=== PATIENT | male | born 1960 | race African-American/Black ===

== ENCOUNTER 2023-01-19 10:41 | Inpatient (IN) ==
[2023-01-19] MEDS ORDERED: LACTATED RINGER'S 1,000 ML IV ONE ×3 (11:07→12:48)
[2023-01-19] MEDS ORDERED: SODIUM CHLORIDE 0.9% 1,000 ML IV ONE ×2 (11:09→13:18)
[2023-01-19] MEDS ORDERED: PIPERACILLIN/TAZOBACTAM 4.5 GM/100 ML BAG IV ONE (11:09)
[2023-01-19] MEDS ORDERED: VANCOMYCIN HCL 1,250 MG in SODIUM CHLORIDE 0.9% 500 ML IV ONE (11:22)
[2023-01-19] MEDS ORDERED: VANCOMYCIN CONSULT ACTIVE PRN ×2 (11:22→14:55)
--- NOTE | 2023-01-19 11:22 | Emergency Department Note ---
Impression & Plan Sepsis, Hypothermia, Acute alteration in mental status, Pneumonia, Urinary tract infection, Acidosis, lactic ED Provider Note NAME: KERLINE [id number] BLANCO AGE: 62 SEX: M : 1960 ARRIVES VIA: Ambulance INFORMANT: Patient, EMS, the nursing home guards the patient's present documentation ED PROVIDER(S): Ji Loera DO CHIEF COMPLAINT: Altered mental status HPI: The patient is a 62-year-old male. He is unable to provide much history. History was obtained from the EMS personnel as well as the patient's staff at the nursing home. We did call the staff and apparently the patient has been having changes in his mental status over the course last few days. He has not been eating or drinking. He appeared to be obtunded in his cell. The patient's cell was breached today. The patient had what was describes as a seizure. It is unclear exactly what happened but the patient was having shaking all over. There is no reported vomiting or aspiration. There is been no reported trauma. The patient was not compliant with his medications recently. There is been no reported infections. ROS: See above HPI for pertinent positives & negatives. A total of 10 systems reviewed and were otherwise negative. PAST MEDICAL HISTORY: See Below PAST SURGICAL HISTORY: See Below FAMILY HISTORY: See Below SOCIAL HISTORY: See Below HOME MEDICATIONS: See Below ALLERGIES: See Below VITALS: See Below PHYSICAL EXAMINATION: GENERAL: The patient does not respond to verbal commands. He does localize pain. EYES: The conjunctivae are clear. The pupils are constricted bilaterally. EARS, NOSE, MOUTH AND THROAT: The nose is without any evidence of any deformity. NECK: The neck is nontender and supple. RESPIRATORY: Shallow respirations were noted. Diminished breath sounds are noted throughout especially in the right lung field. CARDIOVASCULAR: Bradycardic and regular heart sounds were noted to auscultation. There is no definite murmur GASTROINTESTINAL: The abdomen is soft. Abdomen is nontender. MUSCULOSKELETAL/EXTREMITIES: There is no evidence of gross deformity full range of motion is noted in the hips and shoulders. SKIN: Skin was cool and dry. There is no significant pedal edema. NEUROLOGIC: The patient does not respond to verbal commands. Patellar tendon reflexes were absent bilaterally. MEDICAL DECISION MAKING: The patient is a 62-year-old male who presented to the emergency department from the nursing home for an evaluation of possible seizure activity and altered mental status. The patient appeared to be more septic on my physical exam. There is no definite seizure activity witnessed by myself or other medical staff. The patient was treated with IV fluids as well as IV antibiotics in the emergency department. He was reevaluated multiple times. He does appear to have signs of pneumonia on chest x-ray. This could represent aspiration given the patient's altered mental status. He was also found have signs of urinary tract infection on urinalysis. The patient continued to be altered. He was hypothermic. He was treated with warming blankets and warmed IV fluids. He was reevaluated multiple times. He did have a spinal tap done in the emergency department. This does not appear to be consistent with definite meningitis. There was elevation in the CSF white blood cell count however it could also be more related to the fact that was a bloody tap. I discussed the patient's condition with the on-call [facility] hospitalist. They have agreed to evaluate the patient in the emergency department for further management and disposition. Triage Nursing notes reviewed. Prior medical records reviewed Vital Signs: reviewed and remarkable for hypothermia, bradycardia and hypotension. Differential diagnosis: Infection, hypoglycemia, electrolyte abnormalities, overdose, toxicologic, cardiac sources, intracerebral event, neurologic, trauma, as well as other pathologies. ER treatment provided: See below Diagnostics interpreted by me: ECG: EKG was obtained in the emergency department. My interpretation is sinus bradycardia with first-degree AV block. T wave abnormalities were noted. QTc was 531. This was compared to a tracing from August 10, 2022. The T wave inversion was present on the previous tracing however the QTc at that time was 452. Cardiac Monitoring: An order was placed for continuous cardiac monitoring. The monitor shows a rate of 55 bpm with sinus bradycardia. Laboratory studies: As stated above and show below. Imaging studies: See below. Radiographic imaging was reviewed by myself Consultation(s): I discussed this case with Dr. Shaver [facility] COURSE: Procedures: Lumbar Puncture Indication: Altered mental status and sepsis. Verbal consent was obtained after the risks and benefits were explained, including but not limited to headache, bleeding/clotting, scarring, infection, pain, and bone/joint/nerve damage. At this time, the risks of the procedure are less than the risks of NOT performing the procedure. A time out was taken and the correct patient and site identified. The patient was placed in the seated position and the back was prepped with betadine and draped in the standard fashion. The L3 intervertebral space was identified, anesthetized locally with 1% lidocaine without epinephrine, and the spinal needle was inserted through the skin with the bevel parallel to the dural fibers. The needle was carefully advanced into the lumbar cistern and 4 tubes of bloody CSF was obtained. The stylet was replaced and the needle was removed. A bandaid was placed and the patient was placed in the supine position. The patient tolerated the procedure well and there were no complications. Critical Care: I have personally spent greater than 65 minutes of critical care time in the direct management of this patient. This includes bedside care, interpretation of diagnostic studies, and testing, discussion with consultants, patient, and family members, and other required patient management activities. This 65 minutes is in excess of all separately billable procedures. Past Med/Surg History Medical History Dementia HLD (hyperlipidemia) Social History Smoking Status: Unknown if ever smoked Tobacco Type: Cigarettes Preferred Language: Israeli Feels Safe at Home: Yes Allergies Allergies Allergy/AdvReac Type Severity Reaction Status Date / Time No Known Allergies Allergy Verified 01/19/23 13:00 Home Meds Home Medications Medication Instructions Recorded Confirmed citalopram 10 mg tablet (Celexa) 5 mg PO DAILY 08/09/22 01/19/23 docusate sodium 250 mg capsule 250 mg PO DAILY PRN Constipation 08/09/22 01/19/23 donepezil 10 mg tablet 10 mg PO DAILY 08/09/22 01/19/23 olanzapine 10 mg tablet (Zyprexa) 10 mg PO HS 08/09/22 01/19/23 rosuvastatin 20 mg tablet (Crestor) 20 mg PO DAILY 08/09/22 01/19/23 olanzapine 2.5 mg tablet 2.5 mg PO QAM 01/19/23 01/19/23 Results & Data (ED) Vital Signs Vital Signs - 24 hr 01/19/23 10:53 01/19/23 10:53 01/19/23 10:53 Temperature 31.9 C L Temperature Source Rectal Pulse Rate 52 L 49 L Pulse Rhythm Regular Pulse Strength Normal Respiratory Rate 22 23 Respiratory Effort / Characteristics Non-Labored Respiratory Depth Normal Respiratory Pattern Regular Blood Pressure 93/58 L Blood Pressure Mean 69 Pulse Oximetry 100 100 100 Oxygen Delivery Method Room Air Room Air Sepsis Recent Fever Within 48 Hours No Sepsis New/Unexplained Change in Mental Status N/A Sepsis Action Taken by Nursing No Action Required 01/19/23 10:56 01/19/23 11:00 01/19/23 11:30 Temperature Temperature Source Pulse Rate 58 L 48 L 58 L Pulse Rhythm Pulse Strength Respiratory Rate 18 19 Respiratory Effort / Characteristics Respiratory Depth Respiratory Pattern Blood Pressure 93/58 L 91/65 L Blood Pressure Mean 69 73 Pulse Oximetry 100 100 Oxygen Delivery Method Room Air Room Air Sepsis Recent Fever Within 48 Hours Sepsis New/Unexplained Change in Mental Status Sepsis Action Taken by Nursing 01/19/23 11:40 01/19/23 11:59 01/19/23 12:00 Temperature 31.8 C L 32.0 C L 32.0 C L Temperature Source Pulse Rate 62 57 L 57 L Pulse Rhythm Pulse Strength Respiratory Rate 28 H 26 H 23 Respiratory Effort / Characteristics Respiratory Depth Respiratory Pattern Blood Pressure Blood Pressure Mean Pulse Oximetry 100 Oxygen Delivery Method Room Air Sepsis Recent Fever Within 48 Hours Sepsis New/Unexplained Change in Mental Status Sepsis Action Taken by Nursing 01/19/23 12:01 01/19/23 12:10 01/19/23 12:20 Temperature 32.0 C L 32.0 C L 32.0 C L Temperature Source Pulse Rate 55 L 56 L 63 Pulse Rhythm Pulse Strength Respiratory Rate 21 18 23 Respiratory Effort / Characteristics Respiratory Depth Respiratory Pattern Blood Pressure 84/50 L Blood Pressure Mean 61 Pulse Oximetry 93 93 Oxygen Delivery Method Room Air Room Air Sepsis Recent Fever Within 48 Hours Sepsis New/Unexplained Change in Mental Status Sepsis Action Taken by Nursing 01/19/23 12:21 01/19/23 12:30 01/19/23 12:40 Temperature 32.0 C L 31.9 C L 31.9 C L Temperature Source Pulse Rate 55 L 54 L 55 L Pulse Rhythm Pulse Strength Respiratory Rate 12 26 H 23 Respiratory Effort / Characteristics Respiratory Depth Respiratory Pattern Blood Pressure 91/52 L 86/54 L Blood Pressure Mean 65 64 Pulse Oximetry 92 92 90 Oxygen Delivery Method Room Air Room Air Room Air Sepsis Recent Fever Within 48 Hours Sepsis New/Unexplained Change in Mental Status Sepsis Action Taken by Nursing 01/19/23 12:58 01/19/23 13:00 01/19/23 13:10 Temperature 31.9 C L 31.9 C L 32.0 C L Temperature Source Pulse Rate 56 L 55 L 56 L Pulse Rhythm Pulse Strength Respiratory Rate 23 22 21 Respiratory Effort / Characteristics Respiratory Depth Respiratory Pattern Blood Pressure 90/55 L 83/55 L 82/53 L Blood Pressure Mean 66 64 62 Pulse Oximetry 96 96 97 Oxygen Delivery Method Room Air Room Air Room Air Sepsis Recent Fever Within 48 Hours Sepsis New/Unexplained Change in Mental Status Sepsis Action Taken by Nursing 01/19/23 13:15 01/19/23 13:20 01/19/23 13:27 Temperature 32.0 C L 32.0 C L 32.1 C L Temperature Source Pulse Rate 57 L 58 L 62 Pulse Rhythm Pulse Strength Respiratory Rate 24 22 20 Respiratory Effort / Characteristics Respiratory Depth Respiratory Pattern Blood Pressure 77/53 L 93/59 L Blood Pressure Mean 61 70 Pulse Oximetry 97 96 96 Oxygen Delivery Method Room Air Room Air Room Air Sepsis Recent Fever Within 48 Hours Sepsis New/Unexplained Change in Mental Status Sepsis Action Taken by Nursing 01/19/23 13:30 Temperature 32.1 C L Temperature Source Pulse Rate 55 L Pulse Rhythm Pulse Strength Respiratory Rate 18 Respiratory Effort / Characteristics Respiratory Depth Respiratory Pattern Blood Pressure 85/53 L Blood Pressure Mean 63 Pulse Oximetry 94 Oxygen Delivery Method Room Air Sepsis Recent Fever Within 48 Hours Sepsis New/Unexplained Change in Mental Status Sepsis Action Taken by Correction Medications Current Medication List: was personally reviewed by me Laboratory Data Attestation: I reviewed the patient's lab results. 01/19/23 11:05 01/19/23 11:05 Lab Results 01/19/23 01/19/23 01/19/23 Range/Units 11:05 11:05 11:05 WBC 6.65 (4.8-10.8) K/ul RBC 4.74 (4.70-6.10) M/uL Hgb 13.2 L (14.0-18.0) g/dl Hct 38.9 L (42.0-52.0) % MCV 82.1 (80.0-100.0) fL MCH 27.8 (25.0-34.0) pg MCHC 33.9 (32.0-36.0) g/dL RDW Std Deviation 41.2 (36.4-46.3) fL RDW Coeff of Yoli 13.9 (11.5-14.5) % Plt Count 119 L (130-400) K/uL MPV 10.4 (9.4-12.4) fL Immature Gran % (Auto) 0.2 % Neut % (Auto) 91.6 % Lymph % (Auto) 6.8 % Lynn % (Auto) 1.2 % Eos % (Auto) 0.0 % Baso % (Auto) 0.2 % Neut # (Auto) 6.10 (1.40-6.50) K/uL Lymph # (Auto) 0.45 L (1.20-3.40) K/uL Lynn # (Auto) 0.08 L (0.11-0.59) K/uL Eos # (Auto) 0.00 (0.00-0.50) K/uL Baso # (Auto) 0.01 (0.00-0.20) K/uL Immature Gran # (Auto) 0.01 (0.01-0.20) K/uL Absolute Nucleated RBC 0.06 (0.00-0.12) K/uL Nucleated RBC % (auto) 0.9 % Echinocytes 3+ Sodium 140 (136-145) mmol/L Potassium 3.6 (3.5-5.1) mmol/L Chloride 105 (98-107) mmol/L Carbon Dioxide 24 (21-32) mmol/L Anion Gap 11 (3-11) BUN 24 H (6-23) mg/dl Creatinine 0.79 (0.6-1.4) mg/dl Est Cr Clr Drug Dosing Not Reportable Est GFR ( Amer) 110.8 ml/min Est GFR (Non-Af Amer) 95.6 ml/min BUN/Creatinine Ratio 30.4 H (10-20) Glucose 128 H (70-99(Fasting)) mg/dl Osmolality (280-300) mOsm/kg Lactate 7.2 H* (0.4-2.0) mmol/L Calcium 9.2 (8.6-10.3) mg/dl Magnesium 1.8 (1.7-2.4) mg/dl Total Bilirubin 0.5 (0.2-1.0) mg/dl Direct Bilirubin 0.1 (0-0.2) mg/dl AST 81 H (13-39) U/L ALT 82 H (7-52) U/L Alkaline Phosphatase 72 (34-104) U/L Total Protein 6.1 (6.0-8.3) gm/dl Albumin 3.3 L (3.4-5.0) gm/dl Procalcitonin (0-0.5) ng/ml TSH 2.565 (0.300-4.500) uIu/ml Random Cortisol mcg/dl Urine Color Urine Appearance (Clear) Urine pH (4.5-7.5) Ur Specific [place] (1.000-1.030) Urine Protein (Negative) Urine Glucose (UA) (Negative) Urine Ketones (Negative) Urine Blood (Negative) Urine Nitrite (Negative) Urine Bilirubin (Negative) Urine Urobilinogen (Negative) Ur Leukocyte Esterase (Negative) Urine WBC (Auto) (0-5) /hpf Urine RBC (Auto) (0-4) /hpf U Hyaline Cast (Auto) (0-5) /lpf U Epithel Cells (Auto) (0-5) /lpf Urine Bacteria (Auto) (Negative) Urine Crystals Urine Yeast Urine Osmolality (500-800) mOsm/kg Fluid Comment CSF Appearance CSF Color Xanthrochromic CSF WBC (Auto) (0-5) /uL CSF RBC (Auto) (0-) /uL CSF Cell Count Tube # CSF Mononuclear % Auto % CSF Polynuclear WBCs % CSF Chemistry Tube # CSF Glucose (40-70) mg/dl CSF Total Protein (15-45) mg/dl CSF C.neoform/gat PCR (NotDetected) CSF CMV DNA (PCR) (NotDetected) CSF Enterovirus (PCR) (NotDetected) CSF E. coli K1 (PCR) (NotDetected) CSF H. influenzae (PCR) (NotDetected) CSF HSV I (PCR) (NotDetected) CSF HSV II (PCR) (NotDetected) CSF HHV 6 (PCR) (NotDetected) CSF L.monocytogenes PCR (NotDetected) CSF N. meningitidis PCR (NotDetected) CSF Parechovirus (PCR) (NotDetected) CSF S. agalactiae (PCR) (NotDetected) CSF S. pneumoniae (PCR) (NotDetected) CSF VZV DNA (PCR) (NotDetected) Nasal Screen MRSA (PCR) (Negative) Urine Opiates Screen (Neg) Ur Methadone, Qual (Neg) Urine Barbiturates (Neg) Ur Phencyclidine (PCP) (Neg) U Amphetamin/Meth Scrn (Neg) MDMA (Ecstasy) Screen (Neg) U Benzodiazepines Scrn (Neg) Ur Cocaine Metabolite (Neg) U Marijuana (THC) Screen (Neg) Ethyl Alcohol mg/dL (<10.0) mg/dl Adenovirus (PCR) (NotDetected) B. pertussis DNA (PCR) (NotDetected) B.parapertussis DNA PCR (NotDetected) C. pneumoniae DNA (PCR) (NotDetected) Coronavirus OC43 (PCR) (NotDetected) Coronavirus HKU1 (PCR) (NotDetected) Coronavirus 229E (PCR) (NotDetected) SARS-CoV-2 (PCR) (NotDetected) Coronavirus NL63 (PCR) (NotDetected) Human Metapneumovir PCR (NotDetected) Influenza Type A (PCR) (NotDetected) Influenza Type B (PCR) (NotDetected) M. pneumoniae (PCR) (NotDetected) Parainfluenza 1 (PCR) (NotDetected) Parainfluenza 2 (PCR) (NotDetected) Parainfluenza 3 (PCR) (NotDetected) Parainfluenza 4 (PCR) (NotDetected) RSV (PCR) (NotDetected) Entero/Rhino (PCR) (NotDetected) 01/19/23 01/19/23 01/19/23 Range/Units 11:05 11:05 11:05 WBC (4.8-10.8) K/ul RBC (4.70-6.10) M/uL Hgb (14.0-18.0) g/dl Hct (42.0-52.0) % MCV (80.0-100.0) fL MCH (25.0-34.0) pg MCHC (32.0-36.0) g/dL RDW Std Deviation (36.4-46.3) fL RDW Coeff of Yoli (11.5-14.5) % Plt Count (130-400) K/uL MPV (9.4-12.4) fL Immature Gran % (Auto) % Neut % (Auto) % Lymph % (Auto) % Lynn % (Auto) % Eos % (Auto) % Baso % (Auto) % Neut # (Auto) (1.40-6.50) K/uL Lymph # (Auto) (1.20-3.40) K/uL Lynn # (Auto) (0.11-0.59) K/uL Eos # (Auto) (0.00-0.50) K/uL Baso # (Auto) (0.00-0.20) K/uL Immature Gran # (Auto) (0.01-0.20) K/uL Absolute Nucleated RBC (0.00-0.12) K/uL Nucleated RBC % (auto) % Echinocytes Sodium (136-145) mmol/L Potassium (3.5-5.1) mmol/L Chloride (98-107) mmol/L Carbon Dioxide (21-32) mmol/L Anion Gap (3-11) BUN (6-23) mg/dl Creatinine (0.6-1.4) mg/dl Est Cr Clr Drug Dosing Est GFR ( Amer) ml/min Est GFR (Non-Af Amer) ml/min BUN/Creatinine Ratio (10-20) Glucose (70-99(Fasting)) mg/dl Osmolality 301 H (280-300) mOsm/kg Lactate (0.4-2.0) mmol/L Calcium (8.6-10.3) mg/dl Magnesium (1.7-2.4) mg/dl Total Bilirubin (0.2-1.0) mg/dl Direct Bilirubin (0-0.2) mg/dl AST (13-39) U/L ALT (7-52) U/L Alkaline Phosphatase (34-104) U/L Total Protein (6.0-8.3) gm/dl Albumin (3.4-5.0) gm/dl Procalcitonin 0.42 (0-0.5) ng/ml TSH Cancelled (0.300-4.500) uIu/ml Random Cortisol mcg/dl Urine Color Urine Appearance (Clear) Urine pH (4.5-7.5) Ur Specific [place] (1.000-1.030) Urine Protein (Negative) Urine Glucose (UA) (Negative) Urine Ketones (Negative) Urine Blood (Negative) Urine Nitrite (Negative) Urine Bilirubin (Negative) Urine Urobilinogen (Negative) Ur Leukocyte Esterase (Negative) Urine WBC (Auto) (0-5) /hpf Urine RBC (Auto) (0-4) /hpf U Hyaline Cast (Auto) (0-5) /lpf U Epithel Cells (Auto) (0-5) /lpf Urine Bacteria (Auto) (Negative) Urine Crystals Urine Yeast Urine Osmolality (500-800) mOsm/kg Fluid Comment CSF Appearance CSF Color Xanthrochromic CSF WBC (Auto) (0-5) /uL CSF RBC (Auto) (0-) /uL CSF Cell Count Tube # CSF Mononuclear % Auto % CSF Polynuclear WBCs % CSF Chemistry Tube # CSF Glucose (40-70) mg/dl CSF Total Protein (15-45) mg/dl CSF C.neoform/gat PCR (NotDetected) CSF CMV DNA (PCR) (NotDetected) CSF Enterovirus (PCR) (NotDetected) CSF E. coli K1 (PCR) (NotDetected) CSF H. influenzae (PCR) (NotDetected) CSF HSV I (PCR) (NotDetected) CSF HSV II (PCR) (NotDetected) CSF HHV 6 (PCR) (NotDetected) CSF L.monocytogenes PCR (NotDetected) CSF N. meningitidis PCR (NotDetected) CSF Parechovirus (PCR) (NotDetected) CSF S. agalactiae (PCR) (NotDetected) CSF S. pneumoniae (PCR) (NotDetected) CSF VZV DNA (PCR) (NotDetected) Nasal Screen MRSA (PCR) (Negative) Urine Opiates Screen (Neg) Ur Methadone, Qual (Neg) Urine Barbiturates (Neg) Ur Phencyclidine (PCP) (Neg) U Amphetamin/Meth Scrn (Neg) MDMA (Ecstasy) Screen (Neg) U Benzodiazepines Scrn (Neg) Ur Cocaine Metabolite (Neg) U Marijuana (THC) Screen (Neg) Ethyl Alcohol mg/dL (<10.0) mg/dl Adenovirus (PCR) (NotDetected) B. pertussis DNA (PCR) (NotDetected) B.parapertussis DNA PCR (NotDetected) C. pneumoniae DNA (PCR) (NotDetected) Coronavirus OC43 (PCR) (NotDetected) Coronavirus HKU1 (PCR) (NotDetected) Coronavirus 229E (PCR) (NotDetected) SARS-CoV-2 (PCR) (NotDetected) Coronavirus NL63 (PCR) (NotDetected) Human Metapneumovir PCR (NotDetected) Influenza Type A (PCR) (NotDetected) Influenza Type B (PCR) (NotDetected) M. pneumoniae (PCR) (NotDetected) Parainfluenza 1 (PCR) (NotDetected) Parainfluenza 2 (PCR) (NotDetected) Parainfluenza 3 (PCR) (NotDetected) Parainfluenza 4 (PCR) (NotDetected) RSV (PCR) (NotDetected) Entero/Rhino (PCR) (NotDetected) 01/19/23 01/19/23 01/19/23 Range/Units 11:05 11:27 11:27 WBC (4.8-10.8) K/ul RBC (4.70-6.10) M/uL Hgb (14.0-18.0) g/dl Hct (42.0-52.0) % MCV (80.0-100.0) fL MCH (25.0-34.0) pg MCHC (32.0-36.0) g/dL RDW Std Deviation (36.4-46.3) fL RDW Coeff of Yoli (11.5-14.5) % Plt Count (130-400) K/uL MPV (9.4-12.4) fL Immature Gran % (Auto) % Neut % (Auto) % Lymph % (Auto) % Lynn % (Auto) % Eos % (Auto) % Baso % (Auto) % Neut # (Auto) (1.40-6.50) K/uL Lymph # (Auto) (1.20-3.40) K/uL Lynn # (Auto) (0.11-0.59) K/uL Eos # (Auto) (0.00-0.50) K/uL Baso # (Auto) (0.00-0.20) K/uL Immature Gran # (Auto) (0.01-0.20) K/uL Absolute Nucleated RBC (0.00-0.12) K/uL Nucleated RBC % (auto) % Echinocytes Sodium (136-145) mmol/L Potassium (3.5-5.1) mmol/L Chloride (98-107) mmol/L Carbon Dioxide (21-32) mmol/L Anion Gap (3-11) BUN (6-23) mg/dl Creatinine (0.6-1.4) mg/dl Est Cr Clr Drug Dosing Est GFR ( Amer) ml/min Est GFR (Non-Af Amer) ml/min BUN/Creatinine Ratio (10-20) Glucose (70-99(Fasting)) mg/dl Osmolality (280-300) mOsm/kg Lactate (0.4-2.0) mmol/L Calcium (8.6-10.3) mg/dl Magnesium (1.7-2.4) mg/dl Total Bilirubin (0.2-1.0) mg/dl Direct Bilirubin (0-0.2) mg/dl AST (13-39) U/L ALT (7-52) U/L Alkaline Phosphatase (34-104) U/L Total Protein (6.0-8.3) gm/dl Albumin (3.4-5.0) gm/dl Procalcitonin (0-0.5) ng/ml TSH (0.300-4.500) uIu/ml Random Cortisol 39.68 mcg/dl Urine Color Yellow Urine Appearance Cloudy A (Clear) Urine pH 5.5 (4.5-7.5) Ur Specific [place] 1.029 (1.000-1.030) Urine Protein 1+ H (Negative) Urine Glucose (UA) Negative (Negative) Urine Ketones Trace H (Negative) Urine Blood 2+ H (Negative) Urine Nitrite Positive A (Negative) Urine Bilirubin Negative (Negative) Urine Urobilinogen Negative (Negative) Ur Leukocyte Esterase 2+ H (Negative) Urine WBC (Auto) >30 H (0-5) /hpf Urine RBC (Auto) 10-30 H (0-4) /hpf U Hyaline Cast (Auto) 10-30 H (0-5) /lpf U Epithel Cells (Auto) 0-5 (0-5) /lpf Urine Bacteria (Auto) 4+ H (Negative) Urine Crystals Not Reportable Urine Yeast Not Reportable Urine Osmolality 872 H (500-800) mOsm/kg Fluid Comment CSF Appearance CSF Color Xanthrochromic CSF WBC (Auto) (0-5) /uL CSF RBC (Auto) (0-) /uL CSF Cell Count Tube # CSF Mononuclear % Auto % CSF Polynuclear WBCs % CSF Chemistry Tube # CSF Glucose (40-70) mg/dl CSF Total Protein (15-45) mg/dl CSF C.neoform/gat PCR (NotDetected) CSF CMV DNA (PCR) (NotDetected) CSF Enterovirus (PCR) (NotDetected) CSF E. coli K1 (PCR) (NotDetected) CSF H. influenzae (PCR) (NotDetected) CSF HSV I (PCR) (NotDetected) CSF HSV II (PCR) (NotDetected) CSF HHV 6 (PCR) (NotDetected) CSF L.monocytogenes PCR (NotDetected) CSF N. meningitidis PCR (NotDetected) CSF Parechovirus (PCR) (NotDetected) CSF S. agalactiae (PCR) (NotDetected) CSF S. pneumoniae (PCR) (NotDetected) CSF VZV DNA (PCR) (NotDetected) Nasal Screen MRSA (PCR) (Negative) Urine Opiates Screen (Neg) Ur Methadone, Qual (Neg) Urine Barbiturates (Neg) Ur Phencyclidine (PCP) (Neg) U Amphetamin/Meth Scrn (Neg) MDMA (Ecstasy) Screen (Neg) U Benzodiazepines Scrn (Neg) Ur Cocaine Metabolite (Neg) U Marijuana (THC) Screen (Neg) Ethyl Alcohol mg/dL (<10.0) mg/dl Adenovirus (PCR) (NotDetected) B. pertussis DNA (PCR) (NotDetected) B.parapertussis DNA PCR (NotDetected) C. pneumoniae DNA (PCR) (NotDetected) Coronavirus OC43 (PCR) (NotDetected) Coronavirus HKU1 (PCR) (NotDetected) Coronavirus 229E (PCR) (NotDetected) SARS-CoV-2 (PCR) (NotDetected) Coronavirus NL63 (PCR) (NotDetected) Human Metapneumovir PCR (NotDetected) Influenza Type A (PCR) (NotDetected) Influenza Type B (PCR) (NotDetected) M. pneumoniae (PCR) (NotDetected) Parainfluenza 1 (PCR) (NotDetected) Parainfluenza 2 (PCR) (NotDetected) Parainfluenza 3 (PCR) (NotDetected) Parainfluenza 4 (PCR) (NotDetected) RSV (PCR) (NotDetected) Entero/Rhino (PCR) (NotDetected) 01/19/23 01/19/23 01/19/23 Range/Units 11:27 11:57 12:15 WBC (4.8-10.8) K/ul RBC (4.70-6.10) M/uL Hgb (14.0-18.0) g/dl Hct (42.0-52.0) % MCV (80.0-100.0) fL MCH (25.0-34.0) pg MCHC (32.0-36.0) g/dL RDW Std Deviation (36.4-46.3) fL RDW Coeff of Yoli (11.5-14.5) % Plt Count (130-400) K/uL MPV (9.4-12.4) fL Immature Gran % (Auto) % Neut % (Auto) % Lymph % (Auto) % Lynn % (Auto) % Eos % (Auto) % Baso % (Auto) % Neut # (Auto) (1.40-6.50) K/uL Lymph # (Auto) (1.20-3.40) K/uL Lynn # (Auto) (0.11-0.59) K/uL Eos # (Auto) (0.00-0.50) K/uL Baso # (Auto) (0.00-0.20) K/uL Immature Gran # (Auto) (0.01-0.20) K/uL Absolute Nucleated RBC (0.00-0.12) K/uL Nucleated RBC % (auto) % Echinocytes Sodium (136-145) mmol/L Potassium (3.5-5.1) mmol/L Chloride (98-107) mmol/L Carbon Dioxide (21-32) mmol/L Anion Gap (3-11) BUN (6-23) mg/dl Creatinine (0.6-1.4) mg/dl Est Cr Clr Drug Dosing Est GFR ( Amer) ml/min Est GFR (Non-Af Amer) ml/min BUN/Creatinine Ratio (10-20) Glucose (70-99(Fasting)) mg/dl Osmolality (280-300) mOsm/kg Lactate (0.4-2.0) mmol/L Calcium (8.6-10.3) mg/dl Magnesium (1.7-2.4) mg/dl Total Bilirubin (0.2-1.0) mg/dl Direct Bilirubin (0-0.2) mg/dl AST (13-39) U/L ALT (7-52) U/L Alkaline Phosphatase (34-104) U/L Total Protein (6.0-8.3) gm/dl Albumin (3.4-5.0) gm/dl Procalcitonin (0-0.5) ng/ml TSH (0.300-4.500) uIu/ml Random Cortisol mcg/dl Urine Color Urine Appearance (Clear) Urine pH (4.5-7.5) Ur Specific [place] (1.000-1.030) Urine Protein (Negative) Urine Glucose (UA) (Negative) Urine Ketones (Negative) Urine Blood (Negative) Urine Nitrite (Negative) Urine Bilirubin (Negative) Urine Urobilinogen (Negative) Ur Leukocyte Esterase (Negative) Urine WBC (Auto) (0-5) /hpf Urine RBC (Auto) (0-4) /hpf U Hyaline Cast (Auto) (0-5) /lpf U Epithel Cells (Auto) (0-5) /lpf Urine Bacteria (Auto) (Negative) Urine Crystals Urine Yeast Urine Osmolality (500-800) mOsm/kg Fluid Comment CSF Appearance CSF Color Xanthrochromic CSF WBC (Auto) (0-5) /uL CSF RBC (Auto) (0-) /uL CSF Cell Count Tube # CSF Mononuclear % Auto % CSF Polynuclear WBCs % CSF Chemistry Tube # CSF Glucose (40-70) mg/dl CSF Total Protein (15-45) mg/dl CSF C.neoform/gat PCR Not Detected (NotDetected) CSF CMV DNA (PCR) Not Detected (NotDetected) CSF Enterovirus (PCR) Not Detected (NotDetected) CSF E. coli K1 (PCR) Not Detected (NotDetected) CSF H. influenzae (PCR) Not Detected (NotDetected) CSF HSV I (PCR) Not Detected (NotDetected) CSF HSV II (PCR) Not Detected (NotDetected) CSF HHV 6 (PCR) Not Detected (NotDetected) CSF L.monocytogenes PCR Not Detected (NotDetected) CSF N. meningitidis PCR Not Detected (NotDetected) CSF Parechovirus (PCR) Not Detected (NotDetected) CSF S. agalactiae (PCR) Not Detected (NotDetected) CSF S. pneumoniae (PCR) Not Detected (NotDetected) CSF VZV DNA (PCR) Not Detected (NotDetected) Nasal Screen MRSA (PCR) (Negative) Urine Opiates Screen Neg (Neg) Ur Methadone, Qual Neg (Neg) Urine Barbiturates Neg (Neg) Ur Phencyclidine (PCP) Neg (Neg) U Amphetamin/Meth Scrn Neg (Neg) MDMA (Ecstasy) Screen Neg (Neg) U Benzodiazepines Scrn Neg (Neg) Ur Cocaine Metabolite Neg (Neg) U Marijuana (THC) Screen Neg (Neg) Ethyl Alcohol mg/dL (<10.0) mg/dl Adenovirus (PCR) Not Detected (NotDetected) B. pertussis DNA (PCR) Not Detected (NotDetected) B.parapertussis DNA PCR Not Detected (NotDetected) C. pneumoniae DNA (PCR) Not Detected (NotDetected) Coronavirus OC43 (PCR) Not Detected (NotDetected) Coronavirus HKU1 (PCR) Not Detected (NotDetected) Coronavirus 229E (PCR) Not Detected (NotDetected) SARS-CoV-2 (PCR) Not Detected (NotDetected) Coronavirus NL63 (PCR) Not Detected (NotDetected) Human Metapneumovir PCR Not Detected (NotDetected) Influenza Type A (PCR) Not Detected (NotDetected) Influenza Type B (PCR) Not Detected (NotDetected) M. pneumoniae (PCR) Not Detected (NotDetected) Parainfluenza 1 (PCR) Not Detected (NotDetected) Parainfluenza 2 (PCR) Not Detected (NotDetected) Parainfluenza 3 (PCR) Not Detected (NotDetected) Parainfluenza 4 (PCR) Not Detected (NotDetected) RSV (PCR) Not Detected (NotDetected) Entero/Rhino (PCR) Not Detected (NotDetected) 01/19/23 01/19/23 01/19/23 Range/Units 12:15 12:15 12:42 WBC (4.8-10.8) K/ul RBC (4.70-6.10) M/uL Hgb (14.0-18.0) g/dl Hct (42.0-52.0) % MCV (80.0-100.0) fL MCH (25.0-34.0) pg MCHC (32.0-36.0) g/dL RDW Std Deviation (36.4-46.3) fL RDW Coeff of Yoli (11.5-14.5) % Plt Count (130-400) K/uL MPV (9.4-12.4) fL Immature Gran % (Auto) % Neut % (Auto) % Lymph % (Auto) % Lynn % (Auto) % Eos % (Auto) % Baso % (Auto) % Neut # (Auto) (1.40-6.50) K/uL Lymph # (Auto) (1.20-3.40) K/uL Lynn # (Auto) (0.11-0.59) K/uL Eos # (Auto) (0.00-0.50) K/uL Baso # (Auto) (0.00-0.20) K/uL Immature Gran # (Auto) (0.01-0.20) K/uL Absolute Nucleated RBC (0.00-0.12) K/uL Nucleated RBC % (auto) % Echinocytes Sodium (136-145) mmol/L Potassium (3.5-5.1) mmol/L Chloride (98-107) mmol/L Carbon Dioxide (21-32) mmol/L Anion Gap (3-11) BUN (6-23) mg/dl Creatinine (0.6-1.4) mg/dl Est Cr Clr Drug Dosing Est GFR ( Amer) ml/min Est GFR (Non-Af Amer) ml/min BUN/Creatinine Ratio (10-20) Glucose (70-99(Fasting)) mg/dl Osmolality (280-300) mOsm/kg Lactate (0.4-2.0) mmol/L Calcium (8.6-10.3) mg/dl Magnesium (1.7-2.4) mg/dl Total Bilirubin (0.2-1.0) mg/dl Direct Bilirubin (0-0.2) mg/dl AST (13-39) U/L ALT (7-52) U/L Alkaline Phosphatase (34-104) U/L Total Protein (6.0-8.3) gm/dl Albumin (3.4-5.0) gm/dl Procalcitonin (0-0.5) ng/ml TSH (0.300-4.500) uIu/ml Random Cortisol mcg/dl Urine Color Urine Appearance (Clear) Urine pH (4.5-7.5) Ur Specific [place] (1.000-1.030) Urine Protein (Negative) Urine Glucose (UA) (Negative) Urine Ketones (Negative) Urine Blood (Negative) Urine Nitrite (Negative) Urine Bilirubin (Negative) Urine Urobilinogen (Negative) Ur Leukocyte Esterase (Negative) Urine WBC (Auto) (0-5) /hpf Urine RBC (Auto) (0-4) /hpf U Hyaline Cast (Auto) (0-5) /lpf U Epithel Cells (Auto) (0-5) /lpf Urine Bacteria (Auto) (Negative) Urine Crystals Urine Yeast Urine Osmolality (500-800) mOsm/kg Fluid Comment CSF Appearance Bloody CSF Color [place] Xanthrochromic No xanthochromia CSF WBC (Auto) 19 H* (0-5) /uL CSF RBC (Auto) 47079 (0-) /uL CSF Cell Count Tube # 3 CSF Mononuclear % Auto 26.3 % CSF Polynuclear WBCs 73.7 % CSF Chemistry Tube # 1 CSF Glucose 74 H (40-70) mg/dl CSF Total Protein 119.9 H (15-45) mg/dl CSF C.neoform/gat PCR (NotDetected) CSF CMV DNA (PCR) (NotDetected) CSF Enterovirus (PCR) (NotDetected) CSF E. coli K1 (PCR) (NotDetected) CSF H. influenzae (PCR) (NotDetected) CSF HSV I (PCR) (NotDetected) CSF HSV II (PCR) (NotDetected) CSF HHV 6 (PCR) (NotDetected) CSF L.monocytogenes PCR (NotDetected) CSF N. meningitidis PCR (NotDetected) CSF Parechovirus (PCR) (NotDetected) CSF S. agalactiae (PCR) (NotDetected) CSF S. pneumoniae (PCR) (NotDetected) CSF VZV DNA (PCR) (NotDetected) Nasal Screen MRSA (PCR) (Negative) Urine Opiates Screen (Neg) Ur Methadone, Qual (Neg) Urine Barbiturates (Neg) Ur Phencyclidine (PCP) (Neg) U Amphetamin/Meth Scrn (Neg) MDMA (Ecstasy) Screen (Neg) U Benzodiazepines Scrn (Neg) Ur Cocaine Metabolite (Neg) U Marijuana (THC) Screen (Neg) Ethyl Alcohol mg/dL < 10.0 (<10.0) mg/dl Adenovirus (PCR) (NotDetected) B. pertussis DNA (PCR) (NotDetected) B.parapertussis DNA PCR (NotDetected) C. pneumoniae DNA (PCR) (NotDetected) Coronavirus OC43 (PCR) (NotDetected) Coronavirus HKU1 (PCR) (NotDetected) Coronavirus 229E (PCR) (NotDetected) SARS-CoV-2 (PCR) (NotDetected) Coronavirus NL63 (PCR) (NotDetected) Human Metapneumovir PCR (NotDetected) Influenza Type A (PCR) (NotDetected) Influenza Type B (PCR) (NotDetected) M. pneumoniae (PCR) (NotDetected) Parainfluenza 1 (PCR) (NotDetected) Parainfluenza 2 (PCR) (NotDetected) Parainfluenza 3 (PCR) (NotDetected) Parainfluenza 4 (PCR) (NotDetected) RSV (PCR) (NotDetected) Entero/Rhino (PCR) (NotDetected) 01/19/23 01/19/23 Range/Units 12:59 13:02 WBC (4.8-10.8) K/ul RBC (4.70-6.10) M/uL Hgb (14.0-18.0) g/dl Hct (42.0-52.0) % MCV (80.0-100.0) fL MCH (25.0-34.0) pg MCHC (32.0-36.0) g/dL RDW Std Deviation (36.4-46.3) fL RDW Coeff of Yoli (11.5-14.5) % Plt Count (130-400) K/uL MPV (9.4-12.4) fL Immature Gran % (Auto) % Neut % (Auto) % Lymph % (Auto) % Lynn % (Auto) % Eos % (Auto) % Baso % (Auto) % Neut # (Auto) (1.40-6.50) K/uL Lymph # (Auto) (1.20-3.40) K/uL Lynn # (Auto) (0.11-0.59) K/uL Eos # (Auto) (0.00-0.50) K/uL Baso # (Auto) (0.00-0.20) K/uL Immature Gran # (Auto) (0.01-0.20) K/uL Absolute Nucleated RBC (0.00-0.12) K/uL Nucleated RBC % (auto) % Echinocytes Sodium (136-145) mmol/L Potassium (3.5-5.1) mmol/L Chloride (98-107) mmol/L Carbon Dioxide (21-32) mmol/L Anion Gap (3-11) BUN (6-23) mg/dl Creatinine (0.6-1.4) mg/dl Est Cr Clr Drug Dosing Est GFR ( Amer) ml/min Est GFR (Non-Af Amer) ml/min BUN/Creatinine Ratio (10-20) Glucose (70-99(Fasting)) mg/dl Osmolality (280-300) mOsm/kg Lactate 5.4 H* (0.4-2.0) mmol/L Calcium (8.6-10.3) mg/dl Magnesium (1.7-2.4) mg/dl Total Bilirubin (0.2-1.0) mg/dl Direct Bilirubin (0-0.2) mg/dl AST (13-39) U/L ALT (7-52) U/L Alkaline Phosphatase (34-104) U/L Total Protein (6.0-8.3) gm/dl Albumin (3.4-5.0) gm/dl Procalcitonin (0-0.5) ng/ml TSH (0.300-4.500) uIu/ml Random Cortisol mcg/dl Urine Color Urine Appearance (Clear) Urine pH (4.5-7.5) Ur Specific [place] (1.000-1.030) Urine Protein (Negative) Urine Glucose (UA) (Negative) Urine Ketones (Negative) Urine Blood (Negative) Urine Nitrite (Negative) Urine Bilirubin (Negative) Urine Urobilinogen (Negative) Ur Leukocyte Esterase (Negative) Urine WBC (Auto) (0-5) /hpf Urine RBC (Auto) (0-4) /hpf U Hyaline Cast (Auto) (0-5) /lpf U Epithel Cells (Auto) (0-5) /lpf Urine Bacteria (Auto) (Negative) Urine Crystals Urine Yeast Urine Osmolality (500-800) mOsm/kg Fluid Comment CSF Appearance CSF Color Xanthrochromic CSF WBC (Auto) (0-5) /uL CSF RBC (Auto) (0-) /uL CSF Cell Count Tube # CSF Mononuclear % Auto % CSF Polynuclear WBCs % CSF Chemistry Tube # CSF Glucose (40-70) mg/dl CSF Total Protein (15-45) mg/dl CSF C.neoform/gat PCR (NotDetected) CSF CMV DNA (PCR) (NotDetected) CSF Enterovirus (PCR) (NotDetected) CSF E. coli K1 (PCR) (NotDetected) CSF H. influenzae (PCR) (NotDetected) CSF HSV I (PCR) (NotDetected) CSF HSV II (PCR) (NotDetected) CSF HHV 6 (PCR) (NotDetected) CSF L.monocytogenes PCR (NotDetected) CSF N. meningitidis PCR (NotDetected) CSF Parechovirus (PCR) (NotDetected) CSF S. agalactiae (PCR) (NotDetected) CSF S. pneumoniae (PCR) (NotDetected) CSF VZV DNA (PCR) (NotDetected) Nasal Screen MRSA (PCR) Negative (Negative) Urine Opiates Screen (Neg) Ur Methadone, Qual (Neg) Urine Barbiturates (Neg) Ur Phencyclidine (PCP) (Neg) U Amphetamin/Meth Scrn (Neg) MDMA (Ecstasy) Screen (Neg) U Benzodiazepines Scrn (Neg) Ur Cocaine Metabolite (Neg) U Marijuana (THC) Screen (Neg) Ethyl Alcohol mg/dL (<10.0) mg/dl Adenovirus (PCR) (NotDetected) B. pertussis DNA (PCR) (NotDetected) B.parapertussis DNA PCR (NotDetected) C. pneumoniae DNA (PCR) (NotDetected) Coronavirus OC43 (PCR) (NotDetected) Coronavirus HKU1 (PCR) (NotDetected) Coronavirus 229E (PCR) (NotDetected) SARS-CoV-2 (PCR) (NotDetected) Coronavirus NL63 (PCR) (NotDetected) Human Metapneumovir PCR (NotDetected) Influenza Type A (PCR) (NotDetected) Influenza Type B (PCR) (NotDetected) M. pneumoniae (PCR) (NotDetected) Parainfluenza 1 (PCR) (NotDetected) Parainfluenza 2 (PCR) (NotDetected) Parainfluenza 3 (PCR) (NotDetected) Parainfluenza 4 (PCR) (NotDetected) RSV (PCR) (NotDetected) Entero/Rhino (PCR) (NotDetected) Administered Medications Norepinephrine Bitartrate (Levophed/D5w) 4 mg in 250 mls @ 16.826 mls/hr IV .[id number] [facility]; Protocol Stop: 02/18/23 13:44 Last Titration: 01/19/23 14:06 Dose: 0.07 mcg/kg/min, 16.8 mls/hr Documented By: Admin: 01/19/23 13:47 Dose: 0.05 mcg/kg/min, 12 mls/hr Documented By: YAIMA Co-signed By: TONYA Discontinued Medications Lactated Ringer's (Lr) 1,000 mls @ 999 mls/hr IV .Q1H1M ONE Stop: 01/19/23 12:07 Last Infusion: 01/19/23 13:15 Dose: 0 mls/hr Documented By: [facility] Admin: 01/19/23 12:00 Dose: 999 mls/hr Documented By: [facility] Sodium Chloride (Nss) 1,000 mls @ 999 mls/hr IV .Q1H1M ONE Stop: 01/19/23 12:09 Last Infusion: 01/19/23 12:15 Dose: 0 mls/hr Documented By: [facility] Admin: 01/19/23 11:20 Dose: 999 mls/hr Documented By: [facility] Piperacillin Sod/Tazobactam Sod (Zosyn) 4.5 gm in 100 mls @ 200 mls/hr IV NOW ONE Stop: 01/19/23 11:38 Last Infusion: 01/19/23 12:30 Dose: 0 mls/hr Documented By: [facility] Admin: 01/19/23 11:21 Dose: 200 mls/hr Documented By: [facility] Vancomycin HCl 1,250 mg/ (Sodium Chloride) 525 mls @ 200 mls/hr IV NOW ONE Stop: 01/19/23 13:59 Last Admin: 01/19/23 12:25 Dose: 200 mls/hr Documented By: [facility] Lactated Ringer's (Lr) 1,000 mls @ 999 mls/hr IV .Q1H1M ONE Stop: 01/19/23 12:42 Last Infusion: 01/19/23 13:50 Dose: 0 mls/hr Documented By: [facility] Admin: 01/19/23 12:25 Dose: 999 mls/hr Documented By: [facility] Lactated Ringer's (Lr) 1,000 mls @ 999 mls/hr IV .Q1H1M ONE Stop: 01/19/23 13:48 Last Infusion: 01/19/23 14:09 Dose: 0 mls/hr Documented By: [facility] Admin: 01/19/23 13:04 Dose: 999 mls/hr Documented By: [facility] Sodium Chloride (Nss) 1,000 mls @ 999 mls/hr IV .Q1H1M ONE Stop: 01/19/23 14:18 Last Infusion: 01/19/23 14:19 Dose: 0 mls/hr Documented By: [facility] Admin: 01/19/23 13:21 Dose: 999 mls/hr Documented By: [facility] Imaging Data Attestation: I personally reviewed and interpreted this imaging study as follows: My Impression: 1 view chest x-ray was obtained in the emergency department. My interpretation is right lower lobe infiltrate, final report below. CT of the brain was obtained in the emergency department. My interpretation is no intracranial hemorrhage or mass effect, final report below. Radiologist's Impression: Chest X-Ray 01/19/23 10:50 XR chest 1V portable CLINICAL HISTORY: Sepsis TECHNIQUE: Single frontal radiograph of the chest was obtained. Comparison: Comparison is made to chest radiograph 08/10/2022 FINDINGS: No lines and tubes are seen. The cardiomediastinal silhouette is normal. Right lower lung airspace opacity is seen. Right-sided volume loss is noted. No evidence of pleural effusion or pneumothorax. IMPRESSION: Right lower lung airspace opacities likely represent atelectasis with or without superimposed aspiration/pneumonia. ACT 112: Negative or not required by law. Electronically signed by: Austin Kendall M.D. 01/19/2023 11:26 AM Abdomen/Pelvis CT 01/19/23 11:10 CT abd pelvis wo con CLINICAL HISTORY: AMS TECHNIQUE: Helical axial images of the abdomen and pelvis were obtained. Automated dose lowering techniques and/or adjustment according to patient size were utilized for this exam. This exam was performed without intravenous contrast. COMPARISON: None available at the time of this dictation. FINDINGS: Exam is limited by patient positioning with streak artifact over the upper abdomen. Lower chest: Right lower lung airspace opacity seen. Liver: Unremarkable. No focal lesions are seen. Gallbladder and biliary tree: No calcified gallstones. Normal caliber wall. No intra- or extrahepatic biliary ductal dilation. Pancreas: Unremarkable, no focal lesions. Spleen: Unremarkable. Adrenals: Unremarkable. Kidneys and ureters: Unremarkable. Bladder: Wolfe catheter is seen. Reproductive organs: Unremarkable. Bowel: Diverticulosis is seen without evidence of diverticulitis. Lymph nodes Retroperitoneal: Unremarkable. Pelvic: Unremarkable. Mesenteric: Unremarkable. Peritoneum: Normal. Vessels: Atherosclerotic calcifications are seen. Abdominal wall: Unremarkable. Bones: Degenerative changes in the visualized spine. IMPRESSION: 1. There is a right lower lung airspace opacity compatible with aspiration/pneu monia. 2. Diverticulosis without diverticulitis. 3. Additional findings as above. ACT 112: Negative or not required by law. Electronically signed by: Austin Kendall M.D. 01/19/2023 12:[address] 01/19/23 11:10 CT OF THE HEAD WITHOUT CONTRAST CLINICAL HISTORY: Altered mental status. COMPARISON STUDY: Head CT T. August [address] DOSE: 2097.53 mGy.cm TECHNIQUE: Helical axial images of the head were obtained without IV contrast. Automated exposure control was utilized for the study. A dose lowering technique was utilized adhering to the principles of ALARA. FINDINGS: No acute intracranial hemorrhage, midline shift or mass effect is present. White matter hypodensities are similar to prior exam. These favor small vessel disease. The ventricular system is unremarkable. The basal cisterns are patent. No extra-axial collections are present. There are no findings to suggest acute dural sinus thrombosis or acute territorial infarct. No acute calvarial fracture is present. There is mild right maxillary sinus mucosal thickening. Mucous retention cyst within the right frontal sinus is incidentally noted. IMPRESSION: No acute intracranial findings. No change in appearance of the brain. ACT 112: Negative or not required by law. Electronically signed by: Curtis Pereyra M.D. 01/19/2023 12:17 PM Discharge Plan Visit Data Chief Complaint: Seizure ED Provider: Ji Loera Discharge Problem: Sepsis, Hypothermia, Acute alteration in mental status, Pneumonia, Urinary tract infection, Acidosis, lactic Patient Disposition: Being Evaluated by Hospitalist Discharge Instructions Interventions: ED Discharge Assessment Last Done: 01/19/23 14:36
--- NOTE | 2023-01-19 11:27 | XRay Report ---
XR chest 1V portable CLINICAL HISTORY: Sepsis TECHNIQUE: Single frontal radiograph of the chest was obtained. Comparison: Comparison is made to chest radiograph 08/10/2022 FINDINGS: No lines and tubes are seen. The cardiomediastinal silhouette is normal. Right lower lung airspace op acity is seen. Right-sided volume loss is noted. No evidence of pleural effusion or pneumothorax. IMPRESSION: Right lower lung airspace opacities likely represent atelectasis with or without superimposed aspirat ion/pneumonia. ACT 112: Negative or not required by law. Electronically signed by: Austin Kendall M.D. 01/19/2023 11:26 AM
[2023-01-19 11:49] LABS: Alanine Aminotransferase 82 U/L (7-52); Albumin Level 3.3 gm/dl (3.4-5.0); Alkaline Phosphatase 72 U/L (34-104); Anion Gap 11 (3-11); Aspartate Aminotransferase 81 U/L (13-39); BUN Creatinine Ratio 30.4 (10-20); Bilirubin Direct 0.1 mg/dl (0-0.2); Bilirubin,Total 0.5 mg/dl (0.2-1.0); Blood Urea Nitrogen 24 mg/dl (6-23); Calcium 9.2 mg/dl (8.6-10.3); Carbon Dioxide 24 mmol/L (21-32); Chloride 105 mmol/L (98-107); Est GFR (African American) 110.8 ml/min; Est GFR (Non-African American) 95.6 ml/min; Glucose 128 mg/dl (70-99(Fasting)); Magnesium 1.8 mg/dl (1.7-2.4); Potassium 3.6 mmol/L (3.5-5.1); Sodium 140 mmol/L (136-145); Total Protein 6.1 gm/dl (6.0-8.3)
[2023-01-19 11:54] LABS: Appearance Urine Cloudy (Clear); Bacteria Urine Automated 4+ (Negative); Bilirubin Urine Negative (Negative); Blood Urine 2+ (Negative); Color Urine Yellow; Epithelial Cell Urine Auto 0-5 /lpf (0-5); Glucose Urine UA Negative (Negative); Ketones Urine Trace (Negative); Leukocyte Esterase Urine 2+ (Negative); Nitrite Urine Positive (Negative); Protein Urine 1+ (Negative); Specific Gravity Urine 1.029 (1.000-1.030); Urobilinogen Urine Negative (Negative); WBC Urine Automated >30 /hpf (0-5); pH Urine 5.5 (4.5-7.5)
[2023-01-19 12:03] LABS: Thyroid Stimulating Hormone 2.565 uIu/ml (0.300-4.500)
[2023-01-19 12:12] LABS: Hematocrit (blood only) 38.9 % (42.0-52.0); Hemoglobin 13.2 g/dl (14.0-18.0); Mean Corpuscular Hemoglobin 27.8 pg (25.0-34.0); Mean Corpuscular Hgb Conc 33.9 g/dL (32.0-36.0); Mean Corpuscular Volume 82.1 fL (80.0-100.0); Mean Platelet Volume 10.4 fL (9.4-12.4); Nucleated RBC # (auto) 0.06 K/uL (0.00-0.12); Nucleated RBC % (auto) 0.9 %; Platelet Count 119 K/uL (130-400); RDW Coefficient of Variation 13.9 % (11.5-14.5); RDW Standard Deviation 41.2 fL (36.4-46.3); Red Blood Count 4.74 M/uL (4.70-6.10); White Blood Count 6.65 K/ul (4.8-10.8)
[2023-01-19 12:13] LABS: Basophils # (auto) 0.01 K/uL (0.00-0.20); Basophils % (auto) 0.2 %; Echinocytes 3+; Immature Granulocytes # (auto) 0.01 K/uL (0.01-0.20); Immature Granulocytes % (auto) 0.2 %; Lymphocytes # (auto) 0.45 K/uL (1.20-3.40); Lymphocytes % (auto) 6.8 %; Monocytes # (auto) 0.08 K/uL (0.11-0.59); Monocytes % (auto) 1.2 %; Neutrophils % (auto) 91.6 %
--- NOTE | 2023-01-19 12:15 | CT Scan Report ---
CT abd pelvis wo con CLINICAL HISTORY: AMS TECHNIQUE: Helical axial images of the abdomen and pelvis were obtained. Automated dose lowering tech niques and/or adjustment according to patient size were utilized for this exam. This exam was perfor med without intravenous contrast. COMPARISON: None available at the time of this dictation. FINDINGS: Exam is limited by patient positioning with streak artifact over the upper abdomen. Lower chest: Right lower lung airspace opacity seen. Liver: Unremarkable. No focal lesions are seen. Gallbladder and biliary tree: No calcified gallstones. Normal caliber wall. No intra- or extrahepatic biliary ductal dilation. Pancreas: Unremarkable, no focal lesions. Spleen: Unremarkable. Adrenals: Unremarkable. Kidneys and ureters: Unremarkable. Bladder: Wolfe catheter is seen. Reproductive organs: Unremarkable. Bowel: Diverticulosis is seen without evidence of diverticulitis. Lymph nodes Retroperitoneal: Unremarkable. Pelvic: Unremarkable. Mesenteric: Unremarkable. Peritoneum: Normal. Vessels: Atherosclerotic calcifications are seen. Abdominal wall: Unremarkable. Bones: Degenerative changes in the visualized spine. IMPRESSION: 1. There is a right lower lung airspace opacity compatible with aspiration/pneumonia. 2. Diverticulosis without diverticulitis. 3. Additional findings as above. ACT 112: Negative or not required by law. Electronically signed by: Austin Kendall M.D. 01/19/2023 12:13 PM
--- NOTE | 2023-01-19 12:19 | CT Scan Report ---
CT OF THE HEAD WITHOUT CONTRAST CLINICAL HISTORY: Altered mental status. COMPARISON STUDY: Head CT T. August [address] DOSE: 2097.53 mGy.cm TECHNIQUE: Helical axial images of the head were obtained without IV contrast. Automated exposure con trol was utilized for the study. A dose lowering technique was utilized adhering to the principles o f ALARA. FINDINGS: No acute intracranial hemorrhage, midline shift or mass effect is present. White matter hyp odensities are similar to prior exam. These favor small vessel disease. The ventricular system is unr emarkable. The basal cisterns are patent. No extra-axial collections are present. There are no findin gs to suggest acute dural sinus thrombosis or acute territorial infarct. No acute calvarial fracture is present. There is mild right maxillary sinus mucosal thickening. Mucous retention cyst within the right frontal sinus is incidentally noted. IMPRESSION: No acute intracranial findings. No change in appearance of the brain. ACT 112: Negative or not required by law. Electronically signed by: Curtis Pereyra M.D. 01/19/2023 12:17 PM
[2023-01-19 12:44] LABS: Appearance CSF Bloody; CSF Count Tube # 3; CSF Xanthrochromic No xanthochromia; Color CSF Pink; Mononuclear WBC CSF Auto 26.3 %; Polynuclear WBC CSF Auto 73.7 %; Red Blood Cell CSF Auto 11000 /uL (0-); White Blood Cell CSF Auto 19 /uL (0-5)
[2023-01-19 12:46] LABS: Amphetamines+Metham, Urine Neg (Neg); Barbiturates, Urine Neg (Neg); Benzodiazepine, Urine Neg (Neg); Cocaine, Urine Neg (Neg); MDMA (Ecstacy), Urine Neg (Neg); Methadone, Urine Neg (Neg); Opiate, Urine Neg (Neg); Phencyclidine, Urine Neg (Neg)
[2023-01-19 12:53] LABS: Total Protein CSF 119.9 mg/dl (15-45)
--- NOTE | 2023-01-19 13:19 | History & Physical Report ---
Date of Service January 19, 2023 Assessment & Plan (1) Sepsis: Plan: 62yo Male with PMH Dementia Alzheimer's HLD here for concern sepsis. Sepsis concern PNA UTI -Lactate 7.2 recheck 5.4 -WBC procal wnl -CSF noted elevated WBC however bloody tap, less concern meningitis CFS panel negative -CT head: No acute intracranial findings. No change in appearance of the brain. -CT A/P: There is a right lower lung airspace opacity compatible with aspiration/pneumonia. Diverticulosis without diverticulitis. -CXR: Right lower lung airspace opacities likely represent atelectasis with or without superimposed aspiration/pneumonia. -UA concerning for infection -started on vancomycin zosyn -Ucx pending -blood culture pending -CSF culture pending -admit to ICU Concern Seizure -EEG ordered Hypotension -BP 85/53 in setting of sepsis s/p fluid resuscitation -ordered LR 3L NSS 2L -ordered levophed -admit to ICU Bradycardia -HR 58 -EKG sinus bradycardia with 1st degree AV block, prolonged QT interval 572 Hypothermia -temp 32.1 -ordered jody hugger -started vancomycin zosyn Elevated LFT -AST 81 ALT 81, continue to monitor Dementia -baseline largely nonverbal able to stand and eat without assistance -continue Celexa, donepezil, olanzapine HLD -continue crestor FENa: NPO Code Status: Full, no records with [facility], unable to discuss with patient DVT PPX: SCDs Nutrition consulted Dispo: ICU Ananya Alejandra D.O. PGY 3, FCM (2) Hypothermia: (3) Acute alteration in mental status: (4) Pneumonia: (5) Urinary tract infection: (6) Dementia: (7) HLD (hyperlipidemia): (8) Seizure-like activity: (9) Acidosis, lactic: (10) Acute encephalopathy: History of Present Illness Chief Complaint: Sepsis Primary Care Provider: [facility] 62yo Male with PMH Dementia Alzheimer's HLD here for concern sepsis. Patient from [facility], per [facility] patient at baseline largely nonverbal can speak but nonsense words, typically stands and bounces by himself can eat on his own, patient would stay awake for several days then sleep. Over past 2 days patient had decrease in oral intake, was showering today detention noted a seizure patient fell was incontinent on floor, medical staff noted hypotension temp was 97.5F HR 60's. In ED patient mildly responsive to sternal rub unable to open eyes or follow directions, currently in Jody hugger. Noted hypothermia 31.9C BP 93/58 lactate 7.2. After fluid resuscitated 2.8L BP continued to be 85/53 lactate repeat 5.4. Patient started on Levophed, ICU contacted for pressor management. Allergies Allergy/AdvReac Type Severity Reaction Status Date / Time No Known Allergies Allergy Verified 01/19/23 13:00 Home Medications Medication Instructions Recorded Confirmed Type citalopram 10 mg tablet (Celexa) 5 mg PO DAILY 08/09/22 01/19/23 History docusate sodium 250 mg capsule 250 mg PO DAILY PRN Constipation 08/09/22 01/19/23 History donepezil 10 mg tablet 10 mg PO DAILY 08/09/22 01/19/23 History olanzapine 10 mg tablet (Zyprexa) 10 mg PO HS 08/09/22 01/19/23 History rosuvastatin 20 mg tablet (Crestor) 20 mg PO DAILY 08/09/22 01/19/23 History olanzapine 2.5 mg tablet 2.5 mg PO QAM 01/19/23 01/19/23 History Past Med/Surg History Medical History Dementia HLD (hyperlipidemia) Social History Smoking Status: Unknown if ever smoked Tobacco Type: Cigarettes Hx Alcohol Use: No Hx Substance Use: No Preferred Language: Cape Verdean Communication Ability: Impaired Machine Leather Trimmer Required: No Beliefs That Will Affect Care: None Current Living Situation: Other Current Living Situation Comment: [place] Feels Safe at Home: Yes Assistive Devices: None Physical Exam Constitutional: + altered mental status and + disheveled Respiratory: normal respiratory effort Auscultation: + crackles (R>L) Cardiovascular: Rate/Rhythm: regular rate and regular rhythm Extremities: no edema Gastrointestinal (Abdomen): Inspection/Auscultation: abdomen normal to inspection Percussion/Palpation: abdomen soft Skin: no rashes, warm and dry Results & Data Results & Data Vital Signs (Past 12 Hours) Vital Signs Temp Pulse Resp BP Pulse Ox O2 Del Method 01/19/23 13:00 31.9 C L 55 L 22 83/55 L 96 Room Air 01/19/23 12:58 31.9 C L 56 L 23 90/55 L 96 Room Air 01/19/23 12:40 31.9 C L 55 L 23 90 Room Air 01/19/23 12:30 31.9 C L 54 L 26 H 86/54 L 92 Room Air 01/19/23 12:21 32.0 C L 55 L 12 91/52 L 92 Room Air 01/19/23 12:20 32.0 C L 63 23 93 Room Air 01/19/23 12:10 32.0 C L 56 L 18 93 Room Air 01/19/23 12:01 32.0 C L 55 L 21 84/50 L 01/19/23 12:00 32.0 C L 57 L 23 01/19/23 11:59 32.0 C L 57 L 26 H 01/19/23 11:40 31.8 C L 62 28 H 100 Room Air 01/19/23 11:30 58 L 19 91/65 L 100 Room Air 01/19/23 11:00 48 L 18 93/58 L 100 Room Air 01/19/23 10:56 58 L 01/19/23 10:53 49 L 23 100 01/19/23 10:53 100 Room Air 01/19/23 10:53 31.9 C L 52 L 22 93/58 L 100 Room Air Supervising Physician Co-Signing Physician Notes I personally saw and examined the patient. I verified all you points and agree with resident physician Dr Ananya Alejandra, with the following exceptions and/or additions: 62 year old male presents from [facility] in unresponsive state after seizure- like activity in the shower, unclear if this occurred prior to or after collapse. Unable to get any history from patient. Baseline dementia. Somnolent at this time. O/E GCS 6 (E1V1M4), pupils constricted and unable to assess reactivity due to small size, arousable to painful stimuli, dry mucus membranes, No accessory respiratory muscle use, no crackles/wheezing/rhonchi, HS RRR, no murmurs, no pedal edema, Abdo SNT, not distended A/P Sepsis - presumed pneumonia vs. urinary source. Unclear if pneumonia a result of aspiration vs. cause of initial illness. Normal WBC and procalcitonin are unusual with this severity of sepsis but no clear alternative source at this time and severe hypotension requiring vasopressors unlikely to be result of seizure alone. Blood cultures and urine cultures pending. IV Zosyn + vancomycin. Started Levophed due to MAP < 65 after adequate fluid resuscitation 3L IV (additional 4rth liter also ordered). Hypothermia - cortisol/TSH WNL, Suspect environmental as found covered in urine. Jody hugger warming patient. Encephalopathy - underlying dementia ?secondary to sepsis vs. post ictal. Per note from ER visit in July he is orientated to self only. Per guards in the room he walks the yard and talks. Underlying dementia. Will defer to ICU team regarding intubation given low GCS but expect this will improve as he is warmed up. Possible seizure like activity - given his significant hypotension with this occurring in the shower and no known seizure history I would favor a hypotensive collapse from infection rather than true seizure however lack of WBC/procalcitonin therefore possibility of both. Seizures alone do not adequately explain why he continues to be so hypotensive despite adequate fluid resuscitation. Consider MRI brain w/wo IV contrast once more stable. EEG. Consult neurology. Resident Activity Tracking Resident Involvement: Resident Care Provided Care Provided: Adult Hospital Medicine (1) Sepsis Sepsis acute organ dysfunction status: unspecified Sepsis type: sepsis due to unspecified organism Qualified Code(s): A41.9 - Sepsis, unspecified organism (2) Hypothermia Encounter type: initial encounter Qualified Code(s): T68.XXXA - Hypothermia, initial encounter (4) Pneumonia Laterality: right Lung location: lower lobe of lung Pneumonia type: due to unspecified organism Qualified Code(s): J18.9 - Pneumonia, unspecified organism (5) Urinary tract infection Hematuria presence: without hematuria Urinary tract infection type: site unspecified Qualified Code(s): N39.0 - Urinary tract infection, site not specified (6) Dementia Dementia behavioral or psychological symptom: unspecified whether behavioral, psychotic, or mood disturbance or anxiety Dementia severity: unspecified severity Dementia type: unspecified type Qualified Code(s): F03.90 - Unspecified dementia, unspecified severity, without behavioral disturbance, psychotic disturbance, mood disturbance, and anxiety
[2023-01-19] MEDS ORDERED: STAT IV Infusion **Titration per Protocol STA ×3 (13:33→22:37)
[2023-01-19 13:39] LABS: Adenovirus PCR Not Detected (NotDetected); Bordetella parapertussis PCR Not Detected (NotDetected); Bordetella pertussis PCR Not Detected (NotDetected); Chlamydia pneumoniae PCR Not Detected (NotDetected); Coronavirus 229E PCR Not Detected (NotDetected); Coronavirus CoV-2 (COVID19)PCR Not Detected (NotDetected); Coronavirus HKU1 PCR Not Detected (NotDetected); Coronavirus NL63 PCR Not Detected (NotDetected); Coronavirus OC43PCR Not Detected (NotDetected); Human Metapneumovirus PCR Not Detected (NotDetected); Influenza A PCR Not Detected (NotDetected); Influenza B PCR Not Detected (NotDetected); Mycoplasma pneumoniae PCR Not Detected (NotDetected); Parainfluenza Virus 1 PCR Not Detected (NotDetected); Parainfluenza Virus 2 PCR Not Detected (NotDetected); Parainfluenza Virus 3 PCR Not Detected (NotDetected); Parainfluenza Virus 4 PCR Not Detected (NotDetected); Respiratory Syncytial VirusPCR Not Detected (NotDetected); Rhinovirus/Enterovirus PCR Not Detected (NotDetected)
[2023-01-19] MEDS: NOREPINEPHRINE/D5W 4 MG/250 ML PLCT IV SCH ×4 (13:47→21:53)
[2023-01-19 13:56] LABS: Cryptococcus neoformans/ga PCR Not Detected (NotDetected); Cytomegalovirus PCR Not Detected (NotDetected); Enterovirus PCR Not Detected (NotDetected); Escherichia coli K1 PCR Not Detected (NotDetected); Haemophilius influenzae PCR Not Detected (NotDetected); Herpes Simplex Virus 1 PCR Not Detected (NotDetected); Herpes Simplex Virus 2 PCR Not Detected (NotDetected); Human Herpes Virus 6 PCR Not Detected (NotDetected); Human Parechovirus PCR Not Detected (NotDetected); Listeria monocytogenes PCR Not Detected (NotDetected); Neisseria meningitidis PCR Not Detected (NotDetected); Streptococcus agalactiae PCR Not Detected (NotDetected); Streptococcus pneumoniae PCR Not Detected (NotDetected); Varicella Zoster Virus PCR Not Detected (NotDetected)
--- NOTE | 2023-01-19 13:56 | Critical Care Consultation ---
Date of Consultation January 19, 2023 Assessment & Plan (1) Acute alteration in mental status: (2) Sepsis: (3) Hypothermia: (4) Pneumonia: (5) Observed seizure-like activity: (6) Dementia: Plan Reason Critically Ill: 62-year-old male with history of dementia, hyperlipidemia, and recent falls over the last year presents to the ICU for ongoing evaluation and management of altered mental status, observed seizure- like activity, profound hypothermia, and concerns for sepsis in the setting of likely RIGHT lower lobe aspiration pneumonia. NEURO - * [facility] ICU: unable to assess secondary to current mental status. * Altered Mental Status: * Multifactorial in the demented patient with recently observed seizure-like activity and likely profound metabolic encephalopathy in the setting of hypothermia and sepsis from likely pulmonary/urinary sources. * CT head/brain without concerning findings. * LP cultures pending, however, without overt finding suggestive of meningitis. * STAT EEG ordered. * Appreciate neurology consultation. * Witnessed Seizure Activity: * Per discussion with guards at bedside. * EEG as above. * No focal seizure activity noted on exam. Would hold on antiepileptics for now. * May be in the setting of severity of illness, hypothermia, etc. * Dementia: * Uncertain of patient's baseline, however he is noted to be living in the dementia unit at the half-way. * Uncertain how much his baseline cognitive dysfunction may be contributing. CARDIAC/VASCULAR - * Hypotension: * In the setting of sepsis and hypothermia. * Continue with rewarming and support with IV fluids. * Pressors if needed. * EKG: Sinus bradycardia @ 52 bpm. 1' AV block noted. T-wave inversions noted anterior/lateral leads. QTc 531 ms. * Monitor on telemetry. RESPIRATORY - * RIGHT Lower Lobe Pneumonia: * As noted on CXR/Abd CT. * ? in the setting of seizure with possibility of aspiration. * Would agree with anaerobic coverage. * Sputum cultures if able to provide. * Not requiring supplemental O2 at this time. * Currently maintaining airway despite AMS. Low threshold for intubation if his respiratory status becomes compromised. GI/NUTRITION - * NPO while AMS. * Prophylaxis: Famotidine RENAL/LYTES - * Elevated Lactate: * ?? in the setting of sepsis versus seizure. May be more related to seizure given impressive elevation (7.2) in the setting of no other significant laboratory abnormalities. * Trending down at this time (5.4). * No significant electrolyte abnormalities noted. * Continue with aggressive IVF resuscitation. * IVF: Plasmalyte @ 125 mL/hr * Has received 4L crystalloid at this point. - * UTI: * Cultures pending. * Covered with Zosyn currently. * Wolfe in place - Strict I&Os. ENDO - * No reported h/o DM or thyroid Dz. * BSGs per unit protocol. ISS --> gtt per unit policy. HEME - * Stable H&H * No overt s/s bleeding. ID - * Severe Sepsis: * Urinary versus pulmonary sources. * RLL infiltrate noted on CXR/CT - anaerobic coverage warranted for risk of aspiration in the patient with witnessed seizure-like activity. * Urinalysis concerning for UTI - cultures pending. * Continue with Zosyn. * Evaluate need for continuing Vancomycin pending nasal MRSA swab. * LP Gram stain pending as well. Would not treat as meningitis at this time. LINES/IV ACCESS - * PIVs x2 * Wolfe DVT PROPHYLAXIS - * Lovenox * SCDs I have personally spent 40 minutes of critical care time in the direct management of this patient. This is a life/limb threatening event. This includes time spent evaluating patient, direct bedside care, chart review, placing orders, interpretation of diagnostic studies, discussion with consultants, patient, and family members, as well as other required patient management activities. This time is exclusive of all separately billable procedures, and teaching time and separate from and in addition to any other critical care service time. Thank you for allowing us to participate in the care of this patient. Please refer to my attending physician's documentation for any further recommendations. Supervising Physician Co-Signing Physician Notes Patient seen and examined with HILLARY in the emergency room. EMR was reviewed. Imaging studies were independently reviewed. No history is available from the patient due to his obtunded state. Patient apparently resides in a dementia unit in the half-way. Patient presented with seizure. He has persistent altered mental status and is hypothermic. Will obtain stat EEG and neurology consult for potential nonconvulsive status although I am able to get the patient to withdraw to painful stimulus. Correct metabolic abnormalities. He does have evidence of pneumonia on chest x-ray so antibiotics in the form of Zosyn and vancomycin are certainly reasonable pending culture data. Continue passive external rewarming with bear hugger and warmed IV fluids. Warmed oxygen may also be beneficial. Awaiting cortisol. Thyroid functions do not appear abnormal. His elevated lactate may have been secondary to a postictal state but will continue to trend downward. Patient may warrant MRI imaging of the brain if his mental status fails to clear with correction of his metabolic abnormalities. Patient is critically ill at this point time with significant possibility of clinical deterioration. No family available History of Present Illness Reason for Consultation: Sepsis, AMS, Seizure Requesting Physician: Dr. Alejandra Attending Physician: Dr. Shaver History of Present Illness Patient is a 62-year-old incarcerated male with reported past medical history of hyperlipidemia, dementia, and previous episodes of fall/altered mental status within the past year. Patient had reportedly been found unconscious and unarousable in his cell earlier today and was found to be in what was concerning for seizure state. He was brought to the emergency department where he underwent extensive evaluation including head CT, chest x-ray, and abdominal CT. Patient also underwent lumbar puncture. She was are pending. Difficulty with interpretation of CSF secondary to bloody nature of tap, however there are no other profound findings noted to suggest meningitis. Upon evaluation in room C1, the patient is somnolent and difficult to arouse. He does open his eyes with painful stimuli. Otherwise, he is unable to provide any HPI information. Allergies Allergy/AdvReac Type Severity Reaction Status Date / Time No Known Allergies Allergy Verified 01/19/23 13:00 Home Medications Medication Instructions Recorded Confirmed Type citalopram 10 mg tablet (Celexa) 5 mg PO DAILY 08/09/22 01/19/23 History docusate sodium 250 mg capsule 250 mg PO DAILY PRN Constipation 08/09/2212/26 History donepezil 10 mg tablet 10 mg PO DAILY 08/09/22 01/19/23 History olanzapine 10 mg tablet (Zyprexa) 10 mg PO HS 08/09/22 01/19/23 History rosuvastatin 20 mg tablet (Crestor) 20 mg PO DAILY 08/09/22 01/19/23 History olanzapine 2.5 mg tablet 2.5 mg PO QAM 01/19/23 01/19/23 History Patient History Medical History Dementia HLD (hyperlipidemia) Social History Smoking Status: Unknown if ever smoked Tobacco Type: Cigarettes Preferred Language: German Feels Safe at Home: Yes Review of Systems Review of Systems: Unable to obtain secondary to altered mental status. Physical Exam Physical Exam: VITAL SIGNS - Vital signs and nursing notes were reviewed. GENERAL - 62-year-old male appearing his stated age who is in no acute distress. Somnolent. Arousable to painful stimuli only. SKIN - Without rashes. HEAD - NC/AT. EYES - Sclera anicteric. EARS - No deformities of external structures noted on gross examination bilaterally. NOSE - Midline and without cyanosis MOUTH/OROPHARYNX - Without perioral cyanosis. NECK - No nuchal rigidity noted. LUNGS - Chest wall symmetric without accessory muscle use, intercostals retractions, or central cyanosis. Normal vesicular breath sounds CTA B/L. No wheezes, rales, or rhonchi appreciated. CARDIAC - RRR with S1/S2. No murmur, rubs, or gallops appreciated. ABDOMEN - Abdominal contour flat without pulsations or visible masses. BS normoactive all four quadrants. No tenderness, palpable masses, hepatosplenomegaly, or ascites noted. EXTREMITIES - No pretibial edema present. +3/5 radial palpated throughout. NEUROLOGIC - No focal neurological deficits noted on exam. Unable to fully assess secondary to AMS. Results & Data Results & Data Vital Signs (Past 12 Hours) Vital Signs Temp Pulse Resp BP Pulse Ox O2 Del Method 01/19/23 13:45 32.0 C L 59 L 21 80/52 L 93 Room Air 01/19/23 13:30 32.1 C L 55 L 18 85/53 L 94 Room Air 01/19/23 13:27 32.1 C L 62 20 93/59 L 96 Room Air 01/19/23 13:20 32.0 C L 58 L 22 96 Room Air 01/19/23 13:15 32.0 C L 57 L 24 77/53 L 97 Room Air 01/19/23 13:10 32.0 C L 56 L 21 82/53 L 97 Room Air 01/19/23 13:00 31.9 C L 55 L 22 83/55 L 96 Room Air 01/19/23 12:58 31.9 C L 56 L 23 90/55 L 96 Room Air 01/19/23 12:40 31.9 C L 55 L 23 90 Room Air 01/19/23 12:30 31.9 C L 54 L 26 H 86/54 L 92 Room Air 01/19/23 12:21 32.0 C L 55 L 12 91/52 L 92 Room Air 01/19/23 12:20 32.0 C L 63 23 93 Room Air 01/19/23 12:10 32.0 C L 56 L 18 93 Room Air 01/19/23 12:01 32.0 C L 55 L 21 84/50 L 01/19/23 12:00 32.0 C L 57 L 23 01/19/23 11:59 32.0 C L 57 L 26 H 01/19/23 11:40 31.8 C L 62 28 H 100 Room Air 01/19/23 11:30 58 L 19 91/65 L 100 Room Air 01/19/23 11:00 48 L 18 93/58 L 100 Room Air 01/19/23 10:56 58 L 01/19/23 10:53 49 L 23 100 01/19/23 10:53 100 Room Air 01/19/23 10:53 31.9 C L 52 L 22 93/58 L 100 Room Air Coding Level of Care Code 54910 CRITICAL CARE 1ST 30-74M Diagnoses Acute alteration in mental status R41.82 Sepsis A41.9 Sepsis acute organ dysfunction status: unspecified Sepsis type: sepsis due to unspecified organism Hypothermia T68.XXXA Encounter type: initial encounter Pneumonia J18.9 Laterality: right Lung location: lower lobe of lung Pneumonia type: due to unspecified organism Observed seizure-like activity R56.9 Dementia F03.90 Dementia behavioral or psychological symptom: unspecified whether behavioral, psychotic, or mood disturbance or anxiety Dementia severity: unspecified severity Dementia type: unspecified type (2) Sepsis Sepsis acute organ dysfunction status: unspecified Sepsis type: sepsis due to unspecified organism Qualified Code(s): A41.9 - Sepsis, unspecified organism (3) Hypothermia Encounter type: initial encounter Qualified Code(s): T68.XXXA - Hypothermia, initial encounter (4) Pneumonia Laterality: right Lung location: lower lobe of lung Pneumonia type: due to unspecified organism Qualified Code(s): J18.9 - Pneumonia, unspecified organism (6) Dementia Dementia behavioral or psychological symptom: unspecified whether behavioral, psychotic, or mood disturbance or anxiety Dementia severity: unspecified severity Dementia type: unspecified type Qualified Code(s): F03.90 - Unspecified dementia, unspecified severity, without behavioral disturbance, psychotic disturbance, mood disturbance, and anxiety
[2023-01-19] MEDS ORDERED: VANCOMYCIN HCL 1,000 MG in SODIUM CHLORIDE 0.9% 500 ML IV SCH (14:55)
[2023-01-19] MEDS ORDERED: Patient's HEIGHT Needed STA (15:04)
[2023-01-19] MEDS ORDERED: Patient's HEIGHT &/or WEIGHT Needed STA (15:09)
[2023-01-19 15:26] LABS: INR 1.2 (0.9-1.1); Partial Thromboplastin Ratio 1.2; Partial Thromboplastin Time 35.1 Seconds (21.0-31.0); Prothrombin Time 12.8 Seconds (9.0-12.0)
[2023-01-19 15:44] LABS: Troponin I High Sensitivity 6.6 pg/ml (0-20)
--- NOTE | 2023-01-19 15:58 | Procedure Note ---
Procedure Note Date of Service January 19, 2023 Note ARTERIAL LINE PROCEDURE NOTE: Procedure: Arterial Line Placement Provider: Silver Juan MD Indication: Monitoring on Pressors Anesthesia: None Procedure was emergent. Patient is obtunded and unable to to provide verbal consent. No family immediately available. A time-out was completed verifying correct patient, procedure, site, positioning, and implant(s) or special equipment if applicable. Allens test was performed to ensure adequate perfusion. Patients left wrist was prepped and draped in the usual sterile fashion. Landmarks were palpable. A 20g Arrow arterial line was introduced into the left radial artery on the second attempt. Catheter was threaded, and the needle was removed with appropriate blood return. Good waveform was observed. The patient tolerated the procedure well. Blood Loss: Minimal Complications: None Coding CPT Codes Tubes, Drains, and Vasc Access - Tubes, Drains, and Vasc Access: [id number] Arterial Cath/Cannulation Sampling/Monitoring/Transfusion ([id number]) [facility] [place] Codes (Charges) Tubes, Drains, and Vasc Access Procedure 1: Tubes, Drains, and Vasc Access: [id number] Arterial Cath/Cannulation Sampling/Monitoring/Transfusion
--- NOTE | 2023-01-19 16:00 | Procedure Note ---
Procedure Note Date of Service January 19, 2023 Note CENTRAL LINE PROCEDURE NOTE: Procedure: Central Line Placement Provider: Silver Juan MD Indication: Central Drug Administration, Poor Venous Access, Multiple Lab Draws Necessary, etc. Anesthesia: 5 mL 1% lidocaine without epinephrine Site: Left subclavian Procedure was emergent. Patient unable to provide verbal consent. No family immediately available. A time-out was completed verifying correct patient, procedure, site, positioning, and implants(s) or special equipment if applicable. Patients left infraclavicular and supraclavicular region was cleansed and draped in the typical sterile fashion using Chloraprep. A roll was placed under the shoulders to allow for expansion of the infraclavicular space. Landmarks were easily identified. Using 1% lidocaine without epinephrine, a wheal was made 2 cm below the middle of the clavicle on the left. After adequate anesthetization was achieved, the left subclavian vein was cannulated using an introducer needle on a syringe. Good venous blood return was maintained prior to removal of syringe from introducer needle. Using Seldinger Technique, a guide wire was advanced through the introducer needle without resistance. The introducer needle was removed leaving the wire in place. A small incision was made in penetrating fashion at the guide wire insertion site utilizing an 11 blade scalpel. The dilator was advanced to the vessel without resistance. The dilator was exchanged for the triple lumen catheter which was advanced into the vessel without resistance. The guide wire was removed intact from the catheter without issue. Claves were placed on each catheter tip with confirmation of good blood flow from each lumen. Each port was easily flushed with sterile saline. The catheter was placed at the hub and sutured in place. BioPatch was applied to the catheter and a sterile Tegaderm dressing was applied over the catheter with careful attention to sterility. Patient tolerated procedure well. No immediate complications were met. Chest x-ray pending Coding CPT Codes Tubes, Drains, and Vasc Access - Tubes, Drains, and Vasc Access: [id number] Place catheter in vein superior or inferior vena cava ([id number]) [facility] [place]Charges) Tubes, Drains, and Vasc Access Procedure 1: Tubes, Drains, and Vasc Access: [id number] Place catheter in vein superior or inferior vena cava
[2023-01-19] MEDS: ICU Protocol for HYPERglycemia SCH ×2 (16:35→19:52)
[2023-01-19] MEDS: PIPERACILLIN/TAZOBACTAM 4.5 GM in DEXTROSE 5% MINI-B 100 ML IV SCH (16:40)
[2023-01-19] MEDS: PLASMA-LYTE A 1,000 ML IV SCH ×2 (16:40→23:03)
--- NOTE | 2023-01-19 17:18 | XRay Report ---
XR chest 1V portable CLINICAL HISTORY: Line placement. COMPARISON STUDY: Chest radiograph performed earlier today. FINDINGS: There is no pneumothorax following placement of a left subclavian central line. Catheter ti p projects over the cavoatrial junction. Catheter is intact. Extensive right lung airspace opacities have slightly progressed. Left lung is clear. Gaseous gastric distention is incidentally noted. IMPRESSION: 1. No pneumothorax following placement of a left subclavian central line. 2. Progression of extensive right lung airspace opacities suggestive of pneumonia or aspiration pneum onitis. 3. Gaseous distention of the stomach. ACT 112: Negative or not required by law. Electronically signed by: Curtis Pereyra M.D. 01/19/2023 5:17 PM
[2023-01-19] MEDS: OLANZapine 10 MG TAB PO SCH (19:36)
[2023-01-19] MEDS: FAMOTIDINE 20 MG in SYRINGE 3 ML IV SCH (19:49)
[2023-01-19] MEDS: VASOPRESSIN 20 UNITS in 0.9 % SODIUM CHLORIDE 100 ML IV SCH (22:55)
[2023-01-20] MEDS: PIPERACILLIN/TAZOBACTAM 4.5 GM in DEXTROSE 5% MINI-B 100 ML IV SCH ×3 (00:54→17:27)
[2023-01-20 04:56] LABS: Albumin Level 2.5 gm/dl (3.4-5.0); BUN Creatinine Ratio 21.9 (10-20); Bilirubin Direct 0.2 mg/dl (0-0.2); Bilirubin,Total 0.6 mg/dl (0.2-1.0); Calcium 7.7 mg/dl (8.6-10.3); Creatinine Clr Calc Pharmacy 76.2 ml/min; Est GFR (African American) 97.1 ml/min; Est GFR (Non-African American) 83.8 ml/min; Magnesium 1.4 mg/dl (1.7-2.4); Phosphorus 1.9 mg/dl (2.5-4.9); Potassium 3.8 mmol/L (3.5-5.1); Total Protein 4.6 gm/dl (6.0-8.3)
[2023-01-20] MEDS: VASOPRESSIN 20 UNITS in 0.9 % SODIUM CHLORIDE 100 ML IV SCH (05:38)
[2023-01-20] MEDS ORDERED: POTASSIUM PHOS 3 MMOL/1 ML INFUSION IV STA (06:31)
[2023-01-20] MEDS ORDERED: MAGNESIUM SULFATE / D5W 1 GM/100 ML BAG IV SCH (06:45)
[2023-01-20 06:49] LABS: Hematocrit (blood only) 31.2 % (42.0-52.0); Hemoglobin 10.8 g/dl (14.0-18.0); Mean Corpuscular Hemoglobin 27.6 pg (25.0-34.0); Mean Corpuscular Hgb Conc 34.6 g/dL (32.0-36.0); Mean Corpuscular Volume 79.8 fL (80.0-100.0); Mean Platelet Volume 10.9 fL (9.4-12.4); Nucleated RBC # (auto) 0.09 K/uL (0.00-0.12); Nucleated RBC % (auto) 1.5 %; Platelet Count 84 K/uL (130-400); RDW Standard Deviation 40.1 fL (36.4-46.3); Red Blood Count 3.91 M/uL (4.70-6.10); White Blood Count 5.99 K/ul (4.8-10.8)
[2023-01-20 06:50] LABS: Dohle Bodies 1+; Echinocytes 2+; Immature Granulocytes # (auto) 0.01 K/uL (0.01-0.20); Immature Granulocytes % (auto) 0.2 %; Lymphocytes # (auto) 1.14 K/uL (1.20-3.40); Monocytes # (auto) 0.17 K/uL (0.11-0.59); Monocytes % (auto) 2.8 %; Neutrophils # (auto) 4.67 K/uL (1.40-6.50)
[2023-01-20] MEDS ORDERED: POTASSIUM PHOSPHATE 15 MMOL in SODIUM CHLORIDE 0.9% 250 ML IV ONE (07:00)
--- NOTE | 2023-01-20 07:20 | XRay Report ---
XR chest 1V portable HISTORY: Respiratory failure. COMPARISON: Chest 01/19/2023. FINDINGS: There are low lung volumes. No pneumothorax. No pleural effusions. The heart is normal in s ize. A left subclavian central venous catheter terminates at the distal SVC. This remains unchanged. Right mid to lower lung zone airspace opacities have slightly improved. There are small patchy airspa ce opacity at the left lung base. IMPRESSION: Bilateral airspace opacities suggestive of a pneumonia. This has slightly improved on the right. ACT 112: Negative or not required by law. Electronically signed by: Elliot Fox M.D. 01/20/2023 7:19 AM
--- NOTE | 2023-01-20 07:33 | Electroencephalogram ---
EEG Procedure Note Date of Service January 20, 2023 Start / End Times Start Time: 614 End Time: 644 Referring Physician David Vivas PA-C History 62-year-old with history of witnessed seizure activity (generalized shaking) January 19. Home Medication List Medication Instructions Recorded Confirmed Type citalopram 10 mg tablet (Celexa) 5 mg PO DAILY 08/09/22 01/19/23 History docusate sodium 250 mg capsule 250 mg PO DAILY PRN Constipation 08/09/22 01/19/23 History donepezil 10 mg tablet 10 mg PO DAILY 08/09/22 01/19/23 History olanzapine 10 mg tablet (Zyprexa) 10 mg PO HS 08/09/22 01/19/23 History rosuvastatin 20 mg tablet (Crestor) 20 mg PO DAILY 08/09/22 01/19/23 History olanzapine 2.5 mg tablet 2.5 mg PO QAM 01/19/23 01/19/23 History Inpatient Medication List Piperacillin Sod/Tazobactam (Sod 4.5 gm/ Dextrose) 100 mls @ 25 mls/hr IV Q8H EZEKIEL; Protocol Stop: 01/21/23 16:59 Last Infusion: 01/20/23 04:52 Dose: 0 mls/hr Documented By: [facility] Admin: 01/20/23 00:54 Dose: 25 mls/hr Documented By: [facility] Infusion: 01/19/23 20:36 Dose: 0 mls/hr Documented By: [facility] Admin: 01/19/23 16:40 Dose: 25 mls/hr Documented By: AM Famotidine 20 mg/ Syringe 5 mls @ 2.5 mls/min IV BID EZEKIEL Stop: 02/18/23 20:59 Last Admin: 01/19/23 19:49 Dose: 2.5 mls/min Documented By: [facility] Parenteral Electrolytes (Plasma-Lyte A Ph 7.4) 1,000 mls @ 125 mls/hr IV .Q8H EZEKIEL Stop: 02/18/23 15:14 Last Admin: 01/19/23 23:03 Dose: 125 mls/hr Documented By: [facility] Infusion: 01/19/23 23:03 Dose: 125 mls/hr Documented By: [facility] Admin: 01/19/23 16:40 Dose: 125 mls/hr Documented By: AM Norepinephrine Bitartrate (Levophed/D5w) 16 mg in 500 mls @ 15.818 mls/hr IV .Q24H EZEKIEL; Protocol Stop: 02/18/23 23:29 Last Titration: 01/20/23 04:44 Dose: 0.12 mcg/kg/min, 15.8 mls/hr Documented By: Titration: 01/20/23 02:07 Dose: 0.14 mcg/kg/min, 18.5 mls/hr Documented By: Titration: 01/20/23 01:28 Dose: 0.16 mcg/kg/min, 21.1 mls/hr Documented By: Titration: 01/20/23 00:54 Dose: 0.18 mcg/kg/min, 23.7 mls/hr Documented By: [facility] Admin: 01/20/23 00:00 Dose: 0.2 mcg/kg/min, 26.4 mls/hr Documented By: TM Co-signed By: PAH Vasopressin 20 units/ Sodium (Chloride) 101 mls @ 12.12 mls/hr IV .Q8H20M EZEKIEL Stop: 02/18/23 22:44 Last Admin: 01/20/23 05:38 Dose: 0.04 unit/min, 12.1 mls/hr Documented By: TM Co-signed By: PAH Infusion: 01/20/23 05:38 Dose: 0.04 unit/min, 12.1 mls/hr Documented By: TM Co-signed By: PAH Admin: 01/19/23 22:55 Dose: 0.04 unit/min, 12.1 mls/hr Documented By: TM Co-signed By: SOSA Pedroza (Icu Protocol For Hyperglycemia) 1 each N/A ACHS EZEKIEL Stop: 01/21/23 16:29 Last Admin: 01/19/23 19:52 Dose: 1 each Documented By: Admin: 01/19/23 16:35 Dose: Not Given Documented By: AM Olanzapine (Olanzapine 10 Mg Tab) 10 mg PO HS EZEKIEL Stop: 02/18/23 20:59 Last Admin: 01/19/23 19:36 Dose: Not Given Documented By: TM Discontinued Medications Lactated Ringer's (Lr) 1,000 mls @ 999 mls/hr IV .Q1H1M ONE Stop: 01/19/23 12:07 Last Infusion: 01/19/23 13:15 Dose: 0 mls/hr Documented By: [facility] [place] Admin: 01/19/23 12:00 Dose: 999 mls/hr Documented By: [facility] [place] Sodium Chloride (Nss) 1,000 mls @ 999 mls/hr IV .Q1H1M ONE Stop: 01/19/23 12:09 Last Infusion: 01/19/23 12:15 Dose: 0 mls/hr Documented By: [facility] [place] Admin: 01/19/23 11:20 Dose: 999 mls/hr Documented By: [facility] [place] Piperacillin Sod/Tazobactam Sod (Zosyn) 4.5 gm in 100 mls @ 200 mls/hr IV NOW ONE Stop: 01/19/23 11:38 Last Infusion: 01/19/23 12:30 Dose: 0 mls/hr Documented By: [facility] [place] Admin: 01/19/23 11:21 Dose: 200 mls/hr Documented By: SINA Vancomycin HCl 1,250 mg/ (Sodium Chloride) 525 mls @ 200 mls/hr IV NOW ONE Stop: 01/19/23 13:59 Last Admin: 01/19/23 12:25 Dose: 200 mls/hr Documented By: [facility] [place] Lactated Ringer's (Lr) 1,000 mls @ 999 mls/hr IV .Q1H1M ONE Stop: 01/19/23 12:42 Last Infusion: 01/19/23 13:50 Dose: 0 mls/hr Documented By: [facility] [place] Admin: 01/19/23 12:25 Dose: 999 mls/hr Documented By: [facility] [place] Lactated Ringer's (Lr) 1,000 mls @ 999 mls/hr IV .Q1H1M ONE Stop: 01/19/23 13:48 Last Infusion: 01/19/23 14:09 Dose: 0 mls/hr Documented By: [facility] [place] Admin: 01/19/23 13:04 Dose: 999 mls/hr Documented By: [facility] [place] Sodium Chloride (Nss) 1,000 mls @ 999 mls/hr IV .Q1H1M ONE Stop: 01/19/23 14:18 Last Infusion: 01/19/23 14:19 Dose: 0 mls/hr Documented By: [facility] [place] Admin: 01/19/23 13:21 Dose: 999 mls/hr Documented By: [facility] [place] Norepinephrine Bitartrate (Levophed/D5w) 4 mg in 250 mls @ 120.188 mls/hr IV .Q2H5M [facility]; Protocol Stop: 01/19/23 23:30 Last Titration: 01/20/23 00:09 Dose: 0 mcg/kg/min, 0 mls/hr Documented By: Admin: 01/19/23 21:53 Dose: 0.5 mcg/kg/min, 120.2 mls/hr Documented By: TM Co-signed By: PAH Titration: 01/19/23 21:53 Dose: 0.4 mcg/kg/min, 96.2 mls/hr Documented By: TM Co-signed By: PAH Admin: 01/19/23 19:53 Dose: 0.4 mcg/kg/min, 96.2 mls/hr Documented By: TM Co-signed By: PAH Titration: 01/19/23 19:53 Dose: 0.4 mcg/kg/min, 96.2 mls/hr Documented By: TM Co-signed By: PAH Admin: 01/19/23 17:40 Dose: 0.4 mcg/kg/min, 96.2 mls/hr Documented By: MATTHIAS Co-signed By: AM Titration: 01/19/23 17:40 Dose: 0.5 mcg/kg/min, 120.2 mls/hr Documented By: MATTHIAS Co-signed By: AM Titration: 01/19/23 16:20 Dose: 0.5 mcg/kg/min, 120.2 mls/hr Documented By: Titration: 01/19/23 16:15 Dose: 0.4 mcg/kg/min, 96.2 mls/hr Documented By: Titration: 01/19/23 16:00 Dose: 0.3 mcg/kg/min, 72.1 mls/hr Documented By: Titration: 01/19/23 15:45 Dose: 0.2 mcg/kg/min, 48.1 mls/hr Documented By: Titration: 01/19/23 15:30 Dose: 0.1 mcg/kg/min, 24 mls/hr Documented By: Titration: 01/19/23 14:55 Dose: 0.09 mcg/kg/min, 21.6 mls/hr Documented By: Titration: 01/19/23 14:06 Dose: 0.07 mcg/kg/min, 16.8 mls/hr Documented By: Admin: 01/19/23 13:47 Dose: 0.05 mcg/kg/min, 12 mls/hr Documented By: YAIMA Co-signed By: TONYA Vancomycin HCl 1,000 mg/ (Sodium Chloride) 520 mls @ 200 mls/hr IV Q8H EZEKIEL Stop: 01/21/23 14:54 Last Admin: 01/19/23 16:35 Dose: Not Given Documented By: AM Miscellaneous (Patient's Height Needed) 1 each N/A NOW STA Stop: 01/19/23 15:05 Last Admin: 01/19/23 16:34 Dose: Not Given Documented By: AM Miscellaneous (Patient's Height &/Or Weight Needed) 1 each N/A NOW STA Stop: 01/19/23 15:10 Last Admin: 01/19/23 16:34 Dose: Not Given Documented By: AM Description This is a 21 electrode EEG with a single channel dedicated to limited EKG. The electrodes were placed in accordance with the International 10-20 system. Interpretation The predominant background activity consists of an irregular 5-6 Hz activity, of up to 30 mV in amplitude,seen symmetrically distributed over the posterior head regions bilaterally, spreading anteriorly symmetrically. This activity has little attenuation core change with eye opening other alerting procedures. Photic stimulation was performed and elicited no change in the background activity and no abnormal responses were seen. Hyperventilation was not performed. A minimal amount of muscle and movement artifact activity contaminated the recording and did not hinder interpretation to any significant degree. There were fragmented generalized electrode artifact changes from time to time as isolated transients usually correlating with EKG or IV pump Throughout the recording, no focal abnormalities or potentially epileptogenic discharges were seen. In summary, this EEG was abnormal and showed a moderate generalized encephalopathy as noted by the generalized slowing. There were no focal abnormalities or potentially epileptogenic discharges seen Clinical Correlation The abscence of potentially epileptogenic activity does not exclude a seizure disorder, since interictally, EEGs can be normal. The abnormal slowing is consistent with encephalopathy, which could be due to a wide variety of causes. Clinical correlation required [facility] EEG Procedure Codes Indication for Procedure (1) Observed seizure-like activity: Neurology Neurology: 26189 EEG include record awake & drowsy
[2023-01-20] MEDS: PLASMA-LYTE A 1,000 ML IV SCH ×2 (07:45→15:51)
--- NOTE | 2023-01-20 08:12 | Neurology Consultation ---
Date of Consultation January 20, 2023 Assessment & Plan (1) Acute encephalopathy: (2) Observed seizure-like activity: (3) Dementia: (4) Abnormal involuntary movements: (5) Rigidity: (6) Sepsis: (7) Pneumonia: Plan This patient has a significant acute encephalopathy, likely secondary to infection (UTI leading to sepsis and pneumonia). LP had elevated protein and 19 white cells. There may be a very early meningitic process that was present but the elevated protein is likely secondary to inflammation and 19 white cells are not out of proportion to the bloody tap that produced 11,000 red cells Patient has some rigidity and some abnormal involuntary movements. Clinically and by EEG, I do not believe these are seizures but may be secondary to long- term Zyprexa (extra pyramidal side effects). In addition, the patient has hypomagnesemia, hypocalcemia, and hypophosphatemia. These conditions could lead to twitching, myoclonic jerks, and abnormal movements. He has a history of significant dementia and is not very verbal or follows command much anyway at baseline. Recommendations: 1. Can hold on anticonvulsants for now. If he has any convincing seizure activity, then I would load him with 1 g of Keppra IV and continue 500 mg Keppra IV q.12 hours. 2. Correct electrolyte and metabolic imbalances as you are doing. 3. Continue treating infection as you are doing and awaiting final cultures. 4. Continue holding Zyprexa for now, I would like see if, over time rigidity and movements diallo Overall, I spent a total of 80 minutes with this case including review of records, direct evaluation the patient bedside, and discussion of the case with the RN at bedside and Dr. Juan including differential diagnosis and treatment options. History of Present Illness Reason for Consultation: Patient is a 62-year-old, who I was asked to see at the request of David Vivas PA-C, for neurologic consultation regarding encephalopathy and witnessed seizure activity Requesting Physician: David Vivas PA-C Attending Physician: Chucho Devi History of Present Illness Patient is an inmate at [place] [facility] with a history of dementia (uncertain type and no history available) and dyslipidemia. He has been on citalopram 10 mg daily, donepezil 10 mg daily and olanzapine 2.5 mg in the morning and 10 mg at night. According to the guards who were present at bedside he does not speak much and has trouble following commands. He tends to twitch and move his arms irregularly on a regular basis. He is living in the cognitive impairment wing of [facility]. Apparently he has had altered mental status (even more so than usual) over the last several days prior to admission. He was having decreased p.o. intake of liquids and solids and just before admission he became less responsive/obtunded. Was witnessed at the shelter on January 19 to have a generalized shaking episode (no further details) which prompted the transfer to [facility]. Arrived to [facility] on 01/19 at 10:55 a.m. with a temperature of 31.9, pulse 52, respiratory rate 22, blood pressure 93/58, O2 saturation 100. He was not responsive, not speaking or following commands. He is had no seizure-like activity at [facility] from the time he was in the ER through the present. CBC was largely unremarkable and Chem profile a glucose of 128, BUN 24, and mildly elevated AST and ALT. TSH was normal and lactate was 5.4. Chest x-ray showed possible right lower lobe atelectasis/pneumonia. CT scan of the abdomen and pelvis was largely unremarkable CT scan of the head was unremarkable. Lumbar puncture was performed and showed no xanthochromia although was a bloody tap. There were 19 white cells (73% polys) and 11,000 red cells. Protein was 119 and glucose 74. G stain showed no cells or organisms. Serum and CSF BioFire" panels were unremarkable. Urine culture is growing Gram-negative bacilli. Blood cultures and CSF cultures are still pending. Today blood pressure is 125/83 with a pulse of 85 and regular. Temperature was 36.8 and O2 saturation was 93%. Laboratory studies today revealed a magnesium 1.4, calcium of 7.7, and phosphorus of 1.9. Sodium was unremarkable glucose was 112. AST and ALT were increased to 199 and 201. EEG was performed this morning and showed a moderate generalized slowing without focal abnormalities. There were some electrode discharges of a generalized fragmented nature which I believe were artifactual and not potentially epileptogenic. There were no abnormal involuntary movements noted on video. Allergies Allergy/AdvReac Type Severity Reaction Status Date / Time No Known Allergies Allergy Verified 01/19/23 13:00 Home Medications Medication Instructions Recorded Confirmed Type citalopram 10 mg tablet (Celexa) 5 mg PO DAILY 08/09/22 01/19/23 History docusate sodium 250 mg capsule 250 mg PO DAILY PRN Constipation 08/09/22 01/19/23 History donepezil 10 mg tablet 10 mg PO DAILY 08/09/22 01/19/23 History olanzapine 10 mg tablet (Zyprexa) 10 mg PO HS 08/09/22 01/19/23 History rosuvastatin 20 mg tablet (Crestor) 20 mg PO DAILY 08/09/22 01/19/23 History olanzapine 2.5 mg tablet 2.5 mg PO QAM 01/19/23 01/19/23 History Patient History Medical History Dementia HLD (hyperlipidemia) Social History Smoking Status: Unknown if ever smoked Tobacco Type: Cigarettes Hx Alcohol Use: No Hx Substance Use: No Preferred Language: Cymro Communication Ability: Impaired [employer] Operator Required: No Beliefs That Will Affect Care: None Current Living Situation: Other Current Living Situation Comment: [place] Feels Safe at Home: Yes Assistive Devices: None Review of Systems Review of Systems: Unobtainable due to cognitive status Constitutional: no fever, no fatigue and no weakness Eyes: no diplopia, no eye pain and no worsening vision Ear, Nose, Mouth, Throat: no ear pain, no tinnitus, no hearing loss, no dizziness, no snoring, no hoarseness and no dysphagia Respiratory: no cough and no dyspnea Cardiovascular: no chest pain, no palpitations and no lightheadedness Gastrointestinal: no abdominal pain, no nausea and no vomiting Musculoskeletal: no back pain, no neck pain, no radicular pain, no joint pain and no myalgia Integumentary: no rash and no lesions Neurologic: no gait abnormality, no localized weakness, no generalized weakness, no tingling, no numbness, no tremor(s), no abnormal movements, no headache(s), no abnormal speech, no confusion and no memory loss Psychiatric: no depression, no irritability, no anxiety, no difficulty concent rating, no confusion and no hallucinations Endocrine: no fatigue and no flushing Hematologic / Lymphatic: no easy bleeding and no easy bruising Allergy / Immunological: no urticaria and no problem reported Exam (Neuro) Physical Exam: The patient is right-handed. The patient is sitting in bed at 45 degree angle but holds his head up off the pillow the entire time. He will not respond to voice or shout but does react quickly with moan, head movement, and withdrawal limb to light stimuli in each limb there is no speech intelligible Discs are not well visualized due to his tiny pupils and resistance to eye opening. Pupils are 2 mm bilaterally and reactive to light. Eyes are front and conjugate with resisted eye opening and he has some mild positive oculocephalics with head turning. Neck moves in all directions but he is resistant. There are positive corneal reactions bilaterally. There is no facial droop. Tongue is midline. There are no cervical bruits bilaterally. There are no cranial or ocular bruits. Heart is without murmur. There is a regular rhythm and rate. Gait and stance could not be tested otherwise. The patient resisted movement of his limbs in all directions. I believe there may be some mild rigidity in these limbs as well. He does have some nonspecific random myoclonic jerking or twitching movements of his limbs but nothing rhythmic. There is no obvious tremor of head or limbs. Strength seems normal and symmetrical in all limbs as he resists with no focal weakness. Reflexes are 2/4 in all 4 limbs both proximally and distally. Toes are downgoing to plantar stimulation bilaterally. With light stimulation in the bottom of his feet he withdraws his limbs. With light pain in the distal digits he withdraws the limb easily as well. Results & Data Vital Signs (Past 12 Hours) Vital Signs Temp Pulse Resp BP Pulse Ox O2 Del Method 01/20/23 06:30 37.2 C 67 20 94 01/20/23 06:30 127/73 01/20/23 06:15 37.3 C 66 19 94 01/20/23 06:15 128/71 01/20/23 06:00 37.4 C 66 18 94 01/20/23 05:45 37.5 C 68 18 125/68 01/20/23 05:30 37.6 C H 66 19 122/66 94 01/20/23 05:15 37.6 C H 70 19 119/67 93 01/20/23 05:00 37.7 C H 69 19 120/64 01/20/23 04:45 37.7 C H 71 21 116/58 L 23 04:30 37.8 C H 71 23 114/60 93 01/20/23 04:15 37.8 C H 73 27 H 119/60 01/20/23 04:00 37.7 C H 69 23 93 01/20/23 04:00 136/62 01/20/23 05:20 93 Room Air 01/20/23 05:00 37.6 C H 01/20/23 03:45 37.7 C H 71 27 H 136/68 01/20/23 03:30 37.6 C H 70 21 01/20/23 03:15 37.6 C H 68 24 01/20/23 03:00 37.5 C 67 26 H 138/66 01/20/23 02:45 37.5 C 65 30 H 135/65 01/20/23 02:30 37.4 C 67 25 H 137/69 01/20/23 02:15 37.4 C 67 18 117/63 91 01/20/23 02:15 132/68 01/20/23 03:54 37.7 C H 01/20/23 02:00 37.3 C 68 23 134/68 01/20/23 01:45 37.3 C 67 27 H 01/20/23 01:45 132/72 01/20/23 01:30 37.3 C 69 28 H 125/67 01/20/23 01:15 37.2 C 71 13 01/20/23 01:15 124/74 01/20/23 02:03 37.3 C 01/20/23 01:13 37.2 C 01/20/23 01:00 37.3 C 71 27 H 127/72 01/20/23 00:45 37.3 C 74 24 93 01/20/23 00:45 128/70 01/20/23 00:30 37.4 C 72 23 01/20/23 00:30 131/79 01/20/23 00:15 37.5 C 73 17 136/75 01/20/23 00:00 37.6 C H 76 30 H 123/70 01/19/23 23:53 136/67 01/19/23 23:53 37.6 C H 78 33 H 01/19/23 23:45 37.7 C H 76 10 L 119/68 93 01/19/23 23:30 37.8 C H 78 29 H 126/67 93 01/19/23 23:15 37.9 C H 79 34 H 93 01/20/23 00:45 37.3 C 01/20/23 00:00 37.3 C 01/19/23 23:00 38.0 C H 82 33 H 94 01/19/23 23:00 121/62 01/19/23 22:45 38.0 C H 84 37 H 94 01/19/23 22:45 114/61 01/19/23 22:44 115/60 01/19/23 22:44 38.0 C H 84 42 H 93 01/19/23 22:43 120/64 01/19/23 22:43 38.0 C H 83 29 H 93 01/19/23 22:42 38.0 C H 84 37 H 93 01/19/23 22:42 124/58 L 01/19/23 22:30 37.9 C H 85 36 H 93 01/19/23 22:15 37.8 C H 86 21 96 01/19/23 22:00 37.6 C H 84 33 H 93 01/19/23 21:45 37.4 C 86 20 93 01/19/23 21:30 37.3 C 82 31 H 95 01/19/23 21:15 37.1 C 82 23 94 01/19/23 21:00 36.9 C 80 26 H 94 01/19/23 20:45 36.7 C 78 24 93 01/19/23 20:30 36.5 C 79 43 H 93 01/19/23 20:15 36.3 C L 77 35 H 94 01/19/23 23:00 37.9 C H 01/19/23 22:00 37.9 C H 01/19/23 21:00 37.9 C H PG Care Time/CCT Total # of Minutes Spent Total Time Spent with Patient: Total time spent is greater than 50% in coordination of care (as documented) at patient's floor/unit and/or counseling patient: Coding Level of Care Code 59645 IN/OBS CONSULT LVL 5,80M Diagnoses Acute encephalopathy G93.40 Observed seizure-like activity R56.9 Dementia F03.90 Dementia behavioral or psychological symptom: unspecified whether behavioral, psychotic, or mood disturbance or anxiety Dementia severity: unspecified severity Dementia type: unspecified type Abnormal involuntary movements R25.9 Rigidity R29.898 Sepsis A41.9 Sepsis acute organ dysfunction status: unspecified Sepsis type: sepsis due to unspecified organism Pneumonia J18.9 Laterality: right Lung location: lower lobe of lung Pneumonia type: due to unspecified organism Time Spent (min) 80 (3) Dementia Dementia behavioral or psychological symptom: unspecified whether behavioral, psychotic, or mood disturbance or anxiety Dementia severity: unspecified severity Dementia type: unspecified type Qualified Code(s): F03.90 - Unspecified dementia, unspecified severity, without behavioral disturbance, psychotic disturbance, mood disturbance, and anxiety (6) Sepsis Sepsis acute organ dysfunction status: unspecified Sepsis type: sepsis due to unspecified organism Qualified Code(s): A41.9 - Sepsis, unspecified organism (7) Pneumonia Laterality: right Lung location: lower lobe of lung Pneumonia type: due to unspecified organism Qualified Code(s): J18.9 - Pneumonia, unspecified organism
--- NOTE | 2023-01-20 08:17 | Critical Care Progress Note ---
Date of Service January 20, 2023 Assessment & Plan (1) Observed seizure-like activity: (2) Acute encephalopathy: (3) Hypothermia: (4) Sepsis: (5) Acute alteration in mental status: (6) Pneumonia: (7) Dementia: (8) Urinary tract infection: Plan Reason Critically Ill: 62-year-old male presenting to the ICU for ongoing evaluation and management of altered mental status, observed seizure-like activity, hypothermia, and concerns for sepsis in the setting of RIGHT lower lobe aspiration pneumonia. NEURO - * [facility] ICU: unable to assess secondary to current mental status. * Altered Mental Status: * Multifactorial in the demented patient with recently observed seizure-like activity and likely profound metabolic encephalopathy in the setting of hypothermia and sepsis from likely pulmonary/urinary sources. * CT head/brain without concerning findings. Plan for MRI 01/20. * LP cultures pending, however, without overt finding suggestive of meningitis. * TSH= 2.5, random cortisol 39 * EEG without signs of seizure like activity, plan to hold on anti-epileptics for now * Appreciate neurology consultation. * Witnessed Seizure Activity: * Per discussion with guards at bedside. * EEG as above. * No focal seizure activity noted on exam. Would hold on antiepileptics for now. * May be in the setting of severity of illness, hypothermia, etc. * Dementia: * At baseline pt is able to ambulate and feed himself. CARDIAC/VASCULAR - * Hypotension: * In the setting of sepsis and hypothermia. * Normothermic with jody hubber * Wean pressors as tolerated with a goal MAP>65 * EKG: Sinus bradycardia @ 52 bpm. 1' AV block noted. T-wave inversions noted anterior/lateral leads. QTc 531 ms. * Monitor on telemetry. RESPIRATORY - * RIGHT Lower Lobe Pneumonia: * As noted on CXR/Abd CT. * Aspiration pneumonia possible given presentation * Could anaerobic coverage. * Sputum cultures if able to provide. * Will check urine legionella * Not requiring supplemental O2 at this time. * Currently maintaining airway despite AMS. Low threshold for intubation if his respiratory status becomes compromised. GI/NUTRITION - * NPO while AMS. * Prophylaxis: Famotidine * Elevated livery enzymes in a hepatocellular pattern, likely secondary to hypoperfusion. Continue to trend RENAL/LYTES - * Elevated Lactate: * In the setting of sepsis vs seizure. May be more related to seizure given impressive elevation (7.2) in the setting of no other significant laboratory abnormalities. Downtrending 1.4 01/20 * Continue to replace electrolytes as appropriate. * Will add albumin, calcium repletion * IVF: Plasmalyte @ 125 mL/hr * Has received 5L IVF - * UTI: * Cultures growing gram negative bacilli * Covered with Zosyn currently. * Wolfe in place - Strict I&Os. ENDO - * No reported h/o DM or thyroid Dz. * BSGs per unit protocol. ISS --> gtt per unit policy. HEME - * Stable H&H * No overt s/s bleeding. ID - * Severe Sepsis: * Urinary versus pulmonary sources. * RLL infiltrate noted on CXR/CT - anaerobic coverage warranted for risk of aspiration in the patient with witnessed seizure-like activity. * Urinalysis concerning for UTI, culture growing gram negative bacilli * Continue with Zosyn. * nasal MRSA swab negative; vancomycin d/c * LP Gram stain pending as well. Would not treat as meningitis at this time. LINES/IV ACCESS - * PIVs x2 * Left Subclavian * Wolfe DVT PROPHYLAXIS - * Lovenox * SCDs Thank you for allowing us to participate in the care of this patient. Please refer to my attending physician's documentation for any further recommendations. Admission and Anticipated Discharge Date Admission Date: January 19, 2023 Supervising Physician Co-Signing Physician Notes Patient seen and examined. EMR reviewed. Discussed with family practice resident as well as bedside critical care nurse and on multidisciplinary rounds. Also discussed with neurology consultants. The patient required addition of a second vasopressor unit last evening. These are being weaned back down. He appears vascularly replete. His hypothermia has been corrected. His encephalopathy persists but agree with neurology's assessment that his exam appears to be nonfocal. Given his underlying dementia, it is unclear if this may be a acute or subacute progression. For completeness sake we will obtain MRI of the brain with contrast. Continue antibiotics for aspiration pneumonia and a urinary tract infection. Mental status currently precludes feeding and I do not think the patient warrants a nasoenteric tube currently. Hopefully the patient's mental status improves back to his baseline and the patient maintains hemodynamic stability which will allow her transfer out of the intensive care unit. Patient remains critically ill at this point time with multiorgan system dysfunction and severe sepsis with septic shock. A total of 65 minutes in critical care time was spent in evaluation management and coordinating care for this patient. Subjective Pt seen at bedside this morning resting comfortably. Did withdraw to painful stimuli. Non-verbal. At baseline he is able to ambulate and feed himself. Review of Systems Review of Systems: As per above Physical Exam Physical Exam: Constitutional: well-appearing, no acute distress HEENT: NCAT, no conjunctival injection, PERRLA CV: regular rhythm, no murmur appreciated, extremities well-perfused, no LE edema Resp: CTABL, no wheezes/rales/rhonchi appreciated, no increased work of breathing GI: soft, nondistended, nontender, BS normoactive MSK: no gross deformities appreciated Skin: warm, dry, no rash appreciated Neuro: no focal neurologic deficit appreciated, withdraw to painful stimuli Results & Data Results & Data Vital Signs (Past 12 Hours) Vital Signs Temp Pulse Pulse Resp BP BP BP 01/20/23 07:00 36.9 C 63 18 114/49 L 117/70 01/20/23 06:30 37.2 C 67 20 01/20/23 06:30 127/73 01/20/23 06:15 37.3 C 66 19 01/20/23 06:15 128/71 01/20/23 06:00 37.4 C 66 18 01/20/23 05:45 37.5 C 68 18 125/68 01/20/23 05:30 37.6 C H 66 19 122/66 01/20/23 05:15 37.6 C H 70 19 119/67 01/20/23 05:00 37.7 C H 69 19 120/64 01/20/23 04:45 37.7 C H 71 21 116/58 L 01/20/23 04:30 37.8 C H 71 23 114/60 01/20/23 04:15 37.8 C H 73 27 H 119/60 01/20/23 04:00 37.7 C H 69 23 01/20/23 04:00 136/62 01/20/23 05:20 01/20/23 05:00 37.6 C H 01/20/23 03:45 37.7 C H 71 27 H 136/68 01/20/23 03:30 37.6 C H 70 21 01/20/23 03:15 37.6 C H 68 24 01/20/23 03:00 37.5 C 67 26 H 138/66 01/20/23 02:45 37.5 C 65 30 H 135/65 01/20/23 02:30 37.4 C 67 25 H 137/69 01/20/23 02:15 37.4 C 67 18 117/63 01/20/23 02:15 132/68 01/20/23 03:54 37.7 C H 01/20/23 02:00 37.3 C 68 23 134/68 01/20/23 01:45 37.3 C 67 27 H 01/20/23 01:45 132/72 01/20/23 01:30 37.3 C 69 28 H 125/67 01/20/23 01:15 37.2 C 71 13 01/20/23 01:15 124/74 01/20/23 02:03 37.3 C 01/20/23 01:13 37.2 C 01/20/23 01:00 37.3 C 71 27 H 127/72 01/20/23 00:45 37.3 C 74 24 01/20/23 00:45 128/70 01/20/23 00:30 37.4 C 72 23 01/20/23 00:30 131/79 01/20/23 00:15 37.5 C 73 17 136/75 01/20/23 00:00 37.6 C H 76 30 H 123/70 01/19/23 23:53 136/67 01/19/23 23:53 37.6 C H 78 33 H 01/19/23 23:45 37.7 C H 76 10 L 119/68 01/19/23 23:30 37.8 C H 78 29 H 126/67 01/19/23 23:15 37.9 C H 79 34 H 01/20/23 00:45 37.3 C 01/20/23 00:00 37.3 C 01/19/23 23:00 38.0 C H 82 33 H 01/19/23 23:00 121/62 01/19/23 22:45 38.0 C H 84 37 H 01/19/23 22:45 114/61 01/19/23 22:44 115/60 01/19/23 22:44 38.0 C H 84 42 H 01/19/23 22:43 120/64 01/19/23 22:43 38.0 C H 83 29 H 01/19/23 22:42 38.0 C H 84 37 H 01/19/23 22:42 124/58 L 01/19/23 22:30 37.9 C H 85 36 H 01/19/23 22:15 37.8 C H 86 21 01/19/23 22:00 37.6 C H 84 33 H 01/19/23 21:45 37.4 C 86 20 01/19/23 21:30 37.3 C 82 31 H 01/19/23 21:15 37.1 C 82 23 01/19/23 21:00 36.9 C 80 26 H 01/19/23 20:45 36.7 C 78 24 01/19/23 20:30 36.5 C 79 43 H 01/19/23 20:15 36.3 C L 77 35 H 01/19/23 23:00 37.9 C H 01/19/23 22:00 37.9 C H 01/19/23 21:00 37.9 C H Pulse Ox O2 Del Method 01/20/23 07:00 92 Room Air 01/20/23 06:30 01/20/23 06:30 01/20/23 06:15 01/20/23 06:15 01/20/23 06:00 01/20/23 05:45 01/20/23 05:30 01/20/23 05:15 01/20/23 05:00 01/20/23 04:45 01/20/23 04:30 01/20/23 04:15 01/20/23 04:00 01/20/23 04:00 01/20/23 05:20 93 Room Air 01/20/23 05:00 01/20/23 03:45 01/20/23 03:30 01/20/23 03:15 01/20/23 03:00 01/20/23 02:45 01/20/23 02:30 01/20/23 02:15 01/20/23 02:15 01/20/23 03:54 01/20/23 02:00 01/20/23 01:45 01/20/23 01:45 01/20/23 01:30 01/20/23 01:15 01/20/23 01:15 01/20/23 02:03 01/20/23 01:13 01/20/23 01:00 01/20/23 00:45 01/20/23 00:45 01/20/23 00:30 01/20/23 00:30 01/20/23 00:15 01/20/23 00:00 01/19/23 23:53 01/19/23 23:53 01/19/23 23:45 01/19/23 23:30 01/19/23 23:15 01/20/23 00:45 01/20/23 00:00 01/19/23 23:00 01/19/23 23:00 01/19/23 22:45 01/19/23 22:45 01/19/23 22:44 01/19/23 22:44 01/19/23 22:43 01/19/23 22:43 01/19/23 22:42 01/19/23 22:42 01/19/23 22:30 01/19/23 22:15 96 01/19/23 22:00 01/19/23 21:45 01/19/23 21:30 95 01/19/23 21:15 94 01/19/23 21:00 01/19/23 20:45 01/19/23 20:30 01/19/23 20:15 01/19/23 23:00 01/19/23 22:00 01/19/23 21:00 Resident Activity Tracking Resident Involvement: Resident Care Provided Care Provided: Adult Hospital Medicine (ICU) (3) Hypothermia Encounter type: initial encounter Qualified Code(s): T68.XXXA - Hypothermia, initial encounter (4) Sepsis Sepsis acute organ dysfunction status: unspecified Sepsis type: sepsis due to unspecified organism Qualified Code(s): A41.9 - Sepsis, unspecified organism (6) Pneumonia Laterality: right Lung location: lower lobe of lung Pneumonia type: due to unspecified organism Qualified Code(s): J18.9 - Pneumonia, unspecified organism (7) Dementia Dementia behavioral or psychological symptom: unspecified whether behavioral, psychotic, or mood disturbance or anxiety Dementia severity: unspecified severity Dementia type: unspecified type Qualified Code(s): F03.90 - Unspecified dementia, unspecified severity, without behavioral disturbance, psychotic disturbance, mood disturbance, and anxiety (8) Urinary tract infection Hematuria presence: without hematuria Urinary tract infection type: site unspecified Qualified Code(s): N39.0 - Urinary tract infection, site not specified
[2023-01-20] MEDS: MAGNESIUM SULFATE / D5W 1 GM/100 ML BAG IV SCH ×3 (08:40→10:52)
--- NOTE | 2023-01-20 09:12 | Billing Data ---
Date of Service January 19, 2023 This is a life threatening event. Total 35 minutes of critical care time peformed. Coding Level of Care Code 87658 INT INP/OBS CARE 3/75MIN
[2023-01-20 09:21] LABS: Hematocrit (blood only) 31.1 % (42.0-52.0); Hemoglobin 10.6 g/dl (14.0-18.0)
[2023-01-20] MEDS: CITALOPRAM 20 MG TAB PO SCH (09:54)
[2023-01-20] MEDS: DONEPEZIL HCL 10 MG TAB PO SCH (09:54)
[2023-01-20] MEDS: ALBUMIN 25% 25 GM/100 ML VIAL IV SCH ×2 (09:54→10:52)
[2023-01-20] MEDS: OLANZAPINE 2.5 MG TAB PO SCH (09:54)
[2023-01-20] MEDS: ENOXAPARIN INJ 40 MG/0.4 ML SYR SQ SCH (09:55)
[2023-01-20] MEDS: FAMOTIDINE 20 MG in SYRINGE 3 ML IV SCH ×2 (09:58→20:46)
[2023-01-20] MEDS: ROSUVASTATIN CALCIUM 20 MG TAB PO SCH (09:58)
[2023-01-20] MEDS ORDERED: CALCIUM CHLORIDE 10% 1,000 MG in DEXTROSE 5% 50 ML IV ONE (10:00)
[2023-01-20] MEDS: ICU Protocol for HYPERglycemia SCH ×4 (10:10→19:25)
--- NOTE | 2023-01-20 12:55 | Billing Data ---
Date of Service January 20, 2023 Coding Level of Care Code 34369 CRITICAL CARE
[2023-01-20] MEDS ORDERED: Nursing to Pharmacy Communication SCH (17:15)
[2023-01-20] MEDS: Double Conc; 16mg in 500mL IV SCH ×2 (19:24)
--- NOTE | 2023-01-20 19:40 | Magnetic Resonance Report ---
MR brain wo con CLINICAL HISTORY: Altered Mental Status TECHNIQUE: Multiplanar and multisequence MR images of the brain were obtained without intravenous con trast. Comparison: Comparison is made to CT head 01/19/2023 FINDINGS: Exam is highly limited by patient motion and combativeness, not all sequences were obtained. No abnor mal restricted diffusion is identified. Ex vacuo ventriculomegaly and sulcal enlargement is noted co mpatible with diffuse volume loss. No mass is seen. There is no mass effect or midline shift. No ext ra axial fluid collections are seen. Flow voids of the major intracranial arterial vessels are identified. The imaged portions of the para nasal sinuses, mastoid air cells, and orbits are unremarkable. IMPRESSION: Highly limited exam, however no definite evidence of acute infarct. Age-related involutional changes are seen. ACT 112: Negative or not required by law. Electronically signed by: Austin Kendall M.D. 01/20/2023 7:38 PM
[2023-01-20] MEDS: OLANZapine 10 MG TAB PO SCH (19:51)
--- NOTE | 2023-01-20 22:49 | Hospitalist Progress Note ---
Date of Service January 20, 2023 Assessment & Plan (1) Sepsis: Plan: 62yo Male with PMH Dementia Alzheimer's HLD here for concern sepsis. Sepsis concern PNA UTI -Lactate 7.2 recheck 5.4 -WBC procal wnl -CSF noted elevated WBC however bloody tap, less concern meningitis CFS panel negative -CT head: No acute intracranial findings. No change in appearance of the brain. -CT A/P: There is a right lower lung airspace opacity compatible with aspiration/pneumonia. Diverticulosis without diverticulitis. -CXR: Right lower lung airspace opacities likely represent atelectasis with or without superimposed aspiration/pneumonia. -UA concerning for infection -started on vancomycin zosyn -Ucx pending -blood culture pending -CSF culture pending -admit to ICU Appreciate input from Critical care and Neurology: -hold on anticonvulsants for now. - hold Zyprexa for now, Concern Seizure -EEG ordered Hypotension -BP 85/53 in setting of sepsis s/p fluid resuscitation -continue IVF -continue levophed -admit to ICU Bradycardia -HR 58 -EKG sinus bradycardia with 1st degree AV block, prolonged QT interval 572 Hypothermia -temp 32.1 on admission/ this is improving -ordered jody hugger -started vancomycin zosyn. continue zosyn. Elevated LFT -AST 81 ALT 81, continue to monitor Dementia -baseline largely nonverbal able to stand and eat without assistance -continue Celexa, donepezil, olanzapine HLD -continue crestor FENa: NPO Code Status: Full, no records with [facility], unable to discuss with patient DVT PPX: SCDs Nutrition consulted Dispo: ICU Ananya Alejandra D.O. PGY 3, FCM (2) Hypothermia: (3) Acute alteration in mental status: (4) Pneumonia: (5) Urinary tract infection: (6) Dementia: (7) HLD (hyperlipidemia): (8) Seizure-like activity: (9) Acidosis, lactic: (10) Acute encephalopathy: Admission and Anticipated Discharge Date Admission Date: January 19, 2023 Subjective Patient is non verbal. Review of Systems Review of Systems: Unobtainable due to cognitive status Physical Exam Physical Exam: Constitutional: + altered mental status , withdrew from painful stimuli Respiratory: normal respiratory effort Auscultation: + crackles (R>L) Cardiovascular: Rate/Rhythm: regular rate and regular rhythm Extremities: no edema Gastrointestinal (Abdomen): Inspection/Auscultation: abdomen normal to inspection Percussion/Palpation: abdomen soft Skin: no rashes, warm and dry Results & Data Results & Data Vital Signs (Past 12 Hours) Vital Signs Temp Pulse Pulse Resp BP BP BP 01/20/23 22:00 35.6 C L 72 12 01/20/23 22:00 139/78 01/20/23 21:00 35.8 C L 63 12 01/20/23 21:00 144/79 H 01/20/23 20:00 36.1 C L 75 15 01/20/23 21:02 35.6 C L 58 L 12 136/69 01/20/23 20:00 68 01/20/23 20:00 01/20/23 19:45 36.1 C L 65 13 01/20/23 19:30 36.2 C L 72 20 01/20/23 19:15 36.3 C L 73 16 01/20/23 19:00 67 18 01/20/23 18:00 36.8 C 74 17 104/46 L 139/73 01/20/23 17:00 36.5 C 78 20 113/56 L 112/60 01/20/23 16:00 36.1 C L 73 18 103/61 104/58 L 01/20/23 15:39 66 01/20/23 15:00 35.7 C L 68 16 100/49 L 100/54 L 01/20/23 14:00 35.7 C L 67 18 104/51 L 113/70 01/20/23 13:00 35.7 C L 56 L 16 106/55 L 121/77 01/20/23 12:00 35.9 C L 60 18 113/56 L 129/79 01/20/23 11:00 36.1 C L 55 L 16 145/79 H Pulse Ox O2 Del Method 01/20/23 22:00 97 01/20/23 22:00 01/20/23 21:00 96 01/20/23 21:00 01/20/23 20:00 96 01/20/23 21:02 97 Room Air 01/20/23 20:00 01/20/23 20:00 96 Room Air 01/20/23 19:45 95 01/20/23 19:30 96 01/20/23 19:15 95 01/20/23 19:00 94 01/20/23 18:00 95 Room Air 01/20/23 17:00 93 Room Air 01/20/23 16:00 95 Room Air 01/20/23 15:39 01/20/23 15:00 95 Room Air 01/20/23 14:00 93 Room Air 01/20/23 13:00 95 Room Air 01/20/23 12:00 94 Room Air 01/20/23 11:00 95 Room Air PG Care Time/CCT Total # of Minutes Spent Total Time Spent with Patient: Total time spent is greater than 50% in coordination of care (as documented) at patient's floor/unit and/or counseling patient: Coding Level of Care Code 28938 SUB INP/OBS CARE 3/50MIN Diagnoses Sepsis A41.9 Sepsis acute organ dysfunction status: unspecified Sepsis type: sepsis due to unspecified organism Hypothermia T68.XXXA Encounter type: initial encounter Acute alteration in mental status R41.82 Pneumonia J18.9 Laterality: right Lung location: lower lobe of lung Pneumonia type: due to unspecified organism Urinary tract infection N39.0 Hematuria presence: without hematuria Urinary tract infection type: site unspecified Dementia F03.90 Dementia behavioral or psychological symptom: unspecified whether behavioral, psychotic, or mood disturbance or anxiety Dementia severity: unspecified severity Dementia type: unspecified type HLD (hyperlipidemia) E78.5 Seizure-like activity R56.9 Acidosis, lactic E87.20 Acute encephalopathy G93.40 (1) Sepsis Sepsis acute organ dysfunction status: unspecified Sepsis type: sepsis due to unspecified organism Qualified Code(s): A41.9 - Sepsis, unspecified organism (2) Hypothermia Encounter type: initial encounter Qualified Code(s): T68.XXXA - Hypothermia, initial encounter (4) Pneumonia Laterality: right Lung location: lower lobe of lung Pneumonia type: due to unspecified organism Qualified Code(s): J18.9 - Pneumonia, unspecified organism (5) Urinary tract infection Hematuria presence: without hematuria Urinary tract infection type: site unspecified Qualified Code(s): N39.0 - Urinary tract infection, site not specified (6) Dementia Dementia behavioral or psychological symptom: unspecified whether behavioral, psychotic, or mood disturbance or anxiety Dementia severity: unspecified severity Dementia type: unspecified type Qualified Code(s): F03.90 - Unspecified dementia, unspecified severity, without behavioral disturbance, psychotic disturbance, mood disturbance, and anxiety
[2023-01-21] MEDS: PLASMA-LYTE A 1,000 ML IV SCH ×3 (00:35→19:39)
[2023-01-21] MEDS: PIPERACILLIN/TAZOBACTAM 4.5 GM in DEXTROSE 5% MINI-B 100 ML IV SCH ×2 (00:40→08:16)
[2023-01-21] MEDS: ICU Protocol for HYPERglycemia SCH ×2 (00:55→05:32)
[2023-01-21 05:07] LABS: Albumin Level 2.9 gm/dl (3.4-5.0); BUN Creatinine Ratio 17.2 (10-20); Bilirubin Direct 0.2 mg/dl (0-0.2); Bilirubin,Total 0.9 mg/dl (0.2-1.0); Calcium 8.1 mg/dl (8.6-10.3); Creatinine Clr Calc Pharmacy 78.7 ml/min; Est GFR (African American) 100.9 ml/min; Est GFR (Non-African American) 87.1 ml/min; Magnesium 2.3 mg/dl (1.7-2.4); Phosphorus 2.3 mg/dl (2.5-4.9); Potassium 3.8 mmol/L (3.5-5.1); Total Protein 4.9 gm/dl (6.0-8.3)
[2023-01-21] MEDS ORDERED: POTASSIUM PHOS 3 MMOL/1 ML INFUSION IV STA (06:06)
[2023-01-21] MEDS ORDERED: POTASSIUM PHOSPHATE 15 MMOL in SODIUM CHLORIDE 0.9% 250 ML IV ONE (06:15)
[2023-01-21 06:45] LABS: Acanthocytes 1+; Basophils # (auto) 0.01 K/uL (0.00-0.20); Basophils % (auto) 0.2 %; Echinocytes 2+; Eosinophils # (auto) 0.01 K/uL (0.00-0.50); Eosinophils % (auto) 0.2 %; Hematocrit (blood only) 28.6 % (42.0-52.0); Hemoglobin 9.6 g/dl (14.0-18.0); Immature Granulocytes # (auto) 0.02 K/uL (0.01-0.20); Immature Granulocytes % (auto) 0.4 %; Lymphocytes % (auto) 36.5 %; Mean Corpuscular Hemoglobin 27.5 pg (25.0-34.0); Mean Corpuscular Hgb Conc 33.6 g/dL (32.0-36.0); Mean Corpuscular Volume 81.9 fL (80.0-100.0); Mean Platelet Volume 11.7 fL (9.4-12.4); Monocytes # (auto) 0.19 K/uL (0.11-0.59); Monocytes % (auto) 3.7 %; Neutrophils # (auto) 3.07 K/uL (1.40-6.50); Nucleated RBC # (auto) 0.06 K/uL (0.00-0.12); Nucleated RBC % (auto) 1.2 %; Platelet Count 57 K/uL (130-400); Platelet Estimate Decreased (Normal); RDW Coefficient of Variation 14.6 % (11.5-14.5); Red Blood Count 3.49 M/uL (4.70-6.10)
--- NOTE | 2023-01-21 08:01 | Critical Care Progress Note ---
Date of Service January 21, 2023 Assessment & Plan (1) Observed seizure-like activity: (2) Acute encephalopathy: (3) Hypothermia: (4) Sepsis: (5) Acute alteration in mental status: (6) Pneumonia: (7) Dementia: (8) Urinary tract infection: Plan Reason Critically Ill: 62-year-old male presenting to the ICU for ongoing evaluation and management of altered mental status, observed seizure-like activity, hypothermia, and concerns for sepsis in the setting of RIGHT lower lobe aspiration pneumonia. NEURO - * [facility] ICU: 3 * Altered Mental Status: * Multifactorial in the demented patient with recently observed seizure-like activity and likely profound metabolic encephalopathy in the setting of hypothermia and sepsis from likely pulmonary/urinary sources. Overall improving, approaching baseline mental status. * CT head/brain without concerning findings. MRI 01/20 limited secondary to movement, but overall no acute findings. * LP cultures pending, however, without overt finding suggestive of meningitis. * TSH= 2.5, random cortisol 39 * EEG without signs of seizure like activity, plan to hold on anti-epileptics for now * Appreciate neurology consultation. * Witnessed Seizure Activity: * Per discussion with guards at bedside. * EEG as above. * May be in the setting of severity of illness, hypothermia, etc. * Dementia: * Patient appears to be approaching baseline mental status. CARDIAC/VASCULAR - * Hypotension: * In the setting of sepsis and hypothermia * Able to wean off pressors 01/20 and has been normotensive * EKG: Sinus bradycardia @ 52 bpm. 1' AV block noted. T-wave inversions noted anterior/lateral leads. QTc 531 ms. * Monitor on telemetry. RESPIRATORY - * RIGHT Lower Lobe Pneumonia: * As noted on CXR/Abd CT. * Aspiration pneumonia possible given presentation, would continue with anerobic coverage * Plan to deescalate from Zosyn to Unasyn * urine legionella pending * Not requiring supplemental O2 at this time. GI/NUTRITION - * NPO; advance as tolerated * Prophylaxis: Famotidine * Elevated livery enzymes in a hepatocellular pattern, likely secondary to hypoperfusion, trending down RENAL/LYTES - * Continue to replace electrolytes as appropriate. * IVF: Plasmalyte @ 75 mL/hr - * UTI: * Cultures growing E Coli that is dean sensitive * Covered with Zosyn currently, plan to deescalate to Unasyn * Wolfe in place - Strict I&Os. ENDO - * No reported h/o DM or thyroid Dz. * BSGs per unit protocol. ISS --> gtt per unit policy. HEME - Normocytic anemia - Hemoglobin 9.7 (down from 9.6 on admission) - No acute signs of bleeding, hemodynamically stable Thrombocytopenia - Plts= 57 (119 on admission) - Differential- reactive vs HIT vs decreased production (bone marrow suppression with acute illness, liver disease) - Anti- Heparin Antibody pending - Hold anticoagulation for now, re-evaluate once Anti- Heparin Antibody is back ID - * Severe Sepsis: * Urinary versus pulmonary sources. * RLL infiltrate noted on CXR/CT - anaerobic coverage warranted for risk of aspiration in the patient with witnessed seizure-like activity. * Urinalysis concerning for UTI, culture growing E Coli * Plan to deescalate from Zosyn to Unasyn * nasal MRSA swab negative; vancomycin d/c * LP Gram stain pending as well. Would not treat as meningitis at this time. LINES/IV ACCESS - * PIVs x2 * Wolfe DVT PROPHYLAXIS - * Lovenox- held for thrombocytopenia * SCDs Thank you for allowing us to participate in the care of this patient. Please r efer to my attending physician's documentation for any further recommendations. Admission and Anticipated Discharge Date Admission Date: January 19, 2023 Supervising Physician Co-Signing Physician Notes Patient seen and examined. EMR reviewed. Discussed on multidisciplinary rounds and with bedside critical care nurse as well as with family practice resident. Agree with assessment plan as noted above. The patient appears to be showing some clinical improvement. It is unclear what his actual baseline is but we appear to be potentially approaching that. He is not appropriate for swallow study or PT or OT currently given his mental status. His pressor requirements and sepsis are resolving. We will de-escalate antibiotics to Unasyn. Complete 7-day course. Recommend follow-up chest x-ray in 2 to 4 weeks to ensure pneumonia is clearing. Restart his dementia medications. Would be highly appropriate to establish goals of therapy in this patient with end-stage dementia. Does not appear that continued aggressive interventions would be appropriate. No family available. The patient's critical care issues have resolved. We will sign off at this point in time. Patient will be transferred to the floor under the care of the hospitalist. Feel free to contact us if we can be of additional assistance. Subjective Pt seen at bedside this morning. Did open eyes to stimulus. Otherwise non verbal. Review of Systems Review of Systems: As per above Physical Exam Physical Exam: Constitutional: well-appearing, no acute distress HEENT: NCAT, no conjunctival injection, PERRLA CV: regular rhythm, no murmur appreciated, extremities well-perfused, no LE edema Resp: CTABL, no wheezes/rales/rhonchi appreciated, no increased work of breathing GI: soft, nondistended, nontender, BS normoactive MSK: no gross deformities appreciated Skin: warm, dry, no rash appreciated Neuro: no focal neurologic deficit appreciated, withdraw to painful stimuli, appears to be moving all extremities Results & Data Results & Data Vital Signs (Past 12 Hours) Vital Signs Temp Pulse Pulse Resp BP BP Pulse Ox 01/21/23 06:00 36.4 C L 75 16 94 01/21/23 06:00 154/89 H 01/21/23 05:00 37.1 C 75 14 95 01/21/23 04:00 36.9 C 77 22 97 01/21/23 04:00 109/64 01/21/23 03:00 36.6 C 74 12 96 01/21/23 03:00 118/65 01/21/23 02:00 36.4 C L 74 13 96 01/21/23 01:00 36.1 C L 66 13 96 01/21/23 01:00 118/69 01/21/23 00:00 35.9 C L 67 14 96 01/21/23 00:00 114/65 01/20/23 23:00 35.6 C L 61 12 96 01/20/23 23:00 138/80 01/21/23 00:00 61 01/20/23 22:00 35.6 C L 72 12 97 01/20/23 22:00 139/78 01/20/23 21:00 35.8 C L 63 12 96 01/20/23 21:00 144/79 H 01/20/23 20:00 36.1 C L 75 15 96 01/20/23 21:02 35.6 C L 58 L 12 136/69 97 01/20/23 20:00 68 01/20/23 20:00 96 O2 Del Method 01/21/23 06:00 01/21/23 06:00 01/21/23 05:00 01/21/23 04:00 01/21/23 04:00 01/21/23 03:00 01/21/23 03:00 01/21/23 02:00 01/21/23 01:00 01/21/23 01:00 01/21/23 00:00 01/21/23 00:00 01/20/23 23:00 01/20/23 23:00 01/21/23 00:00 01/20/23 22:00 01/20/23 22:00 01/20/23 21:00 01/20/23 21:00 01/20/23 20:00 01/20/23 21:02 Room Air 01/20/23 20:00 01/20/23 20:00 Room Air Resident Activity Tracking Resident Involvement: Resident Care Provided Care Provided: Adult Hospital Medicine (ICU) (3) Hypothermia Encounter type: initial encounter Qualified Code(s): T68.XXXA - Hypothermia, initial encounter (4) Sepsis Sepsis acute organ dysfunction status: unspecified Sepsis type: sepsis due to unspecified organism Qualified Code(s): A41.9 - Sepsis, unspecified organism (6) Pneumonia Laterality: right Lung location: lower lobe of lung Pneumonia type: due to unspecified organism Qualified Code(s): J18.9 - Pneumonia, unspecified organism (7) Dementia Dementia behavioral or psychological symptom: unspecified whether behavioral, psychotic, or mood disturbance or anxiety Dementia severity: unspecified severity Dementia type: unspecified type Qualified Code(s): F03.90 - Uns pecified dementia, unspecified severity, without behavioral disturbance, psychotic disturbance, mood disturbance, and anxiety (8) Urinary tract infection Hematuria presence: without hematuria Urinary tract infection type: site unspecified Qualified Code(s): N39.0 - Urinary tract infection, site not specified
[2023-01-21] MEDS: OLANZAPINE 2.5 MG TAB PO SCH (08:16)
[2023-01-21] MEDS: ROSUVASTATIN CALCIUM 20 MG TAB PO SCH (08:16)
[2023-01-21] MEDS: DONEPEZIL HCL 10 MG TAB PO SCH (08:16)
[2023-01-21] MEDS: CITALOPRAM 20 MG TAB PO SCH (08:16)
[2023-01-21] MEDS: FAMOTIDINE 20 MG in SYRINGE 3 ML IV SCH (08:16)
--- NOTE | 2023-01-21 09:43 | Hospitalist Progress Note ---
Date of Service January 21, 2023 Assessment & Plan (1) Sepsis: Plan: sepsis from pulmonary source however ua is also abnormal, remains on pressor support, hypothermic on presentation metabolic encephalopahty present on admission -did have LP , CSF noted elevated WBC however bloody tap, less concern meningitis CFS panel negative -CT head: No acute intracranial findings. No change in appearance of the brain. -CT A/P: There is a right lower lung airspace opacity compatible with aspiration/pneumonia. Diverticulosis without diverticulitis. -started on vancomycin zosyn, now on unasyn -Ucx pending-blood culture pending-CSF culture pending Elevated LFT, transaminitis from sepsis and decreased perfusion from hypotension -AST 81 ALT 81, continue to monitor downgrade from icu status, all orders reviewed Code Status: Full, no records with [facility], unable to discuss with patient DVT PPX: SCDs Nutrition consulted (2) Dementia: Plan: pre hospital diagnosis of alzheimers, donepazil, olanzipine am/pm and celexa (3) HLD (hyperlipidemia): Plan: typially on crestor (4) Seizure-like activity: Plan: concern on admission Admission and Anticipated Discharge Date Admission Date: January 19, 2023 Subjective pt is awake and follows commands Physical Exam Physical Exam: lungs are decreased at bases cardiac is regular neurologically is significantly limited and depressed Results & Data Results & Data Vital Signs (Past 12 Hours) Vital Signs Temp Pulse Resp BP Pulse Ox O2 Del Method 01/21/23 08:00 97.0 F L 70 14 95 01/21/23 08:00 146/86 H 01/21/23 07:00 97.5 F L 73 14 95 01/21/23 07:00 144/81 H 01/21/23 08:00 Room Air 01/21/23 06:00 97.5 F L 75 16 94 01/21/23 06:00 154/89 H 01/21/23 05:00 98.8 F 75 14 95 01/21/23 04:00 98.4 F 77 22 97 01/21/23 04:00 109/64 01/21/23 03:00 97.9 F 74 12 96 01/21/23 03:00 118/65 01/21/23 02:00 97.5 F L 74 13 96 01/21/23 01:00 97.0 F L 66 13 96 01/21/23 01:00 118/69 01/21/23 00:00 96.6 F L 67 14 96 01/21/23 00:00 114/65 01/20/23 23:00 96.1 F L 61 12 96 01/20/23 23:00 138/80 01/21/23 00:00 61 01/20/23 22:00 96.1 F L 72 12 97 01/20/23 22:00 139/78 Laboratory Results reviewed cbc reviewed prp PG Care Time/CCT Total # of Minutes Spent Total Time Spent with Patient: Total time spent is greater than 50% in coordination of care (as documented) at patient's floor/unit and/or counseling patient: Coding Level of Care Code 85481 SUB INP/OBS CARE 2/35MIN Diagnoses Sepsis A41.9 Sepsis acute organ dysfunction status: unspecified Sepsis type: sepsis due to unspecified organism Dementia F03.90 Dementia behavioral or psychological symptom: unspecified whether behavioral, psychotic, or mood disturbance or anxiety Dementia severity: unspecified severity Dementia type: unspecified type HLD (hyperlipidemia) E78.5 Seizure-like activity R56.9 (1) Sepsis Sepsis acute organ dysfunction status: unspecified Sepsis type: sepsis due to unspecified organism Qualified Code(s): A41.9 - Sepsis, unspecified organism (2) Dementia Dementia behavioral or psychological symptom: unspecified whether behavioral, psychotic, or mood disturbance or anxiety Dementia severity: unspecified severity Dementia type: unspecified type Qualified Code(s): F03.90 - Unspecified dementia, unspecified severity, without behavioral disturbance, psychotic disturbance, mood disturbance, and anxiety
--- NOTE | 2023-01-21 10:43 | Billing Data ---
Date of Service January 21, 2023 Coding Level of Care Code 69157 INT INP/OBS CARE
[2023-01-21] MEDS: AMPICILLIN/SULBACTAM SOD 3,000 MG in SODIUM CHLOR 0.9% MINI-B 100 ML IV SCH ×2 (16:25→21:15)
[2023-01-21] MEDS: OLANZapine 10 MG TAB PO SCH (19:38)
--- NOTE | 2023-01-21 22:01 | Electrocardiogram Report ---
Test Reason : Blood Pressure : / mmHG Vent. Rate : 052 BPM Atrial Rate : 052 BPM P-R Int : 218 ms QRS Dur : 102 ms QT Int : 572 ms P-R-T Axes : 040 061 080 degrees QTc Int : 531 ms Sinus bradycardia with 1st degree A-V block T wave abnormality, consider anterolateral ischemia Prolonged QT Abnormal ECG When compared with ECG of 10-AUG-2022 11:32, MA interval has increased Vent. rate has decreased BY 40 BPM Questionable change in QRS duration QT has lengthened T wave inversion more evident in Anterolateral leads Confirmed by Roddy Mcneill ([id number]) on 01/21/2023 10:01:13 PM Referred By: Confirmed By:Roddy Mcneill
[2023-01-22 00:15] LABS: A calco-baum cmplx NotReported Not Detected (NotDetected); Bact fragilis Not Reported Not Detected (NotDetected); C auris Not Reported Not Detected (NotDetected); Calbicans Not Reported Not Detected (NotDetected); Candida glabrata Not Reported Not Detected (NotDetected); Candida krusei Not Reported Not Detected (NotDetected); Cneoformans/gatti Not Reported Not Detected (NotDetected); Cparapsilosis Not Reported Not Detected (NotDetected); E cloacae compx Not Reported Not Detected (NotDetected); Efaecalis Not Reported Not Detected (NotDetected); Efaecium Not Reported Not Detected (NotDetected); Enterobacterales Not Reported Not Detected (NotDetected); Escherichia coli Not Reported Not Detected (NotDetected); H influenzae Not Reported Not Detected (NotDetected); K aerogenes Not Reported Not Detected (NotDetected); Koxytoca Not Reported Not Detected (NotDetected); Kpneumoniae grp Not Reported Not Detected (NotDetected); Lmonocyt Not Reported Not Detected (NotDetected); N meningitidis Not Reported Not Detected (NotDetected); P aeruginosa Not Reported Not Detected (NotDetected); Proteus spp Not Reported Not Detected (NotDetected); Salmonella spp Not Reported Not Detected (NotDetected); Smarcescens Not Reported Not Detected (NotDetected); Staph lugdunensis Not Reported Not Detected (NotDetected); Staph spp. Not Reported DETECTED (NotDetected); Staphaureus Not Reported Not Detected (NotDetected); Staphepi Not Reported DETECTED (NotDetected); Staphylococcus spp. DETECTED (NotDetected); Stenmaltophilia Not Reported Not Detected (NotDetected); Strep agal(GrpB) Not Reported Not Detected (NotDetected); Strep pneum Not Reported Not Detected (NotDetected); Strep pyog (GrpA) Not Reported Not Detected (NotDetected); Strep spp Not Reported Not Detected (NotDetected); mecAC Resistant Gene Not Detected (NotDetected)
[2023-01-22 00:49] LABS: Staphylococcus epidermidis DETECTED (NotDetected)
[2023-01-22] MEDS: AMPICILLIN/SULBACTAM SOD 3,000 MG in SODIUM CHLOR 0.9% MINI-B 100 ML IV SCH ×4 (03:43→21:07)
[2023-01-22 05:12] LABS: Albumin Level 3.1 gm/dl (3.4-5.0); BUN Creatinine Ratio 19.7 (10-20); Bilirubin Direct 0.2 mg/dl (0-0.2); Calcium 8.6 mg/dl (8.6-10.3); Est GFR (African American) 115.7 ml/min; Est GFR (Non-African American) 99.9 ml/min; Magnesium 2.1 mg/dl (1.7-2.4); Total Protein 5.4 gm/dl (6.0-8.3)
[2023-01-22 05:21] LABS: Hematocrit (blood only) 32.1 % (42.0-52.0); Mean Corpuscular Hemoglobin 27.6 pg (25.0-34.0); Mean Corpuscular Hgb Conc 34.3 g/dL (32.0-36.0); Mean Corpuscular Volume 80.7 fL (80.0-100.0); Mean Platelet Volume 11.5 fL (9.4-12.4); Nucleated RBC # (auto) 0.14 K/uL (0.00-0.12); Nucleated RBC % (auto) 2.4 %; Platelet Count 57 K/uL (130-400); RDW Coefficient of Variation 14.6 % (11.5-14.5); RDW Standard Deviation 43.6 fL (36.4-46.3); Red Blood Count 3.98 M/uL (4.70-6.10)
[2023-01-22 05:22] LABS: Basophils # (auto) 0.01 K/uL (0.00-0.20); Basophils % (auto) 0.2 %; Dohle Bodies 1+; Echinocytes 1+; Eosinophils # (auto) 0.05 K/uL (0.00-0.50); Eosinophils % (auto) 0.9 %; Immature Granulocytes # (auto) 0.01 K/uL (0.01-0.20); Immature Granulocytes % (auto) 0.2 %; Lymphocytes # (auto) 2.02 K/uL (1.20-3.40); Lymphocytes % (auto) 34.8 %; Monocytes # (auto) 0.26 K/uL (0.11-0.59); Monocytes % (auto) 4.5 %; Neutrophils # (auto) 3.45 K/uL (1.40-6.50); Neutrophils % (auto) 59.4 %
--- NOTE | 2023-01-22 09:36 | Hospitalist Progress Note ---
Date of Service January 22, 2023 Assessment & Plan (1) Sepsis: Plan: sepsis from pulmonary source however ua resulted with E coli, did require pressors no longer required, hypothermic on presentation metabolic encephalopathy present on admission, baseline has severe dementia, patient's level of alertness is preventing him from having increased sustenance. Speech feels he can eat but he just will not take in enough p.o. at this time -did have LP , CSF noted elevated WBC however bloody tap, less concern meningitis CFS panel negative -CT head: No acute intracranial findings. No change in appearance of the brain. -CT A/P: There is a right lower lung airspace opacity compatible with aspiration/pneumonia. Diverticulosis without diverticulitis. -started on vancomycin zosyn, now on unasyn will complete 7-day course -Ucx dean sensitive e coli -CSF gram stain negative blood cx gram +, urine Gram neg, suspect blood is contaminant, consider streamline to levaquin however without taking p.o. we will continue to leave on Unasyn at this time Elevated LFT, transaminitis from sepsis and decreased perfusion from hypotension improving Code Status: Full, no records with [facility], unable to discuss with patient spoke to [facility] [place] patient is unable to make decisions it was confirmed there are no family to help make decisions we will need to get a court appointed guardian and will need assistance from case management to do that. The patient unable to sustain himself likely may need to be placed in a group home environment or be transition to comfort care DVT PPX: SCDs Nutrition consulted (2) Dementia: Plan: pre hospital diagnosis of alzheimers, donepazil, olanzipine am/pm and celexa (3) HLD (hyperlipidemia): Plan: typially on crestor (4) Seizure-like activity: Plan: concern on admission , EEG was abnormal and showed a moderate generalized encephalopathy as noted by the generalized slowing. There were no focal abnormalities or potentially epileptogenic discharges seen Admission and Anticipated Discharge Date Admission Date: January 19, 2023 Subjective pt is less awake and follows commands and does rouse to voice and exam Physical Exam Physical Exam: lungs are decreased at bases cardiac is regular neurologically is significantly limited and depressed Results & Data Results & Data Vital Signs (Past 12 Hours) Vital Signs Temp Pulse Pulse Resp BP BP Pulse Ox 01/22/23 09:00 98.6 F 68 16 94 01/22/23 08:00 98.1 F 59 L 13 94 01/22/23 08:00 150/87 H 01/22/23 07:00 97.3 F L 53 L 13 96 01/22/23 04:00 96.3 F L 60 14 169/102 H 95 01/22/23 00:00 97.5 F L 63 14 170/100 H 96 O2 Del Method 01/22/23 09:00 01/22/23 08:00 01/22/23 08:00 01/22/23 07:00 01/22/23 04:00 Room Air 01/22/23 00:00 Room Air Laboratory Results Reviewed CBC reviewed chemistry PG Care Time/CCT Total # of Minutes Spent Total Time Spent with Patient: Total time spent is greater than 50% in coordination of care (as documented) at patient's floor/unit and/or counseling patient: Coding Level of Care Code 48468 SUB INP/OBS CARE 2/35MIN Diagnoses Sepsis A41.9 Sepsis acute organ dysfunction status: unspecified Sepsis type: sepsis due to unspecified organism Dementia F03.90 Dementia behavioral or psychological symptom: unspecified whether behavioral, psychotic, or mood disturbance or anxiety Dementia severity: unspecified severity Dementia type: unspecified type HLD (hyperlipidemia) E78.5 Seizure-like activity R56.9 (1) Sepsis Sepsis acute organ dysfunction status: unspecified Sepsis type: sepsis due to unspecified organism Qualified Code(s): A41.9 - Sepsis, unspecified organism (2) Dementia Dementia behavioral or psychological symptom: unspecified whether behavioral, psychotic, or mood disturbance or anxiety Dementia severity: unspecified severity Dementia type: unspecified type Qualified Code(s): F03.90 - Unspecified dementia, unspecified severity, without behavioral disturbance, psychotic disturbance, mood disturbance, and anxiety
[2023-01-22] MEDS: DONEPEZIL HCL 10 MG TAB PO SCH (10:07)
[2023-01-22] MEDS: CITALOPRAM 20 MG TAB PO SCH (10:07)
[2023-01-22] MEDS: ROSUVASTATIN CALCIUM 20 MG TAB PO SCH (10:07)
[2023-01-22] MEDS: OLANZAPINE 2.5 MG TAB PO SCH (10:08)
[2023-01-22] MEDS: PLASMA-LYTE A 1,000 ML IV SCH (13:39)
[2023-01-22] MEDS ORDERED: hydrALAZINE HCL 20 MG/ML VIAL IV PRN (18:49)
[2023-01-22] MEDS ORDERED: INFLUENZA VIRUS QUADRIVALENT VACCINE (IIV4) 0.5 ML SYR IM ONE (19:04)
[2023-01-22] MEDS: OLANZapine 10 MG TAB PO SCH (19:54)
[2023-01-23] MEDS: AMPICILLIN/SULBACTAM SOD 3,000 MG in SODIUM CHLOR 0.9% MINI-B 100 ML IV SCH ×3 (03:50→16:02)
[2023-01-23] MEDS: PLASMA-LYTE A 1,000 ML IV SCH (03:50)
[2023-01-23] MEDS: ROSUVASTATIN CALCIUM 20 MG TAB PO SCH (08:18)
[2023-01-23] MEDS: CITALOPRAM 20 MG TAB PO SCH (08:18)
[2023-01-23] MEDS: ENOXAPARIN INJ 40 MG/0.4 ML SYR SQ SCH (08:19)
[2023-01-23] MEDS: DONEPEZIL HCL 10 MG TAB PO SCH (08:19)
[2023-01-23] MEDS: OLANZAPINE 2.5 MG TAB PO SCH (08:19)
[2023-01-23] MEDS ORDERED: ENOXAPARIN INJ 40 MG/0.4 ML SYR SQ SCH (09:00)
[2023-01-23] MEDS ORDERED: amLODIPine BESYLATE 5 MG TAB PO SCH (09:00)
[2023-01-23 11:36] LABS: Hematocrit (blood only) 38.2 % (42.0-52.0); Hemoglobin 13.6 g/dl (14.0-18.0); Mean Corpuscular Hemoglobin 28.1 pg (25.0-34.0); Mean Corpuscular Hgb Conc 35.6 g/dL (32.0-36.0); Mean Corpuscular Volume 78.9 fL (80.0-100.0); Mean Platelet Volume 11.7 fL (9.4-12.4); Nucleated RBC # (auto) 0.18 K/uL (0.00-0.12); Nucleated RBC % (auto) 3.8 %; Platelet Count 76 K/uL (130-400); RDW Coefficient of Variation 13.7 % (11.5-14.5); RDW Standard Deviation 38.9 fL (36.4-46.3); Red Blood Count 4.84 M/uL (4.70-6.10); White Blood Count 4.69 K/ul (4.8-10.8)
[2023-01-23 11:45] LABS: Albumin Globulin Ratio 1.2 (0.9-2); Albumin Level 2.9 gm/dl (3.4-5.0); BUN Creatinine Ratio 32.7 (10-20); Bilirubin,Total 1.2 mg/dl (0.2-1.0); Est GFR (African American) 128.5 ml/min; Est GFR (Non-African American) 110.9 ml/min; Globulin 2.4 gm/dl (2.5-4.0); Potassium 3.8 mmol/L (3.5-5.1); Total Protein 5.3 gm/dl (6.0-8.3)
--- NOTE | 2023-01-23 12:22 | Hospitalist Progress Note ---
Date of Service January 23, 2023 Assessment & Plan (1) Sepsis: Plan: sepsis from pulmonary source however ua resulted with pansensitive E coli, did require pressors- no longer required, hypothermic on presentation metabolic encephalopathy present on admission, baseline has severe dementia, patient's level of alertness has improved but still not eating much Speech feels he can eat but he just will not take in enough p.o. at this time -did have LP , CSF noted elevated WBC however bloody tap, less concern meningitis CFS panel negative -CT head: No acute intracranial findings. No change in appearance of the brain. -CT A/P: There is a right lower lung airspace opacity compatible with aspiration/pneumonia. Diverticulosis without diverticulitis. blood cx gram +, urine Gram neg, suspect blood is contaminant, complete 7 day course of antibiotics 01/23/23 has abdominal pain, no significant serology changes, diarrhea pending C Diff, CT A/P Code Status: Full, no records with [facility], unable to discuss with patient spoke to [facility] at [place] patient is unable to make decisions it was confirmed there are no family to help make decisions we will need to get a court appointed guardian and will need assistance from case management to do that. The patient unable to sustain himself likely may need to be placed in a skilled nursing environment or be transition to comfort care DVT PPX: SCDs Nutrition consulted (2) Dementia: Plan: pre hospital diagnosis of alzheimers, donepazil, olanzipine am/pm and celexa (3) HLD (hyperlipidemia): Plan: typially on crestor (4) Seizure-like activity: Plan: concern on admission , EEG was abnormal and showed a moderate generalized encephalopathy as noted by the generalized slowing. There were no focal abnormalities or potentially epileptogenic discharges seen. not started on antiepileptic medications Plan patient was reviewed transfer to a lower level of care as he is cardiovascularly stable all orders and medications reviewed Admission and Anticipated Discharge Date Admission Date: January 19, 2023 Subjective pt is more awake and speaks in short sentences, Physical Exam Physical Exam: lungs are decreased at bases cardiac is regular has significantly tender lower abdomen and diarrhea Results & Data Results & Data Vital Signs (Past 12 Hours) Vital Signs Temp Pulse Pulse Resp BP BP Pulse Ox 01/23/23 11:41 97.5 F L 79 18 142/92 H 90 01/23/23 08:00 01/23/23 08:17 97.5 F L 73 19 165/93 H 92 01/23/23 07:00 71 01/23/23 03:45 97.7 F 69 20 176/102 H 92 O2 Del Method 01/23/23 11:41 Room Air 01/23/23 08:00 Room Air 01/23/23 08:17 Room Air 01/23/23 07:00 01/23/23 03:45 Room Air Laboratory Results reviewed CBC reviewed chemistry PG Care Time/CCT Total # of Minutes Spent Total Time Spent with Patient: Total time spent is greater than 50% in coordination of care (as documented) at patient's floor/unit and/or counseling patient: Coding Level of Care Code 18523 SUB INP/OBS CARE 2/35MIN Diagnoses Sepsis A41.9 Sepsis acute organ dysfunction status: unspecified Sepsis type: sepsis due to unspecified organism Dementia F03.90 Dementia behavioral or psychological symptom: unspecified whether behavioral, psychotic, or mood disturbance or anxiety Dementia severity: unspecified severity Dementia type: unspecified type HLD (hyperlipidemia) E78.5 Seizure-like activity R56.9 (1) Sepsis Sepsis acute organ dysfunction status: unspecified Sepsis type: sepsis due to unspecified organism Qualified Code(s): A41.9 - Sepsis, unspecified organism (2) Dementia Dementia behavioral or psychological symptom: unspecified whether behavioral, psychotic, or mood disturbance or anxiety Dementia severity: unspecified severity Dementia type: unspecified type Qualified Code(s): F03.90 - Unspecified dementia, unspecified severity, without behavioral disturbance, psychotic disturbance, mood disturbance, and anxiety
[2023-01-23] MEDS ORDERED: SODIUM CHLORIDE 0.9% 1,000 ML IV SCH (14:09)
[2023-01-23] MEDS ORDERED: LORazepam 2 MG/1 ML VIAL IV PRN (14:31)
[2023-01-23] MEDS ORDERED: HALOPERIDOL LACTATE 5 MG/ML 1 ML VIAL IV PRN (14:31)
[2023-01-23] MEDS ORDERED: hydrALAZINE HCL 20 MG/ML VIAL IV PRN (14:31)
--- NOTE | 2023-01-23 14:36 | Hospitalist Progress Note ---
Date of Service January 23, 2023 Assessment & Plan (1) Abdominal pain: Plan: patient with abdominal pain in the a.m. of 01/23. CT scan ordered with possibility of gastric ulcer. General surgery was contacted. Dr. Pereyra did contact me personally we discussed the case. Patient be made n.p.o. he continued on IV antibiotics of Unasyn and IV fluid. Reported IV Protonix. All pertinent medications are held and as needed medications for behavior control and hypertension control are ordered (2) Sepsis: Plan: sepsis from pulmonary source however ua resulted with pansensitive E coli, did require pressors- no longer required, hypothermic on presentation metabolic encephalopathy present on admission, baseline has severe dementia, patient's level of alertness has improved but still not eating much Speech feels he can eat but he just will not take in enough p.o. at this time -did have LP , CSF noted elevated WBC however bloody tap, less concern meningitis CFS panel negative -CT head: No acute intracranial findings. No change in appearance of the brain. -CT A/P: There is a right lower lung airspace opacity compatible with aspiration/pneumonia. Diverticulosis without diverticulitis. blood cx gram +, urine Gram neg, suspect blood is contaminant, complete 7 day course of antibiotics 01/23/23 has abdominal pain, no significant serology changes, diarrhea pending C Diff, CT A/P Code Status: Full, no records with [facility], unable to discuss with patient spoke to [facility] [place] patient is unable to make decisions it was confirmed there are no family to help make decisions we will need to get a court appointed guardian and will need assistance from case management to do that. The patient unable to sustain himself likely may need to be placed in a jail environment or be transition to comfort care DVT PPX: SCDs Nutrition consulted (3) Dementia: Plan: pre hospital diagnosis of alzheimers, donepazil, olanzipine am/pm and celexa (4) HLD (hyperlipidemia): Plan: typially on crestor (5) Seizure-like activity: Plan: concern on admission , EEG was abnormal and showed a moderate generalized encephalopathy as noted by the generalized slowing. There were no focal abnormalities or potentially epileptogenic discharges seen. not started on antiepileptic medications Plan once called with perforated viscus patient was transferred to higher level of care again Admission and Anticipated Discharge Date Admission Date: January 19, 2023 Results & Data Results & Data Vital Signs (Past 12 Hours) Vital Signs Temp Pulse Pulse Resp BP BP Pulse Ox 01/23/23 11:41 97.5 F L 79 18 142/92 H 90 01/23/23 08:00 01/23/23 08:17 97.5 F L 73 19 165/93 H 92 01/23/23 07:00 71 01/23/23 03:45 97.7 F 69 20 176/102 H 92 O2 Del Method 01/23/23 11:41 Room Air 01/23/23 08:00 Room Air 01/23/23 08:17 Room Air 01/23/23 07:00 01/23/23 03:45 Room Air PG Care Time/CCT Total # of Minutes Spent Total Time Spent with Patient: Total time spent is greater than 50% in coordination of care (as documented) at patient's floor/unit and/or counseling patient: Coding Level of Care Code None Diagnoses Abdominal pain R10.9 Sepsis A41.9 Sepsis acute organ dysfunction status: unspecified Sepsis type: sepsis due to unspecified organism Dementia F03.90 Dementia behavioral or psychological symptom: unspecified whether behavioral, psychotic, or mood disturbance or anxiety Dementia severity: unspecified severity Dementia type: unspecified type HLD (hyperlipidemia) E78.5 Seizure-like activity R56.9 (2) Sepsis Sepsis acute organ dysfunction status: unspecified Sepsis type: sepsis due to unspecified organism Qualified Code(s): A41.9 - Sepsis, unspecified organism (3) Dementia Dementia behavioral or psychological symptom: unspecified whether behavioral, psychotic, or mood disturbance or anxiety Dementia severity: unspecified severity Dementia type: unspecified type Qualified Code(s): F03.90 - Unspecified dementia, unspecified severity, without behavioral disturbance, psychotic disturbance, mood disturbance, and anxiety
--- NOTE | 2023-01-23 14:40 | CT Scan Report ---
CT OF THE ABDOMEN AND PELVIS WITH ORAL CONTRAST CLINICAL HISTORY: Acute lower quadrant abdominal pain. COMPARISON STUDY: CT of the abdomen and pelvis January 19, 2023. TECHNIQUE: Axial images of the abdomen and pelvis were obtained without IV contrast. Oral contrast wa s ingested. Automated exposure control was utilized for the study. A dose lowering technique was uti lized adhering to the principles of ALARA. FINDINGS: Moderate right and gdlyf-rm-glmwbupe left pleural effusions have developed since CT of Sept emb2022. Moderate lower lobe airspace opacities are present. There is also right middle lobe o pacity. The right lung opacities were shown on prior CT. There has been interval development of moder ate pneumoperitoneum. This is due to to a gastric perforation along the lesser curvature on axial uriah ge 104 of [id number]. This suggests a perforated gastric ulcer. Unenhanced images of the liver, spleen, adre nal glands, kidneys and pancreas are unremarkable. Moderate abdominal and pelvic ascites has also dev eloped since prior CT. There is sigmoid diverticulosis without evidence for acute diverticulitis. The re is diffuse small bowel wall thickening. Wolfe balloon and gas within the bladder present. Anasarca is noted. IMPRESSION: 1. Interval development of moderate pneumoperitoneum due to perforation along the lesser curvature of the stomach. This suggests a perforated gastric ulcer. Surgical consultation is recommended. Moderat e abdominal and pelvic ascites which is also new since prior exam. Discussed with Dr. Sue at me of dictation. 2. Diffuse small bowel wall thickening, a nonspecific finding. No evidence for a bowel obstruction. 3. Moderate right and tdhns-to-wamqpojy left pleural effusions. Bilateral lower lobe and right middle lobe opacities which favor pneumonia or aspiration pneumonitis ACT 112: Negative or not required by law. Electronically signed by: Curtis Pereyra M.D. 01/23/2023 2:38 PM
--- NOTE | 2023-01-23 15:10 | Anesthesiology Consultation ---
Date of Service January 23, 2023 Assessment & Plan (1) Encounter for pre-operative examination: Chart Review Chart Review: Acceptable Risk for Surgery (emergency procedure) History Height/Weight Height: 5 ft 8 in Weight: 71.7 kg Allergies Allergy/AdvReac Type Severity Reaction Status Date / Time No Known Allergies Allergy Verified 01/19/23 13:00 Medications Home Medications Medication Instructions Recorded Confirmed Last Taken citalopram 10 mg tablet (Celexa) 5 mg PO DAILY 08/09/22 01/19/23 08/07/22 docusate sodium 250 mg capsule 250 mg PO DAILY PRN Constipation 08/09/22 01/19/23 06/06/22 donepezil 10 mg tablet 10 mg PO DAILY 08/09/22 01/19/23 08/07/22 olanzapine 10 mg tablet (Zyprexa) 10 mg PO HS 08/09/22 01/19/23 08/08/22 rosuvastatin 20 mg tablet (Crestor) 20 mg PO DAILY 08/09/22 01/19/23 08/07/22 olanzapine 2.5 mg tablet 2.5 mg PO QAM 01/19/23 01/19/23 Unknown Active Medications Generic Name Dose Route Start Last Admin Trade Name Freq PRN Reason Stop Dose Admin Amlodipine Besylate 5 mg 01/23/23 09:00 01/23/23 08:19 Amlodipine Besylate 5 Mg Tab PO 02/22/23 08:59 5 mg QAM EZEKIEL Administration Citalopram Hydrobromide 5 mg 01/20/23 09:00 01/23/23 08:18 Citalopram 20 Mg Tab PO 02/19/23 08:59 5 mg DAILY EZEKIEL Administration Donepezil HCl 10 mg 01/20/23 09:00 01/23/23 08:19 Donepezil Hcl 10 Mg Tab PO 02/19/23 08:59 10 mg DAILY EZEKIEL Administration Enoxaparin Sodium 40 mg 01/20/23 09:00 01/23/23 08:19 Enoxaparin Inj 40 Mg/0.4 Ml Syr SQ 02/19/23 08:59 40 mg QAM EZEKIEL Administration Ampicillin Sodium/Sulbactam 100 mls @ 100 mls/hr 01/21/23 16:00 01/23/23 11:16 Sodium 3,000 mg/ Sodium IV 01/26/23 23:59 Infused Chloride Q6H EZEKIEL Infusion Sodium Chloride 1,000 mls @ 100 mls/hr 01/23/23 14:09 01/23/23 14:24 Nss IV 02/22/23 14:08 100 mls/hr .Q10H EZEKIEL Administration Olanzapine 2.5 mg 01/20/23 09:00 01/23/23 08:19 Olanzapine 2.5 Mg Tab PO 02/19/23 08:59 2.5 mg QAM EZEKIEL Administration Past Medical History Medical History (Updated 01/23/23 @ 15:10 by César Pierce MD) Acute encephalopathy Dementia HLD (hyperlipidemia) Pneumonia Rigidity Sepsis Social History Smoking Status: Unknown if ever smoked Hx Alcohol Use: No Hx Substance Use: No Physical Exam Vital Signs Last Vital Signs Temp 36.4 C L 01/23/23 11:41 Pulse 66 01/23/23 14:20 Resp 22 01/23/23 14:20 BP 134/96 01/23/23 14:20 Pulse Ox 97 01/23/23 14:20 O2 Del Method Room Air 01/23/23 14:20 Testing Laboratory Results 01/23/23 11:06 01/23/23 11:06 PT 12.8 Seconds (9.0-12.0) H 01/19/23 11:05 INR 1.2 (0.9-1.1) H 01/19/23 11:05 APTT 35.1 Seconds (21.0-31.0) H 01/19/23 11:05 Urine Color Yellow 01/19/23 11:27 Urine Appearance Cloudy (Clear) A 01/19/23 11:27 Urine pH 5.5 (4.5-7.5) 01/19/23 11:27 Ur Specific [place] 1.029 (1.000-1.030) 01/19/23 11:27 Urine Protein 1+ (Negative) H 01/19/23 11:27 Urine Glucose (UA) Negative (Negative) 01/19/23 11:27 Urine Ketones Trace (Negative) H 01/19/23 11:27 Urine Nitrite Positive (Negative) A 01/19/23 11:27 Ur Leukocyte Esterase 2+ (Negative) H 01/19/23 11:27 Urine WBC (Auto) >30 /hpf (0-5) H 01/19/23 11:27 Urine RBC (Auto) 10-30 /hpf (0-4) H 01/19/23 11:27 U Hyaline Cast (Auto) 10-30 /lpf (0-5) H 01/19/23 11:27 U Epithel Cells (Auto) 0-5 /lpf (0-5) 01/19/23 11:27 Urine Bacteria (Auto) 4+ (Negative) H 01/19/23 11:27 01/19/23 11:30 Aerobic Blood Culture - Preliminary Blood No growth in Aerobic bottle after 48 hours. Anaerobic Blood Culture - Preliminary No growth in Anaerobic bottle after 48 hours. 01/19/23 11:05 Aerobic Blood Culture - Preliminary Blood Gram positive cocci clusters Anaerobic Blood Culture - Preliminary No growth in Anaerobic bottle after 48 hours. 01/19/23 11:27 Urine Culture - Final Urine,Straight Cath Escherichia coli 01/19/23 12:15 Gram Stain - Final Cerebral Spinal Fluid CSF Culture - Final No growth
[2023-01-23] MEDS ORDERED: fentaNYL citrate PF 100 MCG/2 ML VIAL ONE (15:14)
--- NOTE | 2023-01-23 15:20 | Surgery Consultation ---
Date of Consultation January 23, 2023 Assessment & Plan (1) Perforated gastric ulcer: Plan 62-year-old prisoner with advanced Alzheimer's dementia with perforated gastric ulcer. He will require urgent surgical management of this perforation. I, along with Dr. Sue, called [facility] and spoke with the nursing resident services supervisor semiconductor testing group leader who confirmed that there are no next of kin to contact. The [facility] has taken the position of implied consent in an emergent situation such as this in the case of incapacitation and no power of trial attorney or next of kin. We spoke with Ernie Reich, the hospital plan administrator on-call, who confirmed this. We will plan to proceed with exploratory laparotomy with washout of the abdomen and repair of the gastric ulcer with Bob patch as soon as possible. History of Present Illness Attending Physician: Levi Sue MD History of Present Illness 62-year-old man with past medical history of severe dementia with Alzheimer's imprisonment [facility] presents 4 days ago with acute fall, low blood pressure, high lactic acid. He was admitted to the hospital for care. Early this morning he was noted to have significant tenderness of his abdomen. A CT scan demonstrated what appears to be a large perforated ulcer in the lesser curvature of the stomach with a significant amount of fluid within the abdominal cavity. He is unable to give any medical history or give meaningful symptoms due to his cognitive status. Allergies Allergy/AdvReac Type Severity Reaction Status Date / Time No Known Allergies Allergy Verified 01/19/23 13:00 Home Medications Medication Instructions Recorded Confirmed Type citalopram 10 mg tablet (Celexa) 5 mg PO DAILY 08/09/22 01/19/23 History docusate sodium 250 mg capsule 250 mg PO DAILY PRN Constipation 08/09/22 01/19/23 History donepezil 10 mg tablet 10 mg PO DAILY 08/09/22 01/19/23 History olanzapine 10 mg tablet (Zyprexa) 10 mg PO HS 08/09/22 01/19/23 History rosuvastatin 20 mg tablet (Crestor) 20 mg PO DAILY 08/09/22 01/19/23 History olanzapine 2.5 mg tablet 2.5 mg PO QAM 01/19/23 01/19/23 History Patient History Medical History Acute encephalopathy Dementia HLD (hyperlipidemia) Pneumonia Rigidity Sepsis Social History Smoking Status: Unknown if ever smoked Tobacco Type: Cigarettes Hx Alcohol Use: No Hx Substance Use: No Preferred Language: Persian Communication Ability: Impaired Strip Stamp Straightener Required: No Beliefs That Will Affect Care: None Current Living Situation: Other Current Living Situation Comment: [place] Feels Safe at Home: Yes Assistive Devices: None Review of Systems Review of Systems: All systems reviewed & are unremarkable except as noted in HPI & below Physical Exam Constitutional: WD/WN, vitals as above Eyes: PERRL, conjunctivae normal, anicteric sclerae Neck: trachea midline, no thyromegaly Respiratory: normal respiratory effort; no respiratory distress and no labored breathing Cardiovascular: Rate/Rhythm: regular rate and regular rhythm Gastrointestinal (Abdomen): Inspection/Auscultation: abdomen normal to inspection and + abdomen distended Percussion/Palpation: + abdomen tender (Diffusely tender), + guarding (Upper abdomen) and abdomen soft Skin: no rashes, warm and dry Results & Data Vital Signs (Past 12 Hours) Vital Signs Temp Pulse Pulse Resp BP BP Pulse Ox 01/23/23 14:20 66 22 134/96 97 01/23/23 11:41 36.4 C L 79 18 142/92 H 90 01/23/23 08:00 01/23/23 08:17 36.4 C L 73 19 165/93 H 92 01/23/23 07:00 71 01/23/23 03:45 36.5 C 69 20 176/102 H 92 O2 Del Method 01/23/23 14:20 Room Air 01/23/23 11:41 Room Air 01/23/23 08:00 Room Air 01/23/23 08:17 Room Air 01/23/23 07:00 01/23/23 03:45 Room Air Laboratory Results 01/23/23 01/23/23 Range/Units 11:06 11:06 WBC 4.69 L (4.8-10.8) K/ul RBC 4.84 (4.70-6.10) M/uL Hgb 13.6 L (14.0-18.0) g/dl Hct 38.2 L (42.0-52.0) % MCV 78.9 L (80.0-100.0) fL MCH 28.1 (25.0-34.0) pg MCHC 35.6 (32.0-36.0) g/dL RDW Std Deviation 38.9 (36.4-46.3) fL RDW Coeff of Yoli 13.7 (11.5-14.5) % Plt Count 76 L (130-400) K/uL MPV 11.7 (9.4-12.4) fL Absolute Nucleated RBC 0.18 H (0.00-0.12) K/uL Nucleated RBC % (auto) 3.8 % Sodium 138 (136-145) mmol/L Potassium 3.8 (3.5-5.1) mmol/L Chloride 109 H (98-107) mmol/L Carbon Dioxide 22 (21-32) mmol/L Anion Gap 7 (3-11) BUN 18 (6-23) mg/dl Creatinine 0.55 L (0.6-1.4) mg/dl Est Cr Clr Drug Dosing 133.0 ml/min Est GFR ( Amer) 128.5 ml/min Est GFR (Non-Af Amer) 110.9 ml/min BUN/Creatinine Ratio 32.7 H (10-20) Glucose 114 H (70-99(Fasting)) mg/dl Calcium 8.0 L (8.6-10.3) mg/dl Total Bilirubin 1.2 H (0.2-1.0) mg/dl AST 92 H (13-39) U/L ALT 113 H (7-52) U/L Alkaline Phosphatase 81 (34-104) U/L Total Protein 5.3 L (6.0-8.3) gm/dl Albumin 2.9 L (3.4-5.0) gm/dl Globulin 2.4 L (2.5-4.0) gm/dl Albumin/Globulin Ratio 1.2 (0.9-2) Diagnostic Findings CT OF THE ABDOMEN AND PELVIS WITH ORAL CONTRAST CLINICAL HISTORY: Acute lower quadrant abdominal pain. COMPARISON STUDY: CT of the abdomen and pelvis January 19, 2023. TECHNIQUE: Axial images of the abdomen and pelvis were obtained without IV contrast. Oral contrast was ingested. Automated exposure control was utilized for the study. A dose lowering technique was utilized adhering to the principles of ALARA. FINDINGS: Moderate right and ciilr-op-vpvfwpoh left pleural effusions have developed since CT of January 19, 2023. Moderate lower lobe airspace opacities are present. There is also right middle lobe opacity. The right lung opacities were shown on prior CT. There has been interval development of moderate pneumoperitoneum. This is due to to a gastric perforation along the lesser curvature on axial image 104 of 389. This suggests a perforated gastric ulcer. Unenhanced images of the liver, spleen, adrenal glands, kidneys and pancreas are unremarkable. Moderate abdominal and pelvic ascites has also developed since prior CT. There is sigmoid diverticulosis without evidence for acute divertic ulitis. There is diffuse small bowel wall thickening. Wolfe balloon and gas within the bladder present. Anasarca is noted. IMPRESSION: 1. Interval development of moderate pneumoperitoneum due to perforation along the lesser curvature of the stomach. This suggests a perforated gastric ulcer. Surgical consultation is recommended. Moderate abdominal and pelvic ascites which is also new since prior exam. Discussed with Dr. Sue at time of dictation. 2. Diffuse small bowel wall thickening, a nonspecific finding. No evidence for a bowel obstruction. 3. Moderate right and fvyng-kd-glhbtvyq left pleural effusions. Bilateral lower lobe and right middle lobe opacities which favor pneumonia or aspiration pneumonitis
--- NOTE | 2023-01-23 15:51 | Communication Note ---
Date of Service: January 23, 2023 patient developed a perforated gastric ulcer or so it seems by CT scan in the afternoon 01/23. The patient cannot make medical decisions on his own due to his previous diagnosis of Alzheimer's and bedside evaluation feels he is not clinically relevant to have understanding of consequences of his decisions. Subsequently informed the [place] and spoke to the charge nurse demonstrator electric gas appliances today she identified that he did not have any next of kin identified in her records. Subsequently she informed us that typically in situations like this that this would be implied consent for an urgent procedure such as a perforated gastric ulcer. I subsequently noted the charge nurse demonstrator electric gas appliances Albertina and she noted that logistics administrator oncology Damir so that all parties are aware that we are proceeding urgently to surgery under the direction of Dr. Cameron for this patient
[2023-01-23] MEDS ORDERED: cefOXitin SOD 1,000 MG VIAL ONE (16:14)
[2023-01-23] MEDS ORDERED: HYDROmorphone INJ 1 MG/ML SYRINGE IV PRN (16:28)
[2023-01-23] MEDS ORDERED: PROMETHAZINE HCL 6.25 MG in SODIUM CHLORIDE 0.9% 50 ML IV PRN (16:28)
[2023-01-23] MEDS ORDERED: ATROPINE SULFATE 0.1 MG/ML 10ML SYR IV PRN (16:28)
[2023-01-23] MEDS ORDERED: PROPOFOL IV EMULSION 10 MG/ML 20 ML VIAL IV ONE (17:36)
[2023-01-23] MEDS ORDERED: LIDOCAINE 2% 2 ML VIAL/AMP(20MG/ML) INFIL ONE (17:36)
[2023-01-23] MEDS ORDERED: PHENYLEPHRINE HCL 10 MG/ML VIAL ONE (17:36)
[2023-01-23] MEDS ORDERED: ePHEDrine sulfate 50 MG/5 ML SYR ONE (17:36)
[2023-01-23] MEDS ORDERED: ROCURONIUM BROMIDE 10 MG/ML 5 ML VIAL IV ONE (17:36)
[2023-01-23] MEDS ORDERED: SUGAMMADEX SODIUM 200 MG/2 ML VIAL IV ONE (17:36)
[2023-01-23] MEDS ORDERED: SUCCINYLCHOLINE CHLORIDE 20 MG/ML 10 ML VIAL IV ONE (17:36)
--- NOTE | 2023-01-23 18:12 | Post Operative Brief Note ---
Immediate Post Op Note v1 Date of Surgery January 23, 2023 Pre & Post Diagnosis Operation Date: 01/23/23 15:45 Pre-Op Diagnosis: Perforated Gastric Ulcer Post-Op Diagnosis: Perforated Gastric Ulcer I identified the patient and participated in the time-out.: Yes Procedure Operation Date: 01/23/23 15:45 Actual Procedures p Exploratory Laparotomy, Abdominal Washout, Repair of Gastric Ulcer(Not Applicable) - Agustín Cameron MD Surgeon Agustín Cameron MD [employer]al Food Service Supervisor None Estimated Blood Loss 15 Findings Consistent with Post-Op Diagnosis Perforated gastric ulcer on lesser curvature of the stomach Drains Kevin-Washburn Drain
--- NOTE | 2023-01-23 18:17 | Operative Report ---
Post Operative Report Pre & Post Diagnosis Operation Date: 01/23/23 15:45 Pre-Op Diagnosis: Perforated Gastric Ulcer Post-Op Diagnosis: Perforated Gastric Ulcer I identified the patient and participated in the time-out.: Yes Procedure Operation Date: 01/23/23 15:45 Actual Procedures p Exploratory Laparotomy, Abdominal Washout, Repair of Gastric Ulcer(Not Tani licable) - Agustín Cameron MD Surgeon Agustín Cameron MD Cell Tester None Estimated Blood Loss 15 Findings Consistent with Post-Op Diagnosis Perforated gastric ulcer on lesser curve; significant amount of stomach fluid/contents in the abdominal cavity Specimens None Drains 15 [place] round ANNMARIE drain Anesthesia Type General Complications No immediate complications Description of Procedure Patient was taken to the operating room, placed supine on the operating table. Timeout was performed. He had been on antibiotics on the floor. Wolfe catheter was in place. After adequate anesthesia and analgesia was obtained, the patient was prepped and draped in the normal sterile fashion. Midline incision was made in the upper abdomen carried down to the level of the fascia. The fascia was incised and opened, and the peritoneal cavity was entered. A significant amount of stomach fluid was encountered and was suctioned free. The fascia was opened to its fullest extent, and a Bookwalter retractor was placed. The stomach was brought down into the wound and was inspected. There is a ulcer surrounded by inflammation on the lesser curvature of the stomach. There is a significant amount of fluid leaking from this area. Again the area was suctioned free. The ulcer was closed with interrupted 3-0 nylon sutures. The upper abdomen was then copiously irrigated and suctioned free. There is no further leakage of stomach contents. A Bob patch was then fashioned from the omentum. A strip of omentum was mobilized and detached with the LigaSure device. This was able to reach up easily to where the ulcer was. The patch was then sewn into 360 degree fashion covering the ulcer. This was done with interrupted 3-0 silk sutures. Once this was complete, the abdomen was again copiously irrigated with multiple liters of saline and suctioned free. A 15 [place] round ANNMARIE drain was placed through separate stab incision and was threaded up along the lesser curvature of the stomach under the liver. This was secured with a nylon suture. The NG tube was in good position. The fascia was closed with interrupted #1 Prolene suture. The skin was closed with surgical clips. Dressings were applied. He tolerated the procedure without complication, was transferred in stable condition to the PACU. All instrument, needle, and sponge counts were correct at the end of the case. I attest to the content of the Intraoperative Record and any orders documented therein. Any exceptions are noted below.
[2023-01-23] MEDS ORDERED: NOREPINEPHRINE/D5W 4 MG/250 ML IV ONE (18:33)
[2023-01-23] MEDS ORDERED: fentaNYL citrate 2,500 MCG/250 ML BAG IV ONE (18:34)
[2023-01-23] MEDS ORDERED: fentaNYL BOLUS from BAG IV PRN ×2 (18:35)
[2023-01-23] MEDS ORDERED: STAT IV Infusion **Titration per Protocol STA ×2 (18:35→23:28)
--- NOTE | 2023-01-23 18:39 | Critical Care Progress Note ---
Date of Service January 23, 2023 Assessment & Plan (1) Perforated gastric ulcer: (2) Sepsis: (3) Acute encephalopathy: (4) Urinary tract infection: (5) Dementia: (6) HLD (hyperlipidemia): Plan Reason Critically Ill: S/P ruptured gastric ulcer with ex-lap washout and sew-over with patch- intubated and requiring vasopressor support postoperatively Neuro - Encephalopathy, Dementia, Sedation for mechanical ventilation CAM ICU: JEAN - Patient presented with severe encephalopathy earlier in hospitalization and appears to have only mildly improved- he does have baseline dementia as well. - Previous LP were negative as well as CT head - Continue supportive efforts with normoglycemia, normovolemia, normocarbia, and normoglycemia - Wean sedation with hopes of extubating tonight or in am Cardiac - Bradycardia, shock - Patient with episode of bradycardia with associated hypotensive while in ICU- did require 1mg of Atropine- acid base status normal and not hypoxic- did not appear that this was associated with any bucking of ventilaor or coughing. - ECG without STEMI or acute changes - Shock likely hypovolemic at this time- with open abdominal procedure, as well as 2liters removed from abdominal cavity - Low dose Levophed to maintain MAPS >65- may need central line and/or arterial line Respiratory - Mechanical ventilation following operative procedure, RLL opacities, pleural effusion - Remains intubated secondary to vasopressor need and continued resuscitation- if remains with low vasopressor need and no further cardiac events extubate either this evening or in am - ARDSnet ventilation strategy GI - Perforated gastric ulcer - Protonix bolus followed by infusion can likely go lucy to BID dosing 24-48 hours - ANNMARIE drain per surgical services - wound care per surgical services - Gastric tube to LIWS - NPO RENAL/LYTES - Electrolyte disturbances - Replete MG, CA, K - NO acute needs - Continue steele to gravity- remove when able ENDO - No acute needs HEME - Thrombocytopenia - has been downtrending since admission- possibly related to sepsis- previous DVT prophy was Lovenox - follow PLT count in am- consider peripheral smear- HIT 4T score is 2 with possible other causes of sepsis, possibility of Protonix - he is without any bleeding or skin necrosis ID - UTI, likely aspiration precautions. Perforated gastric ulcer - Will place on Zosyn overnight following perforation of gastric ulcer- can likely transition back to Unasyn in morning- follow fever curve and WBC LINES/IV ACCESS - PIV, Steele, ETT, OGT Continue use of thes lines DVT PROPHYLAXIS - SCDS, chemoprophylaxis if platlet count increases- heparin subq ordered pending am labs DISPO: ICU while intubated and on vasopressor agents I have personally spent 60 minutes of critical care time in the direct management of this patient. This is a life/limb threatening event. This includes time spent evaluating patient, direct bedside care, chart review, placing orders, interpretation of diagnostic studies, discussion with consultants, patient, and family members, as well as other required patient management activities. This time is exclusive of all separately billable procedures, separate from and in addition to any other critical care service time. Thank you for allowing us to participate in the care of this patient. Please refer to my attending physician's documentation for any further recommendations. Admission and Anticipated Discharge Date Admission Date: January 19, 2023 Subjective Patient presents back to the ICU today following urgent surgical evaluation for abdominal pain. Was found to have perforated ulceration. He is POD #0 from perforated gastric ulceration with washout. Ulceration was patched and sewed over- spillage of gastric content in abdomen ~2 liters reported. Patient was notably hypotensive through the case requiring frequent administrations of neosynepherine. He received 2L Crystalloid during the case. He was transferred to ICU remaining intubated as still hypotensive and requiring low dose vasopressor support and volume resuscitation. May need central access and/or arterial line based on clinical course tonight. 1930 patient experienced episode of bradycardia into the 30s with associated decrease in blood pressure. He was given 1mg of Atropine with return to sinus tachycardia to 112s, appropriate increase in blood pressure as well. Labs pending and CXR pending. ABG with mild respiratory alkalosis without hypoxia. CODE: FULL Review of Systems Review of Systems: Unable to assess secondary to intubation and sedation Physical Exam Physical Exam: PHYSICAL EXAM: General: Sedated for mechanical ventilation Head: Normocephalic, atraumatic Neuro: ENT: PERRLA, opens eyes spontaneously, moving all extremities, Chest: equal rise and fall of the chest, no accessory muscle use, Clear to auscultation, intubated Cardiac: Regular rate and rhythm, telemetry reviewed- NSR, skin warm dry, cap refill <3 seconds, peripheral pulses, +2 no JVD, GI: OGT in place, ANNMARIE drain, abdomen incision without strike through : Steele to gravity Skin: no rash or erythema Results & Data Results & Data Vital Signs (Past 12 Hours) Vital Signs Temp Pulse Pulse Resp BP BP Pulse Ox 01/23/23 14:20 66 22 134/96 97 01/23/23 11:41 36.4 C L 79 18 142/92 H 90 01/23/23 08:00 01/23/23 08:17 36.4 C L 73 19 165/93 H 92 01/23/23 07:00 71 O2 Del Method 01/23/23 14:20 Room Air 01/23/23 11:41 Room Air 01/23/23 08:00 Room Air 01/23/23 08:17 Room Air 01/23/23 07:00 Laboratory Results Abnormal lab results 01/23/23 01/23/23 01/23/23 Range/Units 11:06 11:06 19:44 WBC 4.69 L (4.8-10.8) K/ul Hgb 13.6 L (14.0-18.0) g/dl POC Hgb 13.3 L (14.0-18.0) g/dl Hct 38.2 L (42.0-52.0) % POC Hct 39 L (42-52) % MCV 78.9 L (80.0-100.0) fL Plt Count 76 L (130-400) K/uL Absolute Nucleated RBC 0.18 H (0.00-0.12) K/uL POC pO2 195 H (80-95) mmHg POC Total CO2 23 L (24-31) mmol/L ABG pCO2 (Temp Corrct 34 L (35-46) mmHg POC ABG O2 Sat 100.0 H (90-95) % Chloride 109 H (98-107) mmol/L Creatinine 0.55 L (0.6-1.4) mg/dl BUN/Creatinine Ratio 32.7 H (10-20) Glucose 114 H (70-99(Fasting)) mg/dl POC Glucose (other) (70-99) mg/dl Calcium 8.0 L (8.6-10.3) mg/dl Magnesium (1.7-2.4) mg/dl Total Bilirubin 1.2 H (0.2-1.0) mg/dl AST 92 H (13-39) U/L ALT 113 H (7-52) U/L Total Protein 5.3 L (6.0-8.3) gm/dl Albumin 2.9 L (3.4-5.0) gm/dl Globulin 2.4 L (2.5-4.0) gm/dl 01/23/23 01/23/23 01/23/23 Range/Units 19:47 19:47 19:51 WBC (4.8-10.8) K/ul Hgb (14.0-18.0) g/dl POC Hgb (14.0-18.0) g/dl Hct 41.5 L (42.0-52.0) % POC Hct (42-52) % MCV (80.0-100.0) fL Plt Count 61 L (130-400) K/uL Absolute Nucleated RBC 0.31 H (0.00-0.12) K/uL POC pO2 (80-95) mmHg POC Total CO2 (24-31) mmol/L ABG pCO2 (Temp Corrct (35-46) mmHg POC ABG O2 Sat (90-95) % Chloride 109 H (98-107) mmol/L Creatinine (0.6-1.4) mg/dl BUN/Creatinine Ratio 25.3 H (10-20) Glucose 127 H (70-99(Fasting)) mg/dl POC Glucose (other) 130 H (70-99) mg/dl Calcium 7.6 L (8.6-10.3) mg/dl Magnesium 1.4 L (1.7-2.4) mg/dl Total Bilirubin (0.2-1.0) mg/dl AST (13-39) U/L ALT (7-52) U/L Total Protein (6.0-8.3) gm/dl Albumin (3.4-5.0) gm/dl Globulin (2.5-4.0) gm/dl Diagnostic Findings Abdomen/Pelvis CT 01/23/23 10:58 CT OF THE ABDOMEN AND PELVIS WITH ORAL CONTRAST CLINICAL HISTORY: Acute lower quadrant abdominal pain. COMPARISON STUDY: CT of the abdomen and pelvis January 19, 2023. TECHNIQUE: Axial images of the abdomen and pelvis were obtained without IV c ontrast. Oral contrast was ingested. Automated exposure control was utilized for the study. A dose lowering technique was utilized adhering to the principles of ALARA. FINDINGS: Moderate right and rzlxo-uq-yymyeaxo left pleural effusions have developed since CT of January 19, 2023. Moderate lower lobe airspace opacities are present. There is also right middle lobe opacity. The right lung opacities were shown on prior CT. There has been interval development of moderate pneumoperitoneum. This is due to to a gastric perforation along the lesser curvature on axial image 104 of 389. This suggests a perforated gastric ulcer. Unenhanced images of the liver, spleen, adrenal glands, kidneys and pancreas are unremarkable. Moderate abdominal and pelvic ascites has also developed since prior CT. There is sigmoid diverticulosis without evidence for acute diverticulitis. There is diffuse small bowel wall thickening. Steele balloon and gas within the bladder present. Anasarca is noted. IMPRESSION: 1. Interval development of moderate pneumoperitoneum due to perforation along the lesser curvature of the stomach. This suggests a perforated gastric ulcer. Surgical consultation is recommended. Moderate abdominal and pelvic ascites which is also new since prior exam. Discussed with Dr. Sue at time of dictation. 2. Diffuse small bowel wall thickening, a nonspecific finding. No evidence for a bowel obstruction. 3. Moderate right and lmzbf-kq-bkhkyend left pleural effusions. Bilateral lower lobe and right middle lobe opacities which favor pneumonia or aspiration pneumonitis ACT 112: Negative or not required by law. Electronically signed by: Curtis Pereyra M.D. 01/23/2023 2:38 PM Chest X-Ray 01/23/23 19:36 XR chest 1V portable CLINICAL HISTORY: eval ett post surgery COMPARISON STUDY: Chest radiograph January 20, 2023. FINDINGS: Tip of the endotracheal tube is 3.8 cm above the anayeli. Tip of nasogastric tube is within the body of the stomach. Right larger than left bilateral pleural effusions are noted. Asymmetric right lung airspace opacities are present. Cardiomediastinal silhouette is normal. No pneumothorax. IMPRESSION: 1. Satisfactory positioning of the endotracheal and nasogastric tubes. 2. Right larger left bilateral pleural effusions with associated airspace opacities. ACT 112: Negative or not required by law. Electronically signed by: Curtis Pereyra M.D. 01/23/2023 8:01 PM ECG Additional Comments: Poor data quality, interpretation may be adversely affected Sinus tachycardia Nonspecific T wave abnormality Abnormal ECG When compared with ECG of 19-JAN-2023 10:51, Significant changes have occurred Coding Level of Care Code 96423 CRITICAL CARE 1ST 30-74M Diagnoses Perforated gastric ulcer K25.5 Sepsis A41.9 Sepsis acute organ dysfunction status: unspecified Sepsis type: sepsis due to unspecified organism Acute encephalopathy G93.40 Urinary tract infection N39.0 Hematuria presence: without hematuria Urinary tract infection type: site unspecified Dementia F03.90 Dementia behavioral or psychological symptom: unspecified whether behavioral, psychotic, or mood disturbance or anxiety Dementia severity: unspecified severity Dementia type: unspecified type HLD (hyperlipidemia) E78.5 (2) Sepsis Sepsis acute organ dysfunction status: unspecified Sepsis type: sepsis due to unspecified organism Qualified Code(s): A41.9 - Sepsis, unspecified organism (4) Urinary tract infection Hematuria presence: without hematuria Urinary tract infection type: site unspecified Qualified Code(s): N39.0 - Urinary tract infection, site not specified (5) Dementia Dementia behavioral or psychological symptom: unspecified whether behavioral, psychotic, or mood disturbance or anxiety Dementia severity: unspecified severity Dementia type: unspecified type Qualified Code(s): F03.90 - Unspecified dementia, unspecified severity, without behavioral disturbance, psychotic disturbance, mood disturbance, and anxiety
[2023-01-23] MEDS ORDERED: fentaNYL citrate 2,500 MCG/250 ML BAG IV SCH (18:45)
--- NOTE | 2023-01-23 19:01 | Anesthesiology Progress Note ---
Date of Service January 23, 2023 Anesthesia Post Procedure Vital Signs Vital Signs: Temp Pulse Pulse Resp BP BP BP 01/23/23 18:45 80 16 01/23/23 18:45 80 21 84/65 L 01/23/23 18:40 78 17 92/65 L 01/23/23 18:40 79 16 01/23/23 18:35 85 16 01/23/23 18:35 94/69 L 01/23/23 18:30 81 16 01/23/23 18:30 82/63 L 01/23/23 18:27 83 16 01/23/23 18:27 80/67 L 01/23/23 18:26 83 01/23/23 18:26 74/55 L 01/23/23 18:40 80 16 01/23/23 14:20 66 22 134/96 01/23/23 11:41 36.4 C L 79 18 142/92 H 01/23/23 08:00 01/23/23 08:17 36.4 C L 73 19 165/93 H 01/23/23 07:00 71 01/23/23 03:45 36.5 C 69 20 176/102 H 01/22/23 20:50 01/22/23 23:48 66 01/22/23 23:34 36.4 C L 73 17 172/84 H 01/22/23 19:56 36.4 C L 76 18 118/72 Pulse Ox O2 Del Method FiO2 01/23/23 18:45 100 01/23/23 18:45 Mechanical Vent 60 01/23/23 18:40 Mechanical Vent 60 01/23/23 18:40 100 Mechanical Vent 60 01/23/23 18:35 100 Mechanical Vent 60 01/23/23 18:35 01/23/23 18:30 100 01/23/23 18:30 01/23/23 18:27 100 01/23/23 18:27 01/23/23 18:26 99 01/23/23 18:26 01/23/23 18:40 100 60 01/23/23 14:20 97 Room Air 01/23/23 11:41 90 Room Air 01/23/23 08:00 Room Air 01/23/23 08:17 92 Room Air 01/23/23 07:00 01/23/23 03:45 92 Room Air 01/22/23 20:50 Room Air 01/22/23 23:48 01/22/23 23:34 93 Room Air 01/22/23 19:56 96 Room Air Transfer of Care Handoff Completed per policy Notes Mental Status: see notes below Patient Amnestic to Procedure: Yes Nausea / Vomiting: adequately controlled Pain: adequately controlled Airway Patency, RR, SpO2: see Notes below BP & HR: stable & adequate and see Notes below Hydration State: stable & adequate Anesthetic Complications: no major complications apparent Notes: Expect patient to require pressor support post op so left intubated and on ventilator - ventilation and oxygenation good, BP being supported
[2023-01-23] MEDS: NOREPINEPHRINE/D5W 4 MG/250 ML PLCT IV SCH (19:27)
[2023-01-23 20:00] LABS: iSTAT Art Bld Gas pCO2 Correct 34 mmHg (35-46); iSTAT Art Bld Gas pH Corrected 7.413 (7.35-7.45); iSTAT Arterial Blood Gas HCO3 22 meg/L (19-24); iSTAT Arterial Blood Gas pCO2 35 mmHg (35-46); iSTAT Arterial Blood Gas pO2 195 mmHg (80-95); iSTAT Arterial Blood Gas pO2 C 190; iSTAT Carbon Dioxide 23 mmol/L (24-31); iSTAT FiO2 60 %; iSTAT Hematocrit 39 % (42-52); iSTAT Hemoglobin 13.3 g/dl (14.0-18.0); iSTAT Potassium 3.8 mmol/L (3.3-5.0); iSTAT Site L Radial; iSTAT Sodium 140 mmol/L (135-144)
--- NOTE | 2023-01-23 20:04 | XRay Report ---
XR chest 1V portable CLINICAL HISTORY: eval ett post surgery COMPARISON STUDY: Chest radiograph January 20, 2023. FINDINGS: Tip of the endotracheal tube is 3.8 cm above the anayeli. Tip of nasogastric tube is within the body of the stomach. Right larger than left bilateral pleural effusions are noted. Asymmetric rig ht lung airspace opacities are present. Cardiomediastinal silhouette is normal. No pneumothorax. IMPRESSION: 1. Satisfactory positioning of the endotracheal and nasogastric tubes. 2. Right larger left bilateral pleural effusions with associated airspace opacities. ACT 112: Negative or not required by law. Electronically signed by: Curtis Pereyra M.D. 01/23/2023 8:01 PM
[2023-01-23 20:09] LABS: Hematocrit (blood only) 41.5 % (42.0-52.0); Hemoglobin 14.1 g/dl (14.0-18.0); Mean Corpuscular Hemoglobin 27.6 pg (25.0-34.0); Mean Corpuscular Volume 81.2 fL (80.0-100.0); Mean Platelet Volume 11.1 fL (9.4-12.4); Nucleated RBC # (auto) 0.31 K/uL (0.00-0.12); Nucleated RBC % (auto) 5.7 %; Platelet Count 61 K/uL (130-400); RDW Coefficient of Variation 13.9 % (11.5-14.5); Red Blood Count 5.11 M/uL (4.70-6.10)
[2023-01-23 20:14] LABS: BUN Creatinine Ratio 25.3 (10-20); Calcium 7.6 mg/dl (8.6-10.3); Creatinine Clr Calc Pharmacy 92.6 ml/min; Est GFR (African American) 110.8 ml/min; Est GFR (Non-African American) 95.6 ml/min; Magnesium 1.4 mg/dl (1.7-2.4)
[2023-01-23] MEDS ORDERED: PANTOPRAZOLE BOLUS/DRIP IV STA (20:23)
[2023-01-23] MEDS: MAGNESIUM SULFATE / D5W 1 GM/100 ML BAG IV SCH ×2 (20:35→22:34)
[2023-01-23] MEDS: PANTOprazole 40 MG in DEXTROSE 5% MINI-B 100 ML IV SCH (20:40)
[2023-01-23 20:44] LABS: Basophils # (auto) 0.06 K/uL (0.00-0.20); Basophils % (auto) 1.1 %; Echinocytes 2+; Immature Granulocytes # (auto) 0.03 K/uL (0.01-0.20); Immature Granulocytes % (auto) 0.6 %; Lymphocytes # (auto) 1.26 K/uL (1.20-3.40); Lymphocytes % (auto) 23.3 %; Monocytes % (auto) 1.9 %; Neutrophils # (auto) 3.95 K/uL (1.40-6.50); Neutrophils % (auto) 73.1 %; Polychromasia 1+
[2023-01-23] MEDS ORDERED: PANTOprazole 80 MG in DEXTROSE 5% 100 ML IV ONE (20:45)
[2023-01-23] MEDS ORDERED: PIPERACILLIN/TAZOBACTAM 4.5 GM in DEXTROSE 5% MINI-B 100 ML IV STA (20:46)
[2023-01-23] MEDS: LACTATED RINGER'S 1,000 ML IV SCH (20:49)
[2023-01-23] MEDS ORDERED: PANTOprazole 40 MG in SYRINGE 0 ML IV SCH (21:00)
[2023-01-23] MEDS ORDERED: OLANZAPINE 2.5 MG TAB PO SCH (21:00)
[2023-01-23] MEDS ORDERED: STAT IV/IM STA (21:41)
[2023-01-23] MEDS ORDERED: LACTATED RINGER'S 500 ML IV ONE (21:52)
[2023-01-23] MEDS: CALCIUM GLUCONATE 10% 1,000 MG in SODIUM CHLOR 0.9% MINI-B 50 ML IV SCH ×2 (21:57→22:15)
[2023-01-23] MEDS ORDERED: PROPOFOL IV EMULSION 10 MG/ML 100 ML VIAL IV ONE (22:54)
[2023-01-23] MEDS ORDERED: PROPOFOL BOLUS FROM BAG IV PRN ×2 (23:28)
--- NOTE | 2023-01-23 23:28 | Procedure Note ---
Procedure Note Date of Service January 23, 2023 Note Procedure: Internal Jugular Central Line Placement Proceduralist: Marcelo GARDNER ([facility]) Attending: Dr. SAHNI Indication: Central Drug Administration, Poor Venous Access, Multiple Lab Draws Necessary, etc. Anesthesia: [x]Lidocaine 1%, fentanyl infusion, Consent was implied as patient is prisoner, Full Code, with no proxy and no family available. Deemed urgent/emergent secondary to rapidly escalating vasopressor requirements signed and placed on the chart prior to procedure. A time-out was completed verifying correct patient, procedure, site, positioning as applicable. Vessels were scouted prior to procedure with ultrasound and direct ultrasound visualization was used. Patients RIGHT Neck was cleansed and draped in the typical sterile fashion using ChloraPrep. The Internal Jugular Vein and Carotid Artery were identified using ultrasound. The superficial tissue was anesthetized using 7 mL of 1% lidocaine without epinephrine under direct visualization with the ultrasound. After adequate anesthetization was achieved, the Internal Jugular vein was cannulated under direct ultrasound guidance using an introducer needle on a syringe. Good venous blood return was maintained prior to removal of syringe from introducer needle. Using Seldinger Technique, a guide wire was advanced through the introducer needle without resistance. The introducer needle was removed. Ultrasound images were obtained of wire within the Internal Jugular Vein not saved to the patients medical record. A small incision was made in penetrating fashion at the guide wire insertion site utilizing an 11 blade scalpel. The dilator was advanced to the vessel without resistance. The dilator was exchanged for the triple lumen catheter which was advanced into the vessel without resistance. The guide wire was removed intact from the catheter without issue. Claves were placed on each catheter tip with confirmation of good blood flow from each lumen. Each port was easily flushed with sterile saline. The catheter was placed at 16 cm and sutured in place. BioPatch was applied to the catheter and a sterile Tegaderm dressing was applied over the catheter with careful attention to sterility. Patient tolerated procedure well. No immediate complications were met. Post procedure x-ray was completed, placement was appropriate and no pneumothorax was noted. Images obtained awere not saved for permanent record as procedure urgent/emergent with rapidly increasing vasopressor requirements Procedural Ultrasound Guidance: Procedure Date: Indication: Direct Visualization for ultrasound guided central access Proceduralist: Marcelo GARDNER ([facility]) Attending: Dr. SAHNI Artery AND Vein visualized: YES Compressible Vein: YES Guidewire or Short Catheter seen in vein prior to dilation: YES Images obtained were NOT saved for permanent record as urgent/emergent. Coding CPT Codes Tubes, Drains, and Vasc Access - Tubes, Drains, and Vasc Access: [id number] Insertion Of Non-tunneled Catheter Age 4 Yrs> ([id number]) Tubes, Drains, and Vasc Access - Tubes, Drains, and Vasc Access: [id number] Ultrasound Guidance For Vascular ([id number]) [facility] [place] Procedure Codes (Charges) Tubes, Drains, and Vasc Access Procedure 1: Tubes, Drains, and Vasc Access: [id number] Insertion Of Non-tunneled Catheter Age 4 Yrs> Procedure 2: Tubes, Drains, and Vasc Access: [id number] Ultrasound Guidance For Vascular
--- NOTE | 2023-01-23 23:28 | Procedure Note ---
Procedure Note Date of Service January 23, 2023 Note Procedure: Arterial Line Placement Proceduralist: Marcelo GARDNER ([facility]) Attending: Dr. SAHNI Indication: Monitoring on Pressors Anesthesia: Fentanyl Infusion Consent was not obtained and implied as patient is a prisoner, that is full code, has no proxy or family for contact. Procedure emergent secondary to hypotension and escalating vasopressor requirements A time-out was completed verifying correct patient, procedure, site, positioning, was performed. Allens test was performed to ensure adequate perfusion. Patients LEFT wrist was prepped and draped in the usual sterile fashion. Ultrasound guidance was used to turf farmer the vessel prior to procedure and directly aid needle placement. Under direct ultrasound visualization, A 20g Arrow arterial line was introduced into the LEFT RADIAL artery x1 attempt, brisk blood return was noted, wire was advanced without resistance. Catheter was threaded, and the needle was removed with appropriate blood return, pressure tubing was connected and a good waveform was observed. The patient tolerated the procedure well. Blood Loss: Minimal Complications: None immediately observed Procedural Ultrasound Guidance: Direct visulaization for arterial line placement Procedure Date: 23Jan2023 Indication: Hemodynamic monitoring on vasopressor agents Proceduralist: Marcelo GARDNER ([facility]) Attending: Dr. SAHNI Artery Identified: YES Direct Visualization: YES Complications: NONE Patient tolerated procedure: WELL Images were not saved to EMR secondary to rapidly increasing vasopressor requirements and urgent Coding CPT Codes Tubes, Drains, and Vasc Access - Tubes, Drains, and Vasc Access: [id number] Ultrasound Guidance For Vascular ([id number]) Tubes, Drains, and Vasc Access - Tubes, Drains, and Vasc Access: [id number] Arterial Cath/Cannulation Sampling/Monitoring/Transfusion ([id number]) [facility] [place] Procedure Codes (Charges) Tubes, Drains, and Vasc Access Procedure 1: Tubes, Drains, and Vasc Access: [id number] Ultrasound Guidance For Vascular Procedure 2: Tubes, Drains, and Vasc Access: [id number] Arterial Cath/Cannulation Sampling/Monitoring/Transfusion
[2023-01-23] MEDS ORDERED: propofoL 1,000 MG/100 ML VIAL IV SCH (23:30)
[2023-01-24] MEDS ORDERED: STAT IV Infusion **Titration per Protocol STA (00:37)
[2023-01-24] MEDS ORDERED: VASOPRESSIN 20 UNITS in 0.9 % SODIUM CHLORIDE 100 ML IV SCH (00:45)
[2023-01-24] MEDS: MAGNESIUM SULFATE / D5W 1 GM/100 ML BAG IV SCH (00:58)
[2023-01-24] MEDS ORDERED: LACTATED RINGER'S 500 ML IV ONE (01:16)
[2023-01-24] MEDS ORDERED: Nursing to Pharmacy Communication SCH (01:30)
[2023-01-24] MEDS: PANTOprazole 40 MG in DEXTROSE 5% MINI-B 100 ML IV SCH ×5 (01:48→22:55)
[2023-01-24] MEDS: PIPERACILLIN/TAZOBACTAM 4.5 GM in DEXTROSE 5% MINI-B 100 ML IV SCH ×3 (01:48→19:42)
[2023-01-24] MEDS: LACTATED RINGER'S 1,000 ML IV SCH ×2 (03:55→12:40)
[2023-01-24] MEDS: NOREPINEPHRINE/D5W 4 MG/250 ML PLCT IV SCH ×3 (03:56→14:42)
[2023-01-24 04:43] LABS: BUN Creatinine Ratio 24.1 (10-20); Calcium 7.7 mg/dl (8.6-10.3); Creatinine Clr Calc Pharmacy 92.6 ml/min; Est GFR (African American) 110.8 ml/min; Est GFR (Non-African American) 95.6 ml/min; Potassium 4.4 mmol/L (3.5-5.1)
[2023-01-24 04:46] LABS: Hematocrit (blood only) 34.8 % (42.0-52.0); Hemoglobin 12.1 g/dl (14.0-18.0); Mean Corpuscular Hemoglobin 27.9 pg (25.0-34.0); Mean Corpuscular Hgb Conc 34.8 g/dL (32.0-36.0); Mean Corpuscular Volume 80.2 fL (80.0-100.0); Mean Platelet Volume 12.5 fL (9.4-12.4); Nucleated RBC # (auto) 0.31 K/uL (0.00-0.12); Nucleated RBC % (auto) 2.9 %; Platelet Count 72 K/uL (130-400); RDW Coefficient of Variation 13.6 % (11.5-14.5); RDW Standard Deviation 40.2 fL (36.4-46.3); Red Blood Count 4.34 M/uL (4.70-6.10); White Blood Count 10.67 K/ul (4.8-10.8)
--- NOTE | 2023-01-24 07:21 | Hospitalist Progress Note ---
Date of Service January 24, 2023 Assessment & Plan (1) Abdominal pain: Plan: patient with abdominal pain in the a.m. of 01/23. CT scan ordered with possibility of perforated gastric ulcer. General surgery took to the OR performed oversewing of a large lesser curvature gastric ulcer with perforation and peritoneal soilage, postprocedure was intubated overnight. Required pressors. Patient is on Unasyn therapy which continues. (2) Sepsis: Plan: sepsis On presentation not related to perforated gastric ulcerfrom pulmonary source however ua resulted with pansensitive E coli, did require pressors- metabolic encephalopathy present on admission, baseline has severe dementia -did have LP , CSF noted elevated WBC however bloody tap, less concern meningitis CFS panel negative -CT head: No acute intracranial findings. No change in appearance of the brain. -CT A/P: There is a right lower lung airspace opacity compatible with aspiration/pneumonia. Diverticulosis without diverticulitis. blood cx gram +, urine Gram neg, suspect blood is contaminant Code Status: Full, no records with [facility], unable to discuss with patient spoke to [facility] patient is unable to make decisions it was confirmed there are no family to help make decisions we will need to get a court appointed guardian and will need assistance from case management to do that. The patient unable to sustain himself likely may need to be placed in a usp environment or be transition to comfort care DVT PPX: SCDs Nutrition consulted (3) Dementia: Plan: pre hospital diagnosis of alzheimers, donepazil, olanzipine am/pm and celexa (4) HLD (hyperlipidemia): Plan: typially on crestor (5) Seizure-like activity: Plan: concern on admission , EEG was abnormal and showed a moderate generalized encephalopathy as noted by the generalized slowing. There were no focal abnormalities or potentially epileptogenic discharges seen. not started on antiepileptic medications Plan once called with perforated viscus patient was transferred to higher level of care again Admission and Anticipated Discharge Date Admission Date: January 19, 2023 Subjective patient is extubated the morning of 01/24/2023, he is demented and pleasantly confused but mostly quiet. His abdomen is somewhat tender and painful ANNMARIE drain is intact his respiratory status seems to be stable after extubation Physical Exam Physical Exam: patient is an awake he does respond to commands cardiac exam is regular lungs are diminished at the bases but clear abdomen is with absent bowel sounds soft ANNMARIE drain intact Results & Data Results & Data Vital Signs (Past 12 Hours) Vital Signs Temp Pulse Resp BP Pulse Ox O2 Del Method FiO2 01/24/23 04:00 30 01/24/23 03:00 99.1 F 73 15 99 Mechanical Vent 30 01/24/23 02:00 99.3 F 82 14 98 Mechanical Vent 30 01/24/23 02:00 115/65 01/24/23 01:00 99.7 F H 81 16 99 Mechanical Vent 30 01/24/23 00:00 86 16 100 Mechanical Vent 30 01/23/23 23:55 91 H 16 99 Mechanical Vent 01/23/23 23:55 99/61 L Mechanical Vent 01/23/23 23:50 90 16 98 Mechanical Vent 01/23/23 23:50 88/62 L Mechanical Vent 01/23/23 23:45 92 H 15 99 Mechanical Vent 01/23/23 23:45 86/62 L 01/23/23 23:40 94 H 16 99 Mechanical Vent 01/23/23 23:40 79/56 L 01/23/23 23:35 94 H 16 98 Mechanical Vent 01/23/23 23:35 81/57 L 01/23/23 23:30 83/62 L 01/23/23 23:30 98 H 15 98 Mechanical Vent 01/23/23 23:25 65/56 L 01/23/23 23:25 93 H 16 100 Mechanical Vent 01/23/23 23:20 89/58 L 01/23/23 23:20 93 H 17 99 Mechanical Vent 01/23/23 23:15 83/56 L 01/23/23 23:15 93 H 16 98 Mechanical Vent 01/23/23 23:10 89 17 98 Mechanical Vent 01/23/23 23:10 83/52 L 01/23/23 23:05 91 H 15 97 Mechanical Vent 01/23/23 23:05 72/49 L 01/23/23 23:00 90 16 97 Mechanical Vent 01/23/23 23:00 68/53 L 01/23/23 22:45 103 H 17 100 Mechanical Vent 01/23/23 22:45 84/63 L 01/23/23 22:41 93/56 L 01/23/23 22:41 99 H 17 100 Mechanical Vent 01/23/23 22:40 80/59 L 01/23/23 22:40 99 H 18 100 Mechanical Vent 01/23/23 22:15 90 17 100 Mechanical Vent 01/23/23 22:15 105/66 01/23/23 21:45 73/56 L 01/23/23 21:45 94 H 16 100 Mechanical Vent 01/24/23 00:00 82 01/24/23 00:16 30 01/24/23 02:07 81 18 100 35 01/23/23 20:00 Mechanical Vent 30 01/23/23 22:16 90 19 99 35 01/23/23 21:17 96.1 F L 01/23/23 21:00 102 H 17 100 Mechanical Vent 60 01/23/23 21:00 108/84 01/23/23 20:10 102/80 Mechanical Vent 60 01/23/23 20:10 113 H 16 98 01/23/23 20:00 96.8 F L 01/23/23 20:05 118 H 18 94 Mechanical Vent 60 01/23/23 20:05 103/80 01/23/23 19:36 190/142 H 01/23/23 19:36 116 H 16 100 01/23/23 19:35 197/145 H 01/23/23 19:30 74 16 100 Mechanical Vent 60 01/23/23 19:30 97/74 L 01/23/23 19:25 76 16 100 Mechanical Vent 60 01/23/23 19:25 85/65 L 01/23/23 20:16 60 01/23/23 19:58 118 H 18 95 35 Laboratory Results reviewed CBC reviewed chemistry PG Care Time/CCT Total # of Minutes Spent Total Time Spent with Patient: Total time spent is greater than 50% in coordination of care (as documented) at patient's floor/unit and/or counseling patient: Coding Level of Care Code 43121 SUB INP/OBS CARE 3/50MIN Diagnoses Abdominal pain R10.9 Sepsis A41.9 Sepsis acute organ dysfunction status: unspecified Sepsis type: sepsis due to unspecified organism Dementia F03.90 Dementia behavioral or psychological symptom: unspecified whether behavioral, psychotic, or mood disturbance or anxiety Dementia severity: unspecified severity Dementia type: unspecified type HLD (hyperlipidemia) E78.5 Seizure-like activity R56.9 (2) Sepsis Sepsis acute organ dysfunction status: unspecified Sepsis type: sepsis due to unspecified organism Qualified Code(s): A41.9 - Sepsis, unspecified organism (3) Dementia Dementia behavioral or psychological symptom: unspecified whether behavioral, psychotic, or mood disturbance or anxiety Dementia severity: unspecified severity Dementia type: unspecified type Qualified Code(s): F03.90 - Unspecified dementia, unspecified severity, without behavioral disturbance, psychotic disturbance, mood disturbance, and anxiety
--- NOTE | 2023-01-24 07:44 | XRay Report ---
XR chest 1V portable semisupine CLINICAL HISTORY: central line placement COMPARISON STUDY: Chest radiograph January 23, 2023 at 7:38 PM. FINDINGS: Tip of endotracheal tube is 4.5 cm above the anayeli. Tip of the nasogastric tube is within the body of the stomach. Tip of right internal jugular central line projects over the distal SVC. The re is no pneumothorax on this semisupine exam. Bilateral pleural effusions, right larger than left, a re noted. Associated airspace opacities are present. Cardiomediastinal silhouette is stable. Pulmonar y vascular congestion. IMPRESSION: 1. No pneumothorax identified following placement of a right internal jugular central line. 2. Satisfactory positioning of the endotracheal and nasogastric tubes. 3. Bilateral pleural effusions, right larger left, with associated airspace opacities. 4. Pulmonary vascular congestion. ACT 112: Negative or not required by law. Electronically signed by: Curtis Pereyra M.D. 01/24/2023 7:42 AM
--- NOTE | 2023-01-24 08:48 | Critical Care Progress Note ---
Date of Service January 24, 2023 Assessment & Plan (1) Observed seizure-like activity: (2) Acute encephalopathy: (3) Hypothermia: (4) Sepsis: (5) Acute alteration in mental status: (6) Pneumonia: (7) Dementia: (8) Urinary tract infection: Plan Reason Critically Ill: 62-year-old male prisoner with end-stage dementia initially admitted with altered mental status but found to have perforated viscus requiring emergency laparotomy yesterday and return to the ICU intubated and hypotensive on pressors. Recommendations: NEURO -the patient has advanced dementia at baseline. He been evaluated by neurology previously including EEG evaluation which was unremarkable. Discontin ue propofol. Transition to fentanyl as needed. CARDIAC/VASCULAR -septic shock: Cortisol reassuring. Appears to be improving. Corrected calcium. Wean pressors as tolerated. Had had intermittent bradycardia but will follow clinically. Not a candidate for any aggressive interventions. RESPIRATORY -intubated for perforated viscus. SBT reassuring this morning. His sepsis appears to be resolving enough to allow for ventilator liberation. We will provide oxygen as needed. The patient previously had probable aspiration pneumonia in the right lower lobe on presentation. Chest x-ray may show a small effusion on the right. We will continue to follow clinically. GI/NUTRITION -n.p.o. for now. NG tube per general surgery. On Protonix RENAL/LYTES -ICU electrolyte replacement protocol. Continue IV fluids -E. coli UTI. Continue Wolfe for now. ENDO - glycemic control per protocol HEME -mild anemia. Continue to trend at this point time. Thrombocytopenia. His heparin-induced antibodies were negative. Continue subcu heparin and follow. May be related to sepsis or beta-lactam's. ID -peritonitis: Continue empiric Zosyn. LINES/IV ACCESS - * Central line, arterial line, nasogastric tube, Wolfe, endotracheal tube DVT PROPHYLAXIS - * Subcu heparin * SCDs Hopefully the patient can extubate later today. He is not a candidate for PT or OT. Admission and Anticipated Discharge Date Admission Date: January 19, 2023 Subjective Patient is intubated and sedated. Review of Systems Review of Systems: Unobtainable due to endotracheal tube Physical Exam Physical Exam: PHYSICAL EXAM: General: Sedated for mechanical ventilation Head: Normocephalic, atraumatic Neuro: ENT: PERRLA, opens eyes spontaneously, moving all extremities, Chest: equal rise and fall of the chest, no accessory muscle use, Clear to auscultation, intubated Cardiac: Regular rate and rhythm, telemetry reviewed- NSR, skin warm dry, cap refill <3 seconds, peripheral pulses, +2 no JVD, GI: OGT in place, ANNMARIE drain, abdomen incision dressing dry : Wolfe to gravity Skin: no rash or erythema Results & Data Results & Data Vital Signs (Past 12 Hours) Vital Signs Temp Pulse Resp BP Pulse Ox O2 Del Method FiO2 01/24/23 08:00 Mechanical Vent 30 01/24/23 08:00 30 01/24/23 07:59 65 01/24/23 07:00 37.2 C 69 18 100 Mechanical Vent 30 01/24/23 06:30 37.2 C 66 16 100 01/24/23 07:35 71 17 100 30 01/24/23 04:00 30 01/24/23 03:00 37.3 C 73 15 99 Mechanical Vent 30 01/24/23 02:00 37.4 C 82 14 98 Mechanical Vent 30 01/24/23 02:00 115/65 01/24/23 01:00 37.6 C H 81 16 99 Mechanical Vent 30 01/24/23 00:00 86 16 100 Mechanical Vent 30 01/23/23 23:55 91 H 16 99 Mechanical Vent 01/23/23 23:55 99/61 L Mechanical Vent 01/23/23 23:50 90 16 98 Mechanical Vent 01/23/23 23:50 88/62 L Mechanical Vent 01/23/23 23:45 92 H 15 99 Mechanical Vent 01/23/23 23:45 86/62 L 01/23/23 23:40 94 H 16 99 Mechanical Vent 01/23/23 23:40 79/56 L 01/23/23 23:35 94 H 16 98 Mechanical Vent 01/23/23 23:35 81/57 L 01/23/23 23:30 83/62 L 01/23/23 23:30 98 H 15 98 Mechanical Vent 01/23/23 23:25 65/56 L 01/23/23 23:25 93 H 16 100 Mechanical Vent 01/23/23 23:20 89/58 L 01/23/23 23:20 93 H 17 99 Mechanical Vent 01/23/23 23:15 83/56 L 01/23/23 23:15 93 H 16 98 Mechanical Vent 01/23/23 23:10 89 17 98 Mechanical Vent 01/23/23 23:10 83/52 L 01/23/23 23:05 91 H 15 97 Mechanical Vent 01/23/23 23:05 72/49 L 01/23/23 23:00 90 16 97 Mechanical Vent 01/23/23 23:00 68/53 L 01/23/23 22:45 103 H 17 100 Mechanical Vent 01/23/23 22:45 84/63 L 01/23/23 22:41 93/56 L 01/23/23 22:41 99 H 17 100 Mechanical Vent 01/23/23 22:40 80/59 L 01/23/23 22:40 99 H 18 100 Mechanical Vent 01/23/23 22:15 90 17 100 Mechanical Vent 01/23/23 22:15 105/66 01/23/23 21:45 73/56 L 01/23/23 21:45 94 H 16 100 Mechanical Vent 01/24/23 00:00 82 01/24/23 00:16 30 01/24/23 02:07 81 18 100 35 01/23/23 22:16 90 19 99 35 01/23/23 21:17 35.6 C L 01/23/23 21:00 102 H 17 100 Mechanical Vent 60 01/23/23 21:00 108/84 Critical Care Results & Data Vital Signs (Past 12 Hours) Vital Signs Temp Pulse Resp BP Pulse Ox O2 Del Method FiO2 01/24/23 08:00 Mechanical Vent 30 01/24/23 08:00 30 01/24/23 07:59 65 01/24/23 07:00 37.2 C 69 18 100 Mechanical Vent 30 01/24/23 06:30 37.2 C 66 16 100 01/24/23 07:35 71 17 100 30 01/24/23 04:00 30 01/24/23 03:00 37.3 C 73 15 99 Mechanical Vent 30 01/24/23 02:00 37.4 C 82 14 98 Mechanical Vent 30 01/24/23 02:00 115/65 01/24/23 01:00 37.6 C H 81 16 99 Mechanical Vent 30 01/24/23 00:00 86 16 100 Mechanical Vent 30 01/23/23 23:55 91 H 16 99 Mechanical Vent 01/23/23 23:55 99/61 L Mechanical Vent 01/23/23 23:50 90 16 98 Mechanical Vent 01/23/23 23:50 88/62 L Mechanical Vent 01/23/23 23:45 92 H 15 99 Mechanical Vent 01/23/23 23:45 86/62 L 01/23/23 23:40 94 H 16 99 Mechanical Vent 01/23/23 23:40 79/56 L 01/23/23 23:35 94 H 16 98 Mechanical Vent 01/23/23 23:35 81/57 L 01/23/23 23:30 83/62 L 01/23/23 23:30 98 H 15 98 Mechanical Vent 01/23/23 23:25 65/56 L 01/23/23 23:25 93 H 16 100 Mechanical Vent 01/23/23 23:20 89/58 L 01/23/23 23:20 93 H 17 99 Mechanical Vent 01/23/23 23:15 83/56 L 01/23/23 23:15 93 H 16 98 Mechanical Vent 01/23/23 23:10 89 17 98 Mechanical Vent 01/23/23 23:10 83/52 L 01/23/23 23:05 91 H 15 97 Mechanical Vent 01/23/23 23:05 72/49 L 01/23/23 23:00 90 16 97 Mechanical Vent 01/23/23 23:00 68/53 L 01/23/23 22:45 103 H 17 100 Mechanical Vent 01/23/23 22:45 84/63 L 01/23/23 22:41 93/56 L 01/23/23 22:41 99 H 17 100 Mechanical Vent 01/23/23 22:40 80/59 L 01/23/23 22:40 99 H 18 100 Mechanical Vent 01/23/23 22:15 90 17 100 Mechanical Vent 01/23/23 22:15 105/66 01/23/23 21:45 73/56 L 01/23/23 21:45 94 H 16 100 Mechanical Vent 01/24/23 00:00 82 01/24/23 00:16 30 01/24/23 02:07 81 18 100 35 01/23/23 22:16 90 19 99 35 01/23/23 21:17 35.6 C L 01/23/23 21:00 102 H 17 100 Mechanical Vent 60 01/23/23 21:00 108/84 Lab & Micro Results (Past 24 Hours) RBC 4.34 M/uL (4.70-6.10) L 01/24/23 WBC 10.67 K/ul (4.8-10.8) 01/24/23 Hgb 12.1 g/dl (14.0-18.0) L 01/24/23 Hct 34.8 % (42.0-52.0) L 01/24/23 MCV 80.2 fL (80.0-100.0) 01/24/23 MCH 27.9 pg (25.0-34.0) 01/24/23 MCHC 34.8 g/dL (32.0-36.0) 01/24/23 RDW Standard Deviation 40.2 fL (36.4-46.3) 01/24/23 RDW Coefficient of Variation 13.6 % (11.5-14.5) 01/24/23 Plt Count 72 K/uL (130-400) L 01/24/23 MPV 12.5 fL (9.4-12.4) H 01/24/23 Nucleated Red Blood Cells % (auto) 2.9 % 01/24 Nucleated RBC Absolute Count (auto) 0.31 K/uL (0.00-0.12) H 01/24/23 Neutrophils (%) (Auto) 73.1 % 01/23/23 Lymphocytes (%) (Auto) 23.3 % 01/23/23 Monocytes # (Auto) 0.10 K/uL (0.11-0.59) L 01/23/23 Eosinophils # (Auto) 0.00 K/uL (0.00-0.50) 01/23/23 Immature Granulocyte % (Auto) 0.6 % 01/23/23 Neutrophils # (Auto) 3.95 K/uL (1.40-6.50) 01/23/23 Lymphocytes # (Auto) 1.26 K/uL (1.20-3.40) 01/23/23 Monocytes # (Auto) 0.10 K/uL (0.11-0.59) L 01/23/23 Eosinophils # (Auto) 0.00 K/uL (0.00-0.50) 01/23/23 Basophils # (Auto) 0.06 K/uL (0.00-0.20) 01/23/23 Immature Granulocyte # (Auto) 0.03 K/uL (0.01-0.20) 3 Polychromasia 1+ 01/23/23 Echinocytes 2+ 01/23/23 Na 136 mmol/L (136-145) 01/24/23 K 4.4 mmol/L (3.5-5.1) 01/24/23 Cl 107 mmol/L (98-107) 01/24/23 CO2 23 mmol/L (21-32) 01/24/23 Anion Gap 6 (3-11) 01/24/23 BUN 19 mg/dl (6-23) 01/24/23 Creatinine 0.79 mg/dl (0.6-1.4) 01/24/23 Estimated GFR ( Amer) 110.8 ml/min 01/24/23 Estimated GFR (Non-Af Amer) 95.6 ml/min 01/24/23 BUN/Creatinine Ratio 24.1 (10-20) H 01/24/23 Glu 137 mg/dl (70-99(Fasting)) H 01/24/23 Ca 7.7 mg/dl (8.6-10.3) L 01/24/23 Total Bilirubin 1.2 mg/dl (0.2-1.0) H 01/23/23 AST 92 U/L (13-39) H 01/23/23 ALT 113 U/L (7-52) H 01/23/23 Alkaline Phosphatase 81 U/L (34-104) 01/23/23 TP 5.3 gm/dl (6.0-8.3) L 01/23/23 Albumin 2.9 gm/dl (3.4-5.0) L 01/23/23 Globulin 2.4 gm/dl (2.5-4.0) L 01/23/23 Albumin/Globulin Ratio 1.2 (0.9-2) 01/23/23 Mg 1.4 mg/dl (1.7-2.4) L 01/23/23 19:47 Calcium Level 7.7 mg/dl (8.6-10.3) L 01/24/23 03:54 Tyshawn Test NA 01/23/23 19:44 Microbiology 01/19/23 11:05 Aerobic Blood Culture - Preliminary Blood Coag neg staph not lugdunensis Anaerobic Blood Culture - Preliminary No growth in Anaerobic bottle after 48 hours. Diagnostic Findings (Past 24 Hours) Abdomen/Pelvis CT 01/23/23 10:58 CT OF THE ABDOMEN AND PELVIS WITH ORAL CONTRAST CLINICAL HISTORY: Acute lower quadrant abdominal pain. COMPARISON STUDY: CT of the abdomen and pelvis January 19, 2023. TECHNIQUE: Axial images of the abdomen and pelvis were obtained without IV contrast. Oral contrast was ingested. Automated exposure control was utilized for the study. A dose lowering technique was utilized adhering to the principles of ALARA. FINDINGS: Moderate right and jgzhd-il-awjjbfnr left pleural effusions have developed since CT of January 19, 2023. Moderate lower lobe airspace opacities are present. There is also right middle lobe opacity. The right lung opacities were shown on prior CT. There has been interval development of moderate pneumoperitoneum. This is due to to a gastric perforation along the lesser curvature on axial image 104 of 389. This suggests a perforated gastric ulcer. Unenhanced images of the liver, spleen, adrenal glands, kidneys and pancreas are unremarkable. Moderate abdominal and pelvic ascites has also developed since prior CT. There is sigmoid diverticulosis without evidence for acute diverticulitis. There is diffuse small bowel wall thickening. Wolfe balloon and gas within the bladder present. Anasarca is noted. IMPRESSION: 1. Interval development of moderate pneumoperitoneum due to perforation along the lesser curvature of the stomach. This suggests a perforated gastric ulcer. Surgical consultation is recommended. Moderate abdominal and pelvic ascites which is also new since prior exam. Discussed with Dr. Sue at time of dictation. 2. Diffuse small bowel wall thickening, a nonspecific finding. No evidence for a bowel obstruction. 3. Moderate right and ljfkc-oe-frwmssyp left pleural effusions. Bilateral lower lobe and right middle lobe opacities which favor pneumonia or aspiration pneumonitis ACT 112: Negative or not required by law. Electronically signed by: Curtis Pereyra M.D. 01/23/2023 2:38 PM Chest X-Ray 01/23/23 19:36 XR chest 1V portable CLINICAL HISTORY: eval ett post surgery COMPARISON STUDY: Chest radiograph January 20, 2023. FINDINGS: Tip of the endotracheal tube is 3.8 cm above the anayeli. Tip of nasogastric tube is within the body of the stomach. Right larger than left bilateral pleural effusions are noted. Asymmetric right lung airspace opacities are present. Cardiomediastinal silhouette is normal. No pneumothorax. IMPRESSION: 1. Satisfactory positioning of the endotracheal and nasogastric tubes. 2. Right larger left bilateral pleural effusions with associated airspace opacities. ACT 112: Negative or not required by law. Electronically signed by: Curtis Pereyra M.D. 01/23/2023 8:01 PM Chest X-Ray 01/23/23 23:22 XR chest 1V portable semisupine CLINICAL HISTORY: central line placement COMPARISON STUDY: Chest radiograph January 23, 2023 at 7:38 PM. FINDINGS: Tip of endotracheal tube is 4.5 cm above the anayeli. Tip of the nasogastric tube is within the body of the stomach. Tip of right internal jugular central line projects over the distal SVC. There is no pneumothorax on this semisupine exam. Bilateral pleural effusions, right larger than left, are noted. Associated airspace opacities are present. Cardiomediastinal silhouette is stable. Pulmonary vascular congestion. IMPRESSION: 1. No pneumothorax identified following placement of a right internal jugular central line. 2. Satisfactory positioning of the endotracheal and nasogastric tubes. 3. Bilateral pleural effusions, right larger left, with associated airspace opacities. 4. Pulmonary vascular congestion. ACT 112: Negative or not required by law. Electronically signed by: Curtis Pereyra M.D. 01/24/2023 7:42 AM I & O Totals 24 Hours 01/23/23 01/24/23 01/25/23 06:59 06:59 06:59 Intake Total 2349.667 / 2349.667 5616.224 / 5616.224 44.899 / 44.899 Output Total 1825 / 1825 1370 / 1370 Balance 524.667 / 461.001 2714.224 / 4246.224 44.899 / 44.899 Cumulative 01/19/23 10:30 thru 01/24/23 07:55 Intake Total 16305.977 Output Total 00508 Balance 30256.977 RT Ventilator Mngmt (Last Documented) Ventilator Ordered Settings Ventilator Support Mode Assist Control 01/24/23 08:00 Respiratory Rate 17 01/24/23 07:35 Ventilator Tidal Volume 410 01/24/23 08:00 Setting Minute Ventilation 10 01/24/23 07:35 Positive End Expiratory 5 01/24/23 08:00 Pressure Fraction of Inspired Oxygen 30 01/24/23 08:00 Machine Comment post abg resutls, vent settings 01/23/23 19:58 changed Ventilator - PT Measurements Respiratory Rate 17 Exhaled Tidal Volume 410 Minute Ventilation 10 Peak Inspiratory Airway 23 Pressure Plateau Pressure 13 Respiratory Cycle Inspiratory: 1:2.8 Expiratory Ratio Inspiratory Phase Time 1 End-Tidal CO2 32 Static Lung Compliance 51.25 Dynamic Lung Compliance 22.78 Normal Static Lung Compliance 46.00 Coding Level of Care Code 55919 SUB INP/OBS CARE 3/50MIN Diagnoses Observed seizure-like activity R56.9 Acute encephalopathy G93.40 Hypothermia T68.XXXA Encounter type: initial encounter Sepsis A41.9 Sepsis acute organ dysfunction status: unspecified Sepsis type: sepsis due to unspecified organism Acute alteration in mental status R41.82 Pneumonia J18.9 Laterality: right Lung location: lower lobe of lung Pneumonia type: due to unspecified organism Dementia F03.90 Dementia behavioral or psychological symptom: unspecified whether behavioral, psychotic, or mood disturbance or anxiety Dementia severity: unspecified severity Dementia type: unspecified type Urinary tract infection N39.0 Hematuria presence: without hematuria Urinary tract infection type: site unspecified (3) Hypothermia Encounter type: initial encounter Qualified Code(s): T68.XXXA - Hypothermia, initial encounter (4) Sepsis Sepsis acute organ dysfunction status: unspecified Sepsis type: sepsis due to unspecified organism Qualified Code(s): A41.9 - Sepsis, unspecified organism (6) Pneumonia Laterality: right Lung location: lower lobe of lung Pneumonia type: due to unspecified organism Qualified Code(s): J18.9 - Pneumonia, unspecified organism (7) Dementia Dementia behavioral or psychological symptom: unspecified whether behavioral, psychotic, or mood disturbance or anxiety Dementia severity: unspecified severity Dementia type: unspecified type Qualified Code(s): F03.90 - Unspecified dementia, unspecified severity, without behavioral disturbance, psychotic disturbance, mood disturbance, and anxiety (8) Urinary tract infection Hematuria presence: without hematuria Urinary tract infection type: site unspecified Qualified Code(s): N39.0 - Urinary tract infection, site not specified
[2023-01-24] MEDS ORDERED: CALCIUM CHLORIDE 10% 1,000 MG in DEXTROSE 5% 50 ML IV STA (08:49)
[2023-01-24] MEDS: HEPARIN SOD 5,000 UNIT/0.5 ML VIAL SQ SCH ×2 (09:17→19:46)
--- NOTE | 2023-01-24 09:33 | Electrocardiogram Report ---
Test Reason : Blood Pressure : / mmHG Vent. Rate : 115 BPM Atrial Rate : 115 BPM P-R Int : 142 ms QRS Dur : 080 ms QT Int : 338 ms P-R-T Axes : 056 060 -72 degrees QTc Int : 467 ms Poor data quality, interpretation may be adversely affected Sinus tachycardia Diffuse Minor Nonspecific T wave abnormality Abnormal ECG When compared with ECG of 19-JAN-2023 10:51, T-wave inversion in Anterior leads no longer present Confirmed by Martell Hernandez ([id number] on 01/24/2023 9:33:37 AM Referred By: [facility] Confirmed By:Martell Hernandez
[2023-01-24] MEDS ORDERED: TPN/PPN CONSULT PHARMACY STA ×2 (09:55→09:56)
[2023-01-24] MEDS ORDERED: TPN/PPN CONSULT PHARMACY PRN (10:24)
[2023-01-24 11:04] LABS: BUN Creatinine Ratio 18.9 (10-20); Bilirubin,Total 1.1 mg/dl (0.2-1.0); Calcium 7.4 mg/dl (8.6-10.3); Creatinine Clr Calc Pharmacy 81.3 ml/min; Est GFR (Non-African American) 90.6 ml/min; Phosphorus 3.8 mg/dl (2.5-4.9); Potassium 4.3 mmol/L (3.5-5.1)
[2023-01-24 11:12] LABS: Hematocrit (blood only) 32.7 % (42.0-52.0); Hemoglobin 11.3 g/dl (14.0-18.0); Mean Corpuscular Hemoglobin 27.8 pg (25.0-34.0); Mean Corpuscular Hgb Conc 34.6 g/dL (32.0-36.0); Mean Corpuscular Volume 80.3 fL (80.0-100.0); Nucleated RBC # (auto) 0.15 K/uL (0.00-0.12); Nucleated RBC % (auto) 1.3 %; Platelet Count 66 K/uL (130-400); RDW Coefficient of Variation 13.9 % (11.5-14.5); RDW Standard Deviation 40.5 fL (36.4-46.3); Red Blood Count 4.07 M/uL (4.70-6.10); White Blood Count 11.99 K/ul (4.8-10.8)
--- NOTE | 2023-01-24 13:06 | Surgery Progress Note ---
Date of Service January 24, 2023 Assessment & Plan (1) Perforated gastric ulcer: Plan: POD #1 s/p exploratory laparotomy, washout, repair of gastric ulcer with Bob patch He is extubated and off all pressors. He is resting comfortably in bed. Continue IV PPI and antibiotics. TPN to start today. NG tube will remain in place. Appreciate ICU input. Medical management as per hospitalist. We will continue to follow. Admission and Anticipated Discharge Date Admission Date: January 19, 2023 Subjective Extubated this morning. Off pressors. Denies significant pain. No nausea or vomiting. Physical Exam Physical Exam: AFVSS NAD Abdomen: Soft, mild distention TTP along midline Dressing C/D/I ANNMARIE with minimal serosanguineous drainage Results & Data Vital Signs (Past 12 Hours) Vital Signs Temp Pulse Resp BP Pulse Ox O2 Del Method O2 Flow Rate 01/24/23 09:15 37.1 C 74 16 100 01/24/23 09:00 37.1 C 79 10 L 100 2 01/24/23 08:45 37.1 C 75 8 L 100 01/24/23 08:30 37.1 C 73 12 100 01/24/23 08:15 37.1 C 70 9 L 100 Mechanical Vent 01/24/23 08:00 37.1 C 81 24 98 01/24/23 08:00 97/60 L 01/24/23 07:45 37.1 C 78 17 100 01/24/23 07:30 37.2 C 88 100 01/24/23 07:15 37.2 C 71 14 100 01/24/23 08:00 Mechanical Vent 01/24/23 08:00 01/24/23 07:59 65 01/24/23 07:00 37.2 C 69 18 100 Mechanical Vent 01/24/23 06:30 37.2 C 66 16 100 01/24/23 07:35 71 17 100 01/24/23 04:00 01/24/23 03:00 37.3 C 73 15 99 Mechanical Vent 01/24/23 02:00 37.4 C 82 14 98 Mechanical Vent 01/24/23 02:00 115/65 01/24/23 02:07 81 18 100 FiO2 01/24/23 09:15 01/24/23 09:00 01/24/23 08:45 01/24/23 08:30 01/24/23 08:15 01/24/23 08:00 01/24/23 08:00 01/24/23 07:45 01/24/23 07:30 01/24/23 07:15 01/24/23 08:00 30 01/24/23 08:00 30 01/24/23 07:59 01/24/23 07:00 30 01/24/23 06:30 01/24/23 07:35 30 01/24/23 04:00 30 01/24/23 03:00 30 01/24/23 02:00 30 01/24/23 02:00 01/24/23 02:07 35 Laboratory Results 01/24/23 01/24/23 01/24/23 Range/Units 10:29 10:28 03:54 WBC 11.99 H (4.8-10.8) K/ul RBC 4.07 L (4.70-6.10) M/uL Hgb 11.3 L (14.0-18.0) g/dl POC Hgb (14.0-18.0) g/dl Hct 32.7 L (42.0-52.0) % POC Hct (42-52) % MCV 80.3 (80.0-100.0) fL MCH 27.8 (25.0-34.0) pg MCHC 34.6 (32.0-36.0) g/dL RDW Std Deviation 40.5 (36.4-46.3) fL RDW Coeff of Yoli 13.9 (11.5-14.5) % Plt Count 66 L (130-400) K/uL MPV (9.4-12.4) fL Immature Gran % (Auto) % Neut % (Auto) % Lymph % (Auto) % Potter % (Auto) % Eos % (Auto) % Baso % (Auto) % Neut # (Auto) (1.40-6.50) K/uL Lymph # (Auto) (1.20-3.40) K/uL Potter # (Auto) (0.11-0.59) K/uL Eos # (Auto) (0.00-0.50) K/uL Baso # (Auto) (0.00-0.20) K/uL Immature Gran # (Auto) (0.01-0.20) K/uL Absolute Nucleated RBC 0.15 H (0.00-0.12) K/uL Nucleated RBC % (auto) 1.3 % Polychromasia Echinocytes Sample Site POC pH (7.35-7.45) POC pCO2 (35-46) mmHg POC pO2 (80-95) mmHg POC HCO3 (19-24) juhi/L POC Total CO2 (24-31) mmol/L POC Base Excess (-9-1.8) juhi/L ABG pH (Temp Correct) (7.35-7.45) ABG pCO2 (Temp Corrct (35-46) mmHg POC ABG pO2 at Pt Temp POC ABG O2 Sat (90-95) % Tyshawn Test O2 Delivery Device POC O2 Rate POC FiO2 % Tidal Volume PEEP POC Sodium (135-144) mmol/L Sodium 137 136 (136-145) mmol/L POC Potassium (3.3-5.0) mmol/L Potassium 4.3 4.4 (3.5-5.1) mmol/L Chloride 107 107 (98-107) mmol/L Carbon Dioxide 26 23 (21-32) mmol/L Anion Gap 4 6 (3-11) BUN 17 19 (6-23) mg/dl Creatinine 0.90 0.79 (0.6-1.4) mg/dl Est Cr Clr Drug Dosing 81.3 92.6 ml/min Est GFR ( Amer) 105.0 110.8 ml/min Est GFR (Non-Af Amer) 90.6 95.6 ml/min BUN/Creatinine Ratio 18.9 24.1 H (10-20) Glucose 99 137 H (70-99(Fasting)) mg/dl POC Glucose (other) (70-99) mg/dl Lactate (0.4-2.0) mmol/L Calcium 7.4 L 7.7 L (8.6-10.3) mg/dl Phosphorus 3.8 (2.5-4.9) mg/dl Magnesium 2.0 (1.7-2.4) mg/dl Total Bilirubin 1.1 H (0.2-1.0) mg/dl AST 49 H (13-39) U/L Alkaline Phosphatase 44 (34-104) U/L Triglycerides 35 (0-150) mg/dl Random Cortisol mcg/dl 01/24/23 01/24/23 01/24/23 Range/Units 03:54 02:15 00:32 WBC 10.67 (4.8-10.8) K/ul RBC 4.34 L (4.70-6.10) M/uL Hgb 12.1 L (14.0-18.0) g/dl POC Hgb (14.0-18.0) g/dl Hct 34.8 L (42.0-52.0) % POC Hct (42-52) % MCV 80.2 (80.0-100.0) fL MCH 27.9 (25.0-34.0) pg MCHC 34.8 (32.0-36.0) g/dL RDW Std Deviation 40.2 (36.4-46.3) fL RDW Coeff of Yoli 13.6 (11.5-14.5) % Plt Count 72 L (130-400) K/uL MPV 12.5 H (9.4-12.4) fL Immature Gran % (Auto) % Neut % (Auto) % Lymph % (Auto) % Potter % (Auto) % Eos % (Auto) % Baso % (Auto) % Neut # (Auto) (1.40-6.50) K/uL Lymph # (Auto) (1.20-3.40) K/uL Potter # (Auto) (0.11-0.59) K/uL Eos # (Auto) (0.00-0.50) K/uL Baso # (Auto) (0.00-0.20) K/uL Immature Gran # (Auto) (0.01-0.20) K/uL Absolute Nucleated RBC 0.31 H (0.00-0.12) K/uL Nucleated RBC % (auto) 2.9 % Polychromasia Echinocytes Sample Site POC pH (7.35-7.45) POC pCO2 (35-46) mmHg POC pO2 (80-95) mmHg POC HCO3 (19-24) juhi/L POC Total CO2 (24-31) mmol/L POC Base Excess (-9-1.8) juhi/L ABG pH (Temp Correct) (7.35-7.45) ABG pCO2 (Temp Corrct (35-46) mmHg POC ABG pO2 at Pt Temp POC ABG O2 Sat (90-95) % Tyshawn Test O2 Delivery Device POC O2 Rate POC FiO2 % Tidal Volume PEEP POC Sodium (135-144) mmol/L Sodium (136-145) mmol/L POC Potassium (3.3-5.0) mmol/L Potassium (3.5-5.1) mmol/L Chloride (98-107) mmol/L Carbon Dioxide (21-32) mmol/L Anion Gap (3-11) BUN (6-23) mg/dl Creatinine (0.6-1.4) mg/dl Est Cr Clr Drug Dosing ml/min Est GFR ( Amer) ml/min Est GFR (Non-Af Amer) ml/min BUN/Creatinine Ratio (10-20) Glucose (70-99(Fasting)) mg/dl POC Glucose (other) (70-99) mg/dl Lactate 1.9 2.7 H* (0.4-2.0) mmol/L Calcium (8.6-10.3) mg/dl Phosphorus (2.5-4.9) mg/dl Magnesium (1.7-2.4) mg/dl Total Bilirubin (0.2-1.0) mg/dl AST (13-39) U/L Alkaline Phosphatase (34-104) U/L Triglycerides (0-150) mg/dl Random Cortisol mcg/dl 01/24/23 01/23/23 01/23/23 Range/Units 00:18 19:51 19:47 WBC (4.8-10.8) K/ul RBC (4.70-6.10) M/uL Hgb (14.0-18.0) g/dl POC Hgb (14.0-18.0) g/dl Hct (42.0-52.0) % POC Hct (42-52) % MCV (80.0-100.0) fL MCH (25.0-34.0) pg MCHC (32.0-36.0) g/dL RDW Std Deviation (36.4-46.3) fL RDW Coeff of Yoli (11.5-14.5) % Plt Count (130-400) K/uL MPV (9.4-12.4) fL Immature Gran % (Auto) % Neut % (Auto) % Lymph % (Auto) % Potter % (Auto) % Eos % (Auto) % Baso % (Auto) % Neut # (Auto) (1.40-6.50) K/uL Lymph # (Auto) (1.20-3.40) K/uL Potter # (Auto) (0.11-0.59) K/uL Eos # (Auto) (0.00-0.50) K/uL Baso # (Auto) (0.00-0.20) K/uL Immature Gran # (Auto) (0.01-0.20) K/uL Absolute Nucleated RBC (0.00-0.12) K/uL Nucleated RBC % (auto) % Polychromasia Echinocytes Sample Site POC pH (7.35-7.45) POC pCO2 (35-46) mmHg POC pO2 (80-95) mmHg POC HCO3 (19-24) juhi/L POC Total CO2 (24-31) mmol/L POC Base Excess (-9-1.8) juhi/L ABG pH (Temp Correct) (7.35-7.45) ABG pCO2 (Temp Corrct (35-46) mmHg POC ABG pO2 at Pt Temp POC ABG O2 Sat (90-95) % Tyshawn Test O2 Delivery Device POC O2 Rate POC FiO2 % Tidal Volume PEEP POC Sodium (135-144) mmol/L Sodium 140 (136-145) mmol/L POC Potassium (3.3-5.0) mmol/L Potassium 4.0 (3.5-5.1) mmol/L Chloride 109 H (98-107) mmol/L Carbon Dioxide 23 (21-32) mmol/L Anion Gap 8 (3-11) BUN 20 (6-23) mg/dl Creatinine 0.79 (0.6-1.4) mg/dl Est Cr Clr Drug Dosing 92.6 ml/min Est GFR ( Amer) 110.8 ml/min Est GFR (Non-Af Amer) 95.6 ml/min BUN/Creatinine Ratio 25.3 H (10-20) Glucose 127 H (70-99(Fasting)) mg/dl POC Glucose (other) 130 H (70-99) mg/dl Lactate (0.4-2.0) mmol/L Calcium 7.6 L (8.6-10.3) mg/dl Phosphorus (2.5-4.9) mg/dl Magnesium 1.4 L (1.7-2.4) mg/dl Total Bilirubin (0.2-1.0) mg/dl AST (13-39) U/L Alkaline Phosphatase (34-104) U/L Triglycerides (0-150) mg/dl Random Cortisol 27.33 mcg/dl 01/23/23 01/23/23 Range/Units 19:47 19:44 WBC 5.40 (4.8-10.8) K/ul RBC 5.11 (4.70-6.10) M/uL Hgb 14.1 (14.0-18.0) g/dl POC Hgb 13.3 L (14.0-18.0) g/dl Hct 41.5 L (42.0-52.0) % POC Hct 39 L (42-52) % MCV 81.2 (80.0-100.0) fL MCH 27.6 (25.0-34.0) pg MCHC 34.0 (32.0-36.0) g/dL RDW Std Deviation 41.0 (36.4-46.3) fL RDW Coeff of Yoli 13.9 (11.5-14.5) % Plt Count 61 L (130-400) K/uL MPV 11.1 (9.4-12.4) fL Immature Gran % (Auto) 0.6 % Neut % (Auto) 73.1 % Lymph % (Auto) 23.3 % Potter % (Auto) 1.9 % Eos % (Auto) 0.0 % Baso % (Auto) 1.1 % Neut # (Auto) 3.95 (1.40-6.50) K/uL Lymph # (Auto) 1.26 (1.20-3.40) K/uL Potter # (Auto) 0.10 L (0.11-0.59) K/uL Eos # (Auto) 0.00 (0.00-0.50) K/uL Baso # (Auto) 0.06 (0.00-0.20) K/uL Immature Gran # (Auto) 0.03 (0.01-0.20) K/uL Absolute Nucleated RBC 0.31 H (0.00-0.12) K/uL Nucleated RBC % (auto) 5.7 % Polychromasia 1+ Echinocytes 2+ Sample Site L Radial POC pH 7.40 (7.35-7.45) POC pCO2 35 (35-46) mmHg POC pO2 195 H (80-95) mmHg POC HCO3 22 (19-24) juhi/L POC Total CO2 23 L (24-31) mmol/L POC Base Excess -3.0 (-9-1.8) juhi/L ABG pH (Temp Correct) 7.413 (7.35-7.45) ABG pCO2 (Temp Corrct 34 L (35-46) mmHg POC ABG pO2 at Pt Temp 190 POC ABG O2 Sat 100.0 H (90-95) % Tyshawn Test NA O2 Delivery Device Ventilator POC O2 Rate 16 POC FiO2 60 % Tidal Volume 500 PEEP 5 POC Sodium 140 (135-144) mmol/L Sodium (136-145) mmol/L POC Potassium 3.8 (3.3-5.0) mmol/L Potassium (3.5-5.1) mmol/L Chloride (98-107) mmol/L Carbon Dioxide (21-32) mmol/L Anion Gap (3-11) BUN (6-23) mg/dl Creatinine (0.6-1.4) mg/dl Est Cr Clr Drug Dosing ml/min Est GFR ( Amer) ml/min Est GFR (Non-Af Amer) ml/min BUN/Creatinine Ratio (10-20) Glucose (70-99(Fasting)) mg/dl POC Glucose (other) (70-99) mg/dl Lactate (0.4-2.0) mmol/L Calcium (8.6-10.3) mg/dl Phosphorus (2.5-4.9) mg/dl Magnesium (1.7-2.4) mg/dl Total Bilirubin (0.2-1.0) mg/dl AST (13-39) U/L Alkaline Phosphatase (34-104) U/L Triglycerides (0-150) mg/dl Random Cortisol mcg/dl
[2023-01-24] MEDS ORDERED: DEXTROSE 50% 50 ML SYRINGE IV PRN (14:55)
[2023-01-24] MEDS ORDERED: HYDROmorphone INJ 1 MG/ML SYRINGE IV PRN (15:25)
[2023-01-24] MEDS ORDERED: ACETAMINOPHEN 10MG/ML Custom 1,000 MG in EMPTY BAG 0 ML IV PRN (15:25)
[2023-01-24] MEDS ORDERED: ONDANSETRON INJ 2 MG/ML 2 ML VIAL IV PRN (15:25)
[2023-01-24] MEDS ORDERED: LORazepam 2 MG/1 ML VIAL IV PRN (15:25)
[2023-01-24] MEDS: HYDROmorphone INJ 0.5 MG/0.5 ML SYR IV PRN ×2 (15:50→21:19)
[2023-01-24] MEDS ORDERED: DEXTROSE 10% 1,000 ML IV PRN (16:00)
[2023-01-24] MEDS: D5W AND LACTATED RINGERS 1,000 ML IV SCH (19:08)
[2023-01-24] MEDS: ICU ELECTROLYTE REPLACEMENT PROTOCOL SCH (19:27)
[2023-01-24] MEDS: ACETAMINOPHEN 1000 MG/100 ML IV IV PRN (19:45)
[2023-01-25] MEDS: PIPERACILLIN/TAZOBACTAM 4.5 GM in DEXTROSE 5% MINI-B 100 ML IV SCH ×3 (02:28→18:21)
[2023-01-25] MEDS: HYDROmorphone INJ 0.5 MG/0.5 ML SYR IV PRN (02:31)
[2023-01-25] MEDS: PANTOprazole 40 MG in DEXTROSE 5% MINI-B 100 ML IV SCH ×5 (03:58→23:27)
[2023-01-25 05:19] LABS: BUN Creatinine Ratio 16.8 (10-20); Calcium 7.5 mg/dl (8.6-10.3); Est GFR (African American) 98.3 ml/min; Est GFR (Non-African American) 84.9 ml/min; Phosphorus 3.2 mg/dl (2.5-4.9); Potassium 4.1 mmol/L (3.5-5.1)
[2023-01-25 05:20] LABS: Hematocrit (blood only) 27.8 % (42.0-52.0); Hemoglobin 9.5 g/dl (14.0-18.0); Mean Corpuscular Hemoglobin 27.9 pg (25.0-34.0); Mean Corpuscular Hgb Conc 34.2 g/dL (32.0-36.0); Mean Corpuscular Volume 81.5 fL (80.0-100.0); Mean Platelet Volume 11.7 fL (9.4-12.4); Nucleated RBC # (auto) 0.04 K/uL (0.00-0.12); Nucleated RBC % (auto) 0.2 %; Platelet Count 63 K/uL (130-400); RDW Coefficient of Variation 14.1 % (11.5-14.5); RDW Standard Deviation 41.1 fL (36.4-46.3); Red Blood Count 3.41 M/uL (4.70-6.10); White Blood Count 16.31 K/ul (4.8-10.8)
[2023-01-25] MEDS: ICU ELECTROLYTE REPLACEMENT PROTOCOL SCH (05:31)
[2023-01-25] MEDS: D5W AND LACTATED RINGERS 1,000 ML IV SCH ×2 (05:35→18:22)
[2023-01-25] MEDS: ACETAMINOPHEN 1000 MG/100 ML IV IV PRN (06:00)
[2023-01-25] MEDS: MAGNESIUM SULFATE / D5W 1 GM/100 ML BAG IV SCH ×2 (06:00→08:05)
[2023-01-25] MEDS ORDERED: ATROPINE SULFATE 0.1 MG/ML 10ML SYR IV ONE (06:34)
[2023-01-25] MEDS ORDERED: SODIUM CHLORIDE 0.9% 10ML FLUSH IV ONE (06:34)
[2023-01-25] MEDS: HEPARIN SOD 5,000 UNIT/0.5 ML VIAL SQ SCH ×2 (08:06→21:27)
--- NOTE | 2023-01-25 08:12 | Critical Care Progress Note ---
Date of Service January 25, 2023 Assessment & Plan (1) Observed seizure-like activity: (2) Acute encephalopathy: (3) Hypothermia: (4) Sepsis: (5) Acute alteration in mental status: (6) Pneumonia: (7) Dementia: (8) Urinary tract infection: Plan Reason Critically Ill: 62-year-old male prisoner with end-stage dementia initially admitted with altered mental status but found to have perforated viscus requiring emergency laparotomy 01/23 was is now extubated and off pressors. NEURO - * Dementia: * Patient appears to be approaching baseline mental status. * He been evaluated by neurology previously including EEG evaluation and Brain MRI which was unremarkable. * Had LP on admission wit elevated protein/glucose, but no growth on cultures CARDIAC/VASCULAR - * Hypotension secondary to septic shock: * Able to wean off pressors 01/24 * Intermittent bradycardia, continue to monitor on telemetry. RESPIRATORY - * RIGHT Lower Lobe Pneumonia: * As noted on CXR/Abd CT. * Aspiration pneumonia possible given presentation, would continue with anaerobic coverage-> on Zosyn * Was intubated post-op 01/23, but has since been extubated and is currently on 1L NC GI/NUTRITION - * NPO x 7 days, would consider starting PPN, would need US guided peripheral IV * S/p laparotomy 01/23 for perforated viscus * NG tube in place * Protonix drip RENAL/LYTES - * Continue to replace electrolytes as appropriate. * IVF: D5w and LR @ 75ml/hr while NPO * + 13L since admission; will give 20mg IV Lasix - * UTI: * Cultures growing E Coli that is dean sensitive; on Zosyn * Wolfe in place ENDO - * No reported h/o DM or thyroid Dz. * BSGs per unit protocol. ISS --> gtt per unit policy. HEME - Normocytic anemia - Hemoglobin 9.5 - No acute signs of bleeding, hemodynamically stable; repeat H/H this afternoon Thrombocytopenia - Plts= 63 - Heparin Induced Antibody negative - Could be secondary to sepsis - Continue subcu heparin and follow ID - * peritonitis: Continue empiric Zosyn. * repeat blood cultures from 01/24 without growth after 24 hours LINES/IV ACCESS - * PIVs x2 * Central Line * NG tube * Wolfe DVT PROPHYLAXIS - * Sub Q Heparin Thank you for allowing us to participate in the care of this patient. Please refer to my attending physician's documentation for any further recommendations. Admission and Anticipated Discharge Date Admission Date: January 19, 2023 Supervising Physician Co-Signing Physician Notes Dr. Morales was the resident-physician during care of patient. I separately evaluated patient for you portions of the history and the exam. I was present during the critical portion of medical decision making, and I discussed the case with the resident. I generally agree with the findings and plan except for any additions/exceptions noted. Patient seen and examined at bedside. No acute distress, no adverse events overnight Patient has underlying dementia. He is not answering any questions appropriately He was resting comfortably. Blood pressure was in the 110s. Map of 76. Had an NG tube to suction. Does follow simple commands Constitutional: No acute distress HEENT: EOMI, PERRLA, arcus senilis bilaterally Respiratory system: Decreased air entry bilaterally, no wheeze, no rhonchi, mild crackles bilateral lower lobes CVS: S1-S2 positive, no murmurs or gallops, distant heart sounds Abdomen: Soft, nontender, nondistended, positive bowel sounds x4, dressing in place, right-sided ANNMARIE drain Extremities: +2 pulses bilaterally radialis/ dorsalis pedis, no cyanosis, + pitting edema bilateral lower extremity as well as lower extremity Neuro: Awake, not oriented Psych: Unable to assess G/U: Positive Wolfe --Prophylaxis VTE: Heparin GI: Protonix drip Lines: Right IJ, peripheral, Wolfe Diet: N.p.o. Plan: In/out: +1.9 L, urine output 1805, patient is 13 L positive since coming to the hospital Tmax 37 We will decrease the IV fluids to 75 mill an hour given the patient is n.p.o. We will also give 20 mg of Lasix As per surgery patient will need to be n.p.o. for another week or so. Today is day 7. Continue with D5 half. We will start PPN tomorrow from a dedicated ultrasound-guided line. Strict in and out. If the patient is not negative balance we will give another 20 mg of Lasix later today. Patient does have chronic thrombocytopenia. Continue to monitor We will DC triple-lumen catheter prior to downgrade Has been off vasopressor support for more than 24 hours. Okay be downgraded to medical floor Please note the above document was generated using voice recognition software. It may contain grammatical, syntax or spelling errors.Any formal questions or concerns about the content, text or information contained within the body of this dictation should be directly addressed to the provider for clarification. Subjective Pt seen at bedside this morning. Looks comfortable. Opens eyes to stimuli. Review of Systems Review of Systems: Limited due to mental status Physical Exam Physical Exam: Constitutional: well-appearing, no acute distress HEENT: NCAT, no conjunctival injection CV: regular rhythm, no murmur appreciated, extremities well-perfused, no LE edema Resp: CTABL, no wheezes/rales/rhonchi appreciated, no increased work of breathing GI: soft, nondistended, nontender, surgical dressing in place MSK: no gross deformities appreciated Skin: warm, dry, no rash appreciated Neuro: alert, no focal neurologic deficit appreciated Results & Data Results & Data Vital Signs (Past 12 Hours) Vital Signs Temp Pulse Resp BP Pulse Ox O2 Del Method O2 Flow Rate 01/25/23 06:00 37.0 C 90 17 93 01/25/23 06:00 119/72 01/25/23 05:00 36.9 C 79 25 H 93 01/25/23 05:00 101/68 01/25/23 04:00 36.9 C 79 19 91 Nasal Cannula 1 01/25/23 04:00 111/69 01/25/23 03:00 37.0 C 87 19 90 Nasal Cannula 1 01/25/23 03:00 106/66 01/25/23 02:00 37.1 C 82 14 92 Nasal Cannula 1 01/25/23 02:00 96/65 L 01/25/23 01:00 37.0 C 85 12 92 Nasal Cannula 1 01/25/23 01:00 111/60 01/25/23 00:00 37.1 C 84 16 93 Nasal Cannula 1 01/25/23 00:00 108/67 01/25/23 00:00 73 01/24/23 23:34 37.0 C 78 14 94 Nasal Cannula 1 01/24/23 23:34 98/67 L 01/24/23 23:31 37.1 C 74 11 L 95 Nasal Cannula 1 01/24/23 23:31 75/48 L 01/24/23 23:00 37.1 C 73 12 95 Nasal Cannula 1 01/24/23 23:00 82/50 L 01/24/23 22:31 94/50 L 01/24/23 22:31 37.1 C 75 10 L 95 01/24/23 22:00 37.1 C 74 10 L 95 01/24/23 22:00 85/50 L 01/24/23 21:15 37.1 C 82 15 94 01/24/23 21:15 123/61 01/24/23 21:00 37.1 C 73 14 93 01/24/23 21:00 91/55 L Laboratory Results 01/25/23 04:50 01/25/23 04:50 Resident Activity Tracking Resident Involvement: Resident Care Provided Care Provided: Adult Hospital Medicine (ICU) (3) Hypothermia Encounter type: initial encounter Qualified Code(s): T68.XXXA - Hypothermia, initial encounter (4) Sepsis Sepsis acute organ dysfunction status: unspecified Sepsis type: sepsis due to unspecified organism Qualified Code(s): A41.9 - Sepsis, unspecified organism (6) Pneumonia Laterality: right Lung location: lower lobe of lung Pneumonia type: due to unspecified organism Qualified Code(s): J18.9 - Pneumonia, unspecified organism (7) Dementia Dementia behavioral or psychological symptom: unspecified whether behavioral, psychotic, or mood disturbance or anxiety Dementia severity: unspecified severity Dementia type: unspecified type Qualified Code(s): F03.90 - Unspecified dementia, unspecified severity, without behavioral disturbance, psychotic disturbance, mood disturbance, and anxiety (8) Urinary tract infection Hematuria presence: without hematuria Urinary tract infection type: site unspecified Qualified Code(s): N39.0 - Urinary tract infection, site not specified
[2023-01-25] MEDS ORDERED: FUROSEMIDE INJ 20 MG/2 ML VIAL IV ONE (10:15)
--- NOTE | 2023-01-25 10:18 | Surgery Progress Note ---
Date of Service January 25, 2023 Assessment & Plan (1) Perforated gastric ulcer: Plan: POD #2 s/p exploratory laparotomy, washout, repair of gastric ulcer with Bob patch He is extubated and off all pressors. He is resting comfortably in bed. Continue IV PPI and antibiotics. TPN to start today. NG tube will remain in place for 7 days; then will check UGI series to assess for leak prior to removing NG. Appreciate ICU input. Medical management as per hospitalist. We will continue to follow. Admission and Anticipated Discharge Date Admission Date: January 19, 2023 Subjective Does not appear to be in pain at bedside. No nausea or vomiting. No fevers. Physical Exam Physical Exam: AFVSS NAD Abdomen: Soft, mild distention TTP along midline Incision C/D/I with sherry NANMARIE with minimal serosanguineous drainage NGT 200cc bilious o/n Results & Data Vital Signs (Past 12 Hours) Vital Signs Temp Pulse Resp BP Pulse Ox O2 Del Method O2 Flow Rate 01/25/23 09:00 36.9 C 84 15 102/69 90 Room Air 01/25/23 08:00 37.0 C 81 21 101/64 94 Nasal Cannula 1 01/25/23 07:00 37.0 C 81 31 H 108/68 94 Nasal Cannula 1 01/25/23 06:00 37.0 C 90 17 93 01/25/23 06:00 119/72 01/25/23 05:00 36.9 C 79 25 H 93 01/25/23 05:00 101/68 01/25/23 04:00 36.9 C 79 19 91 Nasal Cannula 1 01/25/23 04:00 111/69 01/25/23 03:00 37.0 C 87 19 90 Nasal Cannula 1 01/25/23 03:00 106/66 01/25/23 02:00 37.1 C 82 14 92 Nasal Cannula 1 01/25/23 02:00 96/65 L 01/25/23 01:00 37.0 C 85 12 92 Nasal Cannula 1 01/25/23 01:00 111/60 01/25/23 00:00 37.1 C 84 16 93 Nasal Cannula 1 01/25/23 00:00 108/67 01/25/23 00:00 73 01/24/23 23:34 37.0 C 78 14 94 Nasal Cannula 1 01/24/23 23:34 98/67 L 01/24/23 23:31 37.1 C 74 11 L 95 Nasal Cannula 1 01/24/23 23:31 75/48 L 01/24/23 23:00 37.1 C 73 12 95 Nasal Cannula 1 01/24/23 23:00 82/50 L 01/24/23 22:31 94/50 L 01/24/23 22:31 37.1 C 75 10 L 95 Laboratory Results 01/25/23 01/25/23 01/24/23 Range/Units 04:50 04:50 23:40 WBC 16.31 H (4.8-10.8) K/ul RBC 3.41 L (4.70-6.10) M/uL Hgb 9.5 L (14.0-18.0) g/dl Hct 27.8 L (42.0-52.0) % MCV 81.5 (80.0-100.0) fL MCH 27.9 (25.0-34.0) pg MCHC 34.2 (32.0-36.0) g/dL RDW Std Deviation 41.1 (36.4-46.3) fL RDW Coeff of Yoli 14.1 (11.5-14.5) % Plt Count 63 L (130-400) K/uL MPV 11.7 (9.4-12.4) fL Absolute Nucleated RBC 0.04 (0.00-0.12) K/uL Nucleated RBC % (auto) 0.2 % Sodium 136 (136-145) mmol/L Potassium 4.1 (3.5-5.1) mmol/L Chloride 107 (98-107) mmol/L Carbon Dioxide 28 (21-32) mmol/L Anion Gap 1 L (3-11) BUN 16 (6-23) mg/dl Creatinine 0.95 (0.6-1.4) mg/dl Est Cr Clr Drug Dosing 77.0 ml/min Est GFR ( Amer) 98.3 ml/min Est GFR (Non-Af Amer) 84.9 ml/min BUN/Creatinine Ratio 16.8 (10-20) Glucose 107 H (70-99(Fasting)) mg/dl POC Glucose 91 (70-99) mg/dl POC Glucose (other) (70-99) mg/dl Calcium 7.5 L (8.6-10.3) mg/dl Phosphorus 3.2 (2.5-4.9) mg/dl Magnesium 2.0 (1.7-2.4) mg/dl Total Bilirubin (0.2-1.0) mg/dl AST (13-39) U/L Alkaline Phosphatase (34-104) U/L Triglycerides (0-150) mg/dl 01/24/23 01/24/23 01/24/23 Range/Units 18:53 18:52 15:28 WBC (4.8-10.8) K/ul RBC (4.70-6.10) M/uL Hgb (14.0-18.0) g/dl Hct (42.0-52.0) % MCV (80.0-100.0) fL MCH (25.0-34.0) pg MCHC (32.0-36.0) g/dL RDW Std Deviation (36.4-46.3) fL RDW Coeff of Yoli (11.5-14.5) % Plt Count (130-400) K/uL MPV (9.4-12.4) fL Absolute Nucleated RBC (0.00-0.12) K/uL Nucleated RBC % (auto) % Sodium (136-145) mmol/L Potassium (3.5-5.1) mmol/L Chloride (98-107) mmol/L Carbon Dioxide (21-32) mmol/L Anion Gap (3-11) BUN (6-23) mg/dl Creatinine (0.6-1.4) mg/dl Est Cr Clr Drug Dosing ml/min Est GFR ( Amer) ml/min Est GFR (Non-Af Amer) ml/min BUN/Creatinine Ratio (10-20) Glucose (70-99(Fasting)) mg/dl POC Glucose 74 68 L* 91 (70-99) mg/dl POC Glucose (other) (70-99) mg/dl Calcium (8.6-10.3) mg/dl Phosphorus (2.5-4.9) mg/dl Magnesium (1.7-2.4) mg/dl Total Bilirubin (0.2-1.0) mg/dl AST (13-39) U/L Alkaline Phosphatase (34-104) U/L Triglycerides (0-150) mg/dl 01/24/23 01/24/23 01/24/23 Range/Units 15:27 15:27 14:51 WBC (4.8-10.8) K/ul RBC (4.70-6.10) M/uL Hgb (14.0-18.0) g/dl Hct (42.0-52.0) % MCV (80.0-100.0) fL MCH (25.0-34.0) pg MCHC (32.0-36.0) g/dL RDW Std Deviation (36.4-46.3) fL RDW Coeff of Yoli (11.5-14.5) % Plt Count (130-400) K/uL MPV (9.4-12.4) fL Absolute Nucleated RBC (0.00-0.12) K/uL Nucleated RBC % (auto) % Sodium (136-145) mmol/L Potassium (3.5-5.1) mmol/L Chloride (98-107) mmol/L Carbon Dioxide (21-32) mmol/L Anion Gap (3-11) BUN (6-23) mg/dl Creatinine (0.6-1.4) mg/dl Est Cr Clr Drug Dosing ml/min Est GFR ( Amer) ml/min Est GFR (Non-Af Amer) ml/min BUN/Creatinine Ratio (10-20) Glucose (70-99(Fasting)) mg/dl POC Glucose 105 H 65 L* 63 L* (70-99) mg/dl POC Glucose (other) (70-99) mg/dl Calcium (8.6-10.3) mg/dl Phosphorus (2.5-4.9) mg/dl Magnesium (1.7-2.4) mg/dl Total Bilirubin (0.2-1.0) mg/dl AST (13-39) U/L Alkaline Phosphatase (34-104) U/L Triglycerides (0-150) mg/dl 01/24/23 01/24/23 01/24/23 Range/Units 14:50 10:29 10:28 WBC 11.99 H (4.8-10.8) K/ul RBC 4.07 L (4.70-6.10) M/uL Hgb 11.3 L (14.0-18.0) g/dl Hct 32.7 L (42.0-52.0) % MCV 80.3 (80.0-100.0) fL MCH 27.8 (25.0-34.0) pg MCHC 34.6 (32.0-36.0) g/dL RDW Std Deviation 40.5 (36.4-46.3) fL RDW Coeff of Yoli 13.9 (11.5-14.5) % Plt Count 66 L (130-400) K/uL MPV (9.4-12.4) fL Absolute Nucleated RBC 0.15 H (0.00-0.12) K/uL Nucleated RBC % (auto) 1.3 % Sodium 137 (136-145) mmol/L Potassium 4.3 (3.5-5.1) mmol/L Chloride 107 (98-107) mmol/L Carbon Dioxide 26 (21-32) mmol/L Anion Gap 4 (3-11) BUN 17 (6-23) mg/dl Creatinine 0.90 (0.6-1.4) mg/dl Est Cr Clr Drug Dosing 81.3 ml/min Est GFR ( Amer) 105.0 ml/min Est GFR (Non-Af Amer) 90.6 ml/min BUN/Creatinine Ratio 18.9 (10-20) Glucose 99 (70-99(Fasting)) mg/dl POC Glucose 57 L* (70-99) mg/dl POC Glucose (other) (70-99) mg/dl Calcium 7.4 L (8.6-10.3) mg/dl Phosphorus 3.8 (2.5-4.9) mg/dl Magnesium 2.0 (1.7-2.4) mg/dl Total Bilirubin 1.1 H (0.2-1.0) mg/dl AST 49 H (13-39) U/L Alkaline Phosphatase 44 (34-104) U/L Triglycerides 35 (0-150) mg/dl 01/24/23 Range/Units 00:45 WBC (4.8-10.8) K/ul RBC (4.70-6.10) M/uL Hgb (14.0-18.0) g/dl Hct (42.0-52.0) % MCV (80.0-100.0) fL MCH (25.0-34.0) pg MCHC (32.0-36.0) g/dL RDW Std Deviation (36.4-46.3) fL RDW Coeff of Yoli (11.5-14.5) % Plt Count (130-400) K/uL MPV (9.4-12.4) fL Absolute Nucleated RBC (0.00-0.12) K/uL Nucleated RBC % (auto) % Sodium (136-145) mmol/L Potassium (3.5-5.1) mmol/L Chloride (98-107) mmol/L Carbon Dioxide (21-32) mmol/L Anion Gap (3-11) BUN (6-23) mg/dl Creatinine (0.6-1.4) mg/dl Est Cr Clr Drug Dosing ml/min Est GFR ( Amer) ml/min Est GFR (Non-Af Amer) ml/min BUN/Creatinine Ratio (10-20) Glucose (70-99(Fasting)) mg/dl POC Glucose (70-99) mg/dl POC Glucose (other) 134 H (70-99) mg/dl Calcium (8.6-10.3) mg/dl Phosphorus (2.5-4.9) mg/dl Magnesium (1.7-2.4) mg/dl Total Bilirubin (0.2-1.0) mg/dl AST (13-39) U/L Alkaline Phosphatase (34-104) U/L Triglycerides (0-150) mg/dl
--- NOTE | 2023-01-25 12:01 | Billing Data ---
Date of Service January 25, 2023 Coding Level of Care Code 11943 SUB INP/OBS CARE
[2023-01-25 15:05] LABS: Hematocrit (blood only) 29.3 % (42.0-52.0)
--- NOTE | 2023-01-25 17:06 | Hospitalist Progress Note ---
Date of Service January 25, 2023 Assessment & Plan (1) Abdominal pain: Plan: patient with abdominal pain in the a.m. of 01/23. CT scan ordered with possibility of perforated gastric ulcer. General surgery took to the OR performed oversewing of a large lesser curvature gastric ulcer with perforation and peritoneal soilage, Required pressors now off.. ICU change from Unasyn to Zosyn For perforated gastric ulcer patient remains on Protonix drip TPN consultation for possible starting TPN on 01/26/2023 (2) Sepsis: Plan: sepsis On presentation not related to perforated gastric ulcerfrom pulmonary source however ua resulted with pansensitive E coli, did require pressors- metabolic encephalopathy present on admission, baseline has severe dementia Patient now on Zosyn therapy after perforated gastric ulcer with oversew -previous sepsis work up, did have LP , CSF noted elevated WBC however bloody tap, less concern meningitis CFS panel negative -CT head: No acute intracranial findings. No change in appearance of the brain. blood cx gram +, urine Gram neg, suspect blood is contaminant Code Status: Full, no records with [facility], unable to discuss with patient spoke to [facility] at [place] patient is unable to make decisions it was confirmed there are no family to help make decisions As patient has multiple comorbidities may consider getting power of workers compensation attorney secured before further hospitalization Nutrition consulted (3) Dementia: Plan: pre hospital diagnosis of alzheimers, donepazil, olanzipine am/pm and celexa (4) HLD (hyperlipidemia): Plan: typially on crestor (5) Seizure-like activity: Plan: concern on admission , EEG was abnormal and showed a moderate generalized encephalopathy as noted by the generalized slowing. There were no focal abnormalities or potentially epileptogenic discharges seen. not started on antiepileptic medications Plan once called with perforated viscus patient was transferred to higher level of care again Admission and Anticipated Discharge Date Admission Date: January 19, 2023 Subjective Patient much more awake and alert he is not oriented to place or condition Abdomen is uncomfortable to examination. Vital signs are stable downgrade from ICU Physical Exam Physical Exam: Patient is awake responds to commands card exam is regular lungs are clear abdomen is with hypoactive bowel sounds patient has a ANNMARIE in place and abdominal dressing Abdomen is tender and soft Results & Data Results & Data Vital Signs (Past 12 Hours) Vital Signs Temp Pulse Resp BP Pulse Ox O2 Del Method O2 Flow Rate 01/25/23 15:45 98.2 F 103 H 22 122/84 94 01/25/23 15:00 98.2 F 87 16 93 01/25/23 14:00 98.2 F 94 H 26 H 105/63 91 01/25/23 13:00 98.1 F 80 20 91 Room Air 01/25/23 13:00 96/59 L 01/25/23 12:37 116/69 01/25/23 12:37 98.1 F 89 25 H 91 Room Air 01/25/23 12:00 98.2 F 83 15 116/69 90 Room Air 01/25/23 11:00 98.1 F 81 14 91 01/25/23 10:00 98.2 F 86 21 102/82 92 Room Air 01/25/23 09:31 Room Air 01/25/23 08:00 80 01/25/23 09:00 98.4 F 84 15 102/69 90 Room Air 01/25/23 08:00 98.6 F 81 21 101/64 94 Nasal Cannula 1 01/25/23 07:00 98.6 F 81 31 H 108/68 94 Nasal Cannula 1 01/25/23 06:00 98.6 F 90 17 93 01/25/23 06:00 119/72 Laboratory Results Reviewed CBC Reviewed chemistry Changes status reviewed all medications laboratories and orders 01/25/2023 PG Care Time/CCT Total # of Minutes Spent Total Time Spent with Patient: Total time spent is greater than 50% in coordination of care (as documented) at patient's floor/unit and/or counseling patient: Coding Level of Care Code 78712 SUB INP/OBS CARE 3/50MIN Diagnoses Abdominal pain R10.9 Sepsis A41.9 Sepsis acute organ dysfunction status: unspecified Sepsis type: sepsis due to unspecified organism Dementia F03.90 Dementia behavioral or psychological symptom: unspecified whether behavioral, psychotic, or mood disturbance or anxiety Dementia severity: unspecified severity Dementia type: unspecified type HLD (hyperlipidemia) E78.5 Seizure-like activity R56.9 (2) Sepsis Sepsis acute organ dysfunction status: unspecified Sepsis type: sepsis due to unspecified organism Qualified Code(s): A41.9 - Sepsis, unspecified organism (3) Dementia Dementia behavioral or psychological symptom: unspecified whether behavioral, psychotic, or mood disturbance or anxiety Dementia severity: unspecified severity Dementia type: unspecified type Qualified Code(s): F03.90 - Unspecified dementia, unspecified severity, without behavioral disturbance, psychotic disturbance, mood disturbance, and anxiety
[2023-01-26] MEDS: PIPERACILLIN/TAZOBACTAM 4.5 GM in DEXTROSE 5% MINI-B 100 ML IV SCH ×3 (01:53→17:17)
[2023-01-26] MEDS: PANTOprazole 40 MG in DEXTROSE 5% MINI-B 100 ML IV SCH ×5 (04:49→23:37)
[2023-01-26] MEDS: D5W AND LACTATED RINGERS 1,000 ML IV SCH (04:53)
[2023-01-26 07:37] LABS: Hematocrit (blood only) 28.2 % (42.0-52.0); Hemoglobin 9.7 g/dl (14.0-18.0); Mean Corpuscular Hemoglobin 27.8 pg (25.0-34.0); Mean Corpuscular Hgb Conc 34.4 g/dL (32.0-36.0); Mean Corpuscular Volume 80.8 fL (80.0-100.0); Mean Platelet Volume 12.6 fL (9.4-12.4); Nucleated RBC # (auto) 0.05 K/uL (0.00-0.12); Nucleated RBC % (auto) 0.2 %; Platelet Count 116 K/uL (130-400); RDW Coefficient of Variation 13.9 % (11.5-14.5); RDW Standard Deviation 40.9 fL (36.4-46.3); Red Blood Count 3.49 M/uL (4.70-6.10); White Blood Count 21.98 K/ul (4.8-10.8)
[2023-01-26 08:04] LABS: Calcium 7.5 mg/dl (8.6-10.3); Magnesium 1.9 mg/dl (1.7-2.4)
[2023-01-26 08:10] LABS: Creatinine Clr Calc Pharmacy 80.4 ml/min; Est GFR (African American) 103.6 ml/min; Est GFR (Non-African American) 89.4 ml/min; Phosphorus 2.8 mg/dl (2.5-4.9)
[2023-01-26] MEDS: HEPARIN SOD 5,000 UNIT/0.5 ML VIAL SQ SCH ×2 (09:13→21:10)
[2023-01-26] MEDS ORDERED: FUROSEMIDE 40 MG/4 ML VIAL IV ONE (10:15)
--- NOTE | 2023-01-26 12:06 | Pharmacy Report ---
Pharmacy PN Initial Consult - Date of Service January 26, 2023 - Scope Pharmacy has been consulted to manage parenteral nutrition orders and order appropriate labs. As part of the Nutrition Support Team guidelines, pharmacy will work in conjunction with dietary when determining the patients caloric needs. - Subjective The patient is a 62 year old M admitted on 01/19/23 13:32 for SEPSIS. Patient is to receive parenteral nutrition for prolonged NPO status/perforated gastric ulcer - Objective Height: 5 ft 8 in Weight: 77.3 kg Diet: NPO Intake & Output (Last 24Hrs): Intake & Output 01/24/23 01/25/23 01/26/23 01/27/23 06:59 06:59 06:59 06:59 Intake Total 5616.224 / 5616.224 3818.645 / 3818.645 2769.083 / 2769.083 Output Total 1370 / 1370 1805 / 1805 3925 / 3925 Balance 4246.224 / 4246.224 2013.645 / 2012.645 -1155.917 / -1155.917 Weight 76.3 kg 75.6 kg 77.3 kg Laboratory Data (Last 24 Hrs):: 01/26/23 06:52 Sodium 136 Potassium 4.0 Chloride 105 Carbon Dioxide 28 BUN 10 Creatinine 0.91 Glucose 95 Calcium 7.5 L Phosphorus 2.8 Magnesium 1.9 Nutrition Assessment:: Please refer to the Notes section of the EMR for the most recent lump room supervisor note. - Plan Plan to start conservatively for day 1 of TPN. Discussed with provider and plan to stop D5LR at 75 ml/hr at start of TPN at 1600 and will change to LR at 35 ml/hr (+TPN at 38 ml/hr) to maintain fluid volume of ~75 ml/day. * Cl on upper end of range, will minimize in TPN * Pt previously receiving Mg replacements, received 2 gm yesterday - will order 1 gm today with TPN * All other electrolytes stable, will start standard amounts For day 1 of PN administration, the following will be ordered: Macronutrients Amino acids 67 grams/day Dextrose 118 grams/day Lipids -- grams/day Micronutrients Sodium phosphate 21 MMol Sodium chloride 30 mEq Sodium acetate 40 mEq Potassium acetate 30 mEq Magnesium sulfate 8.12 mEq Calcium gluconate 4.65 mEq Multivitamins 10 mL Trace Elements 10 mL Total volume 917 mL to be infused over 24 hrs will provide 668 kcal/day Labs to be ordered per PN order protocol Pharmacy will follow and adjust parenteral nutrition orders on a daily basis. Thank you.
--- NOTE | 2023-01-26 12:30 | Surgery Progress Note ---
Date of Service January 26, 2023 Assessment & Plan (1) Perforated gastric ulcer: Plan: POD #3 s/p exploratory laparotomy, washout, repair of gastric ulcer with Bob patch AVSS, tachycardic in 90's likely secondary to postop pain repeat blood cultures NTD x 2 Leukocytosis up to 21k sameer drai with serosanguineous output incision c/d/i without erythema NGT with bilious output Plan: Schedule IV Tylenol for pain management given patients dementia and unable to communicate pain level. Has not had pain medication since 6 am on 01/25/2023 Continue IV PPI and antibiotics. TPN to start today. NG tube will remain in place for another 4 days (POD # 7); then will check UGI series to assess for leak prior to removing NG. Medical management as per hospitalist. repeat am labs Continue sameer drain to bulb suction Scds and Heparin for dvt prophylaxis Dr. Cameron has seen and examined patient, agrees with above. Admission and Anticipated Discharge Date Admission Date: January 19, 2023 Subjective guards at bedside, unable to obtain history of patient given severe dementia awake and does not look like he is in distress Physical Exam Constitutional: no acute distress and not ill appearing Respiratory: normal respiratory effort; no respiratory distress and no cough Cardiovascular: Rate/Rhythm: + tachycardic Gastrointestinal (Abdomen): Inspection/Auscultation: abdomen normal to inspection, + abdomen distended (mild distention), + abdominal surgical incision (clean/dry/intact with sherry no erythema) and + abdominal surgical drain present (serosanguineous) Percussion/Palpation: + abdomen tender (generalized), + guarding (voluntary guarding on palpation) and abdomen soft; ab domen not rigid and abdomen not firm Grimacing on palpation of abdomen Skin: no rashes, warm and dry Psychiatric: Orientation: alert; + not oriented x 3 Results & Data Vital Signs (Past 12 Hours) Vital Signs Temp Pulse Pulse Resp BP Pulse Ox O2 Del Method 01/26/23 10:44 36.7 C 92 H 19 132/91 90 Room Air 01/26/23 08:00 92 H 01/26/23 07:32 36.8 C 90 20 122/78 90 Room Air 01/26/23 07:39 Room Air 01/26/23 03:02 36.8 C 88 18 143/86 H 92 Room Air Laboratory Results 01/26/23 01/26/23 01/26/23 Range/Units 06:52 06:52 06:20 WBC 21.98 H (4.8-10.8) K/ul RBC 3.49 L (4.70-6.10) M/uL Hgb 9.7 L (14.0-18.0) g/dl Hct 28.2 L (42.0-52.0) % MCV 80.8 (80.0-100.0) fL MCH 27.8 (25.0-34.0) pg MCHC 34.4 (32.0-36.0) g/dL RDW Std Deviation 40.9 (36.4-46.3) fL RDW Coeff of Yoli 13.9 (11.5-14.5) % Plt Count 116 L D (130-400) K/uL MPV 12.6 H (9.4-12.4) fL Absolute Nucleated RBC 0.05 (0.00-0.12) K/uL Nucleated RBC % (auto) 0.2 % Sodium 136 (136-145) mmol/L Potassium 4.0 (3.5-5.1) mmol/L Chloride 105 (98-107) mmol/L Carbon Dioxide 28 (21-32) mmol/L Anion Gap 3 (3-11) BUN 10 (6-23) mg/dl Creatinine 0.91 (0.6-1.4) mg/dl Est Cr Clr Drug Dosing 80.4 ml/min Est GFR ( Amer) 103.6 ml/min Est GFR (Non-Af Amer) 89.4 ml/min BUN/Creatinine Ratio 11.0 (10-20) Glucose 95 (70-99(Fasting)) mg/dl POC Glucose 91 (70-99) mg/dl Calcium 7.5 L (8.6-10.3) mg/dl Phosphorus 2.8 (2.5-4.9) mg/dl Magnesium 1.9 (1.7-2.4) mg/dl 01/25/23 01/25/23 01/25/23 Range/Units 23:34 23:33 16:13 WBC (4.8-10.8) K/ul RBC (4.70-6.10) M/uL Hgb (14.0-18.0) g/dl Hct (42.0-52.0) % MCV (80.0-100.0) fL MCH (25.0-34.0) pg MCHC (32.0-36.0) g/dL RDW Std Deviation (36.4-46.3) fL RDW Coeff of Yoli (11.5-14.5) % Plt Count (130-400) K/uL MPV (9.4-12.4) fL Absolute Nucleated RBC (0.00-0.12) K/uL Nucleated RBC % (auto) % Sodium (136-145) mmol/L Potassium (3.5-5.1) mmol/L Chloride (98-107) mmol/L Carbon Dioxide (21-32) mmol/L Anion Gap (3-11) BUN (6-23) mg/dl Creatinine (0.6-1.4) mg/dl Est Cr Clr Drug Dosing ml/min Est GFR ( Amer) ml/min Est GFR (Non-Af Amer) ml/min BUN/Creatinine Ratio (10-20) Glucose (70-99(Fasting)) mg/dl POC Glucose 70 62 L* 87 (70-99) mg/dl Calcium (8.6-10.3) mg/dl Phosphorus (2.5-4.9) mg/dl Magnesium (1.7-2.4) mg/dl 01/25/23 Range/Units 14:41 WBC (4.8-10.8) K/ul RBC (4.70-6.10) M/uL Hgb 10.0 L (14.0-18.0) g/dl Hct 29.3 L (42.0-52.0) % MCV (80.0-100.0) fL MCH (25.0-34.0) pg MCHC (32.0-36.0) g/dL RDW Std Deviation (36.4-46.3) fL RDW Coeff of Yoli (11.5-14.5) % Plt Count (130-400) K/uL MPV (9.4-12.4) fL Absolute Nucleated RBC (0.00-0.12) K/uL Nucleated RBC % (auto) % Sodium (136-145) mmol/L Potassium (3.5-5.1) mmol/L Chloride (98-107) mmol/L Carbon Dioxide (21-32) mmol/L Anion Gap (3-11) BUN (6-23) mg/dl Creatinine (0.6-1.4) mg/dl Est Cr Clr Drug Dosing ml/min Est GFR ( Amer) ml/min Est GFR (Non-Af Amer) ml/min BUN/Creatinine Ratio (10-20) Glucose (70-99(Fasting)) mg/dl POC Glucose (70-99) mg/dl Calcium (8.6-10.3) mg/dl Phosphorus (2.5-4.9) mg/dl Magnesium (1.7-2.4) mg/dl Microbiology 01/24/23 00:18 Aerobic Blood Culture - Preliminary Blood No growth in Aerobic bottle after 48 hours. Anaerobic Blood Culture - Preliminary No growth in Anaerobic bottle after 48 hours. 01/24/23 00:35 Aerobic Blood Culture - Preliminary Blood No growth in Aerobic bottle after 48 hours. Anaerobic Blood Culture - Preliminary No growth in Anaerobic bottle after 48 hours. 01/19/23 11:05 Aerobic Blood Culture - Final Blood Coag neg staph not lugdunensis Anaerobic Blood Culture - Final No growth in Anaerobic bottle after 5 days.
[2023-01-26] MEDS: ACETAMINOPHEN 1000 MG/100 ML IV IV SCH ×2 (14:42→21:26)
[2023-01-26] MEDS: HYDROmorphone INJ 1 MG/ML SYRINGE IV PRN (14:51)
[2023-01-26] MEDS: LACTATED RINGER'S 1,000 ML IV SCH (15:50)
[2023-01-26] MEDS ORDERED: CENTRAL TPN IV SCH (16:00)
[2023-01-26] MEDS ORDERED: [UNRECOGNIZED DRUG - OTHER] IV SCH (16:00)
[2023-01-26] MEDS ORDERED: DEXTROSE 10% 1,000 ML IV PRN (16:00)
--- NOTE | 2023-01-26 16:09 | Hospitalist Progress Note ---
Date of Service January 26, 2023 Assessment & Plan (1) Abdominal pain: Plan: patient with abdominal pain in the a.m. of 01/23. CT scan ordered with possibility of perforated gastric ulcer. General surgery took to the OR performed oversewing of a large lesser curvature gastric ulcer with perforation and peritoneal soilage, Required pressors now off.. ICU change from Unasyn to Zosyn For perforated gastric ulcer patient remains on Protonix drip TPN consultation for possible starting TPN on 01/26/2023 (2) Sepsis: Plan: sepsis On presentation not related to perforated gastric ulcerfrom pulmonary source however ua resulted with pansensitive E coli, did require pressors- metabolic encephalopathy present on admission, baseline has severe dementia Patient now on Zosyn therapy after perforated gastric ulcer with oversew -previous sepsis work up, did have LP , CSF noted elevated WBC however bloody tap, less concern meningitis CFS panel negative -CT head: No acute intracranial findings. No change in appearance of the brain. blood cx gram +, urine Gram neg, suspect blood is contaminant Code Status: Full, no records with [facility], unable to discuss with patient spoke to [facility] at [place] patient is unable to make decisions it was confirmed there are no family to help make decisions As patient has multiple comorbidities may consider getting power of finance attorney secured before further hospitalization Nutrition consulted (3) Dementia: Plan: pre hospital diagnosis of alzheimers, donepazil, olanzipine am/pm and celexa (4) HLD (hyperlipidemia): Plan: typially on crestor (5) Seizure-like activity: Plan: concern on admission , EEG was abnormal and showed a moderate generalized encephalopathy as noted by the generalized slowing. There were no focal abnormalities or potentially epileptogenic discharges seen. not started on antiepileptic medications Plan pt is downgraded and all meds orders reviewed Admission and Anticipated Discharge Date Admission Date: January 19, 2023 Subjective Patient is demented only oriented to person. Has some abdominal pain. Lacks insight understanding into his condition Physical Exam Physical Exam: Patient is awake responds to commands card exam is regular lungs are clear abdomen is with hypoactive bowel sounds patient has a ANNMARIE in place and abdominal dressing Abdomen is tender and soft Results & Data Results & Data Vital Signs (Past 12 Hours) Vital Signs Temp Pulse Pulse Resp BP Pulse Ox O2 Del Method 01/26/23 15:03 88 L Room Air 01/26/23 14:50 94 H 01/26/23 10:44 98.1 F 92 H 19 132/91 90 Room Air 01/26/23 08:00 92 H 01/26/23 07:32 98.2 F 90 20 122/78 90 Room Air 01/26/23 07:39 Room Air Laboratory Results Reviewed CBC reviewed chemistry PG Care Time/CCT Total # of Minutes Spent Total Time Spent with Patient: Total time spent is greater than 50% in coordination of care (as documented) at patient's floor/unit and/or counseling patient: Coding Level of Care Code 11290 SUB INP/OBS CARE 2/35MIN Diagnoses Abdominal pain R10.9 Sepsis A41.9 Sepsis acute organ dysfunction status: unspecified Sepsis type: sepsis due to unspecified organism Dementia F03.90 Dementia behavioral or psychological symptom: unspecified whether behavioral, psychotic, or mood disturbance or anxiety Dementia severity: unspecified severity Dementia type: unspecified type HLD (hyperlipidemia) E78.5 Seizure-like activity R56.9 (2) Sepsis Sepsis acute organ dysfunction status: unspecified Sepsis type: sepsis due to unspecified organism Qualified Code(s): A41.9 - Sepsis, unspecified organism (3) Dementia Dementia behavioral or psychological symptom: unspecified whether behavioral, psychotic, or mood disturbance or anxiety Dementia severity: unspecified severity Dementia type: unspecified type Qualified Code(s): F03.90 - Unspecified dementia, unspecified severity, without behavioral disturbance, psychotic disturbance, mood disturbance, and anxiety
[2023-01-27] MEDS: PIPERACILLIN/TAZOBACTAM 4.5 GM in DEXTROSE 5% MINI-B 100 ML IV SCH ×3 (01:50→17:21)
[2023-01-27] MEDS: PANTOprazole 40 MG in DEXTROSE 5% MINI-B 100 ML IV SCH ×2 (04:28→08:36)
[2023-01-27] MEDS: ACETAMINOPHEN 1000 MG/100 ML IV IV SCH ×3 (06:07→21:16)
[2023-01-27 07:35] LABS: BUN Creatinine Ratio 13.9 (10-20); Calcium 7.5 mg/dl (8.6-10.3); Creatinine Clr Calc Pharmacy 72.4 ml/min; Est GFR (African American) 91.3 ml/min; Est GFR (Non-African American) 78.8 ml/min; Magnesium 1.9 mg/dl (1.7-2.4); Potassium 3.4 mmol/L (3.5-5.1)
[2023-01-27 07:40] LABS: Hematocrit (blood only) 26.9 % (42.0-52.0); Hemoglobin 9.8 g/dl (14.0-18.0); Mean Corpuscular Hemoglobin 28.8 pg (25.0-34.0); Mean Corpuscular Hgb Conc 36.4 g/dL (32.0-36.0); Mean Corpuscular Volume 79.1 fL (80.0-100.0); Mean Platelet Volume 11.7 fL (9.4-12.4); Nucleated RBC # (auto) 0.02 K/uL (0.00-0.12); Nucleated RBC % (auto) 0.1 %; Platelet Count 181 K/uL (130-400); RDW Coefficient of Variation 14.1 % (11.5-14.5); RDW Standard Deviation 40.2 fL (36.4-46.3)
[2023-01-27] MEDS: HEPARIN SOD 5,000 UNIT/0.5 ML VIAL SQ SCH ×2 (08:36→21:16)
--- NOTE | 2023-01-27 10:19 | Surgery Progress Note ---
Date of Service January 27, 2023 Assessment & Plan (1) Perforated gastric ulcer: Plan: POD #4 s/p exploratory laparotomy, washout, repair of gastric ulcer with Bob patch AVSS, tachycardic in 90's likely secondary to pain repeat blood cultures NTD x 2 Leukocytosis improved to 15k today sameer drain with serosanguineous output, non bilious incision c/d/i without erythema NGT with bilious output Plan: Continue Scheduled IV Tylenol for pain management given patients dementia and unable to communicate pain level. Continue IV PPI and antibiotics. Continue TPN NG tube will remain in place for another 2 days (POD # 6); then will check UGI series on Wednesday01/29/2023 to assess for leak prior to removing NG and starting diet. Medical management as per hospitalist. repeat am labs Continue sameer drain to bulb suction Scds and Heparin for dvt prophylaxis Dr. Cameron has seen and examined pt, agrees with above. Admission and Anticipated Discharge Date Admission Date: January 19, 2023 Subjective more agitated today more so with his baseline dementia and not necessarily due to pain per nurse does not look like in pain, looks more comfortable today, not grimacing per guards at bedside, seems comfortable and not in a lot of pain Physical Exam Constitutional: no acute distress, not ill appearing, not in distress and not combative Respiratory: normal respiratory effort; no respiratory distress, no labored breathing and no retractions Cardiovascular: Rate/Rhythm: + tachycardic Heart Sounds: normal S1 and normal S2 Gastrointestinal (Abdomen): Inspection/Auscultation: + abdomen distended (mild), + abdominal surgical scar (left inguinal scar), + abdominal surgical incision (clean/dry/intact with sherry, no erythema) and + hypoactive bowel sounds; + abnormal bowel sounds Percussion/Palpation: abdomen soft; abdomen nontender, no guarding, abdomen not rigid and abdomen not firm no grimacing or pulling hands to abdomen on examination today Skin: no rashes, warm and dry Psychiatric: Orientation: alert; + not oriented x 3 Results & Data Vital Signs (Past 12 Hours) Vital Signs Temp Pulse Pulse Resp BP Pulse Ox O2 Del Method 01/27/23 08:00 Nasal Cannula 01/27/23 08:00 89 01/27/23 08:01 36.7 C 93 H 19 156/90 H 95 Nasal Cannula 01/27/23 03:11 36.6 C 102 H 22 108/73 92 Room Air 01/26/23 23:56 Nasal Cannula 01/26/23 23:19 36.7 C 87 18 157/82 H 92 Nasal Cannula O2 Flow Rate 01/27/23 08:00 2 01/27/23 08:00 01/27/23 08:01 2 01/27/23 03:11 01/26/23 23:56 2 01/26/23 23:19 2 Laboratory Results 01/27/23 01/27/23 01/27/23 Range/Units 06:37 06:37 06:19 WBC 15.90 H (4.8-10.8) K/ul RBC 3.40 L (4.70-6.10) M/uL Hgb 9.8 L (14.0-18.0) g/dl Hct 26.9 L (42.0-52.0) % MCV 79.1 L (80.0-100.0) fL MCH 28.8 (25.0-34.0) pg MCHC 36.4 H (32.0-36.0) g/dL RDW Std Deviation 40.2 (36.4-46.3) fL RDW Coeff of Yoli 14.1 (11.5-14.5) % Plt Count 181 D (130-400) K/uL MPV 11.7 (9.4-12.4) fL Absolute Nucleated RBC 0.02 (0.00-0.12) K/uL Nucleated RBC % (auto) 0.1 % Sodium 138 (136-145) mmol/L Potassium 3.4 L (3.5-5.1) mmol/L Chloride 105 (98-107) mmol/L Carbon Dioxide 29 (21-32) mmol/L Anion Gap 4 (3-11) BUN 14 (6-23) mg/dl Creatinine 1.01 (0.6-1.4) mg/dl Est Cr Clr Drug Dosing 72.4 ml/min Est GFR ( Amer) 91.3 ml/min Est GFR (Non-Af Amer) 78.8 ml/min BUN/Creatinine Ratio 13.9 (10-20) Glucose 102 H (70-99(Fasting)) mg/dl POC Glucose 93 (70-99) mg/dl Calcium 7.5 L (8.6-10.3) mg/dl Phosphorus 3.0 (2.5-4.9) mg/dl Magnesium 1.9 (1.7-2.4) mg/dl 01/26/23 01/26/23 01/26/23 Range/Units 23:25 19:20 12:47 WBC (4.8-10.8) K/ul RBC (4.70-6.10) M/uL Hgb (14.0-18.0) g/dl Hct (42.0-52.0) % MCV (80.0-100.0) fL MCH (25.0-34.0) pg MCHC (32.0-36.0) g/dL RDW Std Deviation (36.4-46.3) fL RDW Coeff of Yoli (11.5-14.5) % Plt Count (130-400) K/uL MPV (9.4-12.4) fL Absolute Nucleated RBC (0.00-0.12) K/uL Nucleated RBC % (auto) % Sodium (136-145) mmol/L Potassium (3.5-5.1) mmol/L Chloride (98-107) mmol/L Carbon Dioxide (21-32) mmol/L Anion Gap (3-11) BUN (6-23) mg/dl Creatinine (0.6-1.4) mg/dl Est Cr Clr Drug Dosing ml/min Est GFR ( Amer) ml/min Est GFR (Non-Af Amer) ml/min BUN/Creatinine Ratio (10-20) Glucose (70-99(Fasting)) mg/dl POC Glucose 104 H 111 H 113 H (70-99) mg/dl Calcium (8.6-10.3) mg/dl Phosphorus (2.5-4.9) mg/dl Magnesium (1.7-2.4) mg/dl
[2023-01-27] MEDS ORDERED: CLINOLIPID 20% IV FAT EMULSION 250 ML IV SCH (16:00)
[2023-01-27] MEDS ORDERED: [UNRECOGNIZED DRUG - OTHER] IV SCH (16:00)
[2023-01-27] MEDS ORDERED: CENTRAL TPN IV SCH (16:00)
[2023-01-27] MEDS: LACTATED RINGER'S 1,000 ML IV SCH (17:33)
--- NOTE | 2023-01-27 18:03 | Hospitalist Progress Note ---
Date of Service January 27, 2023 Assessment & Plan (1) Abdominal pain: Plan: patient with abdominal pain in the a.m. of 01/23. CT scan ordered with possibility of perforated gastric ulcer. General surgery took to the OR performed oversewing of a large lesser curvature gastric ulcer with perforation and peritoneal soilage, Required pressors now off.. ICU change from Unasyn to Zosyn For perforated gastric ulcer patient competed 5 days protonix drip now to bid dosing UGI on 01/29 to asses for leak TPN consultation for possible starting TPN on 01/26/2023 (2) Sepsis: Plan: sepsis On presentation not related to perforated gastric ulcerfrom pulmonary source however ua resulted with pansensitive E coli, did require pressors- metabolic encephalopathy present on admission, baseline has severe dementia Patient now on Zosyn therapy after perforated gastric ulcer with oversew -previous sepsis work up, did have LP , CSF noted elevated WBC however bloody tap, less concern meningitis CFS panel negative -CT head: No acute intracranial findings. No change in appearance of the brain. blood cx gram +, urine Gram neg, suspect blood is contaminant Code Status: Full, no records with [facility], unable to discuss with patient spoke to [facility] at [place] patient is unable to make decisions it was confirmed there are no family to help make decisions As patient has multiple comorbidities may consider getting power of jazz singer secured before further hospitalization Nutrition consulted (3) Dementia: Plan: pre hospital diagnosis of alzheimers, donepazil, olanzipine am/pm and celexa (4) HLD (hyperlipidemia): Plan: typially on crestor (5) Seizure-like activity: Plan: concern on admission , EEG was abnormal and showed a moderate generalized encephalopathy as noted by the generalized slowing. There were no focal abnormalities or potentially epileptogenic discharges seen. not started on antiepileptic medications Plan Admission and Anticipated Discharge Date Admission Date: January 19, 2023 Subjective pain controlled at rest, not as tender to exam confusion and dementia at baseline Physical Exam Physical Exam: Patient is awake responds to commands card exam is regular lungs are clear abdomen is with hypoactive bowel sounds patient has a ANNMARIE in place and abdominal dressing Abdomen is tender and soft Results & Data Results & Data Vital Signs (Past 12 Hours) Vital Signs Temp Pulse Pulse Resp BP BP Pulse Ox 01/27/23 16:00 98.2 F 85 137/61 96 01/27/23 16:00 93 H 01/27/23 11:08 98.1 F 91 H 18 155/90 H 94 01/27/23 08:00 01/27/23 08:00 89 01/27/23 08:01 98.1 F 93 H 19 156/90 H 95 O2 Del Method O2 Flow Rate 01/27/23 16:00 Nasal Cannula 2 01/27/23 16:00 01/27/23 11:08 Room Air 01/27/23 08:00 Nasal Cannula 2 01/27/23 08:00 01/27/23 08:01 Nasal Cannula 2 Laboratory Results reviewed chemistry reviewed cbc PG Care Time/CCT Total # of Minutes Spent Total Time Spent with Patient: Total time spent is greater than 50% in coordination of care (as documented) at patient's floor/unit and/or counseling patient: Coding Level of Care Code 62080 SUB INP/OBS CARE 2/35MIN Diagnoses Abdominal pain R10.9 Sepsis A41.9 Sepsis acute organ dysfunction status: unspecified Sepsis type: sepsis due to unspecified organism Dementia F03.90 Dementia behavioral or psychological symptom: unspecified whether behavioral, psychotic, or mood disturbance or anxiety Dementia severity: unspecified severity Dementia type: unspecified type HLD (hyperlipidemia) E78.5 Seizure-like activity R56.9 (2) Sepsis Sepsis acute organ dysfunction status: unspecified Sepsis type: sepsis due to unspecified organism Qualified Code(s): A41.9 - Sepsis, unspecified organism (3) Dementia Dementia behavioral or psychological symptom: unspecified whether behavioral, psychotic, or mood disturbance or anxiety Dementia severity: unspecified severity Dementia type: unspecified type Qualified Code(s): F03.90 - Unspecified dementia, unspecified severity, without behavioral disturbance, psychotic disturbance, mood disturbance, and anxiety
[2023-01-27] MEDS: PANTOprazole 40 MG in SYRINGE 0 ML IV SCH (21:16)
[2023-01-28] MEDS: PIPERACILLIN/TAZOBACTAM 4.5 GM in DEXTROSE 5% MINI-B 100 ML IV SCH ×3 (02:04→18:13)
[2023-01-28] MEDS: HYDROmorphone INJ 1 MG/ML SYRINGE IV PRN ×2 (02:12→23:30)
[2023-01-28] MEDS: ACETAMINOPHEN 1000 MG/100 ML IV IV SCH ×3 (05:48→21:50)
[2023-01-28 07:49] LABS: BUN Creatinine Ratio 18.3 (10-20); Calcium 7.7 mg/dl (8.6-10.3); Creatinine Clr Calc Pharmacy 89.2 ml/min; Est GFR (African American) 109.1 ml/min; Est GFR (Non-African American) 94.1 ml/min; Magnesium 1.9 mg/dl (1.7-2.4); Phosphorus 2.6 mg/dl (2.5-4.9)
[2023-01-28] MEDS: HEPARIN SOD 5,000 UNIT/0.5 ML VIAL SQ SCH ×2 (08:32→21:51)
[2023-01-28] MEDS: PANTOprazole 40 MG in SYRINGE 0 ML IV SCH ×2 (08:32→21:51)
[2023-01-28] MEDS ORDERED: OLANZapine ZYDIS 5 MG ORALLY DIS. TAB PO STA (13:12)
--- NOTE | 2023-01-28 14:51 | Surgery Progress Note ---
Date of Service January 28, 2023 Assessment & Plan (1) Perforated gastric ulcer: Plan: POD #5 s/p exploratory laparotomy, washout, repair of gastric ulcer with Bob patch AVSS, VSS sameer drain with serosanguineous output, non bilious incision c/d/i without erythema NGT with bilious output Plan: Continue Scheduled IV Tylenol for pain management given patients dementia and unable to communicate pain level. Continue IV PPI and antibiotics. Continue TPN NG tube will remain in place for another day (POD # 6); then will check UGI series on Wednesday01/29/2023 to assess for leak prior to removing NG and starting diet. Medical management as per hospitalist. repeat am labs Continue sameer drain to bulb suction Scds and Heparin for dvt prophylaxis Admission and Anticipated Discharge Date Admission Date: January 19, 2023 Subjective Seems to be doing okay. Does not appear to be in pain. Physical Exam Physical Exam: AFVSS NAD Abdomen: Soft, no distention TTP along midline Incision C/D/I with sherry SAMEER with minimal serosanguineous drainage NGT in place Results & Data Vital Signs (Past 12 Hours) Vital Signs Temp Pulse Pulse Resp BP Pulse Ox O2 Del Method 01/28/23 13:00 36.9 C 80 17 145/78 H 97 Nasal Cannula 01/28/23 08:00 Nasal Cannula 01/28/23 08:07 65 01/28/23 07:50 36.6 C 85 17 151/84 H 95 Room Air 01/28/23 04:57 37.0 C 61 16 167/69 H 97 Nasal Cannula O2 Flow Rate 01/28/23 13:00 2 01/28/23 08:00 2 01/28/23 08:07 01/28/23 07:50 01/28/23 04:57 2.0 Laboratory Results 01/28/23 01/28/23 01/27/23 Range/Units 11:57 06:46 23:38 Sodium 142 (136-145) mmol/L Potassium 4.0 (3.5-5.1) mmol/L Chloride 109 H (98-107) mmol/L Carbon Dioxide 28 (21-32) mmol/L Anion Gap 5 (3-11) BUN 15 (6-23) mg/dl Creatinine 0.82 (0.6-1.4) mg/dl Est Cr Clr Drug Dosing 89.2 ml/min Est GFR ( Amer) 109.1 ml/min Est GFR (Non-Af Amer) 94.1 ml/min BUN/Creatinine Ratio 18.3 (10-20) Glucose 93 (70-99(Fasting)) mg/dl POC Glucose 91 80 (70-99) mg/dl Calcium 7.7 L (8.6-10.3) mg/dl Phosphorus 2.6 (2.5-4.9) mg/dl Magnesium 1.9 (1.7-2.4) mg/dl 01/27/23 01/27/23 Range/Units 20:56 18:10 Sodium (136-145) mmol/L Potassium (3.5-5.1) mmol/L Chloride (98-107) mmol/L Carbon Dioxide (21-32) mmol/L Anion Gap (3-11) BUN (6-23) mg/dl Creatinine (0.6-1.4) mg/dl Est Cr Clr Drug Dosing ml/min Est GFR ( Amer) ml/min Est GFR (Non-Af Amer) ml/min BUN/Creatinine Ratio (10-20) Glucose (70-99(Fasting)) mg/dl POC Glucose 86 102 H (70-99) mg/dl Calcium (8.6-10.3) mg/dl Phosphorus (2.5-4.9) mg/dl Magnesium (1.7-2.4) mg/dl
[2023-01-28] MEDS: LACTATED RINGER'S 1,000 ML IV SCH (15:27)
[2023-01-28] MEDS ORDERED: CLINOLIPID 20% IV FAT EMULSION 250 ML IV SCH (16:00)
[2023-01-28] MEDS ORDERED: [UNRECOGNIZED DRUG - OTHER] IV SCH (16:00)
[2023-01-28] MEDS ORDERED: CENTRAL TPN IV SCH (16:00)
--- NOTE | 2023-01-28 17:32 | Hospitalist Progress Note ---
Date of Service January 28, 2023 Assessment & Plan (1) Abdominal pain: Plan: patient with abdominal pain in the a.m. of 01/23. CT scan ordered with possibility of perforated gastric ulcer. General surgery took to the OR performed oversewing of a large lesser curvature gastric ulcer with perforation and peritoneal soilage, Required pressors now off.. ICU change from Unasyn to Zosyn For perforated gastric ulcer patient competed 5 days protonix drip now to bid dosing UGI on 01/29 to asses for leak TPN consultation for possible starting TPN on 01/26/2023 additional LR 35/hr to make 100 cc an hour for maintenance fluid requirements until patient can take p.o. (2) Sepsis: Plan: sepsis On presentation not related to perforated gastric ulcerfrom pulmonary source however ua resulted with pansensitive E coli, did require pressors- metabolic encephalopathy present on admission, baseline has severe dementia Patient now on Zosyn therapy after perforated gastric ulcer with oversew -previous sepsis work up, did have LP , CSF noted elevated WBC however bloody tap, less concern meningitis CFS panel negative -CT head: No acute intracranial findings. No change in appearance of the brain. blood cx gram +, urine Gram neg, suspect blood is contaminant Code Status: Full, no records with [facility], unable to discuss with patient spoke to [facility] at [place] patient is unable to make decisions it was confirmed there are no family to help make decisions As patient has multiple comorbidities may consider getting power of patent prosecution attorney secured before further hospitalization Nutrition consulted (3) Dementia: Plan: pre hospital diagnosis of alzheimers, donepazil, olanzipine am/pm and celexa, resumed olanzapine in the afternoon of 01/28 we will try to mimic his home dose dosing with a slightly blood tester evening dose. Patient will be on 2.5 the morning and 5 at night (4) HLD (hyperlipidemia): Plan: typially on crestor (5) Seizure-like activity: Plan: concern on admission , EEG was abnormal and showed a moderate generalized encephalopathy as noted by the generalized slowing. There were no focal abnormalities or potentially epileptogenic discharges seen. not started on antiepileptic medications Plan Admission and Anticipated Discharge Date Admission Date: January 19, 2023 Subjective having challenging controlling patient's behavior restarted Zyprexa dose. Prehospital patient was taken two-point 5 in the morning and 10 at night give him a dose of 5 in the afternoon we will start with two-point 5 in the morning and 5 at night and see if we can control his behavior without overtly sedating him. Patient for a GI contrast test on 01/29 to evaluate his gastric perforation Physical Exam Physical Exam: patient was awake he was redirectable he was slightly agitated he had minor abdominal pain card exam is regular lungs were diminished at the bases Results & Data Results & Data Vital Signs (Past 12 Hours) Vital Signs Temp Pulse Pulse Resp BP Pulse Ox O2 Del Method 01/28/23 15:18 97.9 F 78 16 143/77 H 97 Nasal Cannula 01/28/23 13:00 98.4 F 80 17 145/78 H 97 Nasal Cannula 01/28/23 08:00 Nasal Cannula 01/28/23 08:07 65 01/28/23 07:50 97.9 F 85 17 151/84 H 95 Room Air O2 Flow Rate 01/28/23 15:18 2 01/28/23 13:00 2 01/28/23 08:00 2 01/28/23 08:07 01/28/23 07:50 Laboratory Results reviewed chemistries including magnesium PG Care Time/CCT Total # of Minutes Spent Total Time Spent with Patient: Total time spent is greater than 50% in coordination of care (as documented) at patient's floor/unit and/or counseling patient: Coding Level of Care Code 67692 SUB INP/OBS CARE 3/50MIN Diagnoses Abdominal pain R10.9 Sepsis A41.9 Sepsis acute organ dysfunction status: unspecified Sepsis type: sepsis due to unspecified organism Dementia F03.90 Dementia behavioral or psychological symptom: unspecified whether behavioral, psychotic, or mood disturbance or anxiety Dementia severity: unspecified severity Dementia type: unspecified type HLD (hyperlipidemia) E78.5 Seizure-like activity R56.9 (2) Sepsis Sepsis acute organ dysfunction status: unspecified Sepsis type: sepsis due to unspecified organism Qualified Code(s): A41.9 - Sepsis, unspecified organism (3) Dementia Dementia behavioral or psychological symptom: unspecified whether behavioral, psychotic, or mood disturbance or anxiety Dementia severity: unspecified severity Dementia type: unspecified type Qualified Code(s): F03.90 - Unspecified dementia, unspecified severity, without behavioral disturbance, psychotic disturbance, mood disturbance, and anxiety
[2023-01-28] MEDS ORDERED: OLANZapine ZYDIS 5 MG ORALLY DIS. TAB PO SCH (21:00)
[2023-01-28] MEDS: OLANZapine ZYDIS 5 MG ORALLY DIS. TAB PO SCH (21:50)
[2023-01-29] MEDS: PIPERACILLIN/TAZOBACTAM 4.5 GM in DEXTROSE 5% MINI-B 100 ML IV SCH ×3 (03:14→18:18)
--- NOTE | 2023-01-29 03:14 | Surgery Progress Note ---
Date of Service January 29, 2023 Assessment & Plan (1) Perforated gastric ulcer: Plan: S/P repair perforated gastric ulcer , POD 6. some serosanguineous fluid came out from periumbilical incision site. skin incision intact, no redness, ANNMARIE intact. abdomen, soft. no distend. hard to tell partial incision dehiscence? redressing incision site apply abdominal software developer. will let Dr. Cameron know. will F/U Admission and Anticipated Discharge Date Admission Date: January 19, 2023 Subjective nurse said some serosanguineous fluid came out from middle line incision site,I came to pt's bedside to check the incision . some serosanguineous fluid came out from periumbilical incision site. skin incision intact, no redness, ANNMARIE intact. Physical Exam Gastrointestinal (Abdomen): some serosanguineous fluid came out from periumbilical incision site. skin incision intact, no redness, ANNMARIE intact. abdomen, soft. no distend. hard to tell partial incision dehiscence? redressing incision site apply abdominal software developer. Results & Data Vital Signs (Past 12 Hours) Vital Signs Temp Pulse Pulse Resp BP Pulse Ox O2 Del Method 01/28/23 23:07 37.2 C 91 H 20 168/89 H 94 Nasal Cannula 01/28/23 19:55 36.8 C 88 95 H 169/78 H 95 Nasal Cannula 01/28/23 16:00 74 01/28/23 15:18 36.6 C 78 16 143/77 H 97 Nasal Cannula O2 Flow Rate 01/28/23 23:07 2.0 01/28/23 19:55 2.0 01/28/23 16:00 01/28/23 15:18 2
[2023-01-29] MEDS: ACETAMINOPHEN 1000 MG/100 ML IV IV SCH (06:20)
[2023-01-29 07:33] LABS: BUN Creatinine Ratio 23.9 (10-20); Calcium 7.5 mg/dl (8.6-10.3); Est GFR (African American) 115.7 ml/min; Est GFR (Non-African American) 99.9 ml/min; Magnesium 1.8 mg/dl (1.7-2.4); Phosphorus 2.4 mg/dl (2.5-4.9); Potassium 3.6 mmol/L (3.5-5.1)
[2023-01-29] MEDS: OLANZapine ZYDIS 5 MG ORALLY DIS. TAB PO SCH ×2 (08:26→21:22)
[2023-01-29] MEDS: HEPARIN SOD 5,000 UNIT/0.5 ML VIAL SQ SCH ×2 (08:26→21:22)
[2023-01-29] MEDS: PANTOprazole 40 MG in SYRINGE 0 ML IV SCH ×2 (08:27→21:22)
--- NOTE | 2023-01-29 11:59 | Fluoroscopy Report ---
FLUOROSCOPIC UPPER GI SERIES CLINICAL HISTORY: Gastric perforation status post repair. COMPARISON STUDY: Abdominal CT dated 01/23/2023. PROCEDURE: A digital designer image was obtained. Gastrografin was then administered through an enteric tube and a limited single contrast fluoroscopic upper GI series was performed. 8 spot images were obtained. FINDINGS: The digital designer image shows an enteric tube projecting over the gastric fundus. Midline skin clip s are observed. There is no evidence of bowel obstruction. The tip of a central venous catheter proje cts over the right atrium. The stomach opacifies following contrast administration through the enteri c tube. No extraluminal contrast is identified. There is passage of contrast into the duodenum and pr oximal small bowel. Mucosal edema is suggested in the distal stomach. Fluoro time: 57 seconds Ka,r: 17.6 mGy IMPRESSION: There is no evidence of contrast leakage from the stomach on the upper GI series. Electronically signed by: Nikita Yu M.D. 01/29/2023 11:58 AM
--- NOTE | 2023-01-29 13:41 | CT Scan Report ---
CT abd pelvis wo con CLINICAL HISTORY: eval for incisional dehiscence. Status post repair of perforated gastric ulcer, pos toperative day 6 TECHNIQUE: Helical axial images of the abdomen and pelvis were obtained. Automated dose lowering tech niques and/or adjustment according to patient size were utilized for this exam. This exam was perfor med without intravenous contrast. CT DOSE: 1179.15 mGy.cm COMPARISON: Comparison is made to CT abdomen pelvis 01/23/2023 FINDINGS: Lower chest: Moderate right and small left pleural effusions are seen with underlying atelectasis. Liver: Unremarkable. No focal lesions are seen. Gallbladder and biliary tree: No calcified gallstones. Normal caliber wall. No intra- or extrahepatic biliary ductal dilation. Pancreas: Unremarkable, no focal lesions. Spleen: Unremarkable. Adrenals: Unremarkable. Kidneys and ureters: Unremarkable. Bladder: Wolfe catheter is seen. Reproductive organs: Unremarkable. Bowel: Enteric contrast is seen without evidence of extravasation. Lymph nodes Retroperitoneal: Unremarkable. Pelvic: Unremarkable. Mesenteric: Unremarkable. Peritoneum: Previously noted pneumoperitoneum and peritoneal fluid are decreased in size. A peritonea l drain is seen. There are a few rounded densities such as in the pelvis and lateral right lower quad rant which may represent fluid collections versus nonopacified loops of bowel. Vessels: Atherosclerotic calcifications are seen. Abdominal wall: A midline incision is seen. There is a defect in the abdominal wall with herniation o f a portion of the local bowel in the anterior aspect of the incision (series 3 image 242). Bones: Degenerative changes in the visualized spine. IMPRESSION: 1. Postsurgical changes of perforated gastric ulcer repair and placement of an abdominal drain. Ther e is herniation of a loop of bowel in the inferior aspect of the midline incision. 2. Interval decrease in pneumoperitoneum and peritoneal fluid. A few fluid densities are poorly eval uated due to noncontrast technique and may represent loops of bowel or developing fluid collections. 3. Bilateral pleural effusions again seen. ACT 112: Negative or not required by law. Electronically signed by: Austin Kendall M.D. 01/29/2023 1:39 PM
--- NOTE | 2023-01-29 13:42 | Surgery Progress Note ---
Date of Service January 29, 2023 Assessment & Plan (1) Perforated gastric ulcer: Plan: POD# 6 s/p ex lap repair of perforated gastric ulcer avss moderate serosanguineous drainage from middle of incision , skin incision intact, no redness, ANNMARIE intact. abdomen, soft. no distended. incision dehiscence? Plan: Stat ct scan of abd/pelvis wo contrast to rule out incisional dehiscence. continue ngt continue TPN Continue IV Zosyn Continue BID PPI Continue SCDs and heparin for dvt prophylaxis continue medical management Dr. Morrell covering weekend Dr. Hollis has seen and examined pt, agrees with above. 01/29/2023 3:[address] Hollis pt had CT scan- middle line hernia , contain bowel. pt developed incision dehiscence. Potential cause the patient incarcerated hernia perforation bowel. I reviewed CT scan. I recommend to take patient back to OR for re-close abdominal incision. Based on the patient had no power of public policy mediator, he is a dementia. I called the person medical billing supervisor. He cannot find [facility]. He said the hospital can make a decision based on the emergency situation. Called the hospitalist and nurse medical billing supervisor. They are agreed with this emergency. they signed consent with me. Admission and Anticipated Discharge Date Admission Date: January 19, 2023 Subjective unable to obtain ROS from patient given severe baseline dementia Physical Exam Constitutional: + frail appearing; no acute distress and not ill appearing Gastrointestinal (Abdomen): Inspection/Auscultation: + abdominal surgical incision (incision intact with sherry); abdomen not distended There is concavity in the middle of incision with small amount of PDS suture sticking out, serosanguineous drainage on dressing, no evisceraton of bowel Skin: no rashes, warm and dry Results & Data Vital Signs (Past 12 Hours) Vital Signs Temp Pulse Pulse Resp BP BP Pulse Ox 01/29/23 11:07 36.8 C 83 18 142/80 H 99 01/29/23 09:12 01/29/23 08:56 87 01/29/23 07:55 36.9 C 86 18 128/68 98 01/29/23 04:03 37.1 C 77 18 119/90 100 O2 Del Method O2 Flow Rate 01/29/23 11:07 Nasal Cannula 2 01/29/23 09:12 Nasal Cannula 2 01/29/23 08:56 01/29/23 07:55 Nasal Cannula 2 01/29/23 04:03 Nasal Cannula 2.0 Laboratory Results 01/29/23 01/29/23 01/29/23 Range/Units 12:06 06:32 06:24 Sodium 140 (136-145) mmol/L Potassium 3.6 (3.5-5.1) mmol/L Chloride 108 H (98-107) mmol/L Carbon Dioxide 27 (21-32) mmol/L Anion Gap 5 (3-11) BUN 17 (6-23) mg/dl Creatinine 0.71 (0.6-1.4) mg/dl Est Cr Clr Drug Dosing 103.0 ml/min Est GFR ( Amer) 115.7 ml/min Est GFR (Non-Af Amer) 99.9 ml/min BUN/Creatinine Ratio 23.9 H (10-20) Glucose 104 H (70-99(Fasting)) mg/dl POC Glucose 92 87 (70-99) mg/dl Calcium 7.5 L (8.6-10.3) mg/dl Phosphorus 2.4 L (2.5-4.9) mg/dl Magnesium 1.8 (1.7-2.4) mg/dl 01/29/23 01/28/23 Range/Units 01:15 17:56 Sodium (136-145) mmol/L Potassium (3.5-5.1) mmol/L Chloride (98-107) mmol/L Carbon Dioxide (21-32) mmol/L Anion Gap (3-11) BUN (6-23) mg/dl Creatinine (0.6-1.4) mg/dl Est Cr Clr Drug Dosing ml/min Est GFR ( Amer) ml/min Est GFR (Non-Af Amer) ml/min BUN/Creatinine Ratio (10-20) Glucose (70-99(Fasting)) mg/dl POC Glucose 107 H 90 (70-99) mg/dl Calcium (8.6-10.3) mg/dl Phosphorus (2.5-4.9) mg/dl Magnesium (1.7-2.4) mg/dl
[2023-01-29] MEDS: LACTATED RINGER'S 1,000 ML IV SCH (15:34)
[2023-01-29] MEDS ORDERED: BACITRACIN OINT 14 GM TUBE ONE (15:38)
--- NOTE | 2023-01-29 15:38 | History & Physical Bridge Note ---
Date of Service January 29, 2023 History & Physical Bridge Note I have examined the patient, reviewed the History & Physical and in the interval since the performance of the History & Physical I have noted the following changes of clinical significance: no changes noted
[2023-01-29] MEDS ORDERED: LIDOCAINE 1% LOCAL 20 ML VIAL ONE (15:39)
[2023-01-29] MEDS ORDERED: BUPIVACAINE 0.5 % 5 MG/1 ML MPF 30ML VIAL ONE (15:39)
--- NOTE | 2023-01-29 15:40 | Anesthesiology Consultation ---
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 Surgery Operation Date: 01/23/23 15:45 Proposed Procedures p Exploratory Laparotomy, repair gastric ulcer - Agustín Cameron MD Operation Date: 01/29/23 10:55 Proposed Procedures p Open Incision with Fascial Closure - Dionicio Hollis MD Height/Weight Height: 5 ft 8 in Weight: 69.1 kg Allergies Allergy/AdvReac Type Severity Reaction Status Date / Time No Known Allergies Allergy Verified 01/19/23 13:00 Medications Home Medications Medication Instructions Recorded Confirmed Last Taken citalopram 10 mg tablet (Celexa) 5 mg PO DAILY 08/09/22 01/19/23 08/07/22 docusate sodium 250 mg capsule 250 mg PO DAILY PRN Constipation 08/09/22 01/19/23 06/06/22 donepezil 10 mg tablet 10 mg PO DAILY 08/09/22 01/19/23 08/07/22 olanzapine 10 mg tablet (Zyprexa) 10 mg PO HS 08/09/22 01/19/23 08/08/22 rosuvastatin 20 mg tablet (Crestor) 20 mg PO DAILY 08/09/22 01/19/23 08/07/22 olanzapine 2.5 mg tablet 2.5 mg PO QAM 01/19/23 01/19/23 Unknown Active Medications Generic Name Dose Route Start Last Admin Trade Name Freq PRN Reason Stop Dose Admin Dextrose 50 ml 01/24/23 14:55 01/24/23 15:07 Dextrose 50% 50 Ml Syringe IV 02/23/23 14:54 50 ml PRN PRN Administration Hypoglycemia Treatment Heparin Sodium (Porcine) 5,000 units 01/24/23 09:00 01/29/23 08:26 Heparin Sod 5,000 Unit/0.5 Ml Vial SQ 02/23/23 08:59 5,000 units Q12 EZEKIEL Administration Hydromorphone HCl 1 mg 01/26/23 13:56 01/28/23 23:30 Hydromorphone Inj 1 Mg/Ml Syringe IV 02/07/23 15:24 1 mg Q3H PRN Administration Pain Scale 6,7,8,9,10 Piperacillin Sod/Tazobactam 100 mls @ 25 mls/hr 01/24/23 02:00 01/29/23 13:19 Sod 4.5 gm/ Dextrose IV 02/02/23 01:59 Infused Q8H EZEKIEL Infusion Protocol Pantoprazole Sodium 40 mg/ 10 mls @ 5 mls/min 01/27/23 21:00 01/29/23 08:27 Syringe IV 02/26/23 20:59 5 mls/min BID@0900,2100 EZEKIEL Administration Amino Acids/Dextrose 1,575 ml/ 1,575 mls @ 65 mls/hr 01/28/23 16:00 01/28/23 15:28 Nutrition (Parenteral) IV 01/29/23 15:59 65 mls/hr .Q24H EZEKIEL Administration Protocol Lactated Ringer's 1,000 mls @ 35 mls/hr 01/28/23 14:30 01/29/23 15:34 Lr IV 02/27/23 14:29 35 mls/hr .Q24H EZEKIEL Administration Fat Emulsion-Salol Oil/Soybean Oil 250 mls @ 41.667 mls/hr 01/29/23 16:00 01/29/23 15:34 Clinolipid 20% Iv Fat Emulsion IV 01/29/23 21:59 41.7 mls/hr .Q6H EZEKIEL Administration Amino Acids/Dextrose 1,577 ml/ 1,577 mls @ 65 mls/hr 01/29/23 16:00 01/29/23 15:34 Nutrition (Parenteral) IV 01/30/23 15:59 65 mls/hr .Q24H EZEKIEL Administration Protocol Olanzapine 5 mg 01/28/23 21:00 01/28/23 21:50 Olanzapine Zydis 5 Mg Orally Dis. Tab PO 02/27/23 20:59 5 mg HS EZEKIEL Administration Olanzapine 2.5 mg 01/29/23 09:00 01/29/23 08:26 Olanzapine Zydis 5 Mg Orally Dis. Tab PO 02/28/23 08:59 2.5 mg QAM EZEKIEL Administration NPO Date Last Intake of Fluids: 01/23/23 Date Last Intake of Solids: 01/23/23 Past Medical History Medical History Acute encephalopathy Dementia HLD (hyperlipidemia) Pneumonia Rigidity Sepsis Social History Smoking Status: Unknown if ever smoked Hx Alcohol Use: No Hx Substance Use: No Physical Exam Vital Signs Last Vital Signs Temp 98.2 F 01/29/23 11:07 Pulse 83 01/29/23 11:07 Resp 18 01/29/23 11:07 BP 142/80 H 01/29/23 11:07 Pulse Ox 99 01/29/23 11:07 O2 Del Method Nasal Cannula 01/29/23 11:07 O2 Flow Rate 2 01/29/23 11:07 FiO2 30 01/24/23 08:00 Testing Laboratory Results 01/27/23 06:37 01/29/23 06:32 PT 12.8 Seconds (9.0-12.0) H 01/19/23 11:05 INR 1.2 (0.9-1.1) H 01/19/23 11:05 APTT 35.1 Seconds (21.0-31.0) H 01/19/23 11:05 Urine Color Yellow 01/19/23 11:27 Urine Appearance Cloudy (Clear) A 01/19/23 11:27 Urine pH 5.5 (4.5-7.5) 01/19/23 11:27 Ur Specific [place] 1.029 (1.000-1.030) 01/19/23 11:27 Urine Protein 1+ (Negative) H 01/19/23 11:27 Urine Glucose (UA) Negative (Negative) 01/19/23 11:27 Urine Ketones Trace (Negative) H 01/19/23 11:27 Urine Nitrite Positive (Negative) A 01/19/23 11:27 Ur Leukocyte Esterase 2+ (Negative) H 01/19/23 11:27 Urine WBC (Auto) >30 /hpf (0-5) H 01/19/23 11:27 Urine RBC (Auto) 10-30 /hpf (0-4) H 01/19/23 11:27 U Hyaline Cast (Auto) 10-30 /lpf (0-5) H 01/19/23 11:27 U Epithel Cells (Auto) 0-5 /lpf (0-5) 01/19/23 11:27 Urine Bacteria (Auto) 4+ (Negative) H 01/19/23 11:27 01/24/23 00:18 Aerobic Blood Culture - Final Blood No growth in Aerobic bottle after 5 days. Anaerobic Blood Culture - Final No growth in Anaerobic bottle after 5 days. 01/24/23 00:35 Aerobic Blood Culture - Final Blood No growth in Aerobic bottle after 5 days. Anaerobic Blood Culture - Final No growth in Anaerobic bottle after 5 days. 01/19/23 11:05 Aerobic Blood Culture - Final Blood Coag neg staph not lugdunensis Anaerobic Blood Culture - Final No growth in Anaerobic bottle after 5 days. 01/19/23 11:30 Aerobic Blood Culture - Final Blood No growth in Aerobic bottle after 5 days. Anaerobic Blood Culture - Final No growth in Anaerobic bottle after 5 days. 01/19/23 11:27 Urine Culture - Final Urine,Straight Cath Escherichia coli 01/19/23 12:15 Gram Stain - Final Cerebral Spinal Fluid CSF Culture - Final No growth 01/29/23 01/29/23 12:06 06:24 POC Glucose 92 87 Electrocardiogram Date: 01/23/23 Poor data quality, interpretation may be adversely affected Sinus tachycardia, rate 115 bpm Diffuse Minor Nonspecific T wave abnormality Abnormal ECG When compared with ECG of 19-JAN-2023 10:51, T-wave inversion in Anterior leads no longer present Confirmed by Martell Hernandez ([id number]) on 01/24/2023 9:33:37 AM
[2023-01-29] MEDS ORDERED: ePHEDrine sulfate 50 MG/ML AMP IV PRN (15:41)
[2023-01-29] MEDS ORDERED: fentaNYL citrate PF 100 MCG/2 ML VIAL IV PRN (15:41)
[2023-01-29] MEDS ORDERED: ONDANSETRON INJ 2 MG/ML 2 ML VIAL IV PRN (15:41)
[2023-01-29] MEDS ORDERED: ATROPINE SULFATE 0.1 MG/ML 10ML SYR IV PRN (15:41)
[2023-01-29] MEDS ORDERED: fentaNYL citrate PF 100 MCG/2 ML VIAL ONE (15:42)
[2023-01-29] MEDS ORDERED: MIDAZOLAM HCL 1 MG/ML 2ML VIAL ONE (15:42)
[2023-01-29] MEDS ORDERED: ROCURONIUM BROMIDE 10 MG/ML 5 ML VIAL IV ONE ×3 (15:46→15:47)
[2023-01-29] MEDS ORDERED: LIDOCAINE 2% 2 ML VIAL/AMP(20MG/ML) INFIL ONE (15:46)
[2023-01-29] MEDS ORDERED: PROPOFOL IV EMULSION 10 MG/ML 20 ML VIAL IV ONE (15:46)
[2023-01-29] MEDS ORDERED: ONDANSETRON INJ 2 MG/ML 2 ML VIAL ONE (15:47)
[2023-01-29] MEDS ORDERED: DEXAMETHASONE SOD INJ 4 MG/ML VIAL ONE (15:47)
[2023-01-29] MEDS ORDERED: CLINOLIPID 20% IV FAT EMULSION 250 ML IV SCH (16:00)
[2023-01-29] MEDS ORDERED: [UNRECOGNIZED DRUG - OTHER] IV SCH (16:00)
[2023-01-29] MEDS ORDERED: CENTRAL TPN IV SCH (16:00)
--- NOTE | 2023-01-29 16:16 | Hospitalist Progress Note ---
Date of Service January 29, 2023 Assessment & Plan (1) Abdominal pain: Plan: patient with abdominal pain in the a.m. of 01/23. CT scan ordered with possibility of perforated gastric ulcer. General surgery took to the OR performed oversewing of a large lesser curvature gastric ulcer with perforation and peritoneal soilage, Required pressors now off.. ICU change from Unasyn to Zosyn For perforated gastric ulcer patient competed 5 days protonix drip now to bid dosing Upper GI series did not show any contrast leakage from the stomach TPN consultation for TPN on 01/26/2023 until patient can take p.o. (2) Sepsis: Plan: sepsis On presentation not related to perforated gastric ulcerfrom pulmonary source however ua resulted with pansensitive E coli, did require pressors- metabolic encephalopathy present on admission, baseline has severe dementia Patient now on Zosyn therapy after perforated gastric ulcer with oversew -previous sepsis work up, did have LP , CSF noted elevated WBC however bloody tap, less concern meningitis CFS panel negative -CT head: No acute intracranial findings. No change in appearance of the brain. blood cx gram +, urine Gram neg, suspect blood is contaminant Code Status: Full, no records with [facility], unable to discuss with patient spoke to [facility] at [place] patient is unable to make decisions it was confirmed there are no family to help make decisions As patient has multiple comorbidities may consider getting power of contract attorney secured before further hospitalization Nutrition consulted (3) Dementia: Plan: pre hospital diagnosis of alzheimers, donepazil, olanzipine am/pm and celexa, resumed olanzapine in the afternoon of 01/28 we will try to mimic his home dose dosing with a slightly color receiver evening dose. Patient will be on 2.5 the morning and 5 at night (4) HLD (hyperlipidemia): Plan: typially on crestor (5) Seizure-like activity: Plan: concern on admission , EEG was abnormal and showed a moderate generalized encephalopathy as noted by the generalized slowing. There were no focal abnormalities or potentially epileptogenic discharges seen. not started on antiepileptic medications (6) Perforated gastric ulcer: Plan: Please see problem #1 (7) Wound dehiscence: Plan: Abdominal CT raise concerns of wound dehiscence. Patient will be taken to the OR today. Patient is demented and thus the surgeon and myself signed the consent. Plan Admission and Anticipated Discharge Date Admission Date: January 19, 2023 Subjective Patient is not very communicative at baseline due to his underlying dementia. Accompanied by assisted guards in the room. Review of Systems Review of Systems: Unobtainable due to cognitive status Physical Exam Physical Exam: General: Awake, conversant Heart: S1, S2/regular rate and rhythm, no murmur rubs or gallops Lungs: Clear to auscultation bilaterally. Normal effort Abdomen: Soft/nontender/nondistended. No hepatosplenomegaly Extremities: No clubbing/cyanosis. No edema Behavior: Appropriate, cooperative Results & Data Results & Data Vital Signs (Past 12 Hours) Vital Signs Temp Pulse Pulse Resp BP BP Pulse Ox 01/29/23 15:44 38 C H 80 17 153/81 H 98 01/29/23 11:07 36.8 C 83 18 142/80 H 99 01/29/23 09:12 01/29/23 08:56 87 01/29/23 07:55 36.9 C 86 18 128/68 98 O2 Del Method O2 Flow Rate 01/29/23 15:44 Room Air 01/29/23 11:07 Nasal Cannula 2 01/29/23 09:12 Nasal Cannula 2 01/29/23 08:56 01/29/23 07:55 Nasal Cannula 2 Laboratory Results Abnormal lab results 01/29/23 01/29/23 Range/Units 01:15 06:32 Chloride 108 H (98-107) mmol/L BUN/Creatinine Ratio 23.9 H (10-20) Glucose 104 H (70-99(Fasting)) mg/dl POC Glucose 107 H (70-99) mg/dl Calcium 7.5 L (8.6-10.3) mg/dl Phosphorus 2.4 L (2.5-4.9) mg/dl PG Care Time/CCT Total # of Minutes Spent Total Time Spent with Patient: Total time spent is greater than 50% in coordination of care (as documented) at patient's floor/unit and/or counseling patient: Coding Level of Care Code 39547 SUB INP/OBS CARE 2/35MIN Diagnoses Abdominal pain R10.9 Sepsis A41.9 Sepsis acute organ dysfunction status: unspecified Sepsis type: sepsis due to unspecified organism Dementia F03.90 Dementia behavioral or psychological symptom: unspecified whether behavioral, psychotic, or mood disturbance or anxiety Dementia severity: unspecified severity Dementia type: unspecified type HLD (hyperlipidemia) E78.5 Seizure-like activity R56.9 Perforated gastric ulcer K25.5 Wound dehiscence T81.30XA (2) Sepsis Sepsis acute organ dysfunction status: unspecified Sepsis type: sepsis due to unspecified organism Qualified Code(s): A41.9 - Sepsis, unspecified organism (3) Dementia Dementia behavioral or psychological symptom: unspecified whether behavioral, psychotic, or mood disturbance or anxiety Dementia severity: unspecified severity Dementia type: unspecified type Qualified Code(s): F03.90 - Unspecified dementia, unspecified severity, without behavioral disturbance, psychotic disturbance, mood disturbance, and anxiety
[2023-01-29] MEDS ORDERED: SUGAMMADEX SODIUM 200 MG/2 ML VIAL IV ONE (16:51)
--- NOTE | 2023-01-29 17:15 | Post Operative Brief Note ---
Immediate Post Op Note v1 Date of Surgery January 29, 2023 Pre & Post Diagnosis Operation Date: 01/29/23 10:55 Pre-Op Diagnosis: S/P repair perforated gastric ulcer, incision dehiscence Post-Op Diagnosis: S/P repair perforated gastric ulcer, incision dehiscence I identified the patient and participated in the time-out.: Yes Procedure Operation Date: 01/29/23 10:55 Actual Procedures re-close abdominal wall incision - Dionicio Hollis MD Surgeon Dionicio Hollis MD Linen Room Attendant surgical supplies sterilizer Estimated Blood Loss 10 Findings Consistent with Post-Op Diagnosis dehiscence fascial layer, incisional hernia, hernia containing small bowel Fluids 500 ml Drains Steele Catheter (arrived in OR with steele ) Anesthesia Type General Complications none Disposition Accompanied Patient To Recovery: Yes
--- NOTE | 2023-01-29 17:24 | Operative Report ---
Post Operative Report Pre & Post Diagnosis Operation Date: 01/29/23 10:55 Pre-Op Diagnosis: S/P repair perforated gastric ulcer, incision dehiscence Post-Op Diagnosis: S/P repair perforated gastric ulcer, incision dehiscence I identified the patient and participated in the time-out.: Yes Procedure Operation Date: 01/29/23 10:55 Actual Procedures re-close abdominal wall incision - Dionicio Hollis MD Surgeon Dionicio Hollis MD Hospice Case Manager flight readiness technician Estimated Blood Loss 10 Findings Consistent with Post-Op Diagnosis complete fascial layer open, incision hernia, hernia containing small bowel Fluids 500ml Specimens none Drains none Anesthesia Type General Complications none Indications pt is S/P repair perforated gastric ulcer, POD 6, pt developed some fluid came out from middle line incision. High suspicion patient developed incision dehiscence. pt had CT scan- middle line hernia , contain bowel. pt developed incision dehiscence. Potential cause the patient incarcerated hernia perforation bowel. I reviewed CT scan. I recommend to take patient back to OR for re-close abdominal incision. Based on the patient had no power of insurance defense attorney, he is a dementia. I called the intermediate grounds supervisor. He cannot find [facility]. He said the hospital can make a decision based on the emergency situation. Called the hospitalist ( DR. Ascencio [facility])and nurse grounds supervisor. They are agreed with this emergency. they signed consent with me. Also indicated surgical risk- infection, bleeding, sepsis, injury other organs, hernia recurrence, . on the consent. Description of Procedure Abdomen identified patient to verify procedure. we brought patient to the OR and put the patient on the supine position on the OR table. Patient received a SCD on bilateral legs to prevent DVT. Patient received prepped 4.5 gram Zosyn IV for prophylactic antibiotic. Patient received general anesthesia without difficulty. The abdomen was a prepped and draped in routine sterile fashion. After timeout. re- exam abdominal incision incision. There are one small area skin burning around the umbilical area, skin burning size about 0.5 x 0.5 cm. Incision skin intact. I remove the skin stables. Use the my finger to open skin incision. Immediately we saw the small bowel on the incision. And completed fascial layer open. PDS suture loose. I used a scissor to remove the PDS. Then we returned the small bowel back to abdominal cavity. The use new # 1 PDS suture to close the fascial layer continue running. Close a subcutaneous layer by using 2-0 Vicryl continuous running. Injections of local anesthesia by using 1% lidocaine mixed with 0.5% Marcaine around the incision. then close skin by using stables. then put the dressing on. Patient tolerated procedure well. Patient transferred to recovery room in stable condition. I attest to the content of the Intraoperative Record and any orders documented therein. Any exceptions are noted below.
--- NOTE | 2023-01-29 18:09 | Anesthesiology Progress Note ---
Date of Service January 29, 2023 Anesthesia Post Procedure Vital Signs Vital Signs: Temp Pulse Pulse Resp BP BP Pulse Ox 01/29/23 17:50 83 19 155/96 H 98 01/29/23 18:00 99.0 F 73 20 156/82 H 95 01/29/23 17:40 76 22 152/82 H 99 01/29/23 17:31 97.0 F L 80 24 151/88 H 96 01/29/23 16:00 82 01/29/23 16:24 82 01/29/23 15:44 100.4 F H 80 17 153/81 H 98 01/29/23 11:07 98.2 F 83 18 142/80 H 99 01/29/23 09:12 01/29/23 08:56 87 01/29/23 07:55 98.4 F 86 18 128/68 98 01/28/23 23:30 84 01/29/23 04:03 98.8 F 77 18 119/90 100 01/28/23 21:45 01/28/23 23:07 99.0 F 91 H 20 168/89 H 94 01/28/23 19:55 98.2 F 88 95 H 169/78 H 95 O2 Del Method O2 Flow Rate 01/29/23 17:50 Oxymask 4 01/29/23 18:00 Oxymask 2 01/29/23 17:40 Oxymask 6 01/29/23 17:31 Oxymask 10 01/29/23 16:00 01/29/23 16:24 01/29/23 15:44 Room Air 01/29/23 11:07 Nasal Cannula 2 01/29/23 09:12 Nasal Cannula 2 01/29/23 08:56 01/29/23 07:55 Nasal Cannula 2 01/28/23 23:30 01/29/23 04:03 Nasal Cannula 2.0 01/28/23 21:45 Nasal Cannula 2 01/28/23 23:07 Nasal Cannula 2.0 01/28/23 19:55 Nasal Cannula 2.0 Transfer of Care Handoff Completed per policy Notes Mental Status: alert / awake / arousable Patient Amnestic to Procedure: Yes Nausea / Vomiting: adequately controlled Pain: adequately controlled Airway Patency, RR, SpO2: stable & adequate BP & HR: stable & adequate Hydration State: stable & adequate Anesthetic Complications: no major complications apparent and Pt Satisfied with anesthetic care
[2023-01-29] MEDS ORDERED: DOCUSATE CALCIUM 240 MG CAPSULE PO PRN (18:13)
[2023-01-30] MEDS: PIPERACILLIN/TAZOBACTAM 4.5 GM in DEXTROSE 5% MINI-B 100 ML IV SCH ×3 (02:13→17:25)
[2023-01-30] MEDS ORDERED: ACETAMINOPHEN 1,000 MG/100 ML VIAL IV PRN (02:29)
--- NOTE | 2023-01-30 06:04 | Surgery Progress Note ---
I have seen this patient this am. I agree with this plan. Surgical dressings remain c/d/i at this time. Date of Service January 30, 2023 Assessment & Plan (1) Perforated gastric ulcer: Plan: Patient is status post abdominal washout and repair of gastric ulcer on 01/23/2023 (postop day #6) and abdominal reclosure secondary to wound dehiscence on 01/29/2023 (postop day #1): Provide analgesics Provide antiemetics Maintain n.p.o. status Continue NG tube until return of bowel function at which time consideration can be given to removing it and slowly advancing diet Continue hydration with TPN as ordered Check a.m. labs when available Continue antibiotics in the form of Zosyn Mobilize as able If patient continues to have febrile episodes further evaluation can be pursued. Subcutaneous heparin is in place for DVT prevention (2) Wound dehiscence: Admission and Anticipated Discharge Date Admission Date: January 19, 2023 Subjective Patient is currently resting comfortably in bed. He has underlying dementia which limits his subjective capabilities. He does not voice any complaints at this time I discussed with the senior living guards in the room and they noted that the patient has been resting comfortably since his second surgery. I discussed with night custodian RN and she does not voice any surgical concerns other than the patient had a low-grade fever last night that resolved with Tylenol. Physical Exam Gastrointestinal (Abdomen): Abdomen is mildly distended with hypoactive bowel sounds. A ANNMARIE drain is in place draining serosanguineous fluid. (Approximate 390 cc recorded over past 24 hours) NG tube is in place. (100 cc recorded last shift) patient had appropriate pain with palpation near his incisions. The patient's incision is clean, dry, and intact with sherry. Results & Data Vital Signs (Past 12 Hours) Vital Signs Temp Pulse Pulse Resp BP Pulse Ox O2 Del Method 01/30/23 02:16 37.7 C H 75 16 149/84 H 98 Nasal Cannula 01/30/23 00:00 94 H 01/29/23 21:45 Nasal Cannula 01/29/23 22:43 36.8 C 82 18 159/84 H 99 Nasal Cannula 01/29/23 19:58 36.8 C 87 18 166/89 H 92 Nasal Cannula O2 Flow Rate 01/30/23 02:16 2 01/30/23 00:00 01/29/23 21:45 2 10/06/23 22:43 01/29/23 19:58 PG Care Time/CCT Total # of Minutes Spent Total Time Spent with Patient: Total time spent is greater than 50% in coordination of care (as documented) at patient's floor/unit and/or counseling patient: Coding Level of Care Code 18954 Post Operative Follow-Up Diagnoses Perforated gastric ulcer K25.5 Wound dehiscence T81.30XA
[2023-01-30 07:47] LABS: BUN Creatinine Ratio 24.7 (10-20); Calcium 7.7 mg/dl (8.6-10.3); Creatinine Clr Calc Pharmacy 90.3 ml/min; Est GFR (African American) 109.6 ml/min; Est GFR (Non-African American) 94.6 ml/min; Magnesium 1.9 mg/dl (1.7-2.4); Phosphorus 2.8 mg/dl (2.5-4.9); Potassium 3.8 mmol/L (3.5-5.1)
[2023-01-30] MEDS: HEPARIN SOD 5,000 UNIT/0.5 ML VIAL SQ SCH ×2 (08:51→21:36)
[2023-01-30] MEDS: PANTOprazole 40 MG in SYRINGE 0 ML IV SCH ×2 (08:51→21:37)
[2023-01-30] MEDS: OLANZapine ZYDIS 5 MG ORALLY DIS. TAB PO SCH ×2 (08:51→21:37)
--- NOTE | 2023-01-30 14:01 | Hospitalist Progress Note ---
Date of Service January 30, 2023 Assessment & Plan (1) Abdominal pain: Plan: patient with abdominal pain in the a.m. of 01/23. CT scan ordered with possibility of perforated gastric ulcer. General surgery took to the OR performed oversewing of a large lesser curvature gastric ulcer with perforation and peritoneal soilage, Required pressors now off.. currently on Zosyn For perforated gastric ulcer patient competed 5 days protonix drip now to bid dosing Upper GI series did not show any contrast leakage from the stomach TPN consultation for TPN on 01/26/2023 until patient can take p.o. (2) Sepsis: Plan: sepsis On presentation not related to perforated gastric ulcerfrom pulmonary source however ua resulted with pansensitive E coli, did require pressors- metabolic encephalopathy present on admission, baseline has severe dementia Patient now on Zosyn therapy after perforated gastric ulcer with oversew -previous sepsis work up, did have LP , CSF noted elevated WBC however bloody tap, less concern meningitis CFS panel negative -CT head: No acute intracranial findings. No change in appearance of the brain. blood cx gram +, urine Gram neg, suspect blood is contaminant Code Status: Full, no records with [facility], unable to discuss with patient spoke to [facility] at [place] patient is unable to make decisions it was confirmed there are no family to help make decisions As patient has multiple comorbidities may consider getting power of market stall vendor secured before further hospitalization Nutrition consulted (3) Dementia: Plan: pre hospital diagnosis of alzheimers, donepazil, olanzipine am/pm and celexa, resumed olanzapine in the afternoon of 01/28 we will try to mimic his home dose dosing with a slightly freight elevator operator evening dose. Patient will be on 2.5 the morning and 5 at night (4) HLD (hyperlipidemia): Plan: typially on crestor (5) Seizure-like activity: Plan: concern on admission , EEG was abnormal and showed a moderate generalized encephalopathy as noted by the generalized slowing. There were no focal abnormalities or potentially epileptogenic discharges seen. not started on antiepileptic medications (6) Perforated gastric ulcer: Plan: Please see problem #1 (7) Wound dehiscence: Plan: Abdominal CT raise concerns of wound dehiscence. reclosure of wound dehiscence done on 01/29. Plan Admission and Anticipated Discharge Date Admission Date: January 19, 2023 Subjective patient has no complaints. [employer] guards in the room. Review of Systems Review of Systems: Unobtainable due to cognitive status Physical Exam Physical Exam: General: Awake. Making comments which are unintelligible. Demented baseline. Heart: S1, S2/regular rate and rhythm, no murmur rubs or gallops Lungs: Clear to auscultation bilaterally. Normal effort Abdomen: Dressing on the abdomen. Extremities: No clubbing/cyanosis. No edema Behavior: Cooperative Results & Data Results & Data Vital Signs (Past 12 Hours) Vital Signs Temp Pulse Pulse Resp BP Pulse Ox O2 Del Method 01/30/23 11:23 36.6 C 75 18 169/80 H 94 Nasal Cannula 01/30/23 07:45 Nasal Cannula 01/30/23 07:45 75 01/30/23 07:34 36.4 C L 69 19 154/75 H 97 Room Air 01/30/23 06:27 36.8 C 01/30/23 02:16 37.7 C H 75 16 149/84 H 98 Nasal Cannula O2 Flow Rate 01/30/23 11:23 3 01/30/23 07:45 2 01/30/23 07:45 01/30/23 07:34 01/30/23 06:27 01/30/23 02:16 2 Laboratory Results Abnormal lab results 01/30/23 01/30/23 01/30/23 Range/Units 00:12 06:00 06:53 Chloride 108 H (98-107) mmol/L BUN/Creatinine Ratio 24.7 H (10-20) Glucose 107 H (70-99(Fasting)) mg/dl POC Glucose 123 H 126 H (70-99) mg/dl Calcium 7.7 L (8.6-10.3) mg/dl PG Care Time/CCT Total # of Minutes Spent Total Time Spent with Patient: Total time spent is greater than 50% in coordination of care (as documented) at patient's floor/unit and/or counseling patient: Coding Level of Care Code 61745 SUB INP/OBS CARE 2/35MIN Diagnoses Abdominal pain R10.9 Sepsis A41.9 Sepsis acute organ dysfunction status: unspecified Sepsis type: sepsis due to unspecified organism Dementia F03.90 Dementia behavioral or psychological symptom: unspecified whether behavioral, psychotic, or mood disturbance or anxiety Dementia severity: unspecified severity Dementia type: unspecified type HLD (hyperlipidemia) E78.5 Seizure-like activity R56.9 Perforated gastric ulcer K25.5 Wound dehiscence T81.30XA (2) Sepsis Sepsis acute organ dysfunction status: unspecified Sepsis type: sepsis due to unspecified organism Qualified Code(s): A41.9 - Sepsis, unspecified organism (3) Dementia Dementia behavioral or psychological symptom: unspecified whether behavioral, psychotic, or mood disturbance or anxiety Dementia severity: unspecified severity Dementia type: unspecified type Qualified Code(s): F03.90 - Unspecified dementia, unspecified severity, without behavioral disturbance, psychotic disturbance, mood disturbance, and anxiety
[2023-01-30] MEDS: LACTATED RINGER'S 1,000 ML IV SCH (15:40)
[2023-01-30] MEDS ORDERED: [UNRECOGNIZED DRUG - OTHER] IV SCH (16:00)
[2023-01-30] MEDS ORDERED: CLINOLIPID 20% IV FAT EMULSION 250 ML IV SCH (16:00)
[2023-01-30] MEDS ORDERED: CENTRAL TPN IV SCH (16:00)
[2023-01-31] MEDS: PIPERACILLIN/TAZOBACTAM 4.5 GM in DEXTROSE 5% MINI-B 100 ML IV SCH ×3 (02:03→17:01)
--- NOTE | 2023-01-31 05:46 | Surgery Progress Note ---
Date of Service January 31, 2023 Assessment & Plan (1) Perforated gastric ulcer: Plan: Patient is status post abdominal washout and repair of gastric ulcer on 01/23/2023 (postop day #7) and abdominal reclosure secondary to wound dehiscence on 01/29/2023 (postop day #2): Continue analgesics Continue antiemetics Maintain n.p.o. status for the present time Continue NG tube for the present time. Patient has had loose bowel movement since surgery. Prior to removing NG tube it may be beneficial to perform a Upper GI study to evaluate for extravasation, using the NGT to administer contrast due to hx. of dementia Continue hydration with TPN as ordered. This should continue until oral intake can be advanced and is reliable. Check a.m. labs when available Continue antibiotics in the form of Zosyn Mobilize as able Subcutaneous heparin is in place for DVT prevention (2) Wound dehiscence: Admission and Anticipated Discharge Date Admission Date: January 19, 2023 Supervising Physician Co-Signing Physician Notes I have seen and examined this patient. Midline incision is intact with sherry. No drainage, no swelling. Subjective Patient is resting comfortably in bed. He has underlying dementia which limits his subjective capabilities but at the present time he states "I feel fine." I discussed with the lead assembler nurse attending to the patient. She notes that the patient has not had any nausea or emesis. He has not had any recurrent fevers. She notes that he has had approximately 2 or 3 loose bowel movements since his most recent surgery. Physical Exam Gastrointestinal (Abdomen): Abdomen is mildly distended but it is not rigid. Incision is clean, dry, and intact with sherry. NG tube is in place and is drained approximately 100 cc over the past 24 hours. ANNMARIE drain is in place draining serous/straw-colored fluid and is drained approximately 200 cc over the past 24 hours. Results & Data Vital Signs (Past 12 Hours) Vital Signs Temp Pulse Pulse Resp BP Pulse Ox O2 Del Method 01/30/23 22:30 73 01/31/23 03:00 73 22 164/92 H 98 Nasal Cannula 01/30/23 21:20 Nasal Cannula 01/30/23 23:30 170/75 H 01/30/23 23:00 37.3 C 76 22 187/85 H 98 Nasal Cannula 01/30/23 19:00 37.3 C 76 23 157/85 H 98 Nasal Cannula O2 Flow Rate 01/30/23 22:30 01/31/23 03:00 01/30/23 21:20 2 01/30/23 23:30 01/30/23 23:00 01/30/23 19:00 PG Care Time/CCT Total # of Minutes Spent Total Time Spent with Patient: Total time spent is greater than 50% in coordination of care (as documented) at patient's floor/unit and/or counseling patient: Coding Level of Care Code 87747 Post Operative Follow-Up Diagnoses Perforated gastric ulcer K25.5 Wound dehiscence T81.30XA
[2023-01-31 07:06] LABS: Calcium 8.2 mg/dl (8.6-10.3); Magnesium 1.9 mg/dl (1.7-2.4); Potassium 3.8 mmol/L (3.5-5.1)
[2023-01-31 07:12] LABS: Creatinine Clr Calc Pharmacy 96.3 ml/min; Est GFR (African American) 114.4 ml/min; Est GFR (Non-African American) 98.7 ml/min; Phosphorus 3.1 mg/dl (2.5-4.9)
[2023-01-31] MEDS: HEPARIN SOD 5,000 UNIT/0.5 ML VIAL SQ SCH ×2 (08:57→21:07)
[2023-01-31] MEDS: PANTOprazole 40 MG in SYRINGE 0 ML IV SCH ×2 (08:57→21:07)
[2023-01-31] MEDS: OLANZapine ZYDIS 5 MG ORALLY DIS. TAB PO SCH ×2 (08:58→21:07)
--- NOTE | 2023-01-31 14:19 | Hospitalist Progress Note ---
Date of Service January 31, 2023 Assessment & Plan (1) Abdominal pain: Plan: patient with abdominal pain in the a.m. of 01/23. CT scan ordered with possibility of perforated gastric ulcer. General surgery took to the OR performed oversewing of a large lesser curvature gastric ulcer with perforation and peritoneal soilage, Required pressors now off.. currently on Zosyn For perforated gastric ulcer patient competed 5 days protonix drip now to bid dosing Upper GI series did not show any contrast leakage from the stomach TPN consultation for TPN on 01/26/2023 until patient can take p.o. (2) Sepsis: Plan: sepsis On presentation not related to perforated gastric ulcerfrom pulmonary source however ua resulted with pansensitive E coli, did require pressors- metabolic encephalopathy present on admission, baseline has severe dementia Patient now on Zosyn therapy after perforated gastric ulcer with oversew -previous sepsis work up, did have LP , CSF noted elevated WBC however bloody tap, less concern meningitis CFS panel negative -CT head: No acute intracranial findings. No change in appearance of the brain. blood cx gram +, urine Gram neg, suspect blood is contaminant Code Status: Full, no records with [facility], unable to discuss with patient spoke to [facility] at [place] patient is unable to make decisions it was confirmed there are no family to help make decisions As patient has multiple comorbidities may consider getting power of claims attorney secured before further hospitalization Nutrition consulted (3) Dementia: Plan: pre hospital diagnosis of alzheimers, donepazil, olanzipine am/pm and celexa, resumed olanzapine in the afternoon of 01/28 we will try to mimic his home dose dosing with a slightly geophysics teacher evening dose. Patient will be on 2.5 the morning and 5 at night (4) HLD (hyperlipidemia): Plan: typically on crestor (5) Seizure-like activity: Plan: concern on admission , EEG was abnormal and showed a moderate generalized encephalopathy as noted by the generalized slowing. There were no focal abnormalities or potentially epileptogenic discharges seen. not started on antiepileptic medications (6) Perforated gastric ulcer: Plan: Please see problem #1 (7) Wound dehiscence: Plan: Abdominal CT raised concerns of wound dehiscence. reclosure of wound dehiscence done on 01/29. Plan Admission and Anticipated Discharge Date Admission Date: January 19, 2023 Subjective Patient does not provide much of the history. Review of Systems Review of Systems: Unobtainable due to cognitive status Physical Exam Physical Exam: General: Awake. Making comments which are unintelligible. Demented baseline. Heart: S1, S2/regular rate and rhythm, no murmur rubs or gallops Lungs: Clear to auscultation bilaterally. Normal effort Abdomen: Dressing on the abdomen. Extremities: No clubbing/cyanosis. No edema Behavior: Cooperative Results & Data Results & Data Vital Signs (Past 12 Hours) Vital Signs Temp Pulse Pulse Pulse Resp BP Pulse Ox 01/31/23 11:24 36.6 C 72 18 150/76 H 94 01/31/23 07:40 01/31/23 07:40 74 01/31/23 07:39 36.6 C 74 16 147/85 H 100 01/31/23 03:00 73 22 164/92 H 98 O2 Del Method O2 Flow Rate 01/31/23 11:24 Nasal Cannula 2.0 01/31/23 07:40 Nasal Cannula 2 01/31/23 07:40 01/31/23 07:39 Nasal Cannula 3 01/31/23 03:00 Nasal Cannula Laboratory Results Abnormal lab results 01/31/23 Range/Units 06:30 BUN/Creatinine Ratio 26.0 H (10-20) Calcium 8.2 L (8.6-10.3) mg/dl PG Care Time/CCT Total # of Minutes Spent Total Time Spent with Patient: Total time spent is greater than 50% in coordination of care (as documented) at patient's floor/unit and/or counseling patient: Coding Level of Care Code 97399 SUB INP/OBS CARE 2/35MIN Diagnoses Abdominal pain R10.9 Sepsis A41.9 Sepsis acute organ dysfunction status: unspecified Sepsis type: sepsis due to unspecified organism Dementia F03.90 Dementia behavioral or psychological symptom: unspecified whether behavioral, psychotic, or mood disturbance or anxiety Dementia severity: unspecified severity Dementia type: unspecified type HLD (hyperlipidemia) E78.5 Seizure-like activity R56.9 Perforated gastric ulcer K25.5 Wound dehiscence T81.30XA (2) Sepsis Sepsis acute organ dysfunction status: unspecified Sepsis type: sepsis due to unspecified organism Qualified Code(s): A41.9 - Sepsis, unspecified organism (3) Dementia Dementia behavioral or psychological symptom: unspecified whether behavioral, psychotic, or mood disturbance or anxiety Dementia severity: unspecified severity Dementia type: unspecified type Qualified Code(s): F03.90 - Unspecified dementia, unspecified severity, without behavioral disturbance, psychotic disturbance, mood disturbance, and anxiety
[2023-01-31] MEDS: LACTATED RINGER'S 1,000 ML IV SCH (15:43)
[2023-01-31] MEDS ORDERED: [UNRECOGNIZED DRUG - OTHER] IV SCH (16:00)
[2023-01-31] MEDS ORDERED: CLINOLIPID 20% IV FAT EMULSION 250 ML IV SCH (16:00)
[2023-01-31] MEDS ORDERED: CENTRAL TPN IV SCH (16:00)
[2023-02-01] MEDS: PIPERACILLIN/TAZOBACTAM 4.5 GM in DEXTROSE 5% MINI-B 100 ML IV SCH ×3 (02:53→16:58)
[2023-02-01 07:39] LABS: BUN Creatinine Ratio 27.8 (10-20); Calcium 7.9 mg/dl (8.6-10.3); Creatinine Clr Calc Pharmacy 93.4 ml/min; Est GFR (African American) 115.1 ml/min; Est GFR (Non-African American) 99.3 ml/min; Magnesium 1.9 mg/dl (1.7-2.4); Phosphorus 3.5 mg/dl (2.5-4.9); Potassium 4.3 mmol/L (3.5-5.1)
[2023-02-01] MEDS: HEPARIN SOD 5,000 UNIT/0.5 ML VIAL SQ SCH ×2 (08:18→20:26)
[2023-02-01] MEDS: OLANZapine ZYDIS 5 MG ORALLY DIS. TAB PO SCH ×2 (08:19→20:26)
[2023-02-01] MEDS: PANTOprazole 40 MG in SYRINGE 0 ML IV SCH ×2 (08:19→20:26)
--- NOTE | 2023-02-01 10:39 | Surgery Progress Note ---
Date of Service February 01, 2023 Assessment & Plan (1) Wound dehiscence: (2) Perforated gastric ulcer: Plan doing well. Gastric upper GI leak test was negative on Wednesday. We will remove NG tube today. May start clears. Continue to monitor. Admission and Anticipated Discharge Date Admission Date: January 19, 2023 Subjective seems to be doing fairly well today. No complaints. No signs of pain or tenderness Physical Exam Physical Exam: AFVSS NAD, & O x3 Abdomen: Soft, nontender Dressings clean/dry/intact Incision with sherry ANNMARIE drain with serous fluid, minimal Results & Data Vital Signs (Past 12 Hours) Vital Signs Temp Pulse Pulse Resp BP Pulse Ox O2 Del Method 02/01/23 08:00 83 02/01/23 08:15 36.7 C 74 18 171/82 H 100 Nasal Cannula 02/01/23 07:58 Nasal Cannula 02/01/23 03:00 36.4 C L 87 16 150/78 H 98 Nasal Cannula 02/01/23 00:00 79 01/31/23 23:00 36.5 C 77 16 169/88 H 97 Nasal Cannula O2 Flow Rate 02/01/23 08:00 02/01/23 08:15 2.0 02/01/23 07:58 2 02/01/23 03:00 02/01/23 00:00 01/31/23 23:00 Laboratory Results 02/01/23 02/01/23 02/01/23 Range/Units 07:05 06:27 00:24 Sodium 137 (136-145) mmol/L Potassium 4.3 (3.5-5.1) mmol/L Chloride 106 (98-107) mmol/L Carbon Dioxide 25 (21-32) mmol/L Anion Gap 6 (3-11) BUN 20 (6-23) mg/dl Creatinine 0.72 (0.6-1.4) mg/dl Est Cr Clr Drug Dosing 93.4 ml/min Est GFR ( Amer) 115.1 ml/min Est GFR (Non-Af Amer) 99.3 ml/min BUN/Creatinine Ratio 27.8 H (10-20) Glucose 113 H (70-99(Fasting)) mg/dl POC Glucose 114 H 79 (70-99) mg/dl Calcium 7.9 L (8.6-10.3) mg/dl Phosphorus 3.5 (2.5-4.9) mg/dl Magnesium 1.9 (1.7-2.4) mg/dl Triglycerides 75 (0-150) mg/dl 01/31/23 01/31/23 Range/Units 18:08 12:06 Sodium (136-145) mmol/L Potassium (3.5-5.1) mmol/L Chloride (98-107) mmol/L Carbon Dioxide (21-32) mmol/L Anion Gap (3-11) BUN (6-23) mg/dl Creatinine (0.6-1.4) mg/dl Est Cr Clr Drug Dosing ml/min Est GFR ( Amer) ml/min Est GFR (Non-Af Amer) ml/min BUN/Creatinine Ratio (10-20) Glucose (70-99(Fasting)) mg/dl POC Glucose 97 74 (70-99) mg/dl Calcium (8.6-10.3) mg/dl Phosphorus (2.5-4.9) mg/dl Magnesium (1.7-2.4) mg/dl Triglycerides (0-150) mg/dl
--- NOTE | 2023-02-01 11:05 | Pharmacy Report ---
PHA: Parenteral Nutrition Con - Date of Service February 01, 2023 - Scope Pharmacy was consulted on 01/26/23 to manage parenteral nutrition orders for this patient. - Subjective The patient is currently on day 7 of central parenteral nutrition for prolonged NPO status secondary to perforated gastric ulcer. - Objective Height: 5 ft 8 in Weight: 62.9 kg Diet: NPO Intake & Output (24hrs):: Intake & Output 01/30/23 01/31/23 02/01/23 02/02/23 06:59 06:59 06:59 06:59 Intake Total 3669.083 / 3669.083 2970.5 / 2970.5 2960.75 / 2960.75 Output Total 3511 / 3511 4686 / 4686 4485 / 4485 300 / 300 Balance 158.083 / 158.083 -1715.5 / -1715.5 -1524.25 / -1524.25 -300 / -300 Weight 69.2 kg 65.7 kg 62.9 kg Laboratory Data (Last 24 Hr):: 02/01/23 07:05 Sodium 137 Potassium 4.3 Chloride 106 Carbon Dioxide 25 BUN 20 Creatinine 0.72 Glucose 113 H Calcium 7.9 L Phosphorus 3.5 Magnesium 1.9 Triglycerides 75 Nutrition Assessment:: Please refer to the Notes section of the EMR for the most recent diesel dinkey engineer note. - Assessment * PN remains at goal, providing 1646 kcal/day * GI leak test negative, NG tube removed * Diet advanced to clear liquid diet today, continue PN today per surgery * Electrolytes remain stable w/ only minor changes to PN formulation * Continues on LR @35 mL/hr in addition to PN * Will need to reassess daily for continued need for PN as diet is advanced - Plan For day 7 of PN administration, the following will be ordered: Macronutrients Amino acids 115 grams/day Dextrose 202 grams/day Lipids 50 grams/day Micronutrients Sodium phosphate 30 MMol Sodium chloride 40 mEq Sodium acetate 120 mEq Potassium acetate 60 mEq Magnesium sulfate 8.12 mEq Calcium gluconate 4.65 mEq Multivitamins 10 mL Trace Elements 1 mL Total volume 1579 mL to be infused over 24 hrs will provide 1646 kcal/day Labs, as indicated, will be ordered per protocol Pharmacy will continue to follow and adjust parenteral nutrition orders on a daily basis. Thank you for allowing us to participate in the care of this patient.
[2023-02-01] MEDS: LACTATED RINGER'S 1,000 ML IV SCH (14:57)
[2023-02-01] MEDS: HYDROmorphone INJ 1 MG/ML SYRINGE IV PRN (15:02)
--- NOTE | 2023-02-01 15:16 | Hospitalist Progress Note ---
Date of Service February 01, 2023 Assessment & Plan (1) Abdominal pain: Plan: patient with abdominal pain in the a.m. of 01/23. CT scan ordered with possibility of perforated gastric ulcer. General surgery took to the OR performed oversewing of a large lesser curvature gastric ulcer with perforation and peritoneal soilage, Required pressors now off.. currently on Zosyn For perforated gastric ulcer patient competed 5 days protonix drip now to bid dosing Upper GI series did not show any contrast leakage from the stomach TPN consultation for TPN on 01/26/2023 until patient can take p.o. patient is now on clear liquid diet, started today. Plan is to continue the TPN for now until tolerates advancing diet. (2) Sepsis: Plan: sepsis On presentation not related to perforated gastric ulcerfrom pulmonary source however ua resulted with pansensitive E coli, did require pressors- metabolic encephalopathy present on admission, baseline has severe dementia Patient now on Zosyn therapy after perforated gastric ulcer with oversew -previous sepsis work up, did have LP , CSF noted elevated WBC however bloody tap, less concern meningitis CFS panel negative -CT head: No acute intracranial findings. No change in appearance of the brain. blood cx gram +, urine Gram neg, suspect blood is contaminant Code Status: Full, no records with [facility], unable to discuss with patient spoke to [facility] at [place] patient is unable to make decisions it was confirmed there are no family to help make decisions As patient has multiple comorbidities may consider getting power of wage analyst secured before further hospitalization Nutrition consulted (3) Dementia: Plan: pre hospital diagnosis of alzheimers, donepazil, olanzipine am/pm and celexa, resumed olanzapine in the afternoon of 01/28 we will try to mimic his home dose dosing with a slightly radio/tv technician evening dose. Patient will be on 2.5 the morning and 5 at night (4) HLD (hyperlipidemia): Plan: typically on crestor (5) Seizure-like activity: Plan: concern on admission , EEG was abnormal and showed a moderate generalized encephalopathy as noted by the generalized slowing. There were no focal abnormalities or potentially epileptogenic discharges seen. not started on antiepileptic medications (6) Perforated gastric ulcer: Plan: Please see problem #1 (7) Wound dehiscence: Plan: Abdominal CT raised concerns of wound dehiscence. reclosure of wound dehiscence done on 01/29. Plan Admission and Anticipated Discharge Date Admission Date: January 19, 2023 Subjective patient mumbles unintelligibly. Does not appear to be in any pain Review of Systems Review of Systems: Unobtainable due to cognitive status Physical Exam Physical Exam: General: Awake. Making comments which are unintelligible. Demented baseline. Heart: S1, S2/regular rate and rhythm, no murmur rubs or gallops Lungs: Clear to auscultation bilaterally. Normal effort Abdomen: Dressing on the abdomen. Extremities: No clubbing/cyanosis. No edema Behavior: Cooperative Results & Data Results & Data Vital Signs (Past 12 Hours) Vital Signs Temp Pulse Pulse Resp BP Pulse Ox O2 Del Method 02/01/23 12:54 36.3 C L 77 24 151/74 H 98 Nasal Cannula 02/01/23 08:00 83 02/01/23 08:15 36.7 C 74 18 171/82 H 100 Nasal Cannula 02/01/23 07:58 Nasal Cannula O2 Flow Rate 02/01/23 12:54 2 02/01/23 08:00 02/01/23 08:15 2.0 02/01/23 07:58 2 Laboratory Results Abnormal lab results 02/01/23 02/01/23 Range/Units 06:27 07:05 BUN/Creatinine Ratio 27.8 H (10-20) Glucose 113 H (70-99(Fasting)) mg/dl POC Glucose 114 H (70-99) mg/dl Calcium 7.9 L (8.6-10.3) mg/dl PG Care Time/CCT Total # of Minutes Spent Total Time Spent with Patient: Total time spent is greater than 50% in coordination of care (as documented) at patient's floor/unit and/or counseling patient: Coding Level of Care Code 08477 SUB INP/OBS CARE 2/35MIN Diagnoses Abdominal pain R10.9 Sepsis A41.9 Sepsis acute organ dysfunction status: unspecified Sepsis type: sepsis due to unspecified organism Dementia F03.90 Dementia behavioral or psychological symptom: unspecified whether behavioral, psychotic, or mood disturbance or anxiety Dementia severity: unspecified severity Dementia type: unspecified type HLD (hyperlipidemia) E78.5 Seizure-like activity R56.9 Perforated gastric ulcer K25.5 Wound dehiscence T81.30XA (2) Sepsis Sepsis acute organ dysfunction status: unspecified Sepsis type: sepsis due to unspecified organism Qualified Code(s): A41.9 - Sepsis, unspecified organism (3) Dementia Dementia behavioral or psychological symptom: unspecified whether behavioral, psychotic, or mood disturbance or anxiety Dementia severity: unspecified severity Dementia type: unspecified type Qualified Code(s): F03.90 - Unspecified dementia, unspecified severity, without behavioral disturbance, psychotic disturbance, mood disturbance, and anxiety
[2023-02-01] MEDS ORDERED: [UNRECOGNIZED DRUG - OTHER] IV SCH (16:00)
[2023-02-01] MEDS ORDERED: CENTRAL TPN IV SCH (16:00)
[2023-02-01] MEDS ORDERED: CLINOLIPID 20% IV FAT EMULSION 250 ML IV SCH (16:00)
[2023-02-02] MEDS: HEPARIN SOD 5,000 UNIT/0.5 ML VIAL SQ SCH ×2 (08:28→20:53)
[2023-02-02] MEDS: PANTOprazole 40 MG in SYRINGE 0 ML IV SCH ×2 (08:28→20:54)
[2023-02-02] MEDS: OLANZapine ZYDIS 5 MG ORALLY DIS. TAB PO SCH ×2 (08:29→20:52)
[2023-02-02 09:10] LABS: Hemoglobin 10.5 g/dl (14.0-18.0); Mean Corpuscular Hemoglobin 27.6 pg (25.0-34.0); Mean Corpuscular Hgb Conc 33.9 g/dL (32.0-36.0); Mean Corpuscular Volume 81.4 fL (80.0-100.0); Mean Platelet Volume 10.4 fL (9.4-12.4); Nucleated RBC # (auto) 0.02 K/uL (0.00-0.12); Nucleated RBC % (auto) 0.2 %; Platelet Count 796 K/uL (130-400); RDW Coefficient of Variation 14.4 % (11.5-14.5); RDW Standard Deviation 41.9 fL (36.4-46.3); Red Blood Count 3.81 M/uL (4.70-6.10); White Blood Count 12.76 K/ul (4.8-10.8)
[2023-02-02 09:26] LABS: BUN Creatinine Ratio 31.9 (10-20); Calcium 8.5 mg/dl (8.6-10.3); Creatinine Clr Calc Pharmacy 95.6 ml/min; Est GFR (African American) 117.1 ml/min; Potassium 4.8 mmol/L (3.5-5.1)
[2023-02-02 09:31] LABS: Basophils # (auto) 0.07 K/uL (0.00-0.20); Basophils % (auto) 0.5 %; Eosinophils # (auto) 0.16 K/uL (0.00-0.50); Eosinophils % (auto) 1.3 %; Immature Granulocytes # (auto) 0.52 K/uL (0.01-0.20); Immature Granulocytes % (auto) 4.1 %; Lymphocytes # (auto) 2.76 K/uL (1.20-3.40); Lymphocytes % (auto) 21.6 %; Monocytes # (auto) 0.89 K/uL (0.11-0.59); Neutrophils # (auto) 8.36 K/uL (1.40-6.50); Neutrophils % (auto) 65.5 %; Polychromasia 1+
--- NOTE | 2023-02-02 13:25 | Surgery Progress Note ---
Date of Service February 02, 2023 Assessment & Plan (1) Wound dehiscence: (2) Perforated gastric ulcer: Plan doing well. Gastric upper GI leak test was negative on Wednesday. tolerating clears. advance diet as tolerated. continue TPN. Continue to monitor. Admission and Anticipated Discharge Date Admission Date: January 19, 2023 Subjective seems to be doing well today; no signs of pain Physical Exam Physical Exam: AFVSS NAD, & O x3 Abdomen: Soft, nontender Dressings clean/dry/intact Incision with sherry ANNMARIE drain with serous fluid, minimal Results & Data Vital Signs (Past 12 Hours) Vital Signs Temp Pulse Pulse Resp BP Pulse Ox O2 Del Method 02/02/23 12:12 36.5 C 91 H 18 146/96 H 94 Nasal Cannula 02/02/23 07:10 36.6 C 77 18 145/76 H 99 Nasal Cannula 02/02/23 02:47 36.5 C 73 18 150/72 H 94 Nasal Cannula O2 Flow Rate 02/02/23 12:12 2.0 02/02/23 07:10 2.0 02/02/23 02:47
[2023-02-02] MEDS: LACTATED RINGER'S 1,000 ML IV SCH (14:37)
--- NOTE | 2023-02-02 14:44 | Hospitalist Progress Note ---
Date of Service February 02, 2023 Assessment & Plan (1) Abdominal pain: Plan: patient with abdominal pain in the a.m. of 01/23. CT scan ordered with possibility of perforated gastric ulcer. General surgery took to the OR performed oversewing of a large lesser curvature gastric ulcer with perforation and peritoneal soilage, Required pressors now off.. currently on Zosyn For perforated gastric ulcer patient competed 5 days protonix drip now to bid dosing Upper GI series did not show any contrast leakage from the stomach TPN consultation for TPN on 01/26/2023 until patient can take p.o. patient is now on clear liquid diet, started 02/01. Plan is to continue the TPN for now until p.o. intake affirmed. (2) Sepsis: Plan: sepsis On presentation not related to perforated gastric ulcerfrom pulmonary source however ua resulted with pansensitive E coli, did require pressors- metabolic encephalopathy present on admission, baseline has severe dementia Patient now on Zosyn therapy after perforated gastric ulcer with oversew -previous sepsis work up, did have LP , CSF noted elevated WBC however bloody tap, less concern meningitis CFS panel negative -CT head: No acute intracranial findings. No change in appearance of the brain. blood cx gram +, urine Gram neg, suspect blood is contaminant Code Status: Full, no records with [facility], unable to discuss with patient spoke to [facility] at [place] patient is unable to make decisions it was confirmed there are no family to help make decisions As patient has multiple comorbidities may consider getting power of senior storage administrator secured before further hospitalization Nutrition consulted (3) Dementia: Plan: pre hospital diagnosis of alzheimers, donepazil, olanzipine am/pm and celexa, resumed olanzapine in the afternoon of 01/28 we will try to mimic his home dose dosing with a slightly memorial adviser evening dose. Patient will be on 2.5 the morning and 5 at night (4) HLD (hyperlipidemia): Plan: typically on crestor (5) Seizure-like activity: Plan: concern on admission , EEG was abnormal and showed a moderate generalized encephalopathy as noted by the generalized slowing. There were no focal abnormalities or potentially epileptogenic discharges seen. not started on antiepileptic medications (6) Perforated gastric ulcer: Plan: Please see problem #1 (7) Wound dehiscence: Plan: Abdominal CT raised concerns of wound dehiscence. reclosure of wound dehiscence done on 01/29. Plan Admission and Anticipated Discharge Date Admission Date: January 19, 2023 Subjective per residential guards in the room, patient has not been finishing his clear liquid tray. He He has only been drinking water. Review of Systems Review of Systems: Unobtainable due to cognitive status Physical Exam Physical Exam: General: Awake. Making comments which are unintelligible. Demented baseline. Heart: S1, S2/regular rate and rhythm, no murmur rubs or gallops Lungs: Clear to auscultation bilaterally. Normal effort Abdomen: Dressing on the abdomen. Extremities: No clubbing/cyanosis. No edema Behavior: Cooperative Results & Data Results & Data Vital Signs (Past 12 Hours) Vital Signs Temp Pulse Pulse Resp BP Pulse Ox O2 Del Method 02/02/23 12:12 36.5 C 91 H 18 146/96 H 94 Nasal Cannula 02/02/23 07:10 36.6 C 77 18 145/76 H 99 Nasal Cannula 02/02/23 02:47 36.5 C 73 18 150/72 H 94 Nasal Cannula O2 Flow Rate 02/02/23 12:12 2.0 02/02/23 07:10 2.0 02/02/23 02:47 Laboratory Results Abnormal lab results 02/02/23 02/02/23 02/02/23 Range/Units 08:39 08:39 12:09 WBC 12.76 H (4.8-10.8) K/ul RBC 3.81 L (4.70-6.10) M/uL Hgb 10.5 L (14.0-18.0) g/dl Hct 31.0 L (42.0-52.0) % Plt Count 796 H (130-400) K/uL Neut # (Auto) 8.36 H (1.40-6.50) K/uL [place] # (Auto) 0.89 H (0.11-0.59) K/uL Immature Gran # (Auto) 0.52 H (0.01-0.20) K/uL BUN/Creatinine Ratio 31.9 H (10-20) Glucose 111 H (70-99(Fasting)) mg/dl POC Glucose 102 H (70-99) mg/dl Calcium 8.5 L (8.6-10.3) mg/dl PG Care Time/CCT Total # of Minutes Spent Total Time Spent with Patient: Total time spent is greater than 50% in coordination of care (as documented) at patient's floor/unit and/or counseling patient: Coding Level of Care Code 01756 SUB INP/OBS CARE 2/35MIN Diagnoses Abdominal pain R10.9 Sepsis A41.9 Sepsis acute organ dysfunction status: unspecified Sepsis type: sepsis due to unspecified organism Dementia F03.90 Dementia behavioral or psychological symptom: unspecified whether behavioral, psychotic, or mood disturbance or anxiety Dementia severity: unspecified severity Dementia type: unspecified type HLD (hyperlipidemia) E78.5 Seizure-like activity R56.9 Perforated gastric ulcer K25.5 Wound dehiscence T81.30XA (2) Sepsis Sepsis acute organ dysfunction status: unspecified Sepsis type: sepsis due to unspecified organism Qualified Code(s): A41.9 - Sepsis, unspecified organism (3) Dementia Dementia behavioral or psychological symptom: unspecified whether behavioral, psychotic, or mood disturbance or anxiety Dementia severity: unspecified severity Dementia type: unspecified type Qualified Code(s): F03.90 - Unsp ecified dementia, unspecified severity, without behavioral disturbance, psychotic disturbance, mood disturbance, and anxiety
[2023-02-02] MEDS ORDERED: CENTRAL TPN IV SCH (16:00)
[2023-02-02] MEDS ORDERED: [UNRECOGNIZED DRUG - OTHER] IV SCH (16:00)
[2023-02-02] MEDS ORDERED: CLINOLIPID 20% IV FAT EMULSION 250 ML IV SCH (16:00)
[2023-02-02] MEDS: HYDROmorphone INJ 1 MG/ML SYRINGE IV PRN (22:22)
[2023-02-03] MEDS: HYDROmorphone INJ 1 MG/ML SYRINGE IV PRN ×3 (04:11→22:07)
[2023-02-03] MEDS: PANTOprazole 40 MG in SYRINGE 0 ML IV SCH ×2 (09:05→22:12)
[2023-02-03] MEDS: OLANZapine ZYDIS 5 MG ORALLY DIS. TAB PO SCH ×2 (09:06→22:12)
[2023-02-03] MEDS: HEPARIN SOD 5,000 UNIT/0.5 ML VIAL SQ SCH ×2 (09:08→22:10)
[2023-02-03 09:14] LABS: Bilirubin,Total 0.4 mg/dl (0.2-1.0); Calcium 8.2 mg/dl (8.6-10.3); Creatinine Clr Calc Pharmacy 107.8 ml/min; Est GFR (African American) 123.2 ml/min; Est GFR (Non-African American) 106.3 ml/min; Magnesium 1.9 mg/dl (1.7-2.4); Phosphorus 3.4 mg/dl (2.5-4.9); Potassium 4.3 mmol/L (3.5-5.1)
--- NOTE | 2023-02-03 13:07 | Hospitalist Progress Note ---
Date of Service February 03, 2023 Assessment & Plan (1) Perforated gastric ulcer: Plan: Patient with abdominal pain in the a.m. of 01/23. CT scan ordered with possibility of perforated gastric ulcer. General surgery took to the OR performed oversewing of a large lesser curvature gastric ulcer with perforation and peritoneal soilage, Required pressors now off.. currently on Zosyn For perforated gastric ulcer patient competed 5 days protonix drip now to bid dosing Upper GI series did not show any contrast leakage from the stomach TPN consultation for TPN on 01/26/2023 until patient can take p.o. patient is now on clear liquid diet, started 02/01. Plan is to continue the TPN for now until p.o. intake affirmed. patient drank broth better today but still not enough p.o. intake. We will continue TPN for now. (2) Abdominal pain: Plan: Please see problem #1 (3) Wound dehiscence: Plan: Abdominal CT raised concerns of wound dehiscence. reclosure of wound dehiscence done on 01/29. (4) Sepsis: Plan: sepsis On presentation not related to perforated gastric ulcerfrom pulmonary source however ua resulted with pansensitive E coli, did require pressors- metabolic encephalopathy present on admission, baseline has severe dementia Patient now on Zosyn therapy after perforated gastric ulcer with oversew -previous sepsis work up, did have LP , CSF noted elevated WBC however bloody tap, less concern meningitis CFS panel negative -CT head: No acute intracranial findings. No change in appearance of the brain. blood cx gram +, urine Gram neg, suspect blood is contaminant Code Status: Full, no records with [facility], unable to discuss with patient spoke to [facility] at [place] patient is unable to make decisions it was confirmed there are no family to help make decisions As patient has multiple comorbidities may consider getting power of assistant district attorney secured before further hospitalization Nutrition consulted (5) Dementia: Plan: pre hospital diagnosis of alzheimers, donepazil, olanzipine am/pm and celexa, resumed olanzapine in the afternoon of 01/28 we will try to mimic his home dose dosing with a slightly cigar bander evening dose. Patient will be on 2.5 the morning and 5 at night (6) HLD (hyperlipidemia): Plan: typically on crestor (7) Seizure-like activity: Plan: concern on admission , EEG was abnormal and showed a moderate generalized encephalopathy as noted by the generalized slowing. There were no focal abnormalities or potentially epileptogenic discharges seen. not started on antiepileptic medications Plan Admission and Anticipated Discharge Date Admission Date: January 19, 2023 Subjective per [employer] member in the room, patient is still not having enough p.o. intake. He did however drink the broth better today. Review of Systems Review of Systems: Unobtainable due to cognitive status Physical Exam Physical Exam: General: Awake. Making comments which are unintelligible. Demented baseline. does not appear to be in significant pain. Heart: S1, S2/regular rate and rhythm, no murmur rubs or gallops Lungs: Clear to auscultation bilaterally. Normal effort Abdomen: Dressing on the abdomen. Extremities: No clubbing/cyanosis. No edema Behavior: Cooperative Results & Data Results & Data Vital Signs (Past 12 Hours) Vital Signs Temp Pulse Pulse Pulse Resp BP Pulse Ox 02/03/23 11:25 36.8 C 84 20 144/74 H 99 02/03/23 08:00 36.4 C L 53 L 18 160/84 H 98 02/03/23 07:14 51 L 02/03/23 02:44 36.7 C 76 18 146/85 H 94 O2 Del Method 02/03/23 11:25 Room Air 02/03/23 08:00 Room Air 02/03/23 07:14 02/03/23 02:44 Nasal Cannula Laboratory Results Abnormal lab results 02/03/23 02/03/23 02/03/23 Range/Units 01:00 08:37 11:13 BUN 25 H (6-23) mg/dl BUN/Creatinine Ratio 41.0 H (10-20) Glucose 109 H (70-99(Fasting)) mg/dl POC Glucose 118 H 100 H (70-99) mg/dl Calcium 8.2 L (8.6-10.3) mg/dl AST 129 H (13-39) U/L Alkaline Phosphatase 124 H (34-104) U/L PG Care Time/CCT Total # of Minutes Spent Total Time Spent with Patient: Total time spent is greater than 50% in coordination of care (as documented) at patient's floor/unit and/or counseling patient: Coding Level of Care Code 88770 SUB INP/OBS CARE 2/35MIN Diagnoses Perforated gastric ulcer K25.5 Abdominal pain R10.9 Wound dehiscence T81.30XA Sepsis A41.9 Sepsis acute organ dysfunction status: unspecified Sepsis type: sepsis due to unspecified organism Dementia F03.90 Dementia behavioral or psychological symptom: unspecified whether behavioral, psychotic, or mood disturbance or anxiety Dementia severity: unspecified severity Dementia type: unspecified type HLD (hyperlipidemia) E78.5 Seizure-like activity R56.9 (4) Sepsis Sepsis acute organ dysfunction status: unspecified Sepsis type: sepsis due to unspecified organism Qualified Code(s): A41.9 - Sepsis, unspecified organism (5) Dementia Dementia behavioral or psychological symptom: unspecified whether behavioral, psychotic, or mood disturbance or anxiety Dementia severity: unspecified severity Dementia type: unspecified type Qualified Code(s): F03.90 - Unspecified dementia, unspecified severity, without behavioral disturbance, psychotic disturbance, mood disturbance, and anxiety
[2023-02-03] MEDS: LACTATED RINGER'S 1,000 ML IV SCH (13:37)
[2023-02-03] MEDS ORDERED: [UNRECOGNIZED DRUG - OTHER] IV SCH (16:00)
[2023-02-03] MEDS ORDERED: CENTRAL TPN IV SCH (16:00)
[2023-02-03] MEDS ORDERED: CLINOLIPID 20% IV FAT EMULSION 250 ML IV SCH (16:00)
[2023-02-04] MEDS: HYDROmorphone INJ 1 MG/ML SYRINGE IV PRN ×3 (04:32→22:13)
[2023-02-04 07:36] LABS: BUN Creatinine Ratio 35.8 (10-20); Calcium 8.7 mg/dl (8.6-10.3); Creatinine Clr Calc Pharmacy 98.6 ml/min; Est GFR (African American) 118.5 ml/min; Est GFR (Non-African American) 102.3 ml/min; Magnesium 1.9 mg/dl (1.7-2.4); Phosphorus 3.5 mg/dl (2.5-4.9); Potassium 4.3 mmol/L (3.5-5.1)
[2023-02-04] MEDS: OLANZapine ZYDIS 5 MG ORALLY DIS. TAB PO SCH ×2 (08:11→20:24)
[2023-02-04] MEDS: PANTOprazole 40 MG in SYRINGE 0 ML IV SCH ×2 (08:11→20:23)
[2023-02-04] MEDS: HEPARIN SOD 5,000 UNIT/0.5 ML VIAL SQ SCH ×2 (08:11→20:22)
--- NOTE | 2023-02-04 09:22 | Neurology Progress Note ---
Date of Service February 04, 2023 Assessment & Plan (1) Acute encephalopathy: (2) Observed seizure-like activity: (3) Dementia: (4) Abnormal involuntary movements: (5) Rigidity: Plan Patient has a significant underlying dementia and tends to be agitated not overly cooperative. Olanzapine has helped some. Unfortunately the patient has had abnormal involuntary movements and rigidity which may be secondary to the neuroleptic. He had observed seizure-like activity but evaluation was unremarkable and no anticonvulsants were initiated. Recommendations: 1. There is no need for anticonvulsants at this time. Should he have any convincing seizure activity I would consider 1 g loading dose of IV levetiracetam. 2. With his advanced dementia I am not certain what medications would be helpful. Neuroleptics will tend to increase rigidity and abnormal involuntary movements and pain medications/benzodiazepines will make him more sleepy. Overall, I spent a total of 35 minutes with this case including review of records, direct evaluation the patient at bedside, and discussion of the case with RN at bedside. Admission and Anticipated Discharge Date Admission Date: January 19, 2023 Subjective Patient has had no seizure activity according to nursing. The patient has been sleepy but received hydromorphone. He has had agitation and is on Zyprexa 2.5 mg in the morning and 5 mg at night. He is not been needing extra Haldol or lorazepam recently. He had a perforated gastric ulcer and sepsis which is more stable currently. He has significant dementia which is unchanged. Results & Data Vital Signs (Past 12 Hours) Vital Signs Temp Pulse Pulse Resp BP Pulse Ox O2 Del Method 02/04/23 08:46 Room Air 02/04/23 08:00 56 L 02/04/23 07:36 35.8 C L 71 16 147/86 H 100 Nasal Cannula 02/04/23 03:00 36.3 C L 63 16 160/89 H 96 Nasal Cannula 02/04/23 00:00 78 02/03/23 23:00 67 22 163/86 H 99 Room Air O2 Flow Rate 02/04/23 08:46 02/04/23 08:00 02/04/23 07:36 2 02/04/23 03:00 02/04/23 00:00 02/03/23 23:00 Exam (Neuro) Physical Exam: When I 1st went in the room, he was awake and alert. He had eyes opening for a brief period and told me his name. He followed one-step commands a little bit at 1st but then became somewhat upset/anger/agitated crying out in pain with little to no stimulation. The patient is in 4 point restraints with hand cuffs in all 4 limbs because of his agitation. He resisted movement in all directions in all 4 limbs. He is quite strong. There is no facial droop and tongue is midline. I noted no abnormal involuntary movements. It was too difficult to assess for rigidity because the patient was resisting all movement. PG Care Time/CCT Total # of Minutes Spent Total Time Spent with Patient: Total time spent is greater than 50% in coordination of care (as documented) at patient's floor/unit and/or counseling patient: Coding Level of Care Code 08652 SUB INP/OBS CARE 235MIN Diagnoses Acute encephalopathy G93.40 Observed seizure-like activity R56.9 Dementia F03.90 Dementia behavioral or psychological symptom: unspecified whether behavioral, psychotic, or mood disturbance or anxiety Dementia severity: unspecified severity Dementia type: unspecified type Abnormal involuntary movements R25.9 Rigidity R29.898 Time Spent (min) 35 (3) Dementia Dementia behavioral or psychological symptom: unspecified whether behavioral, psychotic, or mood disturbance or anxiety Dementia severity: unspecified severity Dementia type: unspecified type Qualified Code(s): F03.90 - Unspecified dementia, unspecified severity, without behavioral disturbance, psychotic disturbance, mood disturbance, and anxiety
--- NOTE | 2023-02-04 15:34 | Hospitalist Progress Note ---
Date of Service February 04, 2023 Assessment & Plan (1) Perforated gastric ulcer: Plan: Patient with abdominal pain in the a.m. of 01/23. CT scan ordered with possibility of perforated gastric ulcer. General surgery took to the OR performed oversewing of a large lesser curvature gastric ulcer with perforation and peritoneal soilage, Required pressors now off.. currently on Zosyn For perforated gastric ulcer patient competed 5 days protonix drip now to bid dosing Upper GI series did not show any contrast leakage from the stomach Patient has been on TPN from 01/26 till 02/04. Has been on a clear liquid diet with unreliable intake. Decided to stop TPN today. Spoke to the nurse about feeding him his meals. We will increase the IV fluid rate to 70 mils an hour until he is able to keep enough fluid reliably (2) Abdominal pain: Plan: Please see problem #1 (3) Wound dehiscence: Plan: Abdominal CT raised concerns of wound dehiscence. reclosure of wound dehiscence done on 01/29. (4) Sepsis: Plan: sepsis On presentation not related to perforated gastric ulcerfrom pulmonary source however ua resulted with pansensitive E coli, did require pressors- metabolic encephalopathy present on admission, baseline has severe dementia Patient now on Zosyn therapy after perforated gastric ulcer with oversew -previous sepsis work up, did have LP , CSF noted elevated WBC however bloody tap, less concern meningitis CFS panel negative -CT head: No acute intracranial findings. No change in appearance of the brain. blood cx gram +, urine Gram neg, suspect blood is contaminant Code Status: Full, no records with [facility], unable to discuss with patient [facility] [place] patient is unable to make decisions it was confirmed there are no family to help make decisions As patient has multiple comorbidities may consider getting power of real estate attorney secured before further hospitalization (5) Dementia: Plan: pre hospital diagnosis of alzheimers, donepazil, olanzipine am/pm and celexa, resumed olanzapine in the afternoon of 01/28 we will try to mimic his home dose dosing with a slightly ankle patch molder evening dose. Patient will be on 2.5 the morning and 5 at night (6) HLD (hyperlipidemia): Plan: typically on crestor (7) Seizure-like activity: Plan: concern on admission , EEG was abnormal and showed a moderate generalized encephalopathy as noted by the generalized slowing. There were no focal abnormalities or potentially epileptogenic discharges seen. not started on antiepileptic medications Plan Admission and Anticipated Discharge Date Admission Date: January 19, 2023 Subjective Per penitentiary guards in the room, he did drink broth yesterday. He also had some Jell-O last night per nurse. I decided to discontinue TPN today. Review of Systems Review of Systems: Unobtainable due to cognitive status Physical Exam Physical Exam: General: Awake. Making comments which are unintelligible. Demented baseline. does not appear to be in significant pain. Heart: S1, S2/regular rate and rhythm, no murmur rubs or gallops Lungs: Clear to auscultation bilaterally. Normal effort Abdomen: Dressing on the abdomen. Extremities: No clubbing/cyanosis. No edema Behavior: Cooperative Results & Data Results & Data Vital Signs (Past 12 Hours) Vital Signs Temp Pulse Pulse Resp BP Pulse Ox O2 Del Method 02/04/23 15:23 36.4 C L 81 18 164/93 H 98 Nasal Cannula 02/04/23 11:29 36.5 C 74 18 147/76 H 99 Room Air 02/04/23 08:46 Room Air 02/04/23 08:00 56 L 02/04/23 07:36 35.8 C L 71 16 147/86 H 100 Nasal Cannula O2 Flow Rate 02/04/23 15:23 2 02/04/23 11:29 02/04/23 08:46 02/04/23 08:00 02/04/23 07:36 2 Laboratory Results Abnormal lab results 02/04/23 02/04/23 Range/Units 06:22 11:58 BUN 24 H (6-23) mg/dl BUN/Creatinine Ratio 35.8 H (10-20) Glucose 108 H (70-99(Fasting)) mg/dl POC Glucose 102 H (70-99) mg/dl PG Care Time/CCT Total # of Minutes Spent Total Time Spent with Patient: Total time spent is greater than 50% in coordination of care (as documented) at patient's floor/unit and/or counseling patient: Coding Level of Care Code 27970 SUB INP/OBS CARE 2/35MIN Diagnoses Perforated gastric ulcer K25.5 Abdominal pain R10.9 Wound dehiscence T81.30XA Sepsis A41.9 Sepsis acute organ dysfunction status: unspecified Sepsis type: sepsis due to unspecified organism Dementia F03.90 Dementia behavioral or psychological symptom: unspecified whether behavioral, psychotic, or mood disturbance or anxiety Dementia severity: unspecified severity Dementia type: unspecified type HLD (hyperlipidemia) E78.5 Seizure-like activity R56.9 (4) Sepsis Sepsis acute organ dysfunction status: unspecified Sepsis type: sepsis due to unspecified organism Qualified Code(s): A41.9 - Sepsis, unspecified organism (5) Dementia Dementia behavioral or psychological symptom: unspecified whether behavioral, psychotic, or mood disturbance or anxiety Dementia severity: unspecified severity Dementia type: unspecified type Qualified Code(s): F03.90 - Unspecified dementia, unspecified severity, without behavioral disturbance, psychotic disturbance, mood disturbance, and anxiety
[2023-02-04] MEDS: LACTATED RINGER'S 1,000 ML IV SCH (17:12)
[2023-02-05] MEDS: HYDROmorphone INJ 1 MG/ML SYRINGE IV PRN (02:29)
[2023-02-05] MEDS: LACTATED RINGER'S 1,000 ML IV SCH ×2 (05:28→19:50)
[2023-02-05 07:46] LABS: BUN Creatinine Ratio 26.6 (10-20); Creatinine Clr Calc Pharmacy 85.4 ml/min; Est GFR (African American) 110.8 ml/min; Est GFR (Non-African American) 95.6 ml/min; Magnesium 1.8 mg/dl (1.7-2.4); Phosphorus 3.3 mg/dl (2.5-4.9); Potassium 4.6 mmol/L (3.5-5.1)
[2023-02-05] MEDS: HEPARIN SOD 5,000 UNIT/0.5 ML VIAL SQ SCH ×2 (09:28→20:03)
[2023-02-05] MEDS: PANTOprazole 40 MG in SYRINGE 0 ML IV SCH ×2 (09:28→20:09)
[2023-02-05] MEDS: OLANZapine ZYDIS 5 MG ORALLY DIS. TAB PO SCH ×2 (09:29→20:03)
--- NOTE | 2023-02-05 11:20 | Surgery Progress Note ---
Date of Service February 03, 2023 Assessment & Plan (1) Wound dehiscence: (2) Perforated gastric ulcer: Plan doing well. Gastric upper GI leak test was negative on Wednesday. tolerating clears. advance diet as tolerated. may need to decrease TPN to increase diet. Continue to monitor. May remove ANNMARIE drain in the next few days. We will follow peripherally. Sherry will need to be removed removed 10 days from last surgery. Admission and Anticipated Discharge Date Admission Date: January 19, 2023 Subjective doing well; no apparent pain; tolerating liquid but not drinking much Physical Exam Physical Exam: AFVSS NAD, & O x3 Abdomen: Soft, nontender Dressings clean/dry/intact Incision with sherry ANNMARIE drain with serous fluid, minimal Results & Data Vital Signs (Past 12 Hours) Vital Signs Temp Pulse Pulse Pulse Resp BP Pulse Ox 02/05/23 07:29 36.5 C 73 16 193/96 H 99 02/05/23 07:21 64 02/05/23 02:39 36.6 C 79 18 155/84 H 100 02/05/23 01:47 85 O2 Del Method O2 Flow Rate 02/05/23 07:29 Nasal Cannula 2 02/05/23 07:21 02/05/23 02:39 Room Air 2 02/05/23 01:47
--- NOTE | 2023-02-05 16:47 | Surgery Progress Note ---
Date of Service February 05, 2023 Assessment & Plan (1) Wound dehiscence: (2) Perforated gastric ulcer: Plan POD # 13 ex lap repair of gastric perforation/ POD # 7 repair of wound dehisence combative, basline dementia not drinking eating much, spitting out at nurses abdomen benign, drain with minimal output Plan: Can remove sameer drain today, order placed surgical sherry can be removed on POD # 10 if no signs of poor wound healing can advance diet as tolerated continue medical management Admission and Anticipated Discharge Date Admission Date: January 19, 2023 Subjective unable to obtain due to patients baseline dementia guards at bedside, said he is combative today, spitting at nurses, now in face guard becuase of that does not look to be in any distress/pain Physical Exam Constitutional: + thin; no acute distress, not in distress and not diaphoretic Respiratory: normal respiratory effort; no respiratory distress and no labored breathing Gastrointestinal (Abdomen): Inspection/Auscultation: abdomen normal to inspection, + abdominal surgical incision (midline incision c/d/i with sherry, no erythema) and + abdominal surgical drain present (serous, minimal drainage); abdomen not distended Percussion/Palpation: abdomen soft; abdomen nontender, no guarding and abdomen not rigid Skin: no rashes, warm and dry Results & Data Vital Signs (Past 12 Hours) Vital Signs Temp Pulse Pulse Resp BP Pulse Ox O2 Del Method 02/05/23 15:38 84 02/05/23 15:16 36.4 C L 88 16 187/87 H 99 Nasal Cannula 02/05/23 11:17 36.5 C 78 16 163/87 H 98 Nasal Cannula 02/05/23 07:29 36.5 C 73 16 193/96 H 99 Nasal Cannula 02/05/23 07:21 64 O2 Flow Rate 02/05/23 15:38 02/05/23 15:16 2 02/05/23 11:17 2 02/05/23 07:29 2 02/05/23 07:21 Laboratory Results 02/05/23 Range/Units 06:56 Sodium 137 (136-145) mmol/L Potassium 4.6 (3.5-5.1) mmol/L Chloride 105 (98-107) mmol/L Carbon Dioxide 27 (21-32) mmol/L Anion Gap 5 (3-11) BUN 21 (6-23) mg/dl Creatinine 0.79 (0.6-1.4) mg/dl Est Cr Clr Drug Dosing 85.4 ml/min Est GFR ( Amer) 110.8 ml/min Est GFR (Non-Af Amer) 95.6 ml/min BUN/Creatinine Ratio 26.6 H (10-20) Glucose 95 (70-99(Fasting)) mg/dl Calcium 9.0 (8.6-10.3) mg/dl Phosphorus 3.3 (2.5-4.9) mg/dl Magnesium 1.8 (1.7-2.4) mg/dl
--- NOTE | 2023-02-05 18:35 | Hospitalist Progress Note ---
Date of Service February 05, 2023 Assessment & Plan (1) Perforated gastric ulcer: Plan: Patient with abdominal pain in the a.m. of 01/23. CT scan ordered with possibility of perforated gastric ulcer. General surgery took to the OR performed oversewing of a large lesser curvature gastric ulcer with perforation and peritoneal soilage, Required pressors now off.. currently on Zosyn For perforated gastric ulcer patient competed 5 days protonix drip now to bid dosing Upper GI series did not show any contrast leakage from the stomach Patient has been on TPN from 01/26 till 02/04. Has been on a clear liquid diet with unreliable intake. tpn stopped 02/04 will need to discuss with [facility] and surgery may benefit from core safe feeds if [facility] can handle this (2) Wound dehiscence: Plan: Abdominal CT raised concerns of wound dehiscence. reclosure of wound dehiscence done on 01/29. (3) Sepsis: Plan: sepsis On presentation not related to perforated gastric ulcerfrom pulmonary source however ua resulted with pansensitive E coli, did require pressors- metabolic encephalopathy present on admission, baseline has severe dementia Patient now on Zosyn therapy after perforated gastric ulcer with oversew -previous sepsis work up, did have LP , CSF noted elevated WBC however bloody tap, less concern meningitis CFS panel negative -CT head: No acute intracranial findings. No change in appearance of the brain. blood cx gram +, urine Gram neg, suspect blood is contaminant Code Status: Full, no records with [facility], unable to discuss with patient spoke to [facility] at [place] patient is unable to make decisions it was confirmed there are no family to help make decisions As patient has multiple comorbidities may consider getting power of regulatory attorney secured before further hospitalization (4) Dementia: Plan: pre hospital diagnosis of alzheimers, donepazil, olanzipine am/pm and celexa, resumed olanzapine in the afternoon of 01/28 we will try to mimic his home dose dosing with a slightly almond blancher hand evening dose. Patient will be on 2.5 the morning and 5 at night (5) Seizure-like activity: Plan: concern on admission , EEG was abnormal and showed a moderate generalized encephalopathy as noted by the generalized slowing. There were no focal abnormalities or potentially epileptogenic discharges seen. not started on antiepileptic medications Plan Admission and Anticipated Discharge Date Admission Date: January 19, 2023 Subjective Patient was seen he is demented he is growling and making nonsensical statements to me. Does not seem to be any particular distress Physical Exam Physical Exam: Patient is awake watching TV occasionally making sense and mostly not making sense. Abdomen shows a well approximated surgical scar with surgical sherry in place and a dressing in the right lower quadrant. He is lost a significant amount of weight however has a benign examining abdomen at this time Results & Data Results & Data Vital Signs (Past 12 Hours) Vital Signs Temp Pulse Pulse Resp BP Pulse Ox O2 Del Method 02/05/23 15:38 84 02/05/23 15:16 97.5 F L 88 16 187/87 H 99 Nasal Cannula 02/05/23 11:17 97.7 F 78 16 163/87 H 98 Nasal Cannula 02/05/23 07:29 97.7 F 73 16 193/96 H 99 Nasal Cannula 02/05/23 07:21 64 O2 Flow Rate 02/05/23 15:38 02/05/23 15:16 2 02/05/23 11:17 2 02/05/23 07:29 2 02/05/23 07:21 Laboratory Results reviewed chemistry PG Care Time/CCT Total # of Minutes Spent Total Time Spent with Patient: Total time spent is greater than 50% in coordination of care (as documented) at patient's floor/unit and/or counseling patient: Coding Level of Care Code 55469 SUB INP/OBS CARE 2MIN Diagnoses Perforated gastric ulcer K25.5 Wound dehiscence T81.30XA Sepsis A41.9 Sepsis acute organ dysfunction status: unspecified Sepsis type: sepsis due to unspecified organism Dementia F03.90 Dementia behavioral or psychological symptom: unspecified whether behavioral, psychotic, or mood disturbance or anxiety Dementia severity: unspecified severity Dementia type: unspecified type Seizure-like activity R56.9 (3) Sepsis Sepsis acute organ dysfunction status: unspecified Sepsis type: sepsis due to unspecified organism Qualified Code(s): A41.9 - Sepsis, unspecified organism (4) Dementia Dementia behavioral or psychological symptom: unspecified whether behavioral, psychotic, or mood disturbance or anxiety Dementia severity: unspecified severity Dementia type: unspecified type Qualified Code(s): F03.90 - Unspecified dementia, unspecified severity, without behavioral disturbance, psychotic disturbance, mood disturbance, and anxiety
[2023-02-05] MEDS: HYDROmorphone INJ 0.5 MG/0.5 ML SYR IV PRN (19:50)
[2023-02-06] MEDS: HYDROmorphone INJ 1 MG/ML SYRINGE IV PRN (01:02)
[2023-02-06 07:41] LABS: BUN Creatinine Ratio 21.6 (10-20); Creatinine Clr Calc Pharmacy 87.9 ml/min; Est GFR (African American) 113.8 ml/min; Est GFR (Non-African American) 98.2 ml/min; Magnesium 1.8 mg/dl (1.7-2.4); Potassium 4.5 mmol/L (3.5-5.1)
--- NOTE | 2023-02-06 08:58 | Surgery Progress Note ---
Date of Service February 06, 2023 Assessment & Plan (1) Perforated gastric ulcer: Plan: continue medical management (2) Wound dehiscence: Admission and Anticipated Discharge Date Admission Date: January 19, 2023 Subjective combative and demented Physical Exam Constitutional: well developed and well nourished Neck: trachea midline Respiratory: normal respiratory effort, lungs clear to auscultation Cardiovascular: RRR, no murmur, no edema Gastrointestinal (Abdomen): Inspection/Auscultation: abdomen normal to inspection and normal bowel sounds; abdomen not distended Percussion/Palpation: + abdomen tender and abdomen soft; no guarding and abdomen not rigid Musculoskeletal: Head/Neck/Chest: normocephalic and head atraumatic Results & Data Vital Signs (Past 12 Hours) Vital Signs Temp Pulse Pulse Pulse Resp BP Pulse Ox 02/06/23 07:55 36.8 C 72 16 144/80 H 99 02/06/23 03:01 37 C 73 14 140/84 99 02/05/23 22:03 93 H 02/05/23 22:50 36.4 C L 93 H 20 163/86 H 100 02/05/23 22:00 O2 Del Method O2 Flow Rate 02/06/23 07:55 Room Air 02/06/23 03:01 Nasal Cannula 2 02/05/23 22:03 02/05/23 22:50 Nasal Cannula 02/05/23 22:00 Nasal Cannula 2
[2023-02-06] MEDS: OLANZapine ZYDIS 5 MG ORALLY DIS. TAB PO SCH ×3 (09:02→22:50)
[2023-02-06] MEDS: PANTOprazole 40 MG in SYRINGE 0 ML IV SCH ×2 (09:04→20:06)
[2023-02-06] MEDS: HEPARIN SOD 5,000 UNIT/0.5 ML VIAL SQ SCH ×2 (09:04→20:07)
[2023-02-06] MEDS: LACTATED RINGER'S 1,000 ML IV SCH ×2 (09:16→23:34)
--- NOTE | 2023-02-06 15:45 | Hospitalist Progress Note ---
Date of Service February 06, 2023 Assessment & Plan (1) Perforated gastric ulcer: Plan: Patient with abdominal pain in the a.m. of 01/23. CT scan ordered with possibility of perforated gastric ulcer. General surgery took to the OR performed oversewing of a large lesser curvature gastric ulcer with perforation and peritoneal soilage, Required pressors now off.. Completed Zosyn For perforated gastric ulcer patient competed 5 days protonix drip now to bid dosing Upper GI series did not show any contrast leakage from the stomach 02/04 TPN stop, 02/05 tolerated liquid diet, 02/06 advance diet to soft consistency food (2) Wound dehiscence: Plan: Abdominal CT raised concerns of wound dehiscence. reclosure of wound dehiscence done on 01/29. (3) Sepsis: Plan: sepsis On presentation not related to perforated gastric ulcerfrom pulmonary source however ua resulted with pansensitive E coli, did require pressors- metabolic encephalopathy present on admission, baseline has severe dementia perforated gastric ulcer with oversew -previous sepsis work up, did have LP , CSF noted elevated WBC however bloody tap, less concern meningitis CFS panel negative -CT head: No acute intracranial findings. No change in appearance of the brain. Code Status: Full, no records with [facility], unable to discuss with patient spoke to [facility] at [place] patient is unable to make decisions it was confirmed there are no family to help make decisions As patient has multiple comorbidities may consider getting power of oil well directional surveyor secured before further hospitalization (4) Dementia: Plan: pre hospital diagnosis of alzheimers, donepazil, olanzipine am/pm and celexa, resumed olanzapine in the afternoon of 01/28 we will try to mimic his home dose dosing with a slightly vegetable farm manager evening dose. Patient will be on 2.5 the morning and 5 at night (5) Seizure-like activity: Plan: concern on admission , EEG was abnormal and showed a moderate generalized e ncephalopathy as noted by the generalized slowing. There were no focal abnormalities or potentially epileptogenic discharges seen. not started on antiepileptic medications Plan Disposition is challenging given patient's poor nutritional intake will hopefully have better p.o. intake prior to returning to the senior care. Admission and Anticipated Discharge Date Admission Date: January 19, 2023 Subjective Patient is demented he is interactive he is having a poor tolerance of diet although may be the consistency. There is no rebuttal from surgery to advance diet his surgery has been days ago we will advance the diet to a soft diet to see if he is able to tolerate more caloric intake and have a nutritional consultation Physical Exam Physical Exam: Patient is awake watching TV occasionally making sense and mostly not making sense. Abdomen shows a well approximated surgical scar with surgical sherry in place and a dressing in the right lower quadrant. He is mildly tender in the right lower quadrant, he is lost a significant amount of weight Results & Data Results & Data Vital Signs (Past 12 Hours) Vital Signs Temp Pulse Pulse Resp BP Pulse Ox O2 Del Method 02/06/23 15:34 97.9 F 81 18 165/84 H 98 Room Air 02/06/23 12:00 98.2 F 99 H 18 162/97 H 97 Room Air 02/06/23 08:00 83 02/06/23 07:55 98.2 F 72 16 144/80 H 99 Room Air Laboratory Results Reviewed chemistry Reviewed all orders and transfer to medical floor PG Care Time/CCT Total # of Minutes Spent Total Time Spent with Patient: Total time spent is greater than 50% in coordination of care (as documented) at patient's floor/unit and/or counseling patient: Coding Level of Care Code 80995 SUB INP/OBS CARE 3/50MIN Diagnoses Perforated gastric ulcer K25.5 Wound dehiscence T81.30XA Sepsis A41.9 Sepsis acute organ dysfunction status: unspecified Sepsis type: sepsis due to unspecified organism Dementia F03.90 Dementia behavioral or psychological symptom: unspecified whether behavioral, psychotic, or mood disturbance or anxiety Dementia severity: unspecified severity Dementia type: unspecified type Seizure-like activity R56.9 (3) Sepsis Sepsis acute organ dysfunction status: unspecified Sepsis type: sepsis due to unspecified organism Qualified Code(s): A41.9 - Sepsis, unspecified organism (4) Dementia Dementia behavioral or psychological symptom: unspecified whether behavioral, psychotic, or mood disturbance or anxiety Dementia severity: unspecified severity Dementia type: unspecified type Qualified Code(s): F03.90 - Unspecified dementia, unspecified severity, without behavioral disturbance, psychotic disturbance, mood disturbance, and anxiety
[2023-02-06] MEDS: HYDROmorphone INJ 0.5 MG/0.5 ML SYR IV PRN (19:56)
[2023-02-07] MEDS: HYDROmorphone INJ 0.5 MG/0.5 ML SYR IV PRN ×5 (03:41→21:14)
[2023-02-07] MEDS: HEPARIN SOD 5,000 UNIT/0.5 ML VIAL SQ SCH ×2 (08:43→21:25)
[2023-02-07] MEDS: OLANZapine ZYDIS 5 MG ORALLY DIS. TAB PO SCH ×2 (08:44→23:06)
[2023-02-07] MEDS: PANTOprazole 40 MG in SYRINGE 0 ML IV SCH ×2 (09:20→21:25)
--- NOTE | 2023-02-07 11:43 | Surgery Progress Note ---
Date of Service February 07, 2023 Assessment & Plan (1) Perforated gastric ulcer: Plan: advance diet as tolerated con't dressings (2) Wound dehiscence: Admission and Anticipated Discharge Date Admission Date: January 19, 2023 Subjective no changes Physical Exam Gastrointestinal (Abdomen): Inspection/Auscultation: abdomen normal to inspection, normal bowel sounds and + abdominal surgical incision; abdomen not distended Results & Data Vital Signs (Past 12 Hours) Vital Signs Temp Pulse Resp BP Pulse Ox O2 Del Method 02/07/23 08:59 Room Air 02/07/23 08:47 36.3 C L 81 16 132/77 97 Room Air
[2023-02-07] MEDS: LACTATED RINGER'S 1,000 ML IV SCH (13:54)
--- NOTE | 2023-02-07 14:59 | Hospitalist Progress Note ---
Date of Service February 07, 2023 Assessment & Plan (1) Perforated gastric ulcer: Plan: Patient with abdominal pain in the a.m. of 01/23. CT scan ordered with possibility of perforated gastric ulcer. General surgery took to the OR performed oversewing of a large lesser curvature gastric ulcer with perforation and peritoneal soilage, Required pressors now off.. Completed Zosyn For perforated gastric ulcer patient competed 5 days protonix drip now to bid dosing Upper GI series did not show any contrast leakage from the stomach 02/04 TPN stop, 02/05 tolerated liquid diet, 02/06 advance diet to soft consistency food (2) Wound dehiscence: Plan: Abdominal CT raised concerns of wound dehiscence. reclosure of wound dehiscence done on 01/29. (3) Sepsis: Plan: sepsis On presentation not related to perforated gastric ulcerfrom pulmonary source however ua resulted with pansensitive E coli, did require pressors- metabolic encephalopathy present on admission, baseline has severe dementia perforated gastric ulcer with oversew -previous sepsis work up, did have LP , CSF noted elevated WBC however bloody tap, less concern meningitis CFS panel negative -CT head: No acute intracranial findings. No change in appearance of the brain. Code Status: Full, no records with [facility], unable to discuss with patient spoke to [facility] at [place] patient is unable to make decisions it was confirmed there are no family to help make decisions As patient has multiple comorbidities may consider getting power of assistant district attorney secured before further hospitalization (4) Dementia: Plan: pre hospital diagnosis of alzheimers, donepazil, olanzipine am/pm and celexa, resumed olanzapine in the afternoon of 01/28 we will try to mimic his home dose dosing with a slightly orchestra teacher evening dose. Patient will be on 2.5 the morning and 5 at night (5) Seizure-like activity: Plan: concern on admission , EEG was abnormal and showed a moderate generalized e ncephalopathy as noted by the generalized slowing. There were no focal abnormalities or potentially epileptogenic discharges seen. not started on antiepileptic medications Plan Disposition is challenging given patient's poor nutritional intake will hopefully have better p.o. intake prior to returning to the residential. Admission and Anticipated Discharge Date Admission Date: January 19, 2023 Subjective no changes patient is tolerating pured diet will advance. Is eating better intake now has more substantial food Physical Exam Physical Exam: Patient is awake Abdomen shows a well approximated surgical scar with surgical sherry in place and a dressing in the right lower quadrant. He is mildly tender in the right lower quadrant, he is lost a significant amount of weight Results & Data Results & Data Vital Signs (Past 12 Hours) Vital Signs Temp Pulse Resp BP Pulse Ox O2 Del Method 02/07/23 08:59 Room Air 02/07/23 08:47 97.3 F L 81 16 132/77 97 Room Air Laboratory Results ordered laboratories for 1016 including magnesium PG Care Time/CCT Total # of Minutes Spent Total Time Spent with Patient: Total time spent is greater than 50% in coordination of care (as documented) at patient's floor/unit and/or counseling patient: Coding Level of Care Code 21093 SUB INP/OBS CARE 2/35MIN Diagnoses Perforated gastric ulcer K25.5 Wound dehiscence T81.30XA Sepsis A41.9 Sepsis acute organ dysfunction status: unspecified Sepsis type: sepsis due to unspecified organism Dementia F03.90 Dementia behavioral or psychological symptom: unspecified whether behavioral, psychotic, or mood disturbance or anxiety Dementia severity: unspecified severity Dementia type: unspecified type Seizure-like activity R56.9 (3) Sepsis Sepsis acute organ dysfunction status: unspecified Sepsis type: sepsis due to unspecified organism Qualified Code(s): A41.9 - Sepsis, unspecified organism (4) Dementia Dementia behavioral or psychological symptom: unspecified whether behavioral, psychotic, or mood disturbance or anxiety Dementia severity: unspecified severity Dementia type: unspecified type Qualified Code(s): F03.90 - Unspecified dementia, unspecified severity, without behavioral disturbance, psychotic disturbance, mood disturbance, and anxiety
[2023-02-07] MEDS ORDERED: ACETAMINOPHEN 1,000 MG/100 ML VIAL IV PRN (17:23)
[2023-02-07] MEDS ORDERED: oxyCODONE HCL IR 5 MG TAB (IMMEDIATE RELEASE) PO PRN (17:23)
[2023-02-08] MEDS: HYDROmorphone INJ 0.5 MG/0.5 ML SYR IV PRN ×2 (03:22→20:57)
[2023-02-08] MEDS: LACTATED RINGER'S 1,000 ML IV SCH ×2 (04:19→18:41)
[2023-02-08 06:28] LABS: Hematocrit (blood only) 28.7 % (42.0-52.0); Hemoglobin 9.5 g/dl (14.0-18.0); Mean Corpuscular Hemoglobin 27.2 pg (25.0-34.0); Mean Corpuscular Hgb Conc 33.1 g/dL (32.0-36.0); Mean Corpuscular Volume 82.2 fL (80.0-100.0); Mean Platelet Volume 10.3 fL (9.4-12.4); Platelet Count 651 K/uL (130-400); RDW Coefficient of Variation 13.6 % (11.5-14.5); RDW Standard Deviation 40.6 fL (36.4-46.3); Red Blood Count 3.49 M/uL (4.70-6.10); White Blood Count 9.72 K/ul (4.8-10.8)
[2023-02-08 06:48] LABS: BUN Creatinine Ratio 18.2 (10-20); Calcium 8.7 mg/dl (8.6-10.3); Creatinine Clr Calc Pharmacy 84.4 ml/min; Est GFR (African American) 111.9 ml/min; Est GFR (Non-African American) 96.6 ml/min
[2023-02-08 07:18] LABS: Magnesium 1.8 mg/dl (1.7-2.4)
[2023-02-08] MEDS: PANTOprazole 40 MG in SYRINGE 0 ML IV SCH (08:07)
[2023-02-08] MEDS: OLANZapine ZYDIS 5 MG ORALLY DIS. TAB PO SCH ×2 (08:07→20:57)
[2023-02-08] MEDS: HEPARIN SOD 5,000 UNIT/0.5 ML VIAL SQ SCH ×2 (08:07→20:57)
--- NOTE | 2023-02-08 10:28 | Surgery Progress Note ---
Date of Service February 08, 2023 Assessment & Plan (1) Perforated gastric ulcer: (2) Wound dehiscence: Plan POD # 16 ex lap repair of large gastric perforation/POD # 10 s/p repair of wound dehisence avss midline incision c/d/i eating more Plan: advance diet as tolerated will need BID PPI on discharge given large gastric perforation sherry removed today and steri strips applied Admission and Anticipated Discharge Date Admission Date: January 19, 2023 Subjective unable to obtain given patients baseline dementia more awake and alert however per bedside border guard patient has been unpleasant this morning Physical Exam Constitutional: WD/WN, vitals as above + thin; no acute distress, not ill appearing, not in distress and not lethargic Respiratory: normal respiratory effort; no respiratory distress Gastrointestinal (Abdomen): Inspection/Auscultation: abdomen normal to inspection and + abdominal surgical incision (clean/dry/intact with sherry); abdomen not distended and no abdominal surgical drain present Percussion/Palpation: abdomen soft; abdomen nontender, no guarding, abdomen not rigid and abdomen not firm surgical drain removed, clean/dry/intact dressing RLQ Skin: no rashes, warm and dry Psychiatric: Orientation: alert; + not oriented x 3 Results & Data Vital Signs (Past 12 Hours) Vital Signs Temp Pulse Resp BP Pulse Ox O2 Del Method 02/08/23 07:34 35.9 C L 59 L 18 151/65 H 98 Room Air Laboratory Results 02/08/23 02/08/23 Range/Units 05:38 05:38 WBC 9.72 (4.8-10.8) K/ul RBC 3.49 L (4.70-6.10) M/uL Hgb 9.5 L (14.0-18.0) g/dl Hct 28.7 L (42.0-52.0) % MCV 82.2 (80.0-100.0) fL MCH 27.2 (25.0-34.0) pg MCHC 33.1 (32.0-36.0) g/dL RDW Std Deviation 40.6 (36.4-46.3) fL RDW Coeff of Yoli 13.6 (11.5-14.5) % Plt Count 651 H (130-400) K/uL MPV 10.3 (9.4-12.4) fL Sodium 138 (136-145) mmol/L Potassium 4.0 (3.5-5.1) mmol/L Chloride 106 (98-107) mmol/L Carbon Dioxide 25 (21-32) mmol/L Anion Gap 7 (3-11) BUN 14 (6-23) mg/dl Creatinine 0.77 (0.6-1.4) mg/dl Est Cr Clr Drug Dosing 84.4 ml/min Est GFR ( Amer) 111.9 ml/min Est GFR (Non-Af Amer) 96.6 ml/min BUN/Creatinine Ratio 18.2 (10-20) Glucose 90 (70-99(Fasting)) mg/dl Calcium 8.7 (8.6-10.3) mg/dl Magnesium 1.8 (1.7-2.4) mg/dl
--- NOTE | 2023-02-08 17:54 | Hospitalist Progress Note ---
Date of Service February 08, 2023 Assessment & Plan (1) Perforated gastric ulcer: Plan: Patient with abdominal pain in the a.m. of 01/23. CT scan ordered with possibility of perforated gastric ulcer. General surgery took to the OR performed oversewing of a large lesser curvature gastric ulcer with perforation and peritoneal soilage, Required pressors now off.. Completed Zosyn For perforated gastric ulcer patient competed 5 days protonix drip now to bid dosing Upper GI series did not show any contrast leakage from the stomach 02/04 TPN stop, 02/05 tolerated liquid diet, 02/06 advance diet to soft consistency food (2) Wound dehiscence: Plan: Abdominal CT raised concerns of wound dehiscence. reclosure of wound dehiscence done on 01/29. (3) Sepsis: Plan: sepsis On presentation not related to perforated gastric ulcerfrom pulmonary source however ua resulted with pansensitive E coli, did require pressors- metabolic encephalopathy present on admission, baseline has severe dementia perforated gastric ulcer with oversew -previous sepsis work up, did have LP , CSF noted elevated WBC however bloody tap, less concern meningitis CFS panel negative -CT head: No acute intracranial findings. No change in appearance of the brain. Code Status: Full, no records with [facility], unable to discuss with patient spoke to [facility] at [place] patient is unable to make decisions it was confirmed there are no family to help make decisions As patient has multiple comorbidities may consider getting power of personal injury attorney secured before further hospitalization (4) Dementia: Plan: pre hospital diagnosis of alzheimers, donepazil, olanzipine am/pm and celexa, resumed olanzapine in the afternoon of 01/28 we will try to mimic his home dose dosing with a slightly registered nurse surgical services evening dose. Patient will be on 5 the morning and 5 at night (5) Seizure-like activity: Plan: concern on admission , EEG was abnormal and showed a moderate generalized enc ephalopathy as noted by the generalized slowing. There were no focal abnormalities or potentially epileptogenic discharges seen. not started on antiepileptic medications Plan Disposition is challenging given patient's poor nutritional intake will hopefully have better p.o. intake prior to returning to the detention. Admission and Anticipated Discharge Date Admission Date: January 19, 2023 Subjective unable to obtain given patients baseline dementia more awake and alert however, pt growling at me at times Physical Exam Physical Exam: Patient is awake Abdomen shows a well approximated surgical scar with surgical sherry have been removed, dressing in the right lower quadrant at sameer site. He is mildly tender in the right lower quadrant, he is lost a significant amount of weight Results & Data Results & Data Vital Signs (Past 12 Hours) Vital Signs Temp Pulse Resp BP Pulse Ox O2 Del Method 02/08/23 14:42 97.7 F 90 18 188/91 H 99 Room Air 02/08/23 07:34 96.6 F L 59 L 18 151/65 H 98 Room Air PG Care Time/CCT Total # of Minutes Spent Total Time Spent with Patient: Total time spent is greater than 50% in coordination of care (as documented) at patient's floor/unit and/or counseling patient: Coding Level of Care Code 65797 SUB INP/OBS CARE 235MIN Diagnoses Perforated gastric ulcer K25.5 Wound dehiscence T81.30XA Sepsis A41.9 Sepsis acute organ dysfunction status: unspecified Sepsis type: sepsis due to unspecified organism Dementia F03.90 Dementia behavioral or psychological symptom: unspecified whether behavioral, psychotic, or mood disturbance or anxiety Dementia severity: unspecified severity Dementia type: unspecified type Seizure-like activity R56.9 (3) Sepsis Sepsis acute organ dysfunction status: unspecified Sepsis type: sepsis due to unspecified organism Qualified Code(s): A41.9 - Sepsis, unspecified organism (4) Dementia Dementia behavioral or psychological symptom: unspecified whether behavioral, psychotic, or mood disturbance or anxiety Dementia severity: unspecified severity Dementia type: unspecified type Qualified Code(s): F03.90 - Unspecified dementia, unspecified severity, without behavioral disturbance, psychotic disturbance, mood disturbance, and anxiety
[2023-02-08] MEDS: PANTOprazole 40 MG TAB PO SCH (21:02)
[2023-02-09] MEDS: HYDROmorphone INJ 0.5 MG/0.5 ML SYR IV PRN ×2 (01:12→05:46)
[2023-02-09] MEDS: HEPARIN SOD 5,000 UNIT/0.5 ML VIAL SQ SCH ×2 (09:08→21:36)
[2023-02-09] MEDS: LACTATED RINGER'S 1,000 ML IV SCH ×2 (09:08→23:27)
[2023-02-09] MEDS: PANTOprazole 40 MG TAB PO SCH ×2 (09:09→21:36)
[2023-02-09] MEDS: OLANZapine ZYDIS 5 MG ORALLY DIS. TAB PO SCH ×2 (09:09→21:36)
--- NOTE | 2023-02-09 14:36 | Hospitalist Progress Note ---
Date of Service February 09, 2023 Assessment & Plan (1) Perforated gastric ulcer: Plan: Patient with abdominal pain in the a.m. of 01/23. CT scan ordered with possibility of perforated gastric ulcer. General surgery took to the OR performed oversewing of a large lesser curvature gastric ulcer with perforation and peritoneal soilage, Required pressors now off.. Completed Zosyn For perforated gastric ulcer patient competed 5 days protonix drip now to bid dosing Upper GI series did not show any contrast leakage from the stomach 02/04 TPN stop, 02/05 tolerated liquid diet, 02/06 advance diet to soft consistency food discussed with General surgery is seen at day 10 and does not need hospital follow up (2) Wound dehiscence: Plan: Abdominal CT raised concerns of wound dehiscence. reclosure of wound dehiscence done on 01/29. (3) Sepsis: Plan: sepsis On presentation not related to perforated gastric ulcerfrom pulmonary source however ua resulted with pansensitive E coli, did require pressors- metabolic encephalopathy present on admission, baseline has severe dementia perforated gastric ulcer with oversew -previous sepsis work up, did have LP , CSF noted elevated WBC however bloody tap, less concern meningitis CFS panel negative -CT head: No acute intracranial findings. No change in appearance of the brain. 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 Patient will be on 5 the morning and 5 at night (5) Seizure-like activity: Plan: concern on admission , EEG was abnormal and showed a moderate generalized encephalopathy as noted by the generalized slowing. There were no focal abnormalities or potentially epileptogenic discharges seen. not started on antiepileptic medications Admission and Anticipated Discharge Date Admission Date: January 19, 2023 Subjective unable to obtain given patients baseline dementia more awake and alert sherry removed and wound is clear Physical Exam Physical Exam: Patient is awake Abdomen shows a well approximated surgical scar with surgical sherry have been removed, dressing in the right lower quadrant at sameer site, wound is approximated and clean He has lost a significant amount of weight Results & Data Results & Data Vital Signs (Past 12 Hours) Vital Signs Temp Pulse Resp BP Pulse Ox O2 Del Method 02/09/23 07:19 97.5 F L 68 18 130/79 97 Room Air PG Care Time/CCT Total # of Minutes Spent Total Time Spent with Patient: Total time spent is greater than 50% in coordination of care (as documented) at patient's floor/unit and/or counseling patient: Coding Level of Care Code 21805 SUB INP/OBS CARE 05/20MIN Diagnoses Perforated gastric ulcer K25.5 Wound dehiscence T81.30XA Sepsis A41.9 Sepsis acute organ dysfunction status: unspecified Sepsis type: sepsis due to unspecified organism Dementia F03.90 Dementia behavioral or psychological symptom: unspecified whether behavi oral, psychotic, or mood disturbance or anxiety Dementia severity: unspecified severity Dementia type: unspecified type Seizure-like activity R56.9 (3) Sepsis Sepsis acute organ dysfunction status: unspecified Sepsis type: sepsis due to unspecified organism Qualified Code(s): A41.9 - Sepsis, unspecified organism (4) Dementia Dementia behavioral or psychological symptom: unspecified whether behavioral, psychotic, or mood disturbance or anxiety Dementia severity: unspecified severity Dementia type: unspecified type Qualified Code(s): F03.90 - Unspecified dementia, unspecified severity, without behavioral disturbance, psychotic disturbance, mood disturbance, and anxiety
[2023-02-10] MEDS: PANTOprazole 40 MG TAB PO SCH (08:23)
[2023-02-10] MEDS: HEPARIN SOD 5,000 UNIT/0.5 ML VIAL SQ SCH (08:23)
[2023-02-10] MEDS: OLANZapine ZYDIS 5 MG ORALLY DIS. TAB PO SCH (08:23)
--- NOTE | 2023-02-10 17:52 | Discharge Summary ---
Date of Service February 10, 2023 Admission HPI Per Admitting Provider 62yo Male with PMH Dementia Alzheimer's HLD here for concern sepsis. Patient from [facility], per [facility] patient at baseline largely nonverbal can speak but nonsense words, typically stands and bounces by himself can eat on his own, patient would stay awake for several days then sleep. Over past 2 days patient had decrease in oral intake, was showering today intermediate noted a seizure patient fell was incontinent on floor, medical staff noted hypotension temp was 97.5F HR 60's. In ED patient mildly responsive to sternal rub unable to open eyes or follow directions, currently in Angelica hugger. Noted hypothermia 31.9C BP 93/58 lactate 7.2. After fluid resuscitated 2.8L BP continued to be 85/53 lactate repeat 5.4. Patient started on Levophed, ICU contacted for pressor management. Principal Diagnosis sepsis secondary to uti poa perforated gastric ulcer with oversewing 01/23/23 wound dehiscence with reclosure 01/29/23-> sherry removed 02/08/23 Discharge Exam Patient is pleasantly confused no apparent distress abdomen was examined with well approximated wounds he was not particularly tender Discharge Data Allergies Allergy/AdvReac Type Severity Reaction Status Date / Time No Known Allergies Allergy Verified 01/19/23 13:00 Consultations 01/19/23 12:53 ED Decision to Admit Stat 01/19/23 14:55 Consult Pulp Grinder Feeder Routine 01/19/23 14:58 Consult Neurology Routine 01/23/23 15:50 Consult General Surgery Routine Procedures Performed Operation Date: 01/29/23 10:55 Actual Procedures p Open Incision with Fascial Closure(Not Applicable) - Dionicio Hollis MD Ordered Studies 01/19/23 11:10 CT abd pelvis wo con Stat CT head/brain wo con Stat 01/20/23 08:42 MR brain wo con Routine 01/23/23 10:58 CT Abd and Pelvis [CT abd pelvis oral con only] Urgent 01/29/23 09:33 CT abd pelvis wo con Stat Hospital Course (1) Perforated gastric ulcer: Patient with abdominal pain in the a.m. of 01/23. CT scan ordered with possibility of perforated gastric ulcer. General surgery took to the OR performed oversewing of a large lesser curvature gastric ulcer with perforation and peritoneal soilage, Required pressors now off.. Completed Zosyn For perforated gastric ulcer patient competed 5 days protonix drip now to bid dosing Upper GI series did not show any contrast leakage from the stomach 02/04 TPN stop, 02/05 tolerated liquid diet, 02/06 advance diet to soft consistency food discussed with General surgery is seen at day 10 and does not need hospital follow up (2) Wound dehiscence: Abdominal CT raised concerns of wound dehiscence. reclosure of wound dehiscence done on 01/29. (3) Sepsis: sepsis On presentation not related to perforated gastric ulcerfrom pulmonary source however ua resulted with pansensitive E coli, did require pressors- metabolic encephalopathy present on admission, baseline has severe dementia perforated gastric ulcer with oversew -previous sepsis work up, did have LP , CSF noted elevated WBC however bloody tap, less concern meningitis CFS panel negative -CT head: No acute intracranial findings. No change in appearance of the brain. Code Status: Full, no records with [facility], unable to discuss with patient spoke to [facility] at [place] patient is unable to make decisions it was confirmed there are no family to help make decisions As patient has multiple comorbidities may consider getting power of patent attorney secured before further hospitalization (4) Dementia: pre hospital diagnosis of alzheimers, donepazil, olanzipine am/pm and celexa, resumed olanzapine in the afternoon of 01/28 we will try to mimic his home dose dosing with a slightly scenic artist evening dose. Patient will be on 5 the morning and 5 at night (5) Seizure-like activity: concern on admission , EEG was abnormal and showed a moderate generalized encephalopathy as noted by the generalized slowing. There were no focal abnormalities or potentially epileptogenic discharges seen. not started on antiepileptic medications Total Time Total Time Spent Total Time Spent (In Minutes): It required greater than 30 minutes to prepare this patient for discharge Discharge Plan Discharge Items [facility] Reason For Visit: SEPSIS Discharge Diagnosis: sepsis urinary source perforated gastric ulcer requiring surgery dehiscence of surgical wound requiring repair dementia Activity: Per Instructions section Activity Comment: as per intermediate protocol Non-emergency contact: Primary Care Provider Call non-emergency contact if: your symptoms worsen Follow-up/Referrals: Morenita PASCAL [Primary Care Provider] - Diet: Regular Diet Texture: Easy to Chew Lacie Attending Provider Instructions: Patient has been intolerant of an advance diet. His sherry have been removed and does not need any specific care on his abdominal wound but attention to the wound just for surveillance for continued healing by the present medical staff would be warranted. you may also use tylenol for pain Addtl Senior Copywriter Provider Instructions: Please consider having a guardian assigned as this pt will undoubtably require additional hospitalizations in the future Post-Surgical ~Discharge Instructions Activity Recommendations: - lifting limitation: (10 pounds for at least 6 weeks), - exercise/sex/sports limit: (nonstrenuous for 6 weeks), - Shower/bathe limit: (may shower) Diet: - Advance diet as tolerated, easy to chew SPECIAL CARE INSTRUCTIONS: - May shower in 24 hours. Let water run over area and pat dry. - Lanse removed today 02/08/2023. Leave steri strips on for one week or until they fall off. - (ex. temperature higher than 101 degrees F, excessive bleeding or pain). MEDICATIONS: - Resume previous medications unless instructed otherwise by your surgeon. - May take extra strength Tylenol for pain 650 mg every 6 hours as needed - AVOID NSAIDS given gastric perforation - Needs to take PPI BID given gastric perforation FOLLOW UP VISIT: no follow up visit is required - Pending Studies at Discharge: No Stand-Alone Forms: My [facility] [place] Skilled Items Patient informed of condition?: Yes Discharge Level of Care: Other Communicable Disease: No Discharge Prognosis: Stable Lines: None Urinary Catheter: No Medications and DC Order Prescriptions: New olanzapine [Zyprexa] 5 mg tablet 5 mg PO BID Qty: 60 0RF tramadol 50 mg tablet 50 mg PO Q6H PRN (Reason: pain) Qty: 60 0RF pantoprazole 40 mg tablet,delayed release (DR/EC) 40 mg PO BID 30 Days Qty: 60 0RF Continued citalopram [Celexa] 10 mg Tablet 5 mg PO DAILY donepezil 10 mg Tablet 10 mg PO DAILY docusate sodium 250 mg Capsule 250 mg PO DAILY PRN (Reason: Constipation) rosuvastatin [Crestor] 20 mg Tablet 20 mg PO DAILY Discontinued olanzapine [Zyprexa] 10 mg Tablet 10 mg PO HS olanzapine 2.5 mg Tablet 2.5 mg PO QAM Discharge Orders: Discharge Order (Routine); Ordered 02/10/23 Ordered By: Levi E. Covaleski Krames/Other Patient Handouts: Sepsis Admission Data Admit Date/Time: 01/19/23 13:32 Attending Provider: Levi Sue Admit Provider: Ananya Alejandra Primary Care Provider: Morenita PASCAL Other Providers: Андрей Shaver ; Silver Juan ; Syed Turner ; Agustín Cameron ; [facility] Coding Level of Care Code 67596 INP/OBS DISCH >30 MIN Diagnoses Perforated gastric ulcer K25.5 Wound dehiscence T81.30XA Sepsis A41.9 Sepsis acute organ dysfunction status: unspecified Sepsis type: sepsis due to unspecified organism Dementia F03.90 Dementia behavioral or psychological symptom: unspecified whether behavioral, psychotic, or mood disturbance or anxiety Dementia severity: unspecified severity Dementia type: unspecified type Seizure-like activity R56.9
--- NOTE | 2023-02-25 11:07 | Coding Query ---
CODING QUERY To promote full compliance with coding requirements relating to patient care, provider participation is requested in all cases of professional fee coder uncertainty. Please assist us with the question(s) below: Coding Question(s): On 01/23/23, critical care documented Shock likely hypovolemic at this time- with open abdominal procedure, as well as 2liters removed from abdominal cavity. Please clarify if the patients hypovolemic shock was: Physician's Response(s): xx expected out of the surgery ( ) unexpected complication from the surgery ( )other please specify Thank you Debby Guerrero Principal Diagnosis: "that condition established after study, to be chiefly responsible for occasioning the admission of the patient to the hospital for care." Co-Existing Principal Diagnosis: "when two or more diagnoses equally meet the criteria for principal diagnosis as determined by the circumstances of admission, diagnostic work up, and/or therapy provided, and the Alphabetic Index, Tabular List, or another coding guideline does not provide sequencing direction, any one of the diagnoses may be sequenced first." "When the physician has documented what appears to be a current diagnosis in the body of the record, but has not included the diagnosis in the final diagnostic statement, the physician should be asked whether the diagnosis should be added." (Source Coding Clinic 2 QTR90. p3-4) VERONICA
== END 2023-02-10 12:27 | DRG 853 ==
LOC: ED 10:41 → SUATTDRO 13:32 → 1E 13:32 → 2S 01-22 17:48 → 3N 01-23 14:10 → 1E 01-23 18:10 → 2S 01-25 21:56 → 3E 02-06 18:47